=== PATIENT | female | born 1935 | race Caucasian/White ===

== ENCOUNTER 2023-03-14 08:38 | Emergency (ER) | payer OTHER, SELFPAY ==
[2023-03-14] VITALS (7 sets, daily range): BP systolic 140–165; BP diastolic 76–90; BMI 16.8
--- NOTE | 2023-03-14 08:43 | ED.GENMED ---
History of Present Illness
General
Chief Complaint: Chest Pain
Source: patient
Exam Limitations: none
Time Seen by Provider: 03/14/23 08:43
Nursing documentation reviewed up to this point in time: agreed with
History of Present Illness
History of Present Illness:
88-year-old female with past medical history of cardiomyopathy chronic systolic heart failure left bundle branch block pacemaker A-fib mitral valve and tricuspid valve repair sick sinus syndrome aortic stenosis with TAVR, GI bleed, hyperlipidemia
hypothyroidism nonobstructive CAD
Pt presents from [facility] presents to the ER for evaluation of chest pain. Patient reports she woke up at 4 AM to go bathroom and noticed she had pain across her chest radiating down both of her arms. Her pain has persisted which the prompted her
to come to the ER. She was not sure if this was a panic attack versus chest pain from having a heart attackor muscle pain. She denies any injury.
She is on chronic anticoagultion .
She currently denies any symptoms she had no associated shortness of breath with this nausea vomiting diaphoresis.
Past History
Past History
ED Past Medical History: Arrthythmia, CHF, HTN, Hypercholesterolemia, Valvular disease, Hypothyroidism and Other
ED Past Surgical History: Cardiac (History of cardiac ablation x3, multiple cardioversions, mitral and tricuspid valve repair) and Other (Breast biopsy, D&C, bilateral cataract surgery with lens implants)
Social History
Tobacco: Non-smoker
Alcohol: None
Drug: None
Personal:
Living: with family
Employment: Retired
Family History
Family History: Hypertension
Review of Systems
Review of Systems
Allergies reviewed?: Yes
All Other Systems: ROS reviewed and negative except as documented in HPI and ROS
Constitutional: Reports no symptoms; Denies fever, fatigue or chills
EENT: Reports no symptoms
Respiratory: Reports no symptoms; Denies trouble breathing
Cardiac: Reports chest pain; Denies diaphoresis, palpitations or syncope
ABD/GI: Reports no symptoms
: Reports no symptoms
Musculoskeletal: Reports no symptoms
Skin: Reports no symptoms
Neurological: Reports no symptoms
Psychiatric: Reports no symptoms
Phy Exam
General Physical Exam
General Presentation: no apparent distress
General age: appears stated age
General Skin: warm and dry
General Habitus: elderly
General Mental: alert
General Hydration: appears well hydrated
Cardiovascular Exam
Cardiovascular Exam: regular rate/rhythm, no murmur and normal peripheral pulses
Pulmonary Exam
Pulmonary Exam: lungs clear and no respiratory distress
Neurological Exam
Neurological Exam: alert and oriented x3
Musculoskeletal Exam
Musculoskeletal Exam: full ROM
Skin Exam
Skin Exam: normal color
Psychiatric Exam
Psychiatric Exam: normal mood/affect
Scores
Heart Score for Chest Pain Patients
STEMI patient?: Not applicable
Course
Orders/Labs/Results
Orders:
Orders
03/14/23 08:42
Electrocardiogram (*1) Urgent
Reason for Study: Chest Pain
EKG- Treatment ONCE
03/14/23 08:50
Basic Metabolic Panel Urgent
Complete Blood Count/With Diff Urgent
Troponin I Urgent
03/14/23 09:08
Chest [CR Chest - 2 Views ] Urgent
Comment:
Reason For Exam: cp
03/14/23 12:44
Electrocardiogram (*1) Urgent
Reason for Study: Chest Pain
EKG- Treatment ONCE
03/14/23 13:07
Troponin I Urgent
Abnormal Lab Results
03/14/23
08:50
WBC 2.9 L 10^3/uL
(4.8-10.8)
RBC 3.04 L 10^6/uL
(4.20-5.40)
Hgb 10.4 L g/dL
(12.0-16.0)
Hct 30.4 L %
(37.0-47.0)
MCV 100.0 H fL
(81.0-99.0)
MCH 34.2 H pg
(27.0-31.0)
Plt Count 118 L 10^3/uL
(130-400)
MPV 11.7 H fL
(7.4-10.4)
Absolute Lymphs (auto) 1.1 L 10^3/uL
(1.2-3.4)
Monocytes % 9.4 H %
(1.7-9.3)
Sodium 124 L mmol/L
(135-145)
Chloride 93 L mmol/L
(98-107)
Carbon Dioxide 31 H mmol/L
(22-30)
BUN 21 H mg/dl
(7-17)
03/14/23 08:50
03/14/23 08:50
Vital Signs
Initial and Last Documented VS:
Initial Vital Signs
Temp Pulse Resp BP Pulse Ox
97.6 F 72 16 165/90 99
03/14/23 08:43 03/14/23 08:43 03/14/23 08:43 03/14/23 08:43 03/14/23 08:43
Last Documented Vital Signs
Temp Pulse Resp BP Pulse Ox
97.6 F 72 20 140/83 99
03/14/23 08:43 03/14/23 13:45 03/14/23 13:45 03/14/23 10:00 03/14/23 13:15
Bow Tacker consulted with Physician
Bow Tacker consulted with physician?: Yes
Name of Physician Consulted: Curt
MDM/Problems Addressed
Differential Diagnosis Includes:
Not limited to: CAD muscle pain
MDM/Problems Addressed:
patient is [id number] female who presented for an episode of chest pain at 4 AM. Patient has been asymptomatic here in the ER.
Medics questioned A-fib on arrival however patient's EKG shows a ventricular paced rhythm with a heart rate of 70.
Patient has been in no acute distress patient has a monitor and has had 2 negative cardiac troponins and unremarkable EKG.
Patient's [employer] pacemaker was interrogated shows that patient has chronic atrial arrhythmia since March 27, 2021. This is unchanged. She continues to be V paced.
Patient's sodium was mildly low at 124 however patient has had hyponatremia in the past. White count also mildly low at 2.9 however patient has been as low as 3.0 in the past.
With 2 neg cardiac troponins and no CP here in the ER will d/c home w/ cardiology follow up.
*Radiology
Radiology exam reviewed: radiology read reviewed
*Pulse Oximetry
Patient hypoxic: no
*EKG
Interpreted by ED Provider?: Yes
Heart Rate: 70
Rate: normal
Rhythm: ventricular paced
Ischemia: no ischemia
*Critical Care Note
Total Time (30-74mins, 75-104mins- exclusive of procedures): Not Applicable
Data Reviewed
Review of Other/Old Records Reveals: Discharge Summary
ED Attending Note
-
Portions of this chart may have been created with voice recognition software.� Occasional wrong word or��sound alike� substitutions may have occurred due to the inherent limitations of voice recognition software.
Discharge Plan
Departure
Patient Disposition: Home (Routine Discharge)
Date of Disposition: 03/14/23
Time of Disposition: 14:53
Patient with high blood pressure during this ER visit?: Yes
Covid-19: Not Applicable
Discharge Problem:
Chest pain
Instructions: Chest Pain DCA Follow Up
Prescriptions:
No Action
furosemide 20 MG tablet
20 mg PO DAILY
ezetimibe 10 MG tablet
10 mg PO QPM Qty: 0 0RF
levothyroxine 112 MCG tablet
112 mcg PO MOTUWETHFRSA@0700
calcium citrate-vitamin D3 [Citracal + D Maximum] 1 EACH tablet
1 ea PO DAILY
carvedilol 3.125 MG tablet
3.125 mg PO BID
Eliquis 2.5 mg Tablet
2.5 mg PO BID
Ferretts IPS 40 mg/15 mL liquid
15 ml PO Q48H
Patient Comments:
03/14/2023, pt. takes Q48H in mid-afternoon.
sennosides [senna] 8.6 mg Tablet
8.6 mg PO QPMPRN PRN (Reason: constipation)
docusate calcium [Stool Softener (docusate price)] 240 mg Capsule
240 mg PO QPMPRN PRN (Reason: constipation)
aspirin 81 mg Tablet,Delayed Release (Dr/Ec)
81 mg PO ONCE
acetaminophen [Tylenol Arthritis] 650 mg Tablet Extended Release
650 mg PO DAILYPRN PRN (Reason: mild pain)
cholecalciferol (vitamin D3) 25 mcg (1,000 unit) Tablet
25 mcg PO DAILY
Referrals:
Sho Merchant MD [Family Provider] -
Activity Restrictions/Additional Instructions:
Follow-up with cardiology as discussed in the next several days.
return if any worsening of symptoms.
Interventions
Interventions:
*Risk Screen - Suicide Last Done: 03/14/23 08:43
*General Assessment Last Done: 03/14/23 08:43
*Neglect/Abuse Screening Last Done: 03/14/23 08:43
ED- Fall Risk Assessment Last Done: 03/14/23 08:43
*ED COVID-19 Vaccine History Last Done: 03/14/23 08:43
ED- Cardiac Assessment Last Done: 03/14/23 08:43
[2023-03-14 09:00] LABS: % Basophils 0.7 % (0-2); % Immature Granulocytes 0.3 % (0-0.5); % Lymphocytes 38.7 % (20.5-51.1); % Monocytes 9.4 % (1.7-9.3); % Neutrophils 49.9 % (42.2-75.2); Absolute Lymphocytes 1.1 10^3/uL (1.2-3.4); Absolute Monocytes 0.3 10^3/uL (0.1-0.6); Absolute Neutrophils 1.4 10^3/uL (1.4-6.5); Hematocrit 30.4 % (37.0-47.0); Hemoglobin 10.4 g/dL (12.0-16.0); Mean Corp Hgb Conc. 34.2 g/dL (33.0-37.0); Mean Corpuscular Hgb 34.2 pg (27.0-31.0); Mean Platelet Volume 11.7 fL (7.4-10.4); Nucleated Red Blood Cells % 0 %; Platelet Count 118 10^3/uL (130-400); Red Blood Cell Count 3.04 10^6/uL (4.20-5.40); White Blood Cell Count 2.9 10^3/uL (4.8-10.8)
[2023-03-14 09:28] LABS: Blood Urea Nitrogen 21 mg/dl (7-17); Calcium 8.9 mg/dl (8.4-10.2); Carbon Dioxide 31 mmol/L (22-30); Chloride 93 mmol/L (98-107); Estimated Creatinine Clearance 44 ml/min; Glucose 86 mg/dl (70-99); Sodium 124 mmol/L (135-145); eGFR > 60.00
[2023-03-14 09:29] LABS: Troponin I 0.016 ng/ml
[2023-03-14 13:41] LABS: Troponin I < 0.012 ng/ml
== END 2023-03-14 16:15 | disposition home or self-care (01) ==
LOC: EMR 08:38
PROVIDERS: Nurse Practitioner; EMERGENCY PHYSICIAN Emergency Medicine; FAMILY PHYSICIAN Family Medicine
DX: R07.89 Other chest pain (principal); I44.7 Left bundle-branch block, unspecified; I42.9 Cardiomyopathy, unspecified; I48.91 Unspecified atrial fibrillation; I49.5 Sick sinus syndrome; I11.0 Hypertensive heart disease with heart failure; I50.22 Chronic systolic (congestive) heart failure; I38 Endocarditis, valve unspecified; E03.9 Hypothyroidism, unspecified; E78.00 Pure hypercholesterolemia, unspecified; I25.10 Atherosclerotic heart disease of native coronary artery without angina pectoris; I35.0 Nonrheumatic aortic (valve) stenosis; Z82.49 Family history of ischemic heart disease and other diseases of the circulatory system
CPT/HCPCS: 99283; 71046; 80048; 84484; 85025; 93005

== ENCOUNTER → 2023-03-19 10:37 | Outpatient (REF) | payer OTHER, SELFPAY ==
[2023-03-19 11:17] LABS: Carbon Dioxide 31 mmol/L (22-30); Chloride 89 mmol/L (98-107); Potassium 4.8 mmol/L (3.5-5.1); Sodium 127 mmol/L (135-145)
== END ==
LOC: OLABWIL 10:37
PROVIDERS: ATTENDING PHYSICIAN Specialist
DX: I10 Essential (primary) hypertension (principal); E87.1 Hypo-osmolality and hyponatremia
CPT/HCPCS: 36415; 80051

== ENCOUNTER → 2023-04-02 11:27 | Outpatient (REF) | payer OTHER, SELFPAY ==
[2023-04-02 12:16] LABS: Carbon Dioxide 30 mmol/L (22-30); Chloride 93 mmol/L (98-107); Potassium 5.2 mmol/L (3.5-5.1); Sodium 126 mmol/L (135-145)
== END ==
LOC: OLABWIL 11:27
PROVIDERS: ATTENDING PHYSICIAN Specialist
DX: I10 Essential (primary) hypertension (principal); E78.00 Pure hypercholesterolemia, unspecified; D50.9 Iron deficiency anemia, unspecified
CPT/HCPCS: 36415; 80051

== ENCOUNTER → 2023-04-11 12:34 | Outpatient (REF) | payer OTHER, SELFPAY ==
[2023-04-11 13:28] LABS: Carbon Dioxide 31 mmol/L (22-30); Chloride 90 mmol/L (98-107); Potassium 4.5 mmol/L (3.5-5.1); Sodium 130 mmol/L (135-145)
== END ==
LOC: OLABWIL 12:34
PROVIDERS: ATTENDING PHYSICIAN Specialist
DX: E78.00 Pure hypercholesterolemia, unspecified (principal); I10 Essential (primary) hypertension; D50.9 Iron deficiency anemia, unspecified
CPT/HCPCS: 36415; 80051

== ENCOUNTER → 2023-04-25 11:59 | Outpatient (REF) | payer OTHER, SELFPAY ==
[2023-04-25 13:15] LABS: Carbon Dioxide 32 mmol/L (22-30); Chloride 90 mmol/L (98-107); Potassium 4.8 mmol/L (3.5-5.1); Sodium 128 mmol/L (135-145)
== END ==
LOC: OLABWIL 11:59
PROVIDERS: ATTENDING PHYSICIAN Specialist
DX: I10 Essential (primary) hypertension (principal); D50.9 Iron deficiency anemia, unspecified
CPT/HCPCS: 36415; 80051

== ENCOUNTER → 2023-05-09 11:29 | Outpatient (REF) | payer OTHER, SELFPAY ==
[2023-05-09 12:15] LABS: Carbon Dioxide 30 mmol/L (22-30); Chloride 93 mmol/L (98-107); Potassium 5.4 mmol/L (3.5-5.1); Sodium 129 mmol/L (135-145)
== END ==
LOC: OLABWIL 11:29
PROVIDERS: ATTENDING PHYSICIAN Specialist
DX: I10 Essential (primary) hypertension (principal); E87.1 Hypo-osmolality and hyponatremia
CPT/HCPCS: 36415; 80051

== ENCOUNTER → 2023-05-30 09:41 | Outpatient (REF) | payer OTHER, SELFPAY ==
[2023-05-30 10:12] LABS: % Eosinophils 1.9 % (0-6); % Lymphocytes 41.6 % (20.5-51.1); % Monocytes 9.2 % (1.7-9.3); % Neutrophils 46.3 % (42.2-75.2); Absolute Eosinophils 0.1 10^3/uL (0-0.7); Absolute Lymphocytes 1.3 10^3/uL (1.2-3.4); Absolute Monocytes 0.3 10^3/uL (0.1-0.6); Absolute Neutrophils 1.5 10^3/uL (1.4-6.5); Hematocrit 29.8 % (37.0-47.0); Hemoglobin 10.2 g/dL (12.0-16.0); Mean Corp Hgb Conc. 34.2 g/dL (33.0-37.0); Mean Corpuscular Hgb 34.7 pg (27.0-31.0); Mean Corpuscular Volume 101.4 fL (81.0-99.0); Mean Platelet Volume 11.6 fL (7.4-10.4); Nucleated Red Blood Cells % 0 %; Platelet Count 121 10^3/uL (130-400); Red Blood Cell Count 2.94 10^6/uL (4.20-5.40); Red Cell Dist. Width 13.5 % (11.5-14.5); White Blood Cell Count 3.2 10^3/uL (4.8-10.8)
[2023-05-30 10:29] LABS: Carbon Dioxide 30 mmol/L (22-30); Chloride 90 mmol/L (98-107); Iron 111 ug/dl (37-170); Potassium 4.5 mmol/L (3.5-5.1); Sodium 126 mmol/L (135-145)
[2023-05-30 10:38] LABS: Percent Saturation 33 % (20-50); Total Iron Binding Capacity 335 ug/dl (265-497)
[2023-05-30 11:01] LABS: Ferritin 64.8 ng/ml (11.1-264.0)
== END ==
LOC: OLABWIL 09:41
PROVIDERS: ATTENDING PHYSICIAN Nurse Practitioner Adult Health; OTHER PHYSICIAN Specialist
DX: D50.0 Iron deficiency anemia secondary to blood loss (chronic) (principal); I10 Essential (primary) hypertension; E03.9 Hypothyroidism, unspecified; D50.9 Iron deficiency anemia, unspecified; D05.80 Other specified type of carcinoma in situ of unspecified breast
CPT/HCPCS: 80051; 82728; 83540; 83550; 85025

== ENCOUNTER → 2023-06-20 11:26 | Outpatient (REF) | payer OTHER, SELFPAY ==
[2023-06-20 12:42] LABS: Carbon Dioxide 30 mmol/L (22-30); Chloride 92 mmol/L (98-107); Potassium 4.8 mmol/L (3.5-5.1); Sodium 127 mmol/L (135-145)
== END ==
LOC: OLABWIL 11:26
PROVIDERS: ATTENDING PHYSICIAN Specialist
DX: I10 Essential (primary) hypertension (principal); E87.1 Hypo-osmolality and hyponatremia
CPT/HCPCS: 36415; 80051

== ENCOUNTER 2023-07-05 23:24 | Inpatient (IN) | payer OTHER, SELFPAY ==
[2023-07-05 21:00] VITALS: BP 172/82
[2023-07-05 21:01] VITALS: BP 172/82
[2023-07-05 21:07] VITALS: BMI 17.7
[2023-07-05 21:07] LABS: Glucose - Point of Care 110 mg/dl (70-99)
--- NOTE | 2023-07-05 21:11 | ED.GENMED ---
History of Present Illness
General
Chief Complaint: Change in Mental Status
Source: patient
Exam Limitations: none
Time Seen by Provider: 07/05/23 21:03
Travel History
Have you had any contact with someone who has COVID-19?: No
Do you have any symptoms of coronavirus? Fever > 100 degrees, chills, cough, shortness of breath, sore throat, loss of taste or smell, muscle aches, or headache?: No
History of Present Illness
History of Present Illness:
See MDM
Past History
Past History
ED Past Medical History: Arrthythmia, CHF, HTN, Hypercholesterolemia, Valvular disease, Hypothyroidism and Other
ED Past Surgical History: Cardiac (History of cardiac ablation x3, multiple cardioversions, mitral and tricuspid valve repair) and Other (Breast biopsy, D&C, bilateral cataract surgery with lens implants)
Social History
Tobacco: Non-smoker
Alcohol: None
Drug: None
Personal:
Living: with family
Employment: Retired
Family History
Family History: Hypertension
Phy Exam
Physical Exam
Physical Exam:
See MDM
Scores
NIH Stroke Score
Level of Consciousness: 0 - Alert
LOC Questions: 0-Answers both correctly
LOC Commands: 0-Performs both correctly
Best Horizontal Gaze: 0-Normal
Visual Ryan: 0=Normal, no visual loss
Facial Palsy: 0=Normal, symmetrical
Motor - Right Arm: 0=No drift 10 seconds
Motor - Left Arm: 0=No drift 10 seconds
Motor - Right Le-No drift 5 seconds
Motor - Left Le-No drift 5 seconds
Limb Ataxia: 0-Absent
Sensation: 0-Normal
Best Language: 0-No aphasia
Dysarthria: 0-Normal
Extinction and Inattention: 0-No abnormality
Total Score:: 0
Course
Orders/Labs/Results
Orders:
Orders
07/05/23 21:10
Electrocardiogram (*1) Urgent
Reason for Study: TIA/Stroke
CT Head W/o Iv Contrast Urgent
Comment:
Reason For Exam: resolving confusion and aphasia
EKG- Treatment ONCE
Urinalysis Reflex To Culture Urgent
07/05/23 21:16
Complete Blood Count/With Diff Urgent
Comprehensive Metabolic Panel Urgent
PTT Urgent
Prothrombin Time Urgent
Abnormal Lab Results
07/05/23 07/05/23
21:06 21:16
RBC 3.00 L 10^6/uL
(4.20-5.40)
Hgb 10.4 L g/dL
(12.0-16.0)
Hct 29.4 L %
(37.0-47.0)
MCH 34.7 H pg
(27.0-31.0)
Plt Count 128 L 10^3/uL
(130-400)
MPV 11.9 H fL
(7.4-10.4)
Absolute Lymphs (auto) 1.1 L 10^3/uL
(1.2-3.4)
Neutrophils % 78.4 H %
(42.2-75.2)
Lymphocytes % 13.6 L %
(20.5-51.1)
Sodium 124 L mmol/L
(135-145)
Chloride 86 L mmol/L
(98-107)
BUN 36 H mg/dl
(7-17)
AST 66 H U/L
(14-36)
POC Glucose 110 H mg/dl
(70-99)
07/05/23 21:16
07/05/23 21:16
Vital Signs
Initial and Last Documented VS:
Initial Vital Signs
BP
172/82
07/05/23 21:00
Last Documented Vital Signs
Temp Pulse Resp BP Pulse Ox
97.5 F 70 15 125/78 98
07/05/23 21:01 07/05/23 22:30 07/05/23 22:30 07/05/23 22:16 07/05/23 22:15
MDM/Problems Addressed
Differential Diagnosis Includes:
HPI and MDM Narrative:
88-year-old female presenting for evaluation for possible TIA. Around 7 PM, patient felt dizzy and confused. She called the front desk team member indicating concern for possible stroke. 911 was called. On arrival, EMS stating that she had a blank stare and
appeared aphasic. Patient acknowledges this and states she was having trouble getting the words out. It is not certain how long the symptoms lasted. On arrival to the emergency department around 9 PM, patient states she started to feel better.
She still complains of a fogginess sensation but denies numbness, weak or trouble speaking
Patient is not a lytic candidate. NIH is currently 0 and she took Eliquis at nighttime
Physical exam
General: Well appearing and non-toxic
HEENT: protecting airway
Neck: appears supple
CV: No evidence of cyanosis. Regular rate and rhythm
Resp: No accessory muscle use
Abd: Non-distended
Extremities: No deformities
Neuro: alert. No focal deficits
Psych: Normal affect
Skin: Intact
Problems Addressed including Acute and Chronic Conditions affecting care:
1. Transient confusion
Acuity: acute
Prognosis: stable
Details: Likely in setting of TIA. Will look for alternative sources of confusion such as metabolic derangement and urinary tract infection. Doubt either one of them since symptoms resolved. Will obtain CT head
2. Hyponatremia
Acuity: acute
Prognosis: unstable
Details: Patient states she is followed by renal and currently on a water restriction. Sodium was 124 but she is symptom-free
Updates
CT head negative. Patient states she took her nighttime Eliquis tonight. Will admit based on transient confusion and hyponatremia
Differential Diagnosis (but not limited to): TIA, hyponatremia, UTI
Testing considered: Carotid ultrasound
Drug therapy (if applicable): OTC meds, please see d/c instruction regarding Rx drugs
Amount and/or Complexity of Data Reviewed
Clinical info obtained from: Patient
External data reviewed: N/A
Labs I independently reviewed (but not limited to): Hyponatremia
Radiology: The CT scan was personally and independently reviewed. In addition, official CT report reviewed.
Pulse Ox: not hypoxic
EKG independently reviewed: Ventricular paced rhythm, normal axis, no STEMI
R And D Lab Technician: Paced rhythm
Critical Care: N/A
Risk of Complication:
Social Determinants of health: Good social support
Discussed with other providers: Hospitalist
Escalation of Care includes Admit/Obs: Given the transient confusion and hyponatremia, will admit
Occasional wrong word or 'sound a like' substitutions may have occurred due to the inherent limitations of voice recognition software. Read the chart carefully and recognize, using context, where substitutions have occurred.
*Critical Care Note
Total Time (30-74mins, 75-104mins- exclusive of procedures): Not Applicable
ED Attending Note
-
Portions of this chart may have been created with voice recognition software.� Occasional wrong word or��sound alike� substitutions may have occurred due to the inherent limitations of voice recognition software.
Discharge Plan
Departure
Patient Disposition: Admit
Date of Disposition: 07/05/23
Time of Disposition: 22:44
Admit to: Telemetry
Presentation/result/management discussed w/ accepting MD/DO: Hospitalist
Discharge Problem:
Brain TIA, Acute hyponatremia
Prescriptions:
No Action
ezetimibe 10 MG tablet
10 mg PO QPM Qty: 0 0RF
levothyroxine 112 MCG tablet
112 mcg PO MOTUWETHFRSA@0700
calcium citrate-vitamin D3 [Citracal + D Maximum] 1 EACH tablet
1 ea PO DAILY
carvedilol 3.125 MG tablet
3.125 mg PO BID
Eliquis 2.5 mg Tablet
2.5 mg PO BID
Ferretts IPS 40 mg/15 mL liquid
15 ml PO Q48H
Patient Comments:
03/14/2023, pt. takes Q48H in mid-afternoon.
sennosides [senna] 8.6 mg Tablet
8.6 mg PO QPMPRN PRN (Reason: constipation)
docusate calcium [Stool Softener (docusate price)] 240 mg Capsule
240 mg PO QPMPRN PRN (Reason: constipation)
acetaminophen [Tylenol Arthritis] 650 mg Tablet Extended Release
650 mg PO DAILYPRN PRN (Reason: mild pain)
cholecalciferol (vitamin D3) 25 mcg (1,000 unit) Tablet
25 mcg PO DAILY
furosemide 40 mg tablet
40 mg PO DAILY
Referrals:
Sho Merchant MD [Family Provider] -
Interventions
Interventions:
*Risk Screen - Suicide Last Done: 07/05/23 21:09
*General Assessment Last Done: 07/05/23 21:09
*Neglect/Abuse Screening Last Done: 07/05/23 21:09
ED- Fall Risk Assessment Last Done: 07/05/23 22:31
*ED COVID-19 Vaccine History Last Done: 07/05/23 21:09
ED- Neurological Assessment Last Done: 07/05/23 21:10
ED- Cardiac Assessment Last Done: 07/05/23 22:31
Discharge Date and Time
Print Language: BELARUSIAN
[2023-07-05 21:29] LABS: % Basophils 0.4 % (0-2); % Eosinophils 1.3 % (0-6); % Immature Granulocytes 0.4 % (0-0.5); % Lymphocytes 13.6 % (20.5-51.1); % Monocytes 5.9 % (1.7-9.3); % Neutrophils 78.4 % (42.2-75.2); Absolute Eosinophils 0.1 10^3/uL (0-0.7); Absolute Lymphocytes 1.1 10^3/uL (1.2-3.4); Absolute Monocytes 0.5 10^3/uL (0.1-0.6); Absolute Neutrophils 6.4 10^3/uL (1.4-6.5); Hematocrit 29.4 % (37.0-47.0); Hemoglobin 10.4 g/dL (12.0-16.0); Mean Corp Hgb Conc. 35.4 g/dL (33.0-37.0); Mean Corpuscular Hgb 34.7 pg (27.0-31.0); Mean Platelet Volume 11.9 fL (7.4-10.4); Nucleated Red Blood Cells % 0 %; Platelet Count 128 10^3/uL (130-400); Red Cell Dist. Width 13.7 % (11.5-14.5); White Blood Cell Count 8.2 10^3/uL (4.8-10.8)
[2023-07-05 21:34] LABS: INR 0.99; PT 12.9 Sec (11.4-14.6)
[2023-07-05 21:35] LABS: APTT 32.3 Sec (23.4-35.0)
[2023-07-05 21:42] LABS: ALT (SGPT) 31 U/L (0-35); AST (SGOT) 66 U/L (14-36); Albumin 4.7 g/dl (3.5-5.0); Alkaline Phosphatase 43 U/L (38-126); Blood Urea Nitrogen 36 mg/dl (7-17); Calcium 9.7 mg/dl (8.4-10.2); Carbon Dioxide 29 mmol/L (22-30); Chloride 86 mmol/L (98-107); Estimated Creatinine Clearance 33 ml/min; Glucose 92 mg/dl (70-99); Potassium 4.8 mmol/L (3.5-5.1); Sodium 124 mmol/L (135-145); Total Bilirubin 0.8 mg/dl (0.2-1.3); Total Protein 7.3 g/dl (6.3-8.2); eGFR > 60.00
[2023-07-05 22:16] VITALS: BP 125/78
--- NOTE | 2023-07-05 22:49 | HPS.HSE ---
Family Physician
-
Family Physician: Sho Merchant
Chief Complaint
-
expressing herself
finding words
History of Present Illness
88 year old with PMH for anemia, hypothyroidism, atrial fib, htn, CHF, hld, sick sinus syndrome presented to us with processing thoughts,finding words and expressive aphasia which lasted for 30minutes. patient is back to baseline. denied POLANCO, dizzy
or syncopal episode. denied fever, chills, chest pain, sob.denied abdominal pain, n,v,d. denied dysuria or hematuria. denied any focal weakness.
Head CT with no acute findings. admitting for further managment.
Medical History
Past Medical History
Past Medical History: Reports Other
Additional Past Medical History:
iron deficiency anemia
hypothyroidism
colon polyps
atrial fib
htn
CHF
hld
sick sinus syndrome
GERD
mutral valve insufficiency
Past Surgical History: Reports Other
Additional Past Surgical History:
TAVR
cardiac ablation
left breast lumpectomy
cataracts extraction
AVR
pacemaker
Social History
Tobacco: Non-smoker
Alcohol: None
Drug: None
Personal: Single
Living: Alone
Family History
Family History: Not pertinent
Allergies / Home Medications
Allergies reflects when Allergies were last updated in [facility].
Home Medications with original date entered in [facility]
Allergy/Medication List:
Allergies
Allergy/AdvReac Type Severity Reaction Status Date / Time
adhesive Allergy itching - Verified 07/05/23 21:00
redness
amiodarone Allergy elevated Verified 07/05/23 21:00
LFTs
bupivacaine Allergy Shortness Verified 07/05/23 21:00
[From of Breath
Sensorcaine-Epinephrine]
cat dander Allergy SNEEZING/WH Verified 07/05/23 21:00
EEZING
codeine Allergy light Verified 07/05/23 21:00
headed and
dizzy
epinephrine Allergy Shortness Verified 07/05/23 21:00
[From of Breath
Sensorcaine-Epinephrine]
prilocaine Allergy LIGHTHEADED, Verified 07/05/23 21:00
DIZZY
Sulfa (Sulfonamide Allergy Nausea Verified 07/05/23 21:00
Antibiotics)
sulfamethoxazole Allergy nausea-DID Verified 07/05/23 21:00
NOT
TOLERATE
WELL
Home Medications
ezetimibe 10 mg tablet 10 mg PO QPM High cholesterol ##0 11/29/20
levothyroxine 112 mcg tablet 112 mcg PO MOTUWETHFRSA@0700 12/28/20
calcium citrate 315 mg calcium-vitamin D3 6.25 mcg (250 unit) tablet (Citracal + Vitamin D Maximum) 1 ea PO DAILY 03/27/21
carvedilol 3.125 mg tablet 3.125 mg PO BID 03/27/21
acetaminophen 650 mg tablet,extended release 650 mg PO DAILYPRN PRN mild pain 03/14/23
apixaban 2.5 mg tablet (Eliquis) 2.5 mg PO BID 03/14/23
cholecalciferol (vitamin D3) 25 mcg (1,000 unit) tablet 25 mcg PO DAILY 03/14/23
docusate calcium 240 mg capsule (Stool Softener (docusate calcium)) 240 mg PO QPMPRN PRN constipation 03/14/23
iron succinyl-protein complex 40 mg/15 mL oral liquid (Ferretts IPS) 15 ml PO Q48H 03/14/23
sennosides 8.6 mg tablet (senna) 8.6 mg PO QPMPRN PRN constipation 03/14/23
furosemide 40 mg tablet 40 mg PO DAILY 07/05/23
Review of Systems
-
Constitutional: Reports No Symptoms
EENT: Reports No Symptoms
Respiratory: Reports No Symptoms
Cardiac: Reports No Symptoms
Abdomen/GI: Reports No Symptoms
: Reports No Symptoms
Musculoskeletal: Reports No Symptoms
Skin: Reports No Symptoms
Neurological: Reports Other (trouble processing thoughts, expressive aphasia)
Endocrine: Reports No Symptoms
Hematologic/Lymphatic: Reports No Symptoms
Psych: Reports No Symptoms
Physical Exam
Vital Signs
Vital Signs
Temp Pulse Resp BP Pulse Ox
97.5 F 70 15 125/78 98
07/05/23 21:01 07/05/23 22:30 07/05/23 22:30 07/05/23 22:16 07/05/23 22:15
Physical Exam
General: Well Developed, Well Nourished and No Apparent Distress
HEENT: NormoCephalic, Moist mucous membranes and Atraumatic
Respiratory: Clear
Cardiac: S1/S2 and Regular Rhythm; No Murmur or Rub
GI: Soft, Non Tender, Non Distended and Normal Bowel Sounds; No Organomegaly
Rectal: Deferred by Provider
Musculoskeletal: No Clubbing, No Cyanosis and No Edema
Skin: No Rash
Neuro: AO x 3 and Nonfocal/grossly intact
Psych: Calm
Laboratory Results
-
07/05/23 21:16
07/05/23 21:16
Laboratory Results
PT 12.9 Sec (11.4-14.6) 07/05/23 21:16
INR 0.99 07/05/23 21:16
APTT 32.3 Sec (23.4-35.0) 07/05/23 21:16
Total Bilirubin 0.8 mg/dl (0.2-1.3) 07/05/23 21:16
AST 66 U/L (14-36) H 07/05/23 21:16
ALT 31 U/L (0-35) 07/05/23 21:16
Alkaline Phosphatase 43 U/L (38-126) 07/05/23 21:16
Data Reviewed
-
CT Scan: Report Reviewed by me
Lab Data: Labs Reviewed by me
Impression/Plan
-
#expressive aphasia r/o acute CVA
-CT head negative
-obtain MRi//MRA
-obtain a1c,lipid profile
-asa, statin
-PT/OT consult
-neuro consult
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
-na 124
-fluid restriction continued
-patient on 40oz flud restriction
-ctm
#anemia of chronic disease
-hgb 10.4
-no active bleeding
-ctm
#paroxysmal atrial fib
-EKG with ventricular paced rhythm
-coreg, eliquis continued
#HLD
-zetia continued
#hxt of CHF
-not in acute exacerbation
-daily weight
-strict I&O
-cardiology consulted
#Hypothyroidism
-levothyroxine continued
#DVT prophylaxis
-eliquis
#CODE status
-DNR
#
[2023-07-05 23:00] VITALS: BP 129/83
--- NOTE | 2023-07-05 23:11 | W.PN.UPDATE ---
Update Note
Progress Note Update
This is an addendum to the H&P written by Mariam Allen on 07/05/2023.
Patient seen and examined independently with DRY END TESTER. 88-year-old female past medical history of atrial fibrillation status post cardiac ablation x 3, multiple cardioversions on Eliquis, aortic stenosis status post TAVR, mitral and tricuspid valve
repair, HFpEF, hypertension, chronic hyponatremia, hypercholesterolemia, hypothyroidism, hemolytic anemia, consumptive thrombocytopenia, presenting with 30 minutes of aphasia earlier today now resolved. Currently asymptomatic.
CT head shows no acute abnormality. Likely TIA. Check MRI/MRA head and neck. Continue Eliquis. Neurology consulted.
Patient with chronic hyponatremia secondary to SIADH sodium 124 from 127 at baseline. Continue 40 ounce fluid restriction.
[2023-07-06] VITALS (10 sets, daily range): BP systolic 91–164; BP diastolic 55–88; PULSE 69; O2SAT 99; BMI 16.8; BMI 17.7
--- NOTE | 2023-07-06 01:15 | PTCARENOTE ---
Pt. was admitted from [facility], AAO x 3, vs stable, NIH 0, AV paced with a-flutter on monitor, call yu within reach.
[2023-07-06 01:46] LABS: Urine Albumin Negative (Neg - Trace); Urine Bilirubin Negative (Negative); Urine Character Clear (Clear); Urine Color Yellow; Urine Glucose Negative (Negative); Urine Ketone Negative (Negative); Urine Leukocyte Trace (Negative); Urine Nitrite Negative (Negative); Urine Occult Blood Negative (Negative); Urine Urobilinogen Negative (Neg - 1+)
[2023-07-06 01:55] LABS: Urine Bacteria Few (Negative); Urine Red Blood Cell None Seen /HPF (0-2)
[2023-07-06] MEDS: SYNTHROID 112 MCG PO (05:30)
[2023-07-06] MEDS: TYLENOL 650 MG PO ×2 (06:00→21:47)
[2023-07-06 07:31] LABS: Blood Urea Nitrogen 30 mg/dl (7-17); Calcium 9.3 mg/dl (8.4-10.2); Carbon Dioxide 30 mmol/L (22-30); Chloride 89 mmol/L (98-107); Estimated Creatinine Clearance 37 ml/min; Glucose 67 mg/dl (70-99); HDL Cholesterol 107 mg/dl; LDL Cholesterol, Calculated 45 mg/dl; Potassium 5.1 mmol/L (3.5-5.1); Sodium 128 mmol/L (135-145); Total Cholesterol 163 mg/dl (50-199); Triglyceride 59 mg/dl (10-149); Very Low Density Lipoprotein 11 mg/dl (0-30); eGFR > 60.00
[2023-07-06] MEDS: COREG 3.125 MG PO ×2 (09:22→19:48)
[2023-07-06] MEDS: LOW STRENGTH ASPIRIN 81 MG PO (09:23)
[2023-07-06] MEDS: OSCAL 500 + D 500 MG PO (09:23)
[2023-07-06] MEDS: ELIQUIS 2.5 MG PO ×2 (09:23→19:48)
[2023-07-06] MEDS: LASIX 40 MG PO (09:23)
[2023-07-06 09:50] LABS: Glycohemoglobin (HgbA1c) 5.1 % (4.0-5.6)
--- NOTE | 2023-07-06 10:08 | PTOTSP ---
SPEECH THERAPY SWALLOW EVALUATION:
Patient exhibits grossly functional oropharyngeal swallow at this time, with no signs of aspiration at this time. No prior ST services. WBC WNL. Patient remains at risk for dysphagia/aspiration given TIA in the setting of advanced age. Recommend
continue Regular texture diet, thin liquids. Meds whole with liquids. General aspiration precautions: Upright positioning, small sips/bites, slow rate. Speech therapy to follow, assess diet tolerance and modify as appropriate, and follow for full
speech/language/cognitive communication evaluation.
RECOMMEND:
1) Regular texture diet, thin liquids
2) Meds whole with liquids
3) General aspiration precautions: Upright positioning, small sips/bites, slow rate
4) Speech therapy to follow, assess diet tolerance and modify as appropriate, and follow for full speech/language/cognitive communication evaluation
--- NOTE | 2023-07-06 10:23 | CON.NEURO4 ---
Consultation - Neurology 4
-
CONSULTING PHYSICIAN: Brandon
REFERRING PHYSICIAN: hospitalist
DICTATED BY: Brandon
DATE/TIME OF REQUEST: 07/06/23 early am
DATE/TIME OF CONSULTATION: 07/06/23
Reason for Consultation: tia
History of Present Illness:
88 year old female with a PMH of afib, htn, chf, SSS presents after an episode of difficulty processing thoughts, finding words and getting words out lasting 30 minutes duration while watching TV last night. She was also attempting to speak to her
daughter. No other associated focal neurological deficits. No associated headache. She 'just didn't feel right during it.' No recurrence of symptoms. No similar events in the past. No missed doses of Eliquis.
Past Medical History:
iron deficiency anemia
hypothyroidism
colon polyps
atrial fib
htn
CHF
hld
sick sinus syndrome
GERD
mitral valve insufficiency
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
Past Surgical History:
TAVR
cardiac ablation
left breast lumpectomy
cataracts extraction
AVR
pacemaker
Social History
Tobacco: Non-smoker
Alcohol: None
Drug: None
Personal: Single
Living: Alone
Family History: denies family history of stroke
Home Medications
�Medication �Instructions �Recorded
ezetimibe 10 mg tablet 10 mg PO QPM High cholesterol ##0 11/29/20
levothyroxine 112 mcg tablet 112 mcg PO MOTUWETHFRSA@0700 12/28/20
calcium citrate 315 mg 1 ea PO DAILY 03/27/21
calcium-vitamin D3 6.25 mcg (250
unit) tablet (Citracal + Vitamin D
Maximum)
carvedilol 3.125 mg tablet 3.125 mg PO BID 03/27/21
acetaminophen 650 mg 650 mg PO DAILYPRN PRN mild pain 03/14/23
tablet,extended release
apixaban 2.5 mg tablet (Eliquis) 2.5 mg PO BID 03/14/23
cholecalciferol (vitamin D3) 25 25 mcg PO DAILY 03/14/23
mcg (1,000 unit) tablet
docusate calcium 240 mg capsule 240 mg PO QPMPRN PRN constipation 03/14/23
(Stool Softener (docusate calcium))
iron succinyl-protein complex 40 15 ml PO Q48H 03/14/23
mg/15 mL oral liquid (Ferretts IPS)
sennosides 8.6 mg tablet (senna) 8.6 mg PO QPMPRN PRN constipation 03/14/23
furosemide 40 mg tablet 40 mg PO DAILY 07/05/23
Allergies
adhesive Allergy (Verified 07/05/23 21:00)
itching - redness
amiodarone Allergy (Verified 07/05/23 21:00)
elevated LFTs
bupivacaine [From Sensorcaine-Epinephrine] Allergy (Verified 07/05/23 21:00)
Shortness of Breath
cat dander Allergy (Verified 07/05/23 21:00)
SNEEZING/WHEEZING
codeine Allergy (Verified 07/05/23 21:00)
light headed and dizzy
epinephrine [From Sensorcaine-Epinephrine] Allergy (Verified 07/05/23 21:00)
Shortness of Breath
prilocaine Allergy (Verified 07/05/23 21:00)
LIGHTHEADED, DIZZY
Sulfa (Sulfonamide Antibiotics) Allergy (Verified 07/05/23 21:00)
Nausea
sulfamethoxazole Allergy (Verified 07/05/23 21:00)
nausea-DID NOT TOLERATE WELL
Review of Symptoms:
Patient denies any fever, headache, chest pain, shortness of breath, GI or symptoms.
�Per the HPI.�All systems are reviewed negative except above.
Vital Signs:
Vital Signs
Temp Pulse Resp BP Pulse Ox
97.7 F 71 14 117/78 100
07/06/23 07:45 07/06/23 09:22 07/06/23 07:45 07/06/23 09:22 07/06/23 07:45
Lab Results
07/06/23 05:16
PT 12.9 Sec (11.4-14.6) 07/05/23 21:16
INR 0.99 07/05/23 21:16
APTT 32.3 Sec (23.4-35.0) 07/05/23 21:16
Sodium 128 mmol/L (135-145) L 07/06/23 05:16
Potassium 5.1 mmol/L (3.5-5.1) 07/06/23 05:16
BUN 30 mg/dl (7-17) H 07/06/23 05:16
Glucose 67 mg/dl (70-99) L 07/06/23 05:16
Calcium 9.3 mg/dl (8.4-10.2) 07/06/23 05:16
LDL Cholesterol, Calc 45 mg/dl 07/06/23 05:16
Physical Exam:
The patient is afebrile, heart sounds S1 and S2 are regular, and chest is clear to auscultation bilaterally.
NIH Stroke Scale:
I performed the NIH stroke scale on the patient on 07/06/23 at 1245. The patient scored 0 points on the NIH stroke scale assessment.
Neurologic Examination:
The patient is awake, alert and oriented x 3. She is able to follow commands and answer questions appropriately. There is no aphasia or dysarthria. On cranial nerve assessment, pupils are 3 mm bilateral, round and reactive to light and
accommodation. Visual barnes are full. Extraocular movements are intact. Facial sensations are intact and bilaterally symmetrical, there is no facial asymmetry. Hearing is intact bilaterally to normal conversation volume. Tongue palate and uvula
are midline. Sternocleidomastoid strengths are full bilaterally. Motor strengths are 5/5 bilateral upper and lower extremities on medical research [place] scale. There is no drift or involuntary movement noted. Deep tendon reflexes are 2+ bilateral
upper and lower extremities and Babinski is absent bilaterally. Sensations of touch, temperature are intact and bilaterally symmetrical. There was no extinction noted on double simultaneous stimulation. Coordination is intact by finger to nose
bilaterally.
Neuro Imaging:
1. No CT evidence for acute intracranial hemorrhage or transcortical infarct.
2. Mild white matter leukoaraiosis in both cerebral hemispheres.
3. Mild to moderate diffuse cerebral and cerebellar volume loss.
Echo, 02/09:
Mild concentric left ventricular hypertrophy. Normal left ventricular chamber
size. Mildly reduced left ventricular systolic function. Left ventricular
ejection fraction is 52% by Bills's method consistent with visual estimation
of approximately 50%.
Normal right ventricular size and function. pacer wire seen.
Severely enlarged left atrium
Mildly enlarged right atrium with pacer wire seen.
Mitral valve ring repair with peak and mean gradients across the valve of 8 and
3 mmHg with mild to moderate mitral regurgitation
TAVR with peak/mean gradients across the aortic valve are 6/3 mmHg. Trace
aortic regurgitation.
Mild tricuspid regurgitation.
Mild pulmonic regurgitation.
Compared to prior echocardiogram from July 26, 2021, there is now mild gradient
noted across the repaired mitral valve, previously no gradient was observed
otherwise no significant change.
The IVC is dilated and does not collapse. Interatrial septum is intact with no
evidence of shunting by color flow Doppler. No intracardiac mass or thrombus
formation seen.
Impression:
DANE MATOS is a 88 year old F who has presented to the hospital with an episode of transient aphasia/difficulty with processing lasting 30 minutes in duration which remains resolved. Her presentation is concerning for a left hemispheric
TIA.
Patient has the following risk factors for their symptoms: age, afib, htn, chf, hld
IV Tenecteplase/IAT candidacy: not a candidate given resolution of symptoms
Recommendations:
-check MRI brain without contrast to evaluate for stroke--to be done Saturday due to pacer
-MRA head/neck--to be done Saturday due to pacer
-BP goal is normotension.
-already on Eliquis; continue given resolution of symptoms.
- Hemoglobin A1C normal at 5.1. Goal is normoglycemia.
- Started on atorvastatin 40mg qhs; LDL is 45 on Zetia as outpatient. Goal LDL after stroke is <70.
- Reviewed echo from 02/09.
-PT/OT/ST evaluations
- DVT prophylaxis
-continue neurochecks
Discussed patient care with: patient, Dr. Mcelroy
--- NOTE | 2023-07-06 10:37 | W.PN.HOSP.TC ---
Today's Communication/Plan
-
await neuro
cannot do MRI/MRA until Saturday due to pacemaker
Assessment / Plan
Assessment / Plan
pt is an 88 year old female
expressive aphasia --TIA (most likely) vs CVA--head CT neg--cannot get MRI due to pacemaker until Saturday--await neuro input--cont PT/OT--passed speech--cont asa
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
anemia of chronic disease--hgb 10.4--no active bleeding
paroxysmal atrial fib--EKG with ventricular paced rhythm--coreg, eliquis continued
HLD--zetia
hxt of chronic diastolic CHF--not in acute exacerbation--daily weight--strict I&O
Hypothyroidism--levothyroxine continued
DVT prophylaxis--eliquis
CODE status--DNR
Anticipated Discharge: 24 - 48 hours
Subjective/Interval History
-
Date of Service: July 06, 2023
pt symptoms resolved
Objective Data
-
Labs:
Laboratory Results
07/06/23
05:16
WBC Pending
Hgb Pending
Hct Pending
Plt Count Pending
Sodium 128 L
Potassium 5.1
Chloride 89 L
Carbon Dioxide 30
BUN 30 H
Creatinine 0.7
Glucose 67 L
Calcium 9.3
Vital Signs:
max temp for 24 hours
07/06/23
07:45
Temp 97.7 F
Vital Signs
Temp Pulse Resp BP Pulse Ox
97.7 F 71 14 117/78 100
07/06/23 07:45 07/06/23 09:22 07/06/23 07:45 07/06/23 09:22 05/18/24 07:45
I&O
07/05/23 07/06/23 07/07/23
06:59 06:59 06:59
Intake Total 0 / 0
Output Total 400 / 400
Balance -400 / -400
Review of Systems
-
All other systems: Reviewed and negative
Physical Exam
-
General: Well Developed, Well Nourished and No Apparent Distress
HEENT: Normocephalic and Atraumatic
Respiratory: Clear to Auscultation; Negative Wheezes or Rhonchi
Cardiac: Regular Rhythm and S1/S2; Negative Murmur
GI: Soft, Nontender, Nondistended and Normal Bowel Sounds
Musculoskeletal: No Clubbing, No Cyanosis and No Edema
Skin: Warm
Neuro: Awake and Alert
[2023-07-06 10:47] LABS: Hematocrit 27.1 % (37.0-47.0); Hemoglobin 9.8 g/dL (12.0-16.0); Mean Corp Hgb Conc. 36.2 g/dL (33.0-37.0); Mean Corpuscular Volume 96.8 fL (81.0-99.0); Mean Platelet Volume 12.1 fL (7.4-10.4); Platelet Count 109 10^3/uL (130-400); Red Cell Dist. Width 13.6 % (11.5-14.5); White Blood Cell Count 5.5 10^3/uL (4.8-10.8)
[2023-07-06] MEDS: LIPITOR 40 MG PO (17:12)
[2023-07-06] MEDS: ZETIA 10 MG PO (17:12)
[2023-07-07] VITALS (7 sets, daily range): BP systolic 104–137; BP diastolic 58–80; BMI 16.8
[2023-07-07 07:53] LABS: Hematocrit 27.4 % (37.0-47.0); Hemoglobin 9.5 g/dL (12.0-16.0); Mean Corp Hgb Conc. 34.7 g/dL (33.0-37.0); Mean Corpuscular Hgb 34.7 pg (27.0-31.0); Platelet Count 103 10^3/uL (130-400); Red Blood Cell Count 2.74 10^6/uL (4.20-5.40); Red Cell Dist. Width 13.6 % (11.5-14.5); White Blood Cell Count 3.2 10^3/uL (4.8-10.8)
[2023-07-07 08:00] LABS: Blood Urea Nitrogen 27 mg/dl (7-17); Calcium 9.2 mg/dl (8.4-10.2); Carbon Dioxide 29 mmol/L (22-30); Chloride 90 mmol/L (98-107); Estimated Creatinine Clearance 44 ml/min; Glucose 75 mg/dl (70-99); Potassium 4.1 mmol/L (3.5-5.1); Sodium 126 mmol/L (135-145); eGFR > 60.00
[2023-07-07] MEDS: LASIX 40 MG PO (08:24)
[2023-07-07] MEDS: ELIQUIS 2.5 MG PO ×2 (08:24→19:48)
[2023-07-07] MEDS: COREG 3.125 MG PO ×2 (08:24→19:48)
[2023-07-07] MEDS: OSCAL 500 + D 500 MG PO (08:24)
--- NOTE | 2023-07-07 11:18 | CM ---
CM met with pt bedside
Pt resides alone in an apartment at [facility]
She notes independence with her ADLs with use of a WW or rollator
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
PCP- [facility]
Rx- Pt notes [facility], not [facility]
PT/OT following with recommendations of VN
VN providers discussed- pt is hoping to utilize [facility] in house therapists
Discharge Disposition- home with VN vs outpt therapy
--- NOTE | 2023-07-07 11:19 | W.PN.HOSP.TC ---
Today's Communication/Plan
-
anticipate MRI tomorrow after pacemaker clearance
Assessment / Plan
Assessment / Plan
pt is an 88 year old female
expressive aphasia --TIA (most likely) vs CVA--head CT neg--cannot get MRI due to pacemaker until Saturday--apprec neuro input--cont PT/OT--passed speech--cont asa
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
anemia of chronic disease--hgb 10.4--no active bleeding
paroxysmal atrial fib--EKG with ventricular paced rhythm--coreg, eliquis continued
HLD--zetia
hxt of chronic diastolic CHF--not in acute exacerbation--daily weight--strict I&O
Hypothyroidism--levothyroxine continued
underweight BMI
DVT prophylaxis--eliquis
CODE status--DNR
Anticipated Discharge: 24 - 48 hours
Subjective/Interval History
-
Date of Service: July 07, 2023
pt without c/o
Objective Data
-
Labs:
Laboratory Results
07/07/23
06:27
WBC 3.2 L
Hgb 9.5 L
Hct 27.4 L
Plt Count 103 L
Sodium 126 L
Potassium 4.1
Chloride 90 L
Carbon Dioxide 29
BUN 27 H
Creatinine 0.6
Glucose 75
Calcium 9.2
Vital Signs:
max temp for 24 hours
07/07/23
07:35
Temp 98.8 F
Vital Signs
Temp Pulse Resp BP Pulse Ox
98.8 F 71 16 134/80 100
07/07/23 07:35 07/07/23 07:35 07/07/23 07:35 07/07/23 07:35 07/07/23 07:35
I&O
07/06/23 07/07/23 07/08/23
06:59 06:59 06:59
Intake Total 0 / 0 900 / 900
Output Total 400 / 400 300 / 300 300 / 300
Balance -400 / -400 600 / 600 -300 / -300
Review of Systems
-
All other systems: Reviewed and negative
Physical Exam
-
General: Well Developed, Well Nourished, No Apparent Distress and Cachectic
HEENT: Normocephalic and Atraumatic
Respiratory: Clear to Auscultation; Negative Wheezes or Rhonchi
Cardiac: Regular Rhythm and S1/S2; Negative Murmur
GI: Soft, Nontender, Nondistended and Normal Bowel Sounds
Musculoskeletal: No Clubbing, No Cyanosis and No Edema
Neuro: Awake and Alert
[2023-07-07] MEDS: ZETIA 10 MG PO (17:26)
[2023-07-07] MEDS: LIPITOR 40 MG PO (17:26)
[2023-07-07] MEDS: TYLENOL 650 MG PO (21:18)
[2023-07-08 03:55] VITALS: BP 139/82
[2023-07-08 05:42] LABS: Hematocrit 26.9 % (37.0-47.0); Hemoglobin 9.4 g/dL (12.0-16.0); Mean Corp Hgb Conc. 34.9 g/dL (33.0-37.0); Mean Corpuscular Hgb 34.8 pg (27.0-31.0); Mean Corpuscular Volume 99.6 fL (81.0-99.0); Mean Platelet Volume 12.4 fL (7.4-10.4); Platelet Count 111 10^3/uL (130-400); Red Cell Dist. Width 13.7 % (11.5-14.5)
[2023-07-08] MEDS: SYNTHROID 112 MCG PO (05:46)
[2023-07-08 06:05] LABS: Blood Urea Nitrogen 37 mg/dl (7-17); Calcium 9.1 mg/dl (8.4-10.2); Carbon Dioxide 28 mmol/L (22-30); Chloride 90 mmol/L (98-107); Estimated Creatinine Clearance 33 ml/min; Glucose 71 mg/dl (70-99); Magnesium 1.9 mg/dl (1.6-2.3); Potassium 4.1 mmol/L (3.5-5.1); Sodium 126 mmol/L (135-145); eGFR > 60.00
[2023-07-08 07:55] VITALS: BP 135/77
[2023-07-08] MEDS: LASIX 40 MG PO (08:33)
[2023-07-08] MEDS: OSCAL 500 + D 500 MG PO (08:33)
[2023-07-08] MEDS: ELIQUIS 2.5 MG PO (08:33)
[2023-07-08] MEDS: COREG 3.125 MG PO (08:33)
--- NOTE | 2023-07-08 10:01 | W.PN.NEURO.1 ---
Today's Communication / Plan
-
Check CT angiogram of head and neck instead of MRA of the head and neck to ensure completion in a timely fashion
Goal normotension
Continue apixaban
Goal of normoglycemia
Eventual outpatient neuropsychological testing if MRI of brain fails to demonstrate structural abnormality producing symptomatology
Neuro Assessment/Plan
Assessment
Impression:
DANE MATOS is a 88 year old F who has presented to the hospital with an episode of transient aphasia/difficulty with processing lasting 30 minutes in duration. Her presentation is concerning for a left hemispheric TIA.
Plan
Check CT angiogram of head and neck instead of MRA of the head and neck to ensure completion in a timely fashion
Goal normotension
Continue apixaban
Goal of normoglycemia
Continue usual Ezetimibe
Rehabilitation evaluations
Eventual outpatient neuropsychological testing if MRI of brain fails to demonstrate structural abnormality producing symptomatology
Will follow pending results
Subjective/Objective
Subjective Data
Date of Service: July 08, 2023
Patient reports no recurrence of symptomatology
Objective Data
Vital Signs
Temp Pulse Resp BP Pulse Ox
36.3 C 71 16 135/77 100
07/08/23 07:55 07/08/23 07:55 07/08/23 07:55 07/08/23 07:55 07/08/23 07:55
Lab Results
07/08/23 04:42
07/08/23 04:42
PT 12.9 Sec (11.4-14.6) 07/05/23 21:16
INR 0.99 07/05/23 21:16
APTT 32.3 Sec (23.4-35.0) 07/05/23 21:16
Sodium 126 mmol/L (135-145) L 07/08/23 04:42
Potassium 4.1 mmol/L (3.5-5.1) 07/08/23 04:42
BUN 37 mg/dl (7-17) H 07/08/23 04:42
Glucose 71 mg/dl (70-99) 07/08/23 04:42
Calcium 9.1 mg/dl (8.4-10.2) 07/08/23 04:42
LDL Cholesterol, Calc 45 mg/dl 07/06/23 05:16
Patient Allergies
adhesive Allergy (Verified 07/05/23 21:00)
itching - redness
amiodarone Allergy (Verified 07/05/23 21:00)
elevated LFTs
bupivacaine [From Sensorcaine-Epinephrine] Allergy (Verified 07/05/23 21:00)
Shortness of Breath
cat dander Allergy (Verified 07/05/23 21:00)
SNEEZING/WHEEZING
codeine Allergy (Verified 07/05/23 21:00)
light headed and dizzy
epinephrine [From Sensorcaine-Epinephrine] Allergy (Verified 07/05/23 21:00)
Shortness of Breath
prilocaine Allergy (Verified 07/05/23 21:00)
LIGHTHEADED, DIZZY
Sulfa (Sulfonamide Antibiotics) Allergy (Verified 07/05/23 21:00)
Nausea
sulfamethoxazole Allergy (Verified 07/05/23 21:00)
nausea-DID NOT TOLERATE WELL
Review of Systems
-
History Source: Patient
All other systems: Reviewed and negative
Neuro: Negative Dizzy, Headache or Speech Problem (currently)
Physical Exam
-
General: No Apparent Distress and Appears Stated Age
Eyes: Round OU, Mandan Conjunctivae and No Ptosis
HEENT: Anicteric and Moist Mucous Membranes
Neck: Full Range of Motion
Respiratory: No Dyspnea
Cardiac: No JVD
GI: Non-distended
Skin: Unremarkable
Extremities: No Clubbing, No Cyanosis and No Edema
Psych: Intact Judgement/Insight
Extended Neurological Exam
Mood & Affect: Mood Unremarkable and Affect Unremarkable
Attention Span & Concentration: Awake, Alert and Interactive
Memory: Unremarkable
Tremor: Hand Tremor Absent and Head Tremor Absent
Speech: Quality Unremarkable, Quantity Unremarkable and Other (intact naming of 4 objects)
Cranial Nerve II: Left Eye: Pupillary Size Unremarkable and Visual Ryan Grossly Intact
Cranial Nerve II: Right Eye: Pupillary Size Unremarkable and Visual Ryan Grossly Intact
Cranial Nerves III, IV, : Extraocular Movement: Extraocular Movement Full in all Directions
Cranial Nerve VII: Facial Symmetry: Normal Facial Symmetry
Cranial Nerve VIII: Hearing: Unremarkable Hearing to Normal Conversational Volume
Muscle Strength, Overall: Full in Upper Extremities
Muscle Bulk & Tone: Bulk Unremarkable and Tone Unremarkable
Pronator Drift: No Drift in Upper Extremities
Touch Sensation: Unremarkable
Coordination: [id number] Testing Unremarkable
Data Reviewed
-
CT-A: Report Reviewed
CT Head: Report Reviewed
MRI Head: Ordered
Labs: Report Reviewed
Lipid Profile: Report Reviewed
Reviewed with: Physician, Nurse, Nurse Practioner and Patient
Old Records: Summarized
Past History
Past History
ED Past Medical History: Arrthythmia (Paroxysmal A-fib), CHF, HTN, Hypercholesterolemia, Valvular disease, Hypothyroidism and Other (Ambulatory dysfunction, episode of aphasia)
ED Past Surgical History: Cardiac (History of cardiac ablation x3, multiple cardioversions, mitral and tricuspid valve repair) and Other (Breast biopsy, D&C, bilateral cataract surgery with lens implants)
Social History
Tobacco: Non-smoker
Alcohol: None
Drug: None
Personal:
Living: with family
Employment: Retired
Family History
Family History: Hypertension
Medications
-
Medications:
Generic Name Dose Route Start Last Admin
Trade Name Freq PRN Reason Stop Dose Admin
Acetaminophen 650 mg 07/06/23 00:40
Acetaminophen 650 Mg Rectal Suppository RECTAL 08/03/23 00:39
Q4HPRN PRN
POLANCO, mild pain, or temp >100.4F
Acetaminophen 650 mg 07/06/23 00:40 07/07/23 21:18
Acetaminophen 325 Mg Tablet PO 08/03/23 00:39 650 mg
Q4HPRN PRN Administration
POLANCO, mild pain, or temp >100.4F
Apixaban 2.5 mg 07/06/23 08:00 07/08/23 08:33
Apixaban (Eliquis) 2.5 Mg Tablet PO 08/03/23 07:59 2.5 mg
BID JAYCOB Administration
Atorvastatin Calcium 40 mg 07/06/23 18:00 07/07/23 17:26
Atorvastatin (Lipitor) 40 Mg Tablet PO 08/03/23 17:59 40 mg
QPM JAYCOB Administration
Calcium/Vitamin D 500 mg 07/06/23 08:00 07/08/23 08:33
Calcium Carbonate 500 Mg/Vitamin D 5 Mcg (200 Units) Tablet PO 08/03/23 07:59 500 mg
DAILY JAYCOB Administration
Carvedilol 3.125 mg 07/06/23 08:00 07/08/23 08:33
Carvedilol 3.125 Mg Tablet PO 08/03/23 07:59 3.125 mg
BID JAYCOB Administration
Docusate Sodium 200 mg 07/06/23 01:12
Docusate Sodium 100 Mg Capsule PO 08/03/23 01:11
QPMPRN PRN
constipation
Ezetimibe 10 mg 07/06/23 18:00 07/07/23 17:26
Ezetimibe (Zetia) 10 Mg Tablet PO 08/03/23 17:59 10 mg
QPM JAYCOB Administration
Furosemide 40 mg 07/06/23 08:00 07/08/23 08:33
Furosemide 40 Mg Tablet PO 08/03/23 07:59 40 mg
DAILY JAYCOB Administration
Levothyroxine Sodium 112 mcg 07/06/23 06:00 07/08/23 05:46
Levothyroxine 112 Mcg Tablet PO 08/03/23 05:59 112 mcg
MoTuWeThFrSa@0600 [facility] Administration
Non-Formulary Medication 15 ml 07/06/23 00:40 07/06/23 08:11
Iron Succinyl-Protein Complex [Ferretts Ips] PO 08/03/23 00:39 Not Given
Q48H JAYCOB
Sennosides 8.6 mg 07/06/23 00:40
Sennosides (Senokot) 8.6 Mg Tablet PO 08/03/23 00:39
QPMPRN PRN
constipation
Sodium Chloride 0 flush 07/06/23 02:00
Sodium Chloride 0.9% (Flush) Syringe IV 08/03/23 01:59
PER PROTOCOL JAYCOB
--- NOTE | 2023-07-08 11:12 | CM ---
Chart reviewed and patient visited. Esther hopes to return to her apartment with therapy services by [facility] therapists. Call placed to [facility] and voicemail left for Danisha Topete requesting call to discuss discharge plan and
available therapy for Esther.
Await return call. Will follow to coordinate discharge needs.
[2023-07-08 11:38] VITALS: BP 119/74
[2023-07-08 11:56] VITALS: BP 119/74; PULSE 72; O2SAT 96
--- NOTE | 2023-07-08 12:05 | CM ---
I met with Esther when she returned to her room with PT. She advised that she has a rollator walker at home as well as a raised toilet seat. She feels that she will be able to return to her apartment at discharge and would like to continue PT
services at [facility] rather than having to go to an outpatient facility.
CM continues to follow to coordinate discharge to [facility] and referral for home PT.
--- NOTE | 2023-07-08 14:26 | W.PN.HOSP.TC ---
Today's Communication/Plan
-
ok for d/c
Assessment / Plan
Assessment / Plan
pt is an 88 year old female
expressive aphasia --TIA (most likely) vs CVA--head CT neg--MRI neg and CTA neg--apprec neuro input--cont PT/OT--passed speech--cont asa
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
anemia of chronic disease--hgb 10.4--no active bleeding
paroxysmal atrial fib--EKG with ventricular paced rhythm--coreg, eliquis continued
HLD--zetia
hxt of chronic diastolic CHF--not in acute exacerbation--daily weight--strict I&O
Hypothyroidism--levothyroxine continued
underweight BMI
DVT prophylaxis--eliquis
CODE status--DNR
Anticipated Discharge: Today
Subjective/Interval History
-
Date of Service: July 08, 2023
pt had neg MRI and CTA--ok for d/c
Objective Data
-
Labs:
Laboratory Results
07/08/23
04:42
WBC 4.0 L
Hgb 9.4 L
Hct 26.9 L
Plt Count 111 L
Sodium 126 L
Potassium 4.1
Chloride 90 L
Carbon Dioxide 28
BUN 37 H
Creatinine 0.8
Glucose 71
Calcium 9.1
Vital Signs:
max temp for 24 hours
07/07/23
23:43
Temp 98.7 F
Vital Signs
Temp Pulse Resp BP Pulse Ox
97.5 F 72 16 119/74 96
07/08/23 11:38 07/08/23 11:38 07/08/23 11:38 07/08/23 11:38 07/08/23 11:38
I&O
07/07/23 07/08/23 07/09/23
06:59 06:59 06:59
Intake Total 900 / 900 360 / 360
Output Total 300 / 300 800 / 800
Balance 600 / 600 -440 / -440
Review of Systems
-
All other systems: Reviewed and negative
Physical Exam
-
General: Well Developed and Well Nourished
HEENT: Normocephalic and Atraumatic
Respiratory: Clear to Auscultation; Negative Wheezes or Rhonchi
Cardiac: Regular Rhythm and S1/S2; Negative Murmur
GI: Soft, Nontender, Nondistended and Normal Bowel Sounds
Musculoskeletal: No Clubbing, No Cyanosis and No Edema
Neuro: Awake
--- NOTE | 2023-07-08 14:29 | CM ---
Patient for discharge home with daughter providing transportation. Patient does not feel that she needs VN supports. Patient PCP is Dr. Reynaga and she uses the [facility] in [place]. CM confirmed IMM completed earlier today. CM will
continue to follow for discharge planning needs.
Plan; home with no needs.
--- NOTE | 2023-07-08 14:49 | W.DCSUMMARY ---
Discharge Summary
Discharge Data
Date of Admission: 07/05/23
Date of Discharge: 07/08/23
-
Pending Results: No
Hospital Course
Primary care physician : Sho Merchant
Principal Discharge diagnosis : Expressive aphasia likely transient ischemic attack
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
exacerbation, hypothyroidism, underweight BMI
Hospital Course : Patient was an 88-year-old female with a history as listed above who presented with trouble processing thoughts, finding words and expressive aphasia which lasted for approximately 30 minutes. Patient returned to her baseline on
admission. She denied headache, dizziness, syncope. She denied any other symptoms. CAT scan of her head was without any acute findings patient was brought in for further management.
Problem #1: Expressive aphasia likely transient ischemic attack. Patient was admitted and seen in consultation by neurology. CAT scan of her head on admission was negative. Patient could not have MRI over the weekend due to her pacemaker and had
to wait until Saturday. MRI done today is negative. Patient also underwent CT angiography of the head and neck which also was negative. Echocardiogram was just done January 31, 2023 so was not repeated this admission. Patient's total cholesterol
was 163 with 45 LDL.
Problem #2: All other medical issues. 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
failure without exacerbation, hypothyroidism, underweight BMI. These medical issues were stable during her hospitalization. Medications were continued as able. In regards to her chronic hyponatremia, baseline is approximately 128 she was as low
as 124 which then came back with fluid restriction.
Patient is stable for discharge home at this time. If there are any questions regarding this dictation or her hospital stay, please not hesitate to call. Our office number is [phone].
Important imaging findings :
HEAD AND NECK CTA IMPRESSION:
1. No acute intracranial abnormality identified.
2. Negative for major branch vessel occlusion, flow-limiting stenosis, dissection, or aneurysm formation.
BRAIN MRI IMPRESSION:
No acute intracranial abnormality noted.
INITIAL HEAD CT IMPRESSION:
1. No CT evidence for acute intracranial hemorrhage or transcortical infarct.
2. Mild white matter leukoaraiosis in both cerebral hemispheres.
3. Mild to moderate diffuse cerebral and cerebellar volume loss.
Discharge Plan
-
Patient Disposition: Home (Routine Discharge)
Discharge Diagnosis/Procedures: Transient ischemic attack most likely presented as expressive aphasia, acute on chronic hyponatremia from syndrome of inappropriate antidiuretic hormone secretion, anemia of chronic disease, paroxysmal atrial
fibrillation, hyperlipidemia, history of chronic diastolic congestive heart failure without exacerbation, hypothyroidism, underweight basic metabolic index
Condition: Good
Diet: Low Fat and 2 Gram Sodium
Additional Diets: fluid restriction to 1200 ml/day (40 oz)
Activity: As tolerated
Driving Restrictions: As prior to admission
Bathing Restrictions: None
Referrals:
Sho Merchant MD [Family Provider] - in less than 1 week
Prescriptions:
Continued
ezetimibe 10 MG tablet
10 mg PO QPM Qty: 0 0RF
levothyroxine 112 MCG tablet
112 mcg PO MOTUWETHFRSA@0700
calcium citrate-vitamin D3 [Citracal + D Maximum] 1 EACH tablet
1 ea PO DAILY
carvedilol 3.125 MG tablet
3.125 mg PO BID
Eliquis 2.5 mg Tablet
2.5 mg PO BID
Ferretts IPS 40 mg/15 mL liquid
15 ml PO Q48H
Patient Comments:
03/14/2023, pt. takes Q48H in mid-afternoon.
sennosides [senna] 8.6 mg Tablet
8.6 mg PO QPMPRN PRN (Reason: constipation)
docusate calcium [Stool Softener (docusate price)] 240 mg Capsule
240 mg PO QPMPRN PRN (Reason: constipation)
acetaminophen 650 mg Tablet Extended Release
650 mg PO DAILYPRN PRN (Reason: mild pain)
cholecalciferol (vitamin D3) 25 mcg (1,000 unit) Tablet
25 mcg PO DAILY
furosemide 40 mg tablet
40 mg PO DAILY
Discharge Orders:
Discharge Patient (As Directed); Ordered 07/08/23
Ordered By: Malathi Mcelroy
Discharge Date and Time
Print Language: TURKMEN
[2023-07-08 15:55] VITALS: BP 127/72
[2023-07-08 16:06] VITALS: BP 127/72
== END 2023-07-08 16:53 | disposition home or self-care (01) | DRG 69 ==
LOC: 4 EAST ACU 23:24
PROVIDERS: Registered Nurse; ADMITTING PHYSICIAN Hospitalist; ATTENDING PHYSICIAN Internal Medicine; CONSULT PHYSICIAN Psychiatry & Neurology Neurology; EMERGENCY PHYSICIAN Student in an Organized Health Care Education/Training Program; FAMILY PHYSICIAN Family Medicine
DX: G45.9 Transient cerebral ischemic attack, unspecified (principal); E22.2 Syndrome of inappropriate secretion of antidiuretic hormone; Z68.1 Body mass index [BMI] 19.9 or less, adult; I50.32 Chronic diastolic (congestive) heart failure; D63.8 Anemia in other chronic diseases classified elsewhere; I48.0 Paroxysmal atrial fibrillation; E78.00 Pure hypercholesterolemia, unspecified; E03.9 Hypothyroidism, unspecified; Z66 Do not resuscitate; R63.6 Underweight; I11.0 Hypertensive heart disease with heart failure
CPT/HCPCS: 70450; 70496; 70498; 70551; 80048; 80053; 80061; 81003; 81015; 82962; 83036; 83735; 85025; 85027; 85610; 85730; 92610; 93005; 97116; 97162; 97165; 97530; 99285; Q9967

== ENCOUNTER → 2023-07-10 13:35 | Outpatient (REF) | payer OTHER, SELFPAY | LOC: HWRAD 13:35 | PROVIDERS: ATTENDING PHYSICIAN Internal Medicine Hematology & Oncology; FAMILY PHYSICIAN Family Medicine | DX: D61.818 Other pancytopenia (principal) | CPT/HCPCS: 76705 ==

== ENCOUNTER 2023-07-10 18:41 | Emergency (ER) | payer OTHER, SELFPAY ==
[2023-07-10 18:58] LABS: % Basophils 0.8 % (0-2); % Eosinophils 1.5 % (0-6); % Immature Granulocytes 0.8 % (0-0.5); % Lymphocytes 35.1 % (20.5-51.1); % Monocytes 7.5 % (1.7-9.3); % Neutrophils 54.3 % (42.2-75.2); Absolute Eosinophils 0.1 10^3/uL (0-0.7); Absolute Lymphocytes 1.4 10^3/uL (1.2-3.4); Absolute Monocytes 0.3 10^3/uL (0.1-0.6); Absolute Neutrophils 2.2 10^3/uL (1.4-6.5); Hematocrit 26.9 % (37.0-47.0); Hemoglobin 9.5 g/dL (12.0-16.0); Mean Corp Hgb Conc. 35.3 g/dL (33.0-37.0); Mean Corpuscular Hgb 35.2 pg (27.0-31.0); Mean Corpuscular Volume 99.6 fL (81.0-99.0); Mean Platelet Volume 11.1 fL (7.4-10.4); Nucleated Red Blood Cells % 0 %; Platelet Count 126 10^3/uL (130-400); Red Cell Dist. Width 13.9 % (11.5-14.5)
[2023-07-10 19:00] VITALS: BP 118/72
--- NOTE | 2023-07-10 19:07 | ED.GENMED ---
History of Present Illness
General
Chief Complaint: Fainting/Passed Out
Source: patient
Exam Limitations: none
Time Seen by Provider: 07/10/23 18:58
History of Present Illness
History of Present Illness:
See MDM
Past History
Past History
ED Past Medical History: Arrthythmia (Paroxysmal A-fib), CHF, HTN, Hypercholesterolemia, Valvular disease, Hypothyroidism and Other (Ambulatory dysfunction, episode of aphasia)
ED Past Surgical History: Cardiac (History of cardiac ablation x3, multiple cardioversions, mitral and tricuspid valve repair) and Other (Breast biopsy, D&C, bilateral cataract surgery with lens implants)
Social History
Tobacco: Non-smoker
Alcohol: None
Drug: None
Personal:
Living: with family
Employment: Retired
Family History
Family History: Hypertension
Phy Exam
Physical Exam
Physical Exam:
See MDM
Course
Orders/Labs/Results
Orders:
Orders
07/10/23 18:47
Electrocardiogram (*1) Urgent
Reason for Study: Chest Pain
Cardiac Monitoring- Treatment ONCE
EKG- Treatment ONCE
IV Insert/Care/Rem.- Treatment PRN
O2 Therapy [RESP] Urgent
Titrate/Wean O2 to maintain O2 sat greater than (%): 90
Special Instructions: Maintain sats >/=90%
Pulse Ox/spot Check [RESP] Urgent
Quantity: 1
Special Instructions: ON ROOM AIR
07/10/23 18:50
Complete Blood Count/With Diff Urgent
Comprehensive Metabolic Panel Urgent
Troponin I Urgent
Abnormal Lab Results
07/10/23
18:50
WBC 4.0 L 10^3/uL
(4.8-10.8)
RBC 2.70 L 10^6/uL
(4.20-5.40)
Hgb 9.5 L g/dL
(12.0-16.0)
Hct 26.9 L %
(37.0-47.0)
MCV 99.6 H fL
(81.0-99.0)
MCH 35.2 H pg
(27.0-31.0)
Plt Count 126 L 10^3/uL
(130-400)
MPV 11.1 H fL
(7.4-10.4)
Immature Gran % 0.8 H %
(0-0.5)
Sodium 128 L mmol/L
(135-145)
Chloride 90 L mmol/L
(98-107)
BUN 42 H mg/dl
(7-17)
Glucose 102 H mg/dl
(70-99)
AST 50 H U/L
(14-36)
Alkaline Phosphatase 36 L U/L
(38-126)
07/10/23 18:50
07/10/23 18:50
Vital Signs
Initial and Last Documented VS:
Initial Vital Signs
Temp Pulse Resp BP Pulse Ox
98.3 F 70 9 118/72 99
07/10/23 19:00 07/10/23 19:00 07/10/23 19:00 07/10/23 19:00 07/10/23 19:00
Last Documented Vital Signs
Temp Pulse Resp BP Pulse Ox
98.3 F 70 10 133/71 98
07/10/23 19:00 07/10/23 20:30 07/10/23 20:30 07/10/23 20:00 07/10/23 20:30
MDM/Problems Addressed
Differential Diagnosis Includes:
HPI and MDM Narrative:
88-year-old female presenting for syncopal event. Patient states she was eating dinner at her independent living facility and she passed out. She is unsure how long she passed out for. This was witnessed by her friends. She denies chest pain or
shortness of breath. Complains of generalized weakness. Patient was just seen and admitted to the hospital several days ago where she was worked up for a TIA with a negative MRI.
On exam, patient is well-appearing nontoxic. She has no focal deficits. Will interrogate pacemaker and repeat blood work. She denies urinary symptoms
Physical exam
General: Well appearing and non-toxic
HEENT: protecting airway
Neck: appears supple
CV: No evidence of cyanosis. Regular rate and rhythm
Resp: No accessory muscle use
Abd: Non-distended
Extremities: No deformities. No leg edema
Neuro: alert. No focal deficits
Psych: Normal affect
Skin: Intact
Problems Addressed including Acute and Chronic Conditions affecting care:
1. Syncope
Acuity: acute
Prognosis: stable
Details: Will interrogate pacemaker and obtain basic workup. Patient currently symptom-free
Updates
Blood work appears to be at baseline. No significant events noted on the pacemaker report. Patient states she feels at her baseline and feels comfortable going home
Differential Diagnosis (but not limited to): Cardiogenic syncope, vasovagal syncope, orthostasis, TIA
Testing considered: CT head but she already had full TIA workup a few days ago
Drug therapy (if applicable): OTC meds, please see d/c instruction regarding Rx drugs
Amount and/or Complexity of Data Reviewed
Clinical info obtained from: Patient
External data reviewed: N/A
Labs I independently reviewed (but not limited to): Anemia and hyponatremia baseline
Radiology: N/A
Pulse Ox: not hypoxic
EKG independently reviewed: Paced rhythm, normal axis, no STEMI
Bindery Technician: Paced rythym
Critical Care: N/A
Risk of Complication:
Social Determinants of health: Good social support
Discussed with other providers: N/A
Escalation of Care includes Admit/Obs: After being observed in the Emergency Department, pt stable for discharge.
Occasional wrong word or 'sound a like' substitutions may have occurred due to the inherent limitations of voice recognition software. Read the chart carefully and recognize, using context, where substitutions have occurred.
*Critical Care Note
Total Time (30-74mins, 75-104mins- exclusive of procedures): Not Applicable
ED Attending Note
-
Portions of this chart may have been created with voice recognition software.� Occasional wrong word or��sound alike� substitutions may have occurred due to the inherent limitations of voice recognition software.
Discharge Plan
Departure
Patient Disposition: Home (Routine Discharge)
Date of Disposition: 07/10/23
Time of Disposition: 21:23
Patient with high blood pressure during this ER visit?: No
Discharge Problem:
Syncope
Instructions: Syncope (Fainting) (DC)
Prescriptions:
No Action
ezetimibe 10 MG tablet
10 mg PO QPM Qty: 0 0RF
levothyroxine 112 MCG tablet
112 mcg PO MOTUWETHFRSA@0700
calcium citrate-vitamin D3 [Citracal + D Maximum] 1 EACH tablet
1 ea PO DAILY
carvedilol 3.125 MG tablet
3.125 mg PO BID
Eliquis 2.5 mg Tablet
2.5 mg PO BID
Ferretts IPS 40 mg/15 mL liquid
15 ml PO Q48H
Patient Comments:
03/14/2023, pt. takes Q48H in mid-afternoon.
sennosides [senna] 8.6 mg Tablet
8.6 mg PO QPMPRN PRN (Reason: constipation)
docusate calcium [Stool Softener (docusate price)] 240 mg Capsule
240 mg PO QPMPRN PRN (Reason: constipation)
acetaminophen 650 mg Tablet Extended Release
650 mg PO DAILYPRN PRN (Reason: mild pain)
cholecalciferol (vitamin D3) 25 mcg (1,000 unit) Tablet
25 mcg PO DAILY
furosemide 40 mg tablet
40 mg PO DAILY
Referrals:
Sho Merchant MD [Family Provider] -
Activity Restrictions/Additional Instructions:
Please return for any worsening symptoms.
You may return at any time if you have further concerns.
Please follow up with your doctor at the first available appointment, preferably this week.
Thank you for choosing [facility].
Interventions
Interventions:
*General Assessment Last Done: 07/10/23 19:00
*Neglect/Abuse Screening Last Done: 07/10/23 19:00
ED- Fall Risk Assessment Last Done: 07/10/23 19:00
ED- Cardiac Assessment Last Done: 07/10/23 19:00
ED- Neurological Assessment Last Done: 07/10/23 19:00
Discharge Date and Time
Print Language: CYPRIOT
[2023-07-10 19:11] LABS: ALT (SGPT) 28 U/L (0-35); AST (SGOT) 50 U/L (14-36); Albumin 4.3 g/dl (3.5-5.0); Alkaline Phosphatase 36 U/L (38-126); Blood Urea Nitrogen 42 mg/dl (7-17); Calcium 10.1 mg/dl (8.4-10.2); Carbon Dioxide 29 mmol/L (22-30); Chloride 90 mmol/L (98-107); Glucose 102 mg/dl (70-99); Potassium 4.3 mmol/L (3.5-5.1); Sodium 128 mmol/L (135-145); Total Bilirubin 0.5 mg/dl (0.2-1.3); Total Protein 6.7 g/dl (6.3-8.2); eGFR > 60.00
[2023-07-10 19:22] LABS: Troponin I 0.019 ng/ml
[2023-07-10 20:00] VITALS: BP 133/71
[2023-07-10 22:00] VITALS: BP 121/71
== END 2023-07-10 22:26 | disposition home or self-care (01) ==
LOC: EMR 18:41
PROVIDERS: Emergency Medicine; EMERGENCY PHYSICIAN Student in an Organized Health Care Education/Training Program; FAMILY PHYSICIAN Family Medicine
DX: R55 Syncope and collapse (principal); I11.0 Hypertensive heart disease with heart failure; I50.9 Heart failure, unspecified; E78.00 Pure hypercholesterolemia, unspecified; E03.9 Hypothyroidism, unspecified; I48.0 Paroxysmal atrial fibrillation; R47.01 Aphasia; I38 Endocarditis, valve unspecified
CPT/HCPCS: 99284; 93288; 80053; 84484; 85025; 93005

== ENCOUNTER → 2023-07-11 10:17 | Outpatient (REF) | payer OTHER, SELFPAY ==
[2023-07-11 11:24] LABS: % Basophils 0.8 % (0-2); % Eosinophils 1.4 % (0-6); % Immature Granulocytes 0.3 % (0-0.5); % Neutrophils 54.5 % (42.2-75.2); Absolute Eosinophils 0.1 10^3/uL (0-0.7); Absolute Lymphocytes 1.3 10^3/uL (1.2-3.4); Absolute Monocytes 0.3 10^3/uL (0.1-0.6); Hematocrit 26.7 % (37.0-47.0); Hemoglobin 9.3 g/dL (12.0-16.0); Mean Corp Hgb Conc. 34.8 g/dL (33.0-37.0); Mean Corpuscular Hgb 34.7 pg (27.0-31.0); Mean Corpuscular Volume 99.6 fL (81.0-99.0); Mean Platelet Volume 12.4 fL (7.4-10.4); Nucleated Red Blood Cells % 0 %; Platelet Count 125 10^3/uL (130-400); Red Blood Cell Count 2.68 10^6/uL (4.20-5.40); Reticulocyte Count 2.4 % (0.4-2.8); White Blood Cell Count 3.6 10^3/uL (4.8-10.8)
[2023-07-11 11:40] LABS: Erythrocyte Sed Rate 20 mm/hour (0-20)
[2023-07-11 11:47] LABS: ALT (SGPT) 34 U/L (0-35); AST (SGOT) 51 U/L (14-36); Albumin 4.2 g/dl (3.5-5.0); Alkaline Phosphatase 42 U/L (38-126); Blood Urea Nitrogen 33 mg/dl (7-17); Calcium 9.5 mg/dl (8.4-10.2); Carbon Dioxide 32 mmol/L (22-30); Chloride 90 mmol/L (98-107); Direct Bilirubin 0.3 mg/dl (0.0-0.4); Glucose 79 mg/dl (70-99); Iron 78 ug/dl (37-170); LDH 439 U/L (120-246); Potassium 4.4 mmol/L (3.5-5.1); Sodium 129 mmol/L (135-145); Total Bilirubin 0.4 mg/dl (0.2-1.3); Total Protein 6.7 g/dl (6.3-8.2); eGFR > 60.00
[2023-07-11 11:59] LABS: Percent Saturation 22 % (20-50); Total Iron Binding Capacity 344 ug/dl (265-497)
[2023-07-11 12:37] LABS: Vitamin B12 > 1000 pg/ml (239-931)
[2023-07-12 12:51] LABS: Erythropoietin (EPO) 30 mU/mL (4-27)
[2023-07-13 19:18] LABS: Methylmalonic Acid 0.18 umol/L (0.00-0.40)
== END ==
LOC: OLABWIL 10:17
PROVIDERS: ATTENDING PHYSICIAN Internal Medicine Hematology & Oncology; FAMILY PHYSICIAN Specialist
DX: D50.9 Iron deficiency anemia, unspecified (principal); D05.80 Other specified type of carcinoma in situ of unspecified breast; D61.818 Other pancytopenia
CPT/HCPCS: 36415; 80053; 82248; 82607; 82668; 82728; 82784; 83521; 83540; 83550; 83615; 83921; 84155; 84165; 84443; 85025; 85045; 85652; 86334; 86880

== ENCOUNTER → 2023-08-01 12:01 | Outpatient (REF) | payer OTHER, SELFPAY | LOC: OLABWIL 12:01 | PROVIDERS: ATTENDING PHYSICIAN Internal Medicine Hematology & Oncology | DX: D50.9 Iron deficiency anemia, unspecified (principal); D05.80 Other specified type of carcinoma in situ of unspecified breast; D61.818 Other pancytopenia | CPT/HCPCS: 82272 ==

== ENCOUNTER → 2023-08-15 09:40 | Outpatient (REF) | payer OTHER, SELFPAY ==
[2023-08-15 10:30] LABS: Blood Urea Nitrogen 27 mg/dl (7-17); Calcium 9.6 mg/dl (8.4-10.2); Carbon Dioxide 32 mmol/L (22-30); Chloride 91 mmol/L (98-107); Glucose 79 mg/dl (70-99); Sodium 128 mmol/L (135-145); eGFR > 60.00
[2023-08-15 10:31] LABS: % Basophils 1.4 % (0-2); % Eosinophils 2.4 % (0-6); % Immature Granulocytes 0.3 % (0-0.5); % Lymphocytes 38.2 % (20.5-51.1); % Monocytes 8.2 % (1.7-9.3); % Neutrophils 49.5 % (42.2-75.2); Absolute Eosinophils 0.1 10^3/uL (0-0.7); Absolute Lymphocytes 1.1 10^3/uL (1.2-3.4); Absolute Monocytes 0.2 10^3/uL (0.1-0.6); Absolute Neutrophils 1.5 10^3/uL (1.4-6.5); Hematocrit 29.7 % (37.0-47.0); Hemoglobin 9.8 g/dL (12.0-16.0); Mean Corpuscular Hgb 34.1 pg (27.0-31.0); Mean Corpuscular Volume 103.5 fL (81.0-99.0); Mean Platelet Volume 12.5 fL (7.4-10.4); Nucleated Red Blood Cells % 0 %; Platelet Count 119 10^3/uL (130-400); Red Blood Cell Count 2.87 10^6/uL (4.20-5.40); White Blood Cell Count 2.9 10^3/uL (4.8-10.8)
[2023-08-16 20:58] LABS: Haptoglobin <10 mg/dL (30-200)
== END ==
LOC: OLABWIL 09:40
PROVIDERS: ATTENDING PHYSICIAN Specialist; OTHER PHYSICIAN Internal Medicine Hematology & Oncology
DX: E87.1 Hypo-osmolality and hyponatremia (principal); D50.9 Iron deficiency anemia, unspecified; D05.80 Other specified type of carcinoma in situ of unspecified breast; D61.818 Other pancytopenia
CPT/HCPCS: 36415; 80048; 83010; 85025

== ENCOUNTER → 2023-08-23 11:06 | Outpatient (REF) | payer OTHER, SELFPAY ==
[2023-08-23 12:48] LABS: ALT (SGPT) 23 U/L (0-35); AST (SGOT) 50 U/L (14-36); Albumin 4.5 g/dl (3.5-5.0); Alkaline Phosphatase 41 U/L (38-126); Blood Urea Nitrogen 26 mg/dl (7-17); Calcium 9.9 mg/dl (8.4-10.2); Carbon Dioxide 30 mmol/L (22-30); Chloride 90 mmol/L (98-107); Glucose 67 mg/dl (70-99); Sodium 128 mmol/L (135-145); Total Bilirubin 0.4 mg/dl (0.2-1.3); Total Protein 6.9 g/dl (6.3-8.2); eGFR > 60.00
[2023-08-23 13:02] LABS: Vitamin D, 25-OH*** 49.2 ng/mL (30-80)
== END ==
LOC: REG 11:06
PROVIDERS: ATTENDING PHYSICIAN Internal Medicine Rheumatology; FAMILY PHYSICIAN Family Medicine
DX: E55.9 Vitamin D deficiency, unspecified (principal); M81.0 Age-related osteoporosis without current pathological fracture; Z79.899 Other long term (current) drug therapy
CPT/HCPCS: 36415; 80053; 82306

== ENCOUNTER → 2023-09-03 11:11 | Outpatient (REF) | payer OTHER, SELFPAY ==
[2023-09-03 14:30] LABS: % Basophils 0.6 % (0-2); % Eosinophils 1.3 % (0-6); % Immature Granulocytes 0.3 % (0-0.5); % Lymphocytes 37.1 % (20.5-51.1); % Monocytes 8.1 % (1.7-9.3); % Neutrophils 52.6 % (42.2-75.2); Absolute Lymphocytes 1.2 10^3/uL (1.2-3.4); Absolute Monocytes 0.3 10^3/uL (0.1-0.6); Absolute Neutrophils 1.6 10^3/uL (1.4-6.5); Hematocrit 28.4 % (37.0-47.0); Hemoglobin 9.9 g/dL (12.0-16.0); Mean Corp Hgb Conc. 34.9 g/dL (33.0-37.0); Mean Corpuscular Volume 103.3 fL (81.0-99.0); Mean Platelet Volume 12.2 fL (7.4-10.4); Nucleated Red Blood Cells % 0 %; Platelet Count 118 10^3/uL (130-400); Red Blood Cell Count 2.75 10^6/uL (4.20-5.40); Red Cell Dist. Width 14.1 % (11.5-14.5); White Blood Cell Count 3.1 10^3/uL (4.8-10.8)
[2023-09-03 14:37] LABS: Blood Urea Nitrogen 25 mg/dl (7-17); Iron 60 ug/dl (37-170)
[2023-09-03 14:47] LABS: Percent Saturation 17 % (20-50); Total Iron Binding Capacity 349 ug/dl (265-497)
== END ==
LOC: OLABWIL 11:11
PROVIDERS: ATTENDING PHYSICIAN Internal Medicine Hematology & Oncology
DX: D50.9 Iron deficiency anemia, unspecified (principal); D05.80 Other specified type of carcinoma in situ of unspecified breast; D61.818 Other pancytopenia; D59.4 Other nonautoimmune hemolytic anemias; N18.30 Chronic kidney disease, stage 3 unspecified; D63.1 Anemia in chronic kidney disease
CPT/HCPCS: 36415; 82565; 82728; 83540; 83550; 84520; 85025

== ENCOUNTER → 2023-09-26 11:07 | Outpatient (REF) | payer OTHER, SELFPAY ==
[2023-09-26 12:23] LABS: ALT (SGPT) 23 U/L (0-35); AST (SGOT) 46 U/L (14-36); Albumin 4.4 g/dl (3.5-5.0); Alkaline Phosphatase 46 U/L (38-126); Blood Urea Nitrogen 25 mg/dl (7-17); Calcium 9.6 mg/dl (8.4-10.2); Carbon Dioxide 30 mmol/L (22-30); Chloride 93 mmol/L (98-107); Glucose 77 mg/dl (70-99); HDL Cholesterol 108 mg/dl; LDL Cholesterol, Calculated 76 mg/dl; Potassium 4.6 mmol/L (3.5-5.1); Sodium 128 mmol/L (135-145); Total Bilirubin 0.4 mg/dl (0.2-1.3); Total Cholesterol 198 mg/dl (50-199); Total Protein 6.9 g/dl (6.3-8.2); Triglyceride 71 mg/dl (10-149); Very Low Density Lipoprotein 14 mg/dl (0-30); eGFR > 60.00
[2023-09-26 12:49] LABS: TSH Reflex To Free T4 1.55 uIU/ml (0.47-4.68)
== END ==
LOC: OLABWIL 11:07
PROVIDERS: ATTENDING PHYSICIAN Family Medicine; OTHER PHYSICIAN Specialist
DX: E03.9 Hypothyroidism, unspecified (principal); I50.32 Chronic diastolic (congestive) heart failure; I10 Essential (primary) hypertension; E78.00 Pure hypercholesterolemia, unspecified; D50.0 Iron deficiency anemia secondary to blood loss (chronic)
CPT/HCPCS: 80053; 80061; 84443

== ENCOUNTER → 2023-10-01 12:43 | Outpatient (REF) | payer OTHER, SELFPAY ==
[2023-10-01 13:04] LABS: % Basophils 0.6 % (0-2); % Eosinophils 1.5 % (0-6); % Immature Granulocytes 0.3 % (0-0.5); % Lymphocytes 31.8 % (20.5-51.1); % Monocytes 8.1 % (1.7-9.3); % Neutrophils 57.7 % (42.2-75.2); Absolute Eosinophils 0.1 10^3/uL (0-0.7); Absolute Lymphocytes 1.1 10^3/uL (1.2-3.4); Absolute Monocytes 0.3 10^3/uL (0.1-0.6); Absolute Neutrophils 1.9 10^3/uL (1.4-6.5); Hematocrit 28.7 % (37.0-47.0); Hemoglobin 10.2 g/dL (12.0-16.0); Mean Corp Hgb Conc. 35.5 g/dL (33.0-37.0); Mean Corpuscular Hgb 34.9 pg (27.0-31.0); Mean Corpuscular Volume 98.3 fL (81.0-99.0); Mean Platelet Volume 12.6 fL (7.4-10.4); Nucleated Red Blood Cells % 0 %; Platelet Count 125 10^3/uL (130-400); Red Blood Cell Count 2.92 10^6/uL (4.20-5.40); White Blood Cell Count 3.3 10^3/uL (4.8-10.8)
== END ==
LOC: OLABWPC 12:43
PROVIDERS: ATTENDING PHYSICIAN Internal Medicine Hematology & Oncology
DX: D50.9 Iron deficiency anemia, unspecified (principal); D05.80 Other specified type of carcinoma in situ of unspecified breast; D61.818 Other pancytopenia; N18.30 Chronic kidney disease, stage 3 unspecified; D63.1 Anemia in chronic kidney disease
CPT/HCPCS: 36415; 85025

== ENCOUNTER 2023-11-07 17:24 | Emergency (ER) | payer OTHER, SELFPAY ==
[2023-11-07 17:30] VITALS: BP 156/88
[2023-11-07 17:44] VITALS: BMI 17.0
[2023-11-07 17:49] LABS: % Basophils 0.3 % (0-2); % Eosinophils 0.3 % (0-6); % Immature Granulocytes 0.3 % (0-0.5); % Lymphocytes 22.5 % (20.5-51.1); % Monocytes 7.8 % (1.7-9.3); % Neutrophils 68.8 % (42.2-75.2); Absolute Lymphocytes 0.7 10^3/uL (1.2-3.4); Absolute Monocytes 0.2 10^3/uL (0.1-0.6); Absolute Neutrophils 2.1 10^3/uL (1.4-6.5); Hematocrit 27.1 % (37.0-47.0); Hemoglobin 9.5 g/dL (12.0-16.0); Mean Corp Hgb Conc. 35.1 g/dL (33.0-37.0); Mean Corpuscular Hgb 35.1 pg (27.0-31.0); Mean Platelet Volume 13.3 fL (7.4-10.4); Nucleated Red Blood Cells % 0 %; Platelet Count 101 10^3/uL (130-400); Red Blood Cell Count 2.71 10^6/uL (4.20-5.40); Red Cell Dist. Width 14.9 % (11.5-14.5); White Blood Cell Count 3.1 10^3/uL (4.8-10.8)
[2023-11-07 18:00] VITALS: BP 128/77
[2023-11-07 18:03] LABS: ALT (SGPT) 44 U/L (0-35); AST (SGOT) 65 U/L (14-36); Albumin 4.7 g/dl (3.5-5.0); Alkaline Phosphatase 53 U/L (38-126); Blood Urea Nitrogen 36 mg/dl (7-17); Calcium 9.6 mg/dl (8.4-10.2); Carbon Dioxide 30 mmol/L (22-30); Chloride 88 mmol/L (98-107); Estimated Creatinine Clearance 33 ml/min; Glucose 93 mg/dl (70-99); Potassium 4.7 mmol/L (3.5-5.1); Sodium 131 mmol/L (135-145); Total Bilirubin 0.5 mg/dl (0.2-1.3); Total Protein 7.1 g/dl (6.3-8.2); eGFR > 60.00
[2023-11-07 18:07] LABS: Troponin I < 0.012 ng/ml
--- NOTE | 2023-11-07 18:31 | ED.GENMED ---
History of Present Illness
General
Chief Complaint: Fatigue
Source: patient
Exam Limitations: none
Time Seen by Provider: 11/07/23 18:17
History of Present Illness
History of Present Illness:
See MDM
Past History
Past History
ED Past Medical History: Arrthythmia (Paroxysmal A-fib), CHF, HTN, Hypercholesterolemia, Valvular disease, Hypothyroidism and Other (Ambulatory dysfunction, episode of aphasia)
ED Past Surgical History: Cardiac (History of cardiac ablation x3, multiple cardioversions, mitral and tricuspid valve repair) and Other (Breast biopsy, D&C, bilateral cataract surgery with lens implants)
Social History
Tobacco: Non-smoker
Alcohol: None
Drug: None
Personal:
Living: with family
Employment: Retired
Family History
Family History: Hypertension
Phy Exam
Physical Exam
Physical Exam:
See MDM
Course
Orders/Labs/Results
Orders:
Orders
11/07/23 17:29
Electrocardiogram (*1) Urgent
Reason for Study: Chest Pain
Cardiac Monitoring- Treatment ONCE
EKG- Treatment ONCE
IV Insert/Care/Rem.- Treatment PRN
Interrogate Pacemaker- Treatment ONCE
O2 Therapy [RESP] Urgent
Titrate/Wean O2 to maintain O2 sat greater than (%): 90
Special Instructions: Maintain sats >/=90%
Pulse Ox/spot Check [RESP] Urgent
Quantity: 1
Special Instructions: ON ROOM AIR
11/07/23 17:36
Complete Blood Count/With Diff Urgent
Comprehensive Metabolic Panel Urgent
NT-proBNP Urgent
Comment: ADD ON
Troponin I Urgent
11/07/23 18:17
Add On- LAB Urgent
Tests Added?: pro BNP
CR Chest - 2 Views Urgent
Comment:
Reason For Exam: weakness and fatigue
Abnormal Lab Results
11/07/23
17:36
WBC 3.1 L 10^3/uL
(4.8-10.8)
RBC 2.71 L 10^6/uL
(4.20-5.40)
Hgb 9.5 L g/dL
(12.0-16.0)
Hct 27.1 L %
(37.0-47.0)
MCV 100.0 H fL
(81.0-99.0)
MCH 35.1 H pg
(27.0-31.0)
RDW 14.9 H %
(11.5-14.5)
Plt Count 101 L 10^3/uL
(130-400)
MPV 13.3 H fL
(7.4-10.4)
Absolute Lymphs (auto) 0.7 L 10^3/uL
(1.2-3.4)
Sodium 131 L mmol/L
(135-145)
Chloride 88 L mmol/L
(98-107)
BUN 36 H mg/dl
(7-17)
AST 65 H U/L
(14-36)
ALT 44 H U/L
(0-35)
11/07/23 17:36
11/07/23 17:36
Vital Signs
Initial and Last Documented VS:
Initial Vital Signs
Temp Pulse Resp BP Pulse Ox
97.5 F 85 18 156/88 100
11/07/23 17:30 11/07/23 17:30 11/07/23 17:30 11/07/23 17:30 11/07/23 17:30
Last Documented Vital Signs
Temp Pulse Resp BP Pulse Ox
97.5 F 74 19 156/88 100
11/07/23 17:30 11/07/23 17:45 11/07/23 17:45 11/07/23 17:30 11/07/23 17:45
MDM/Problems Addressed
Differential Diagnosis Includes:
HPI and MDM Narrative:
88-year-old female presenting with palpitations and feeling unwell. Patient does have a prior history of A-fib but had received an ablation a few years back. She called her doctor complaining about her symptoms and the plan was to increase her
carvedilol. Before doing that, patient want to come to the emergency department for evaluation. Arrival, patient feeling somewhat better. She is in a paced rhythm. The pacemaker was interrogated showing persistent A-fib. This is likely the
cause of her problem. Patient planing of mild weight gain and she recently finished a 3-day course of increasing her Lasix. The pacemaker interrogation suggested possible CHF. Patient does complain of mild weight gain but denies any shortness of
breath while laying flat
Patient denies any concern for UTI
Physical exam
General: Well appearing and non-toxic
HEENT: protecting airway
Neck: appears supple
CV: No evidence of cyanosis. Regular rate and rhythm
Resp: No accessory muscle use. Lungs clear
Abd: Non-distended
Extremities: No deformities mild nonpitting lower extremity edema
Neuro: alert
Psych: Normal affect
Skin: Intact
Problems Addressed including Acute and Chronic Conditions affecting care:
1. Palpitations
Acuity: acute
Prognosis: stable
Details: Likely in setting of A-fib. She is currently paced. We discussed following through with the plan of increase carvedilol
2. Fatigue
Acuity: acute
Prognosis: stable
Details: Likely related to A-fib or possibly CHF. Will obtain chest x-ray
Updates
Chest x-ray clear. BNP mildly elevated. Since potassium within normal limits, we discussed doubling her Lasix just tomorrow morning. We discussed increasing her carvedilol wall dose as discussed by her primary care doctor and discussed following
up with her desktop publishing specialist.
Differential Diagnosis (but not limited to): A-fib, CHF, pneumonia
Testing considered: Urinalysis but she denies urinary symptoms
Drug therapy (if applicable): OTC meds, please see d/c instruction regarding Rx drugs
Amount and/or Complexity of Data Reviewed
Clinical info obtained from: Patient
External data reviewed: N/A
Labs I independently reviewed (but not limited to): Troponin normal, BNP mildly elevated. Potassium normal
Radiology: X-ray independently reviewed: Chest x-ray clear
Pulse Ox: not hypoxic
EKG independently reviewed: Ventricular paced rhythm, normal axis, no STEMI
Writer Editor: Paced rhythm
Critical Care: N/A
Risk of Complication:
Social Determinants of health: Good social support
Discussed with other providers: N/A
Escalation of Care includes Admit/Obs: After being observed in the Emergency Department, pt stable for discharge.
Occasional wrong word or 'sound a like' substitutions may have occurred due to the inherent limitations of voice recognition software. Read the chart carefully and recognize, using context, where substitutions have occurred.
*Critical Care Note
Total Time (30-74mins, 75-104mins- exclusive of procedures): Not Applicable
ED Attending Note
-
Portions of this chart may have been created with voice recognition software.� Occasional wrong word or��sound alike� substitutions may have occurred due to the inherent limitations of voice recognition software.
Discharge Plan
Departure
Patient Disposition: Home (Routine Discharge)
Date of Disposition: 11/07/23
Time of Disposition: 19:35
Patient with high blood pressure during this ER visit?: No
Discharge Problem:
A-fib
Prescriptions:
No Action
ezetimibe 10 MG tablet
10 mg PO QPM Qty: 0 0RF
levothyroxine 112 MCG tablet
112 mcg PO MOTUWETHFRSA@0700
calcium citrate-vitamin D3 [Citracal + D Maximum] 1 EACH tablet
1 ea PO DAILY
carvedilol 3.125 MG tablet
3.125 mg PO BID
Eliquis 2.5 mg Tablet
2.5 mg PO BID
Ferretts IPS 40 mg/15 mL liquid
15 ml PO Q48H
Patient Comments:
03/14/2023, pt. takes Q48H in mid-afternoon.
sennosides [senna] 8.6 mg Tablet
8.6 mg PO QPMPRN PRN (Reason: constipation)
docusate calcium [Stool Softener (docusate price)] 240 mg Capsule
240 mg PO QPMPRN PRN (Reason: constipation)
acetaminophen 650 mg Tablet Extended Release
650 mg PO DAILYPRN PRN (Reason: mild pain)
cholecalciferol (vitamin D3) 25 mcg (1,000 unit) Tablet
25 mcg PO DAILY
furosemide 40 mg tablet
40 mg PO DAILY
Referrals:
Sho Merchant MD [Family Provider] -
Activity Restrictions/Additional Instructions:
As we discussed, your symptoms could be related recurrent A-fib. The pacemaker interrogation mentioned that there may be some evidence of congestive heart failure. Regardless, there is no fluid seen in your lungs on the chest x-ray. You may
double your Lasix dose tomorrow morning. Please call your primary care doctor please follow her instruction and double your carvedilol. On file, your carvedilol dose is 3.125 mg twice a day. By doubling your carvedilol, your new dose will be 6.25
mg twice a day. Please confirm this with your doctor.
Please call to make an appointment with your desktop publishing specialist.
Please return for any worsening symptoms.
You may return at any time if you have further concerns.
Thank you for choosing [facility].
Interventions
Interventions:
*Risk Screen - Suicide Last Done: 11/07/23 17:30
*General Assessment Last Done: 11/07/23 17:30
*Neglect/Abuse Screening Last Done: 11/07/23 17:30
*ED COVID-19 Vaccine History Last Done: 11/07/23 17:30
Discharge Date and Time
Print Language: BENINESE
[2023-11-07 19:12] LABS: NT-proBNP 974 pg/ml
== END 2023-11-07 20:41 ==
LOC: EMR 17:24
PROVIDERS: EMERGENCY PHYSICIAN Student in an Organized Health Care Education/Training Program; FAMILY PHYSICIAN Family Medicine
DX: I48.19 Other persistent atrial fibrillation (principal); I11.0 Hypertensive heart disease with heart failure; I50.9 Heart failure, unspecified; E03.9 Hypothyroidism, unspecified; E78.00 Pure hypercholesterolemia, unspecified; Z95.0 Presence of cardiac pacemaker
CPT/HCPCS: 93288; 99284; 71046; 80053; 83880; 84484; 85025; 93005

== ENCOUNTER → 2023-11-12 09:31 | Outpatient (REF) | payer OTHER, SELFPAY ==
[2023-11-12 11:10] LABS: % Immature Granulocytes 0.7 % (0-0.5); % Monocytes 3.9 % (1.7-9.3); % Neutrophils 75.4 % (42.2-75.2); Absolute Lymphocytes 0.6 10^3/uL (1.2-3.4); Absolute Monocytes 0.1 10^3/uL (0.1-0.6); Absolute Neutrophils 2.2 10^3/uL (1.4-6.5); Hematocrit 26.1 % (37.0-47.0); Mean Corp Hgb Conc. 34.5 g/dL (33.0-37.0); Mean Corpuscular Hgb 34.7 pg (27.0-31.0); Mean Corpuscular Volume 100.8 fL (81.0-99.0); Nucleated Red Blood Cells % 0 %; Platelet Count 114 10^3/uL (130-400); Red Blood Cell Count 2.59 10^6/uL (4.20-5.40); Red Cell Dist. Width 15.2 % (11.5-14.5); White Blood Cell Count 2.9 10^3/uL (4.8-10.8)
[2023-11-12 12:47] LABS: Blood Urea Nitrogen 38 mg/dl (7-17); Calcium 9.8 mg/dl (8.4-10.2); Carbon Dioxide 28 mmol/L (22-30); Chloride 88 mmol/L (98-107); Glucose 92 mg/dl (70-99); Potassium 5.2 mmol/L (3.5-5.1); Sodium 130 mmol/L (135-145); eGFR > 60.00
== END ==
LOC: OLABWIL 09:31
PROVIDERS: ATTENDING PHYSICIAN Specialist; REFERRING PHYSICIAN Internal Medicine Hematology & Oncology
DX: I10 Essential (primary) hypertension (principal); E87.1 Hypo-osmolality and hyponatremia; D50.9 Iron deficiency anemia, unspecified; D05.80 Other specified type of carcinoma in situ of unspecified breast; D61.818 Other pancytopenia; D59.4 Other nonautoimmune hemolytic anemias; N18.30 Chronic kidney disease, stage 3 unspecified; D63.1 Anemia in chronic kidney disease
CPT/HCPCS: 36415; 80048; 85025

== ENCOUNTER 2023-11-14 03:20 | Inpatient (IN) | payer OTHER, SELFPAY ==
[2023-11-13 21:26] VITALS: BP 142/75; BMI 17.8
[2023-11-13 21:31] VITALS: BP 142/75
--- NOTE | 2023-11-13 21:41 | ED.GENMED ---
History of Present Illness
General
Chief Complaint: Weakness
Source: patient
Time Seen by Provider: 11/13/23 21:41
History of Present Illness
History of Present Illness:
88-year-old female presents emergency department with complaints of feeling weak, foggy,' strange in my head'. This is been progressive over the last few days but particularly worse today. She also notes tingling in bilateral legs without
numbness, weakness, headache, change in vision, change in speech, chest pain, dyspnea, nausea, vomiting, anorexia, back pain, neck pain, recent trauma, abdominal pain, or other complaints.
Past History
Past History
ED Past Medical History: Arrthythmia (Paroxysmal A-fib), CHF, HTN, Hypercholesterolemia, Valvular disease, Hypothyroidism and Other (Ambulatory dysfunction, episode of aphasia)
ED Past Surgical History: Cardiac (History of cardiac ablation x3, multiple cardioversions, mitral and tricuspid valve repair) and Other (Breast biopsy, D&C, bilateral cataract surgery with lens implants)
Social History
Tobacco: Non-smoker
Alcohol: None
Drug: None
Personal:
Living: other ([facility])
Employment: Retired
Family History
Family History: Hypertension
Phy Exam
Physical Exam
Physical Exam:
GENERAL: Alert , in no apparent distress, thin
EYE: pupils equal and reactive, no nystagmus, conjunctive a pink, no photophobia
NECK: Supple, no significant adenopathy.
ENT: o/p clr, mm slightly dry
CARDIAC: Regular rate and rhythm with occasional skipped beats.
LUNGS: Clear breath sounds bilaterally, no acute respiratory distress, no wheezes/rales/rhonchi
ABDOMEN: Soft, without focal tenderness, no r/g, no cvat
NEUROLOGICAL: Alert and oriented, no focal neuro deficits, [id number] normal, cranial nerves II through XII intact, motor 5 out of 5, sensory intact
SKIN: Warm and dry, skin intact.
MUSCULOSKELETAL: 1+ bilateral lower extremity edema with chronic venous stasis changes, well perfused.
PSYCH: Normal and appropriate interaction.
Course
Orders/Labs/Results
Orders:
Orders
11/13/23 21:46
CT Head W/o Iv Contrast Urgent
Comment:
Reason For Exam: foggy
Cardiac Monitoring- Treatment ONCE
Urinalysis Reflex To Culture Urgent
Date Specimen was Collected: 11/13/23
Time Specimen was Collected: 23:50
Pulse Ox/cont/shift [RESP] Stat
Quantity: 1
11/13/23 22:21
Complete Blood Count/No Diff Urgent
Comprehensive Metabolic Panel Urgent
Troponin I Urgent
11/13/23 23:07
Electrocardiogram (*1) Urgent
Reason for Study: Fatigue / Weakness
11/13/23 23:08
EKG- Treatment ONCE
11/14/23 00:05
Urine Microscopic Reflex Cult Urgent
Urine Culture Urgent
NETO Source: U
Specimen Description:
Date Specimen was Collected: 11/13/23
Time Specimen was Collected: 23:50
11/14/23 01:02
CefTRIAXone [Rocephin] 1,000 mg IV NOW STA
11/14/23 01:32
Admit/Transfer Patient As Directed
Co-Sign Provider:
Level of Care: Inpatient admission
Assign to:: Telemetry
Physician / Group: Wade
Diagnosis: UTI, JOSH
Reason for Telemetry: Arrhythmia
Date to Stop Telemetry: 11/17/23
Time to Stop Telemetry: 11:00
Reason for Hospitalization: UTI, JOSH
Expected length of stay greater than two midnights?: Yes
ELOS- Estimated Length of Stay in days: 2
I certify the patient meets the requirements for IP care: Yes
PRN Pain Medication Management As Directed
May give lesser potent ordered pain med per pt: Yes
preference::
Protocol:: Medication orders for pain may be administered in a
manner that supports deferring to patient preference
when the pt is:
- Requesting an ordered lesser potent pain medication.
Least to most potent pain medications are defined
as: acetaminophen < NSAID < tramadol < opioids
(morphine, oxycodone, hydromorphone).
- Requesting a lesser dose of the same medication IF
ORDERED.
- Requesting a less intrusive route of administration
if both routes are prescribed by the provider (PO <
IV).
11/14/23 01:34
Code Status As Directed
Resuscitation Status: Do not resuscitate
Reached after discussion with pt or family/Healthcare POA: Yes
11/14/23 01:35
DNR Bracelet Application ONCE
11/14/23 01:38
COVID-19 Antigen Urgent
Source: Nasal Swab
11/14/23 01:58
CXR2 [CR Chest - 2 Views ] Urgent
Comment:
Reason For Exam: Hypothermia
11/14/23 02:00
Flush (0.9% Sodium Chloride) [Flush (Nss)] See Dose Instructions IV PER PROTOCOL
11/17/23 11:00
DC Protocol for Telemetry ONCE
Abnormal Lab Results
11/13/23 11/14/23
22:21 00:05
RBC 2.52 L 10^6/uL
(4.20-5.40)
Hgb 8.8 L g/dL
(12.0-16.0)
Hct 25.3 L %
(37.0-47.0)
MCV 100.4 H fL
(81.0-99.0)
MCH 34.9 H pg
(27.0-31.0)
RDW 15.3 H %
(11.5-14.5)
Plt Count 116 L 10^3/uL
(130-400)
MPV 12.6 H fL
(7.4-10.4)
Sodium 128 L mmol/L
(135-145)
Chloride 85 L mmol/L
(98-107)
Carbon Dioxide 35 H mmol/L
(22-30)
BUN 52 H mg/dl
(7-17)
Creatinine 1.2 H mg/dL
(0.6-1.0)
AST 57 H U/L
(14-36)
ALT 40 H U/L
(0-35)
Urine Nitrite (Reflex) Positive A
(Negative)
Leukocyte Esterase Rfl 2+ A
(Negative)
Urine WBC (Reflex) 26-30 A /HPF
(0-5)
Urine Bacteria (Reflex) Many A
(Negative)
11/13/23 22:21
11/13/23 22:21
Vital Signs
Initial and Last Documented VS:
Initial Vital Signs
Temp Pulse Resp BP Pulse Ox
95.7 F L 74 18 142/75 99
11/13/23 21:26 11/13/23 21:26 11/13/23 21:26 11/13/23 21:26 11/13/23 21:26
Last Documented Vital Signs
Temp Pulse Resp BP Pulse Ox
96.1 F L 74 9 111/81 99
11/14/23 01:44 11/14/23 02:00 11/14/23 02:00 11/14/23 02:00 11/13/23 23:45
*Critical Care Note
Total Time (30-74mins, 75-104mins- exclusive of procedures): Not Applicable
Update Note
Update Note:
Patient presents to the Emergency Department with __generalized weakness
Number and Complexity of Problems Addressed at the Encounter
� Chronic conditions affecting care:
� Acute Exacerbation and/or Progression of Chronic Illness:
� Differential Diagnosis includes: But not limited to electrolyte disorder, arrhythmia, infection, TIA, etc. etc.
Amount and/or Complexity of Data to be Reviewed and Analyzed
� I performed an independent evaluation of and my interpretation is:
EKG: read by me: paced, no acute ischemia
CT: No CT evidence for acute intracranial hemorrhage or transcortical infarct.
2. Mild diffuse cerebral and cerebellar volume loss.
3. Mild periventricular white matter leukoaraiosis.
Xrays:
Laboratory Studies:baseline hypoNa t 128, baseline anemia, nonspeci unchanged lft elevations (Mild). New renal insufficiency.
Other: Pacer interrogation, no ventricular arrhythmias noted on this report
� Review of other/old records reveals: Patient was in the hospital June 2023, discharge summary reviewed, presented with a TIA exhibited with expressive aphasia and trouble processing thoughts.
� Clinical information was obtained by an independent historian: EMS
� Prescriptions/Medications Considered but not given:
� Further testing considered but not performed:
Risk of Complications and/or Morbidity or Mortality of Patient Management
� Social determinants of health affecting care:
� Discussion with other providers (PCP, Hospitalists, Consultants, etc):
� Escalation of care including admission/observation vs risk of discharge considered:u/a suspicious for UTI, which could account for pt's weakness and otherwise vague sxs..given mild renal insuff as well, will admit. Pt fluid
restricted given hx of SIADH. D/w hospitalist.
ED Attending Note
-
Portions of this chart may have been created with voice recognition software.� Occasional wrong word or��sound alike� substitutions may have occurred due to the inherent limitations of voice recognition software.
Discharge Plan
Departure
Patient Disposition: Admit
Date of Disposition: 11/14/23
Time of Disposition: 01:03
Admit to: Med/Surg
Presentation/result/management discussed w/ accepting MD/DO: Hospitalist
Condition: Fair
Discharge Problem:
Acute UTI, Acute renal insufficiency
Prescriptions:
No Action
ezetimibe 10 MG tablet
10 mg PO QPM Qty: 0 0RF
levothyroxine 112 MCG tablet
112 mcg PO MOTUWETHFRSA@0700
calcium citrate-vitamin D3 [Citracal + D Maximum] 1 EACH tablet
1 ea PO DAILY
carvedilol 3.125 MG tablet
3.125 mg PO BID
Eliquis 2.5 mg Tablet
2.5 mg PO BID
Ferretts IPS 40 mg/15 mL liquid
15 ml PO Q48H
sennosides [senna] 8.6 mg Tablet
8.6 mg PO QPMPRN PRN (Reason: constipation)
docusate calcium [Stool Softener (docusate price)] 240 mg Capsule
240 mg PO QPMPRN PRN (Reason: constipation)
acetaminophen 650 mg Tablet Extended Release
650 mg PO DAILYPRN PRN (Reason: mild pain)
cholecalciferol (vitamin D3) 25 mcg (1,000 unit) Tablet
25 mcg PO DAILY
furosemide 80 mg Tablet
80 mg PO DAILY
vitamin B complex Tablet
1 tab PO NOON
folic acid 1 mg Tablet
1 mg PO QPM
Refresh Classic (PF) 1.4-0.6 % Dropperette
1 drp BOTH EYES DAILYPRN PRN (Reason: dry eyes)
Referrals:
Sho Merchant MD [Family Provider] -
Interventions
Interventions:
*Risk Screen - Suicide Last Done: 11/13/23 21:26
*General Assessment Last Done: 11/13/23 21:26
*Neglect/Abuse Screening Last Done: 11/13/23 21:26
ED- Fall Risk Assessment Last Done: 11/13/23 21:26
ED- Cardiac Assessment Last Done: 11/13/23 21:26
ED- Neurological Assessment Last Done: 11/13/23 21:26
ED- Pulmonary Assessment Last Done: 11/13/23 21:26
Discharge Date and Time
Print Language: UPPER SORBIAN
[2023-11-13 22:00] VITALS: BP 123/69
[2023-11-13 22:26] LABS: Hematocrit 25.3 % (37.0-47.0); Hemoglobin 8.8 g/dL (12.0-16.0); Mean Corp Hgb Conc. 34.8 g/dL (33.0-37.0); Mean Corpuscular Hgb 34.9 pg (27.0-31.0); Mean Corpuscular Volume 100.4 fL (81.0-99.0); Mean Platelet Volume 12.6 fL (7.4-10.4); Platelet Count 116 10^3/uL (130-400); Red Blood Cell Count 2.52 10^6/uL (4.20-5.40); Red Cell Dist. Width 15.3 % (11.5-14.5); White Blood Cell Count 5.8 10^3/uL (4.8-10.8)
[2023-11-13 22:41] LABS: ALT (SGPT) 40 U/L (0-35); AST (SGOT) 57 U/L (14-36); Albumin 4.4 g/dl (3.5-5.0); Alkaline Phosphatase 44 U/L (38-126); Blood Urea Nitrogen 52 mg/dl (7-17); Calcium 9.9 mg/dl (8.4-10.2); Carbon Dioxide 35 mmol/L (22-30); Chloride 85 mmol/L (98-107); Estimated Creatinine Clearance 23 ml/min; Glucose 83 mg/dl (70-99); Sodium 128 mmol/L (135-145); Total Bilirubin 0.4 mg/dl (0.2-1.3); Total Protein 6.6 g/dl (6.3-8.2); eGFR 43.81
[2023-11-13 22:52] LABS: Troponin I 0.021 ng/ml
[2023-11-13 23:00] VITALS: BP 119/70
[2023-11-14] VITALS (12 sets, daily range): BP systolic 100–154; BP diastolic 54–85; PULSE 71–75; O2SAT 99; BMI 16.9
[2023-11-14 00:22] LABS: Urine Albumin Negative (Neg - Trace); Urine Bilirubin Negative (Negative); Urine Character Slightly Cloudy (Clear); Urine Color Yellow; Urine Glucose Negative (Negative); Urine Ketone Negative (Negative); Urine Leukocyte 2+ (Negative); Urine Nitrite Positive (Negative); Urine Occult Blood Negative (Negative); Urine Urobilinogen Negative (Neg - 1+)
[2023-11-14 00:48] LABS: Urine Bacteria Many (Negative)
[2023-11-14 00:49] LABS: Urine White Cell 26-30 /HPF (0-5)
[2023-11-14 00:50] LABS: Urine Red Blood Cell 0-2 /HPF (0-2)
[2023-11-14] MEDS: ROCEPHIN 1000 MG IV (01:39)
--- NOTE | 2023-11-14 01:39 | HPS.HSE ---
Family Physician
-
Family Physician: Sho Merchant
Chief Complaint
-
'Foggy', Weakness
History of Present Illness
Patient is an 88y F with PMH significant for valvular heart disease, HFpEF and A-Fib who presents to ED complaining of unsteady gait and feeling 'foggy in the head'. Patient states that her gait issues have been worsening over the past several
weeks to months. Today she felt 'foggy' in the head and presented to the ED for further evaluation. Patient denies feeling dizzy, room spinning, etc. She denies any other complaints including headache, sore throat, chest pain, fevers / chills,
cough / SOB, abd pain, N/V/D or urinary complaints.
Patient states that she was recently advised (today) to increase her Lasix from 40mg daily to 80mg daily; however, she has yet to do so.
She denies any other recent medication changes. No known / specific sick contacts. She resides at [facility].
Medical History
Past Medical History
Past Medical History: Reports Other
Additional Past Medical History:
Valvular Heart Disease
Chronic HFpEF
Permanent Atrial Fibrillation
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
Peripheral Neuropathy
Iron Deficiency Anemia
Hypothyroidism
Vertigo
Left Breast Cancer s/p Lumpectomy and XRT
Chronic Constipation
Past Surgical History: Reports Other
Additional Past Surgical History:
PVI Ablation x Multiple
PPM Placement
Left Lumpectomy
TAVR
Mitral / Tricuspid Valve Annuloplasty / Repairs
Cataracts
Social History
Tobacco: Non-smoker
Alcohol: None
Drug: None
Family History
Family History: Not pertinent
Allergies / Home Medications
Allergies reflects when Allergies were last updated in [employer].
Home Medications with original date entered in [employer]
Allergy/Medication List:
Allergies
Allergy/AdvReac Type Severity Reaction Status Date / Time
adhesive Allergy itching - Verified 11/13/23 21:25
redness
amiodarone Allergy elevated Verified 11/13/23 21:25
LFTs
bupivacaine Allergy Shortness Verified 11/13/23 21:25
[From of Breath
Sensorcaine-Epinephrine]
cat dander Allergy SNEEZING/WH Verified 11/13/23 21:25
EEZING
codeine Allergy light Verified 11/13/23 21:25
headed and
dizzy
epinephrine Allergy Shortness Verified 11/13/23 21:25
[From of Breath
Sensorcaine-Epinephrine]
prilocaine Allergy LIGHTHEADED, Verified 11/13/23 21:25
DIZZY
Sulfa (Sulfonamide Allergy Nausea Verified 11/13/23 21:25
Antibiotics)
sulfamethoxazole Allergy nausea-DID Verified 11/13/23 21:25
NOT
TOLERATE
WELL
Home Medications
ezetimibe 10 mg tablet 10 mg PO QPM High cholesterol ##0 11/29/20
levothyroxine 112 mcg tablet 112 mcg PO MOTUWETHFRSA@0700 Thyroid 12/28/20
calcium 315 mg (as citrate)-vitamin D3 6.25 mcg (250 unit) tablet (Citracal + Vitamin D Maximum) 1 ea PO DAILY Supplement 03/27/21
carvedilol 3.125 mg tablet 3.125 mg PO BID Blood Pressure 03/27/21
acetaminophen 650 mg tablet,extended release 650 mg PO DAILYPRN PRN mild pain 03/14/23
apixaban 2.5 mg tablet (Eliquis) 2.5 mg PO BID Blood Clot Prevention/Tx 03/14/23
cholecalciferol (vitamin D3) 25 mcg (1,000 unit) tablet 25 mcg PO DAILY Supplement 03/14/23
docusate calcium 240 mg capsule (Stool Softener (docusate calcium)) 240 mg PO QPMPRN PRN constipation 03/14/23
iron succinyl-protein complex 40 mg/15 mL oral liquid (Ferretts IPS) 15 ml PO Q48H Supplement 03/14/23
sennosides 8.6 mg tablet (senna) 8.6 mg PO QPMPRN PRN constipation 03/14/23
folic acid 1 mg tablet 1 mg PO QPM 11/13/23
furosemide 80 mg tablet 80 mg PO DAILY 11/13/23
polyvinyl alcohol-povidone (PF) 1.4 %-0.6 % eye drops in a dropperette (Refresh Classic (PF)) 1 drp BOTH EYES DAILYPRN PRN dry eyes 11/13/23
vitamin B complex 1 tab PO NOON 11/13/23
Review of Systems
-
History Source: Patient
A 12 point ROS was completed and negative except as noted: Yes
Constitutional: Reports Fatigue; Denies Fever or Chills
EENT: Denies Sore Throat
Respiratory: Denies Cough or Trouble Breathing
Cardiac: Denies Chest Pain or Palpitations
Abdomen/GI: Reports Constipated; Denies Abdominal Pain, Nausea, Vomiting, Diarrhea or Anorexia
: Denies Dysuria, Frequency, Flank Pain, Incontinence, Difficulty Voiding, Urgency or Bleeding
Musculoskeletal: Reports Edema; Denies Joint Pain
Neurological: Denies Dizzy or Headache
Psych: Denies Depression or Anxiety
Physical Exam
Vital Signs
Vital Signs
Temp Pulse Resp BP Pulse Ox
95.7 F L 74 11 114/68 99
11/13/23 21:26 11/14/23 01:00 11/14/23 01:00 11/14/23 01:00 11/13/23 23:45
Physical Exam
General: Other (88y F in no acute distress.)
HEENT: Moist mucous membranes, PERRLA and Other (Neck supple. Pos JVD.)
Respiratory: Clear; No Wheezes, Rales or Rhonchi
Cardiac: S1/S2 and Regular Rhythm; No Murmur
GI: Soft, Non Tender, Non Distended and Normal Bowel Sounds
Musculoskeletal: No Clubbing, No Cyanosis and Other (Chronic venous stasis skin changes. No edema.)
Neuro: AO x 3 and Nonfocal/grossly intact
Laboratory Results
-
11/13/23 22:21
11/13/23 22:21
Laboratory Results
Total Bilirubin 0.4 mg/dl (0.2-1.3) 11/13/23 22:21
AST 57 U/L (14-36) H 11/13/23 22:21
ALT 40 U/L (0-35) H 11/13/23 22:21
Alkaline Phosphatase 44 U/L (38-126) 11/13/23 22:21
Troponin I 0.021 ng/ml 11/13/23 22:21
Impression/Plan
-
A/P: Patient is an 88y F with PMH significant for A-Fib, valvular heart disease and CHF who presents to ED complaining of 'foggy' feeling in the head and unsteady gait.
JOSH
- Admit for further evaluation and treatment
- SCr = 1.2 compared to known baseline of 0.8 - 0.7.
- Recently advised to increase diuretic dose but has yet to do so.
- Volume status somewhat difficult to determine - not hypertensive, Na level slightly lower than usual, JOSH, elevated CO3, no rales / edema / etc.
- Will hold Lasix for now and follow I/Os, daily weights and renal function changes.
- Follow for return to baseline.
Possible UTI
- UA suggestive of infection - though patient with no urinary symptoms / complaints.
- Will continue with ceftriaxone for now.
- Follow-up final culture results.
Hypothermia
- ? secondary to acute infection. No other SIRS criteria to meet 'sepsis'.
- Check TFTs (though TSH was normal one month ago).
- Check for other sources of infection including COVID-19.
- Janes Hugger / supportive care.
- Follow for improvement.
Unsteady Gait
'Foggy' Feeling
- ? secondary to acute infectious process as noted above.
- ? other etiology.
- Patient with chronic central vertigo - but no dizziness / vertiginous symptoms at present.
- Holding diuretic acutely as noted above.
- PT / OT evaluations in the AM.
- Follow for any changes in symptoms.
Pancytopenia
- Patient with h/o iron deficiency anemia. Hgb close to known baseline and no reported bleeding.
- Recent leukopenia and thrombocytopenia as well.
- Patient notes that she has Hematology evaluation planned for later this week as an outpatient.
- WBC normal today - ? reflection of infection / UTI.
- Follow cell counts for any changes.
Permanent Atrial Fibrillation
Chronic HFpEF
- Stable. PPM interrogated in the ED this evening. 100% A-Fib.
- Interrogation also makes note of possible intrathoracic fluid accumulation based on impedance data - will check CXR.
- CXR without effusion of significant pulmonary edema.
- Holding Lasix for now as noted above.
- Follow I/Os, daily weights, etc.
- Continue Eliquis for stroke risk reduction.
Hypothyroidism
- Repeat TFTs as noted above.
- Continue current T4 replacement and adjust as needed.
Chronic Constipation
- Bowel regimen.
DVT Prophylaxis: On Eliquis
Code Status: DNR
[2023-11-14] MEDS: FLUSH (NSS) 1 FLUSH IV (01:40)
[2023-11-14 01:59] LABS: COVID-19 Antigen Negative (Negative)
--- NOTE | 2023-11-14 03:30 | PTCARENOTE ---
Pt arrived from ED via stretcher and ambulated with a rolling walker to bed. Pt is AAOx3, VSS, and w/o complaints of pain. Pt rectal temp 94.4 and RN applied Janes Hugger. Pt is oriented to unit resting comfortably w/ call yu within reach.
[2023-11-14] MEDS: SYNTHROID 112 MCG PO (06:02)
[2023-11-14] MEDS: COREG 3.125 MG PO ×2 (08:09→20:45)
[2023-11-14] MEDS: COLACE 100 MG PO (08:09)
[2023-11-14] MEDS: ELIQUIS 2.5 MG PO ×2 (08:10→20:45)
[2023-11-14] MEDS: VITAMIN D3 (cholecalciferol) 25 MCG PO (08:10)
[2023-11-14 08:14] LABS: Hematocrit 21.9 % (37.0-47.0); Hemoglobin 7.5 g/dL (12.0-16.0); Mean Corp Hgb Conc. 34.2 g/dL (33.0-37.0); Mean Corpuscular Hgb 34.2 pg (27.0-31.0); Platelet Count 104 10^3/uL (130-400); Red Blood Cell Count 2.19 10^6/uL (4.20-5.40); Red Cell Dist. Width 15.4 % (11.5-14.5); White Blood Cell Count 3.5 10^3/uL (4.8-10.8)
[2023-11-14] MEDS: MIRALAX 17 GRAMS PO (08:39)
[2023-11-14] MEDS: MIRALAX PO (08:45)
[2023-11-14] MEDS: SENOKOT-S 1 TABLET PO ×2 (09:04→20:44)
[2023-11-14 09:06] LABS: Blood Urea Nitrogen 42 mg/dl (7-17); Calcium 9.2 mg/dl (8.4-10.2); Carbon Dioxide 33 mmol/L (22-30); Chloride 91 mmol/L (98-107); Estimated Creatinine Clearance 29 ml/min; Glucose 71 mg/dl (70-99); Iron 75 ug/dl (37-170); Potassium 4.5 mmol/L (3.5-5.1); Sodium 131 mmol/L (135-145); eGFR > 60.00
[2023-11-14 09:15] LABS: Percent Saturation 23 % (20-50); Total Iron Binding Capacity 318 ug/dl (265-497)
[2023-11-14 09:44] LABS: LDH 357 U/L (120-246)
--- NOTE | 2023-11-14 09:51 | CON.ONC ---
Impression
Impression
Pancytopenia chronic noted intermittently since 2020 clearly able to mount white blood cell response and reticulocyte response in the past
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
Elevated LDH but was greater than 3000 and has been coming down
UTI E. coli
Valvular Heart Disease
Chronic HFpEF
Permanent Atrial Fibrillation
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
Peripheral Neuropathy
Iron Deficiency Anemia
Hypothyroidism
Vertigo
Left Breast Cancer s/p Lumpectomy and XRT
Chronic Constipation
Plan
Plan
Patient has had multiple episodes of acute anemia
Haptoglobin chronically suppressed of uncertain significance and elevated LDH TAVR leak shear hemolysis reticulocyte count and LDH declined postrepair
Not uncommon for thin frail elderly patients to have chronic low haptoglobin due to decreased synthetic function
Able to mount reticulocyte and white blood cell response
Remote CT scan from without hepatosplenomegaly
No evidence of M protein on serum protein electrophoresis from 07/11
Occidental lambda light chain ratio 2.0 indicative of renal insufficiency or chronic inflammation
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
Replete substrates as needed
Evaluate for hemolysis if EZEKIEL negative in the past consider [facility] evaluation
May need bone marrow biopsy as an outpatient to rule out MDS
Heme positive stools noted likely cause of anemia now
On Eliquis which will have to be held for procedure
Given her advanced age and medical problems it may be reasonable to transfuse as needed
Transfuse hemoglobin < 7.0 g/dL
Patient History
History of Present Illness
Patient is an 88y F with PMH significant for valvular heart disease, HFpEF and A-Fib who presents to ED complaining of unsteady gait and brain fog. Patient states that her gait issues have been worsening over the past several weeks to months.
Patient denies vertigo, orthostatic symptoms, headache, sore throat, chest pain, fevers / chills, cough / SOB, abd pain, N/V/D or urinary complaints. Emergency room evaluation shows evidence of acute renal insufficiency and pancytopenia.
Past-Medical/Surgical History
Past Medical History
Past Medical History: Reports Other
Additional Past Medical History:
Valvular Heart Disease
Chronic HFpEF
Permanent Atrial Fibrillation
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
Peripheral Neuropathy
Iron Deficiency Anemia
Hypothyroidism
Vertigo
Left Breast Cancer s/p Lumpectomy and XRT
Chronic Constipation
Past Surgical History
PVI Ablation x Multiple
PPM Placement
Left Lumpectomy
TAVR
Mitral / Tricuspid Valve Annuloplasty / Repairs
Cataracts
Social History
Tobacco: Non-smoker
Alcohol: None
Drug: None
Family History
Family History: Not pertinent
Patient Medication
�Medication �Instructions �Recorded �Confirmed �Last Taken �Type
ezetimibe 10 mg tablet 10 mg PO QPM High cholesterol ##0 11/29/20 11/13/23 11/13/23 Rx
levothyroxine 112 mcg tablet 112 mcg PO MOTUWETHFRSA@0700 12/28/20 11/13/23 11/13/23 History
Thyroid
calcium 315 mg (as 1 ea PO DAILY Supplement 03/27/21 11/13/23 11/13/23 History
citrate)-vitamin D3 6.25 mcg (250
unit) tablet (Citracal + Vitamin D
Maximum)
carvedilol 3.125 mg tablet 3.125 mg PO BID Blood Pressure 03/27/21 11/13/23 11/13/23 History
acetaminophen 650 mg 650 mg PO DAILYPRN PRN mild pain 03/14/23 11/13/23 03/13/23 History
tablet,extended release
apixaban 2.5 mg tablet (Eliquis) 2.5 mg PO BID Blood Clot 03/14/23 11/13/23 11/13/23 History
Prevention/Tx
cholecalciferol (vitamin D3) 25 25 mcg PO DAILY Supplement 03/14/23 11/13/23 11/13/23 History
mcg (1,000 unit) tablet
docusate calcium 240 mg capsule 240 mg PO QPMPRN PRN constipation 03/14/23 11/13/23 03/13/23 History
(Stool Softener (docusate calcium))
iron succinyl-protein complex 40 15 ml PO Q48H Supplement 03/14/23 11/13/23 07/05/23 16:00 History
mg/15 mL oral liquid (Ferretts IPS)
sennosides 8.6 mg tablet (senna) 8.6 mg PO QPMPRN PRN constipation 03/14/23 11/13/23 03/13/23 History
folic acid 1 mg tablet 1 mg PO QPM 11/13/23 11/13/23 11/13/23 History
furosemide 80 mg tablet 80 mg PO DAILY 11/13/23 11/13/23 11/13/23 History
polyvinyl alcohol-povidone (PF) 1 drp BOTH EYES DAILYPRN PRN dry 11/13/23 11/13/23 Unknown History
1.4 %-0.6 % eye drops in a eyes
dropperette (Refresh Classic (PF))
vitamin B complex 1 tab PO NOON 11/13/23 11/13/23 11/13/23 History
Active Medications
Generic Name Dose Route Start Last Admin
Trade Name Freq PRN Reason Stop Dose Admin
Acetaminophen 650 mg 11/14/23 03:25
Acetaminophen 325 Mg Tablet PO
DAILYPRN PRN
mild pain / temp > 101
Apixaban 2.5 mg 11/14/23 08:00 11/14/23 08:10
Apixaban (Eliquis) 2.5 Mg Tablet PO 12/12/23 07:59 2.5 mg
BID JAYCOB Administration
Carvedilol 3.125 mg 11/14/23 08:00 11/14/23 08:09
Carvedilol 3.125 Mg Tablet PO 12/12/23 07:59 3.125 mg
BID JAYCOB Administration
Ceftriaxone Sodium 1,000 mg 11/15/23 00:00
Ceftriaxone 1000 Mg / 10 Ml Vial IV
Q24H JAYCOB
Cholecalciferol 25 mcg 11/14/23 08:00 11/14/23 08:10
Cholecalciferol (Vitamin D3) 25 Mcg Tablet (1,000 Units) PO 12/12/23 07:59 25 mcg
DAILY JAYCOB Administration
Folic Acid 1 mg 11/14/23 18:00
Folic Acid 1 Mg Tablet PO 12/12/23 17:59
QPM JAYCOB
Levothyroxine Sodium 112 mcg 11/14/23 07:00 11/14/23 06:02
Levothyroxine 112 Mcg Tablet PO 12/12/23 06:59 112 mcg
MOTUWETHFRSA@0700 JAYCOB Administration
Polyethylene Glycol 17 grams 11/14/23 09:00 11/14/23 08:45
Polyethylene Glycol Powder 17 Grams Packet PO 12/12/23 08:59 Not Given
DAILY JAYCOB
Senna/Docusate Sodium 1 tablet 11/14/23 09:00 11/14/23 09:04
Docusate W/Senna (Anahi-Colace) Tablet PO 12/12/23 08:59 1 tablet
BID JAYCOB Administration
Sodium Chloride 0 flush 11/14/23 02:00 11/14/23 01:40
Sodium Chloride 0.9% (Flush) Syringe IV 12/12/23 01:59 1 flush
PER PROTOCOL JAYCOB Administration
Sterile Water 10 ml 11/15/23 00:00
Sterile Water For Injection 10 Ml Vial IV 12/13/23 00:00
Q24H JAYCOB
Review of Systems
-
12 point review of systems fails or elicit additional complaints of those reviewed in HPI
Physical Exam
-
Physical Exam
General: Other (88y F in no acute distress.)
HEENT: Moist mucous membranes, EOMI
Respiratory: Clear; No Wheezes, Rales or Rhonchi
Cardiac: S1/S2 and Regular Rhythm; No Murmur
GI: Soft, Non Tender, Non Distended and Normal Bowel Sounds
Musculoskeletal: No Clubbing, No Cyanosis and Other (Chronic venous stasis skin changes. No edema.)
Neuro: AO x 3 and Nonfocal/grossly intact
Labs
Lab Results
WBC 3.5 10^3/uL (4.8-10.8) L 11/14/23 07:44
RBC 2.19 10^6/uL (4.20-5.40) L 11/14/23 07:44
Hgb 7.5 g/dL (12.0-16.0) L 11/14/23 07:44
Hct 21.9 % (37.0-47.0) L 11/14/23 07:44
MCV 100.0 fL (81.0-99.0) H 11/14/23 07:44
MCH 34.2 pg (27.0-31.0) H 11/14/23 07:44
MCHC 34.2 g/dL (33.0-37.0) 11/14/23 07:44
RDW 15.4 % (11.5-14.5) H 11/14/23 07:44
Plt Count 104 10^3/uL (130-400) L 11/14/23 07:44
MPV 13.0 fL (7.4-10.4) H 11/14/23 07:44
Creatinine 0.9 mg/dL (0.6-1.0) 11/14/23 07:44
Vital Signs
Vital Signs
Temp Pulse Resp BP Pulse Ox
95.8 F L 71 16 100/64 96
11/14/23 09:00 11/14/23 08:09 11/14/23 07:05 11/14/23 08:09 11/14/23 07:05
--- NOTE | 2023-11-14 10:42 | CON.GI ---
Addendum entered and electronically signed by Reynaldo Mcknight MD 11/14/23 16:04:
I saw and examined the patient.
The MANUFACTURING LEADER or PA's note was reviewed and I agree with the note.
Comment:
The patient is an 88-year-old woman with a history of valvular disease and history of TAVR are with revision. She also has a history of hemolytic anemia, A-fib and is on Eliquis. She does have a history of adenomatous polyps colonic angioectasia
and hemorrhoids. We were consulted for heme positive stool with an anemia. The patient does not admit to me having any change in her bowel pattern. She does state that her hemorrhoids will occasionally bleed but has no nausea vomiting or upper
symptoms but does have a history of a paraesophageal hernia and does have some mildly elevated LFTs.
abd: soft, nontender
plan:
1. monitor hgb
2. PPI
3. hematology
4. likely multifactorial in nature
5. will monitor for now
Original Note:
Consultation
-
Date/Time Consultation Requested: 11/14/23 0930
Date/Time Consultation Performed: 11/14/23 1045
Requesting Provider: Edd Perez MD
Performing Provider: NOE Garrison, Reynaldo Mcknight MD
Reason for Consultation: anemia
Medical History
Chief Complaint / HPI
History of Present Illness:
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 On admission noted with JOSH, possible UTI but noted drop in hbg to 7.5 with BUN 52 after admission with baseline 9-10.
She has hx RICH and prior hemolytic anemia with hematology OP follow with also noted persistent low haptoglobin and elevated LDH. She was last seen by GI with work up in 2020 with adenomatous polyps, colonic angioectasia, hemorrhoids, large PEH,
small HH, erosive gastropathy and gastric atrophy. In review of chart hx blood transfusion but last 2020.
Pt currently admits to dark stool with iron supplement over last few months. She also admits to occasional red blood with hemorrhoids and constipation. She denies dysphagia, GERD, nausea, vomiting, abdominal pain, or diarrhea. Denies NSAID
use. Iron studies stable but has been on supplementation.
Past Medical History
Past Medical History: Arrhythmias (PAF with prior multiple ablations on eliquis ), Cancer (breast CA DCIS, lumpectomy and radiation), CHF, CVA (TIA), HTN, Hypercholesterolemia, Hypothyroidism, Valvular Disease and Other (multiple adenomatous colon
polyp, osteoporosis, pulm HTN, neuropathy, DJD, vertigo, RICH, large PEH, gastric erosions,colonic angioectasia, hemorrhoids, hyponatremia- SIADH, macular degeneration, back pain, balance issues, constipation, diverticulosis, episode of aphasia)
Past Surgical History: Cardiac (mitral and bicuspid valve repair, ARVIN CV, pacer, TAVR with repair 2020 with leak ), Gynecological (breast bx, D+C) and Other (lumpectomy, cataract surgery)
Social History
Tobacco: Former Smoker (quit 1964 )
Alcohol: None
Drug: None
Living: Other ([facility] )
Employment: Retired
Family History
Family History: Other (father with colon surgery in past, but did not recall colon CA or polyps)
Allergies / Home Medications
Allergy/AdvReac Type Severity Reaction Status Date / Time
adhesive Allergy itching - Verified 11/13/23 21:25
redness
amiodarone Allergy elevated Verified 11/13/23 21:25
LFTs
bupivacaine Allergy Shortness Verified 11/13/23 21:25
[From of Breath
Sensorcaine-Epinephrine]
cat dander Allergy SNEEZING/WH Verified 11/13/23 21:25
EEZING
codeine Allergy light Verified 11/13/23 21:25
headed and
dizzy
epinephrine Allergy Shortness Verified 11/13/23 21:25
[From of Breath
Sensorcaine-Epinephrine]
prilocaine Allergy LIGHTHEADED, Verified 11/13/23 21:25
DIZZY
Sulfa (Sulfonamide Allergy Nausea Verified 11/13/23 21:25
Antibiotics)
sulfamethoxazole Allergy nausea-DID Verified 11/13/23 21:25
NOT
TOLERATE
WELL
�Medication �Instructions �Recorded
ezetimibe 10 mg tablet 10 mg PO QPM High cholesterol ##0 11/29/20
levothyroxine 112 mcg tablet 112 mcg PO MOTUWETHFRSA@0700 12/28/20
Thyroid
calcium 315 mg (as 1 ea PO DAILY Supplement 03/27/21
citrate)-vitamin D3 6.25 mcg (250
unit) tablet (Citracal + Vitamin D
Maximum)
carvedilol 3.125 mg tablet 3.125 mg PO BID Blood Pressure 03/27/21
acetaminophen 650 mg 650 mg PO DAILYPRN PRN mild pain 03/14/23
tablet,extended release
apixaban 2.5 mg tablet (Eliquis) 2.5 mg PO BID Blood Clot 03/14/23
Prevention/Tx
cholecalciferol (vitamin D3) 25 25 mcg PO DAILY Supplement 03/14/23
mcg (1,000 unit) tablet
docusate calcium 240 mg capsule 240 mg PO QPMPRN PRN constipation 03/14/23
(Stool Softener (docusate calcium))
iron succinyl-protein complex 40 15 ml PO Q48H Supplement 03/14/23
mg/15 mL oral liquid (Ferretts IPS)
sennosides 8.6 mg tablet (senna) 8.6 mg PO QPMPRN PRN constipation 03/14/23
folic acid 1 mg tablet 1 mg PO QPM 11/13/23
furosemide 80 mg tablet 80 mg PO DAILY 11/13/23
polyvinyl alcohol-povidone (PF) 1 drp BOTH EYES DAILYPRN PRN dry 11/13/23
1.4 %-0.6 % eye drops in a eyes
dropperette (Refresh Classic (PF))
vitamin B complex 1 tab PO NOON 11/13/23
Review of Systems
-
History Source: Patient
Constitutional: Reports Other (hypothermia )
EENT: Reports No Symptoms
Respiratory: Reports Trouble Breathing (at times)
Cardiac: Reports No Symptoms
Abdomen/GI: Reports Constipated and Bloody Stools (dark stools with iron )
: Reports Difficulty Voiding (with some retention )
Musculoskeletal: Reports Joint Pain
Skin: Reports No Symptoms
Neurological: Reports Dizzy and Weakness
Hematologic/Lymphatic: Reports Bleeding
Vital Signs
Temp Pulse Resp BP Pulse Ox
96 F L 71 16 100/64 96
11/14/23 10:00 11/14/23 08:09 11/14/23 07:05 11/14/23 08:09 11/14/23 10:37
Physical Exam
Exam
General: Well Developed, Well Nourished and No Apparent Distress
HEENT: Normocephalic and Anicteric
Respiratory: Clear
Cardiac: Regular Rhythm
GI: Soft, Non Tender and Non Distended
Rectal: Brown (dark brown heme + stool in commode after BM, no rectal completed )
Musculoskeletal: No Clubbing and No Cyanosis
Skin: Warm and Dry
Neuro: Awake, Alert and AO x 3
Psych: Calm
Results
WBC 3.5 10^3/uL (4.8-10.8) L 11/14/23 07:44
Hgb 7.5 g/dL (12.0-16.0) L 11/14/23 07:44
Hct 21.9 % (37.0-47.0) L 11/14/23 07:44
MCV 100.0 fL (81.0-99.0) H 11/14/23 07:44
Plt Count 104 10^3/uL (130-400) L 11/14/23 07:44
Sodium 131 mmol/L (135-145) L 11/14/23 07:44
Potassium 4.5 mmol/L (3.5-5.1) 11/14/23 07:44
Chloride 91 mmol/L (98-107) L 11/14/23 07:44
Carbon Dioxide 33 mmol/L (22-30) H 11/14/23 07:44
BUN 42 mg/dl (7-17) H 11/14/23 07:44
Creatinine 0.9 mg/dL (0.6-1.0) 11/14/23 07:44
Calcium 9.2 mg/dl (8.4-10.2) 11/14/23 07:44
Total Bilirubin 0.4 mg/dl (0.2-1.3) 11/13/23 22:21
AST 57 U/L (14-36) H 11/13/23 22:21
ALT 40 U/L (0-35) H 11/13/23 22:21
Alkaline Phosphatase 44 U/L (38-126) 11/13/23 22:21
Diagnostic Image Results:
2020 [place] RICH - The examined portion of the ileum was normal.
- Two 2 to 3 mm polyps in the cecum, removed with a
jumbo cold forceps. Resected and retrieved. Clip was
placed.
- A single non-bleeding colonic angioectasia. Treated
with argon plasma coagulation (APC). Clip was placed.
- Two 2 to 3 mm polyps in the transverse colon,
removed with a jumbo cold forceps. Resected and
retrieved.
- Diverticulosis in the sigmoid colon.
- Internal hemorrhoids.
bx TA polyps, melanosis coli
2020 walp RICH Nothing on today's examination to explain bleeding or
iron deficiency.
- Small hiatal hernia.
- Large paraesophageal hernia.
- Erosive gastropathy with no bleeding and no stigmata
of recent bleeding.
- Gastric mucosal atrophy.
- Normal examined duodenum.
- No specimens collected.
capsule recommended 2020 ? completed at [facility]
Assessment / Plan
-
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 On admission noted with JOSH, possible UTI but noted drop in hbg to 7.5 with BUN 52 after admission with baseline 9-10.
She has hx RICH and prior hemolytic anemia with hematology OP follow with also noted persistent low haptoglobin and elevated LDH. She was last seen by GI with work up in 2020 with adenomatous polyps, colonic angioectasia, hemorrhoids, large PEH,
small HH, erosive gastropathy and gastric atrophy. In review of chart hx blood transfusion but last 2020. Denies NSAID use. Iron studies stable but has been on supplementation.
fogginess on admission
-possible UTI/ JOSH on admission
-hypothermia
-anemia macrocytic heme +
-hx iron deficiency on iron supplement
-pancytopenia
-low haptoglobin and prior hx hemolytic anemia after TAVR in past with elevated LDH
-prior gi work up with large PEH, HH erosive gastropathy, adenomatous polyps, hemorrhoids, diverticulosis, colonic AVM
-constipation
-chronic transaminase elevation unclear etiology
other medical problems:
-afib on Eliquis prior CV, ablation, Maze procedure
-MV/TR repair, TAVR with prior TAVR revision
-pacer
-breast CA with lumpectomy/radiation
-CHF
-TIA
-hyponatremia
-DJD
PLAN:
Etiology of anemia may be multifactorial with some blood loss with heme + stools(brock lesion, ectasia, polyps, etc), hx RICH but stable iron studies on supplement, prior hemolytic anemia, low haptoglobin, elevated LDH vs other
reviewed with Dr. Polo from hematology -- await heme work up
discussed options of transfusion/heme work up and monitor counts vs aggressive work up with EGD/colon with heme + stool
pt will consider options with risk/benefits and will review with her daughter
she currently remains on Eliquis
cont to trend
add PPi daily with hx large PEH
NSAID avoidance which pt denies use
Etiology of chronic transaminase elevation unclear -- add hep B/C, check US in AM
cont diet as tolerated
work up per medical team for ? UTI
-
-
Thank you for consultation and allowing me to participate in the patient's care. Please call the conveyor belt operator GI physician during the after hours with any questions or concerns.
[2023-11-14 11:01] LABS: Cortisol, Random 15.3 ug/dl; TSH Reflex To Free T4 2.08 uIU/ml (0.47-4.68)
--- NOTE | 2023-11-14 11:14 | CON.NEURO ---
Consultation
Order
Date of Consultation: 11/14/23
Requesting Provider: Edd Perez MD
Reason for Consult: Brain fogginess, worsening tingling and balance in lower extremities
CC: 'foggy brain'
HPI:This is an 88-year-old woman who presented to [facility] on November 13, 2023 with cognitive symptoms and worsening of imbalance. According to the patient she got ' all worked up' thinking that she might be developing
Alzheimer disease or having a stroke after she failed to make an appointment with transportation service to get to her scheduled ENT appointment. No reports of headaches, new motor, sensory visual deficits. The patient admits to chronic ambulatory
dysfunction due to imbalance requiring her to use a walker on a daily basis in independent living where she resides.
She has not been driving for years due to a lack of confidence and fear of causing an accident. She cooks for herself but also eats at the bistro and dining room. She has not experienced any recent weight loss and denies any neck pain but reports
having back pain.
Ms. Leonard was given 1 dose of ceftriaxone. Urine cultures are pending.
The patient was seen by neurology service in June 2023 with transient aphasia. Brain MRI at that time showed no evidence of acute infarcts.
ER VS:35.4 C, 142/75, 74, 18
PDMP: none
Labs: WBCs 5.8�3.5, hemoglobin 8.9�7.5, MCV 100.4, platelets 116�104, sodium�128, creatinine 1.2�0.9, AST�57, ALT�40, LDH�3627, alk phos, TSH, albumin�normal, vit B12 930, urine�positive for nitrates, leukocyte esterase, WBCs�26�30, bacteria many,
SARS�[place] 2�negative.
CT head-1. No CT evidence for acute intracranial hemorrhage or transcortical infarct.
2. Mild diffuse cerebral and cerebellar volume loss.
3. Mild periventricular white matter leukoaraiosis.
PMH: AFib, Left DCIS(s/p RT), chronic hyponatremia, ASCVD, HFpEF, Hypothyroidism, CKD, vit D deficiency, anemia, Peripheral Neuropathy, Vertigo. BMI 16.9, OA, macular degeneration
PSH: Bilateral cataract surgery, MVR, TAVR, TAVR, left lumpectomy, PPM
SH: resides at [facility], has 7 children, holds BS degree in Economics from [employer], non-smoker, no history excessive alcohol use
FH: Father from bladder cancer in his late 70s, mom in her late 80s.
All: sulfamethoxazole, Sensorcaine-Epinephrine, codeine, amiodarone
ROS:Constitutional: Negative. Negative for chills, fever and unexpected weight change.
HENT: positive for hearing impairment
Eyes: positive for chronic visual disturbance.
Respiratory: Negative for cough, choking and shortness of breath.
Cardiovascular: Negative for chest pain, palpitations and leg swelling.
Gastrointestinal: Negative for abdominal pain and vomiting.
Endocrine: Negative. Negative for cold intolerance.
Genitourinary: Positive for urinary urgency.
Musculoskeletal: Positive for chronic back pain.
Skin: Negative for rash.
Allergic/Immunologic: Negative. Negative for immunocompromised state.
Neurological: Positive for imbalance, forgetfulness
Psychiatric/Behavioral: Negative for behavioral problems, confusion and hallucinations.
General: Well developed. In no acute distress.
Cardio: Regular rate and rhythm without murmur. Extremities are without cyanosis or edema.
Neuro:
Mental Status: Alert, oriented to person, place, and date. Normal attention and recall. Good fund of knowledge. Follows complex requests across the midline. Comprehension, naming, and repetition intact. Immediate recall 3/3.
Cranial Nerves: . Pupils are equally round and reactive to light. EOMs full. Visual barnes full to confrontation. No ptosis. No nystagmus. V1-V3 intact to light touch and pinprick bilaterally, symmetric. Face symmetric. Impaired hearing AU.
The palate elevated well. SCMs and traps 5/5. Tongue midline. No dysarthria.
Motor: Normal bulk and tone. No pronator or arm drift. Strength 5/5 throughout. No clonus.
Reflexes: trace+ throughout the upper extremities and knees. 0/2 in AJs. Plantar responses flexor bilaterally. Negative grasp bilaterally.
Sensory: Preserved vibration at the ankles.
Coordination: No dysmetria or tremor.
Gait: deferred
Assessment and Plan:
I. Transient encephalopathy. Likely etiology�vascular/metabolic/neurodegenerative.
II. Distal symmetric polyneuropathy affecting lower extremities.
III. Chronic hyponatremia, Pancytopenia
IV. Multifactorial ambulatory dysfunction.
-Fall precautions
-Medication administration supervision
-Avoid PARKING ENFORCEMENT TECHNICIAN suppressants
-PT
-Please check SPEP, vitamin B-1
-Outpatient neurology follow-up in1-2 weeks
I personally reviewed all radiology and labs along with past medical records pertinent to current medical problems. Total time spent in patient care is 55 minutes.
Thank you for allowing us to participate in the care of this patient. We will continue to follow. Please do not hesitate to contact us with any questions or concerns.
Subjective/Objective
Subjective Data
Date of Service: November 14, 2023
Objective Data
Vital Signs
Temp Pulse Resp BP Pulse Ox
35.5 C L 71 16 100/64 96
11/14/23 10:00 11/14/23 08:09 11/14/23 07:05 11/14/23 08:09 11/14/23 10:37
Lab Results
11/14/23 07:44
11/14/23 07:44
Sodium 131 mmol/L (135-145) L 11/14/23 07:44
Potassium 4.5 mmol/L (3.5-5.1) 11/14/23 07:44
BUN 42 mg/dl (7-17) H 11/14/23 07:44
Glucose 71 mg/dl (70-99) 11/14/23 07:44
Calcium 9.2 mg/dl (8.4-10.2) 11/14/23 07:44
Patient Allergies
adhesive Allergy (Verified 11/13/23 21:25)
itching - redness
amiodarone Allergy (Verified 11/13/23:25)
elevated LFTs
bupivacaine [From Sensorcaine-Epinephrine] Allergy (Verified 11/13/23 21:25)
Shortness of Breath
cat dander Allergy (Verified 11/13/23 21:)
SNEEZING/WHEEZING
codeine Allergy (Verified 11/13/23:)
light headed and dizzy
epinephrine [From Sensorcaine-Epinephrine] Allergy (Verified 11/13/23:)
Shortness of Breath
prilocaine Allergy (Verified 11/13/23:)
LIGHTHEADED, DIZZY
Sulfa (Sulfonamide Antibiotics) Allergy (Verified 11/13/23 21:25)
Nausea
sulfamethoxazole Allergy (Verified 11/13/23 21:25)
nausea-DID NOT TOLERATE WELL
Medications
-
Active Medications
Generic Name Dose Route Start Last Admin
Trade Name Freq PRN Reason Stop Dose Admin
Acetaminophen 650 mg 11/14/23 03:25
Acetaminophen 325 Mg Tablet PO
DAILYPRN PRN
mild pain / temp > 101
Apixaban 2.5 mg 11/14/23 08:00 11/14/23 08:10
Apixaban (Eliquis) 2.5 Mg Tablet PO 12/12/23 07:59 2.5 mg
BID JAYCOB Administration
Carvedilol 3.125 mg 11/14/23 08:00 11/14/23 08:09
Carvedilol 3.125 Mg Tablet PO 12/12/23 07:59 3.125 mg
BID JAYCOB Administration
Ceftriaxone Sodium 1,000 mg 11/15/23 00:00
Ceftriaxone 1000 Mg / 10 Ml Vial IV
Q24H JAYCOB
Cholecalciferol 25 mcg 11/14/23 08:00 11/14/23 08:10
Cholecalciferol (Vitamin D3) 25 Mcg Tablet (1,000 Units) PO 12/12/23 07:59 25 mcg
DAILY JAYCOB Administration
Folic Acid 1 mg 11/14/23 18:00
Folic Acid 1 Mg Tablet PO 12/12/23 17:59
QPM JAYCOB
Levothyroxine Sodium 112 mcg 11/14/23 07:00 11/14/23 06:02
Levothyroxine 112 Mcg Tablet PO 12/12/23 06:59 112 mcg
MOTUWETHFRSA@0700 JAYCOB Administration
Polyethylene Glycol 17 grams 11/14/23 09:00 11/14/23 08:45
Polyethylene Glycol Powder 17 Grams Packet PO 12/12/23 08:59 Not Given
DAILY JAYCOB
Senna/Docusate Sodium 1 tablet 11/14/23 09:00 11/14/23 09:04
Docusate W/Senna (Anahi-Colace) Tablet PO 12/12/23 08:59 1 tablet
BID JAYCOB Administration
Sodium Chloride 0 flush 11/14/23 02:00 11/14/23 01:40
Sodium Chloride 0.9% (Flush) Syringe IV 12/12/23 01:59 1 flush
PER PROTOCOL JAYCOB Administration
Sterile Water 10 ml 11/15/23 00:00
Sterile Water For Injection 10 Ml Vial IV 12/13/23 00:00
Q24H JAYCOB
Home Medications
�Medication �Instructions �Recorded
ezetimibe 10 mg tablet 10 mg PO QPM High cholesterol ##0 11/29/20
levothyroxine 112 mcg tablet 112 mcg PO MOTUWETHFRSA@0700 12/28/20
Thyroid
calcium 315 mg (as 1 ea PO DAILY Supplement 03/27/21
citrate)-vitamin D3 6.25 mcg (250
unit) tablet (Citracal + Vitamin D
Maximum)
carvedilol 3.125 mg tablet 3.125 mg PO BID Blood Pressure 03/27/21
acetaminophen 650 mg 650 mg PO DAILYPRN PRN mild pain 03/14/23
tablet,extended release
apixaban 2.5 mg tablet (Eliquis) 2.5 mg PO BID Blood Clot 03/14/23
Prevention/Tx
cholecalciferol (vitamin D3) 25 25 mcg PO DAILY Supplement 03/14/23
mcg (1,000 unit) tablet
docusate calcium 240 mg capsule 240 mg PO QPMPRN PRN constipation 03/14/23
(Stool Softener (docusate calcium))
iron succinyl-protein complex 40 15 ml PO Q48H Supplement 03/14/23
mg/15 mL oral liquid (Ferretts IPS)
sennosides 8.6 mg tablet (senna) 8.6 mg PO QPMPRN PRN constipation 03/14/23
folic acid 1 mg tablet 1 mg PO QPM 11/13/23
furosemide 80 mg tablet 80 mg PO DAILY 11/13/23
polyvinyl alcohol-povidone (PF) 1 drp BOTH EYES DAILYPRN PRN dry 11/13/23
1.4 %-0.6 % eye drops in a eyes
dropperette (Refresh Classic (PF))
vitamin B complex 1 tab PO NOON 11/13/23
Vital Signs and Labs
-
Vital Signs and Labs:
Vital Signs
Temp Pulse Resp BP Pulse Ox
36.6 C 69 18 122/54 99
11/14/23 12:09 11/14/23 12:09 11/14/23 12:09 11/14/23 12:09 11/14/23 12:09
Lab Results
11/14/23 07:44
11/14/23 07:44
Sodium 131 mmol/L (135-145) L 11/14/23 07:44
Potassium 4.5 mmol/L (3.5-5.1) 11/14/23 07:44
BUN 42 mg/dl (7-17) H 11/14/23 07:44
Glucose 71 mg/dl (70-99) 11/14/23 07:44
Calcium 9.2 mg/dl (8.4-10.2) 11/14/23 07:44
Vitamin B12 930 pg/ml (835-931) 11/14/23 07:44
Medications
-
Medications:
Generic Name Dose Route Start Last Admin
Trade Name Freq PRN Reason Stop Dose Admin
Acetaminophen 650 mg 11/14/23 03:25
Acetaminophen 325 Mg Tablet PO
DAILYPRN PRN
mild pain / temp > 101
Apixaban 2.5 mg 11/14/23 08:00 11/14/23 08:10
Apixaban (Eliquis) 2.5 Mg Tablet PO 12/12/23 07:59 2.5 mg
BID JAYCOB Administration
Carvedilol 3.125 mg 11/14/23 08:00 11/14/23 08:09
Carvedilol 3.125 Mg Tablet PO 12/12/23 07:59 3.125 mg
BID JAYCOB Administration
Ceftriaxone Sodium 1,000 mg 11/15/23 00:00
Ceftriaxone 1000 Mg / 10 Ml Vial IV
Q24H JAYCOB
Cholecalciferol 25 mcg 11/14/23 08:00 11/14/23 08:10
Cholecalciferol (Vitamin D3) 25 Mcg Tablet (1,000 Units) PO 12/12/23 07:59 25 mcg
DAILY JAYCOB Administration
Folic Acid 1 mg 11/14/23 18:00
Folic Acid 1 Mg Tablet PO 12/12/23 17:59
QPM JAYCOB
Levothyroxine Sodium 112 mcg 11/14/23 07:00 11/14/23 06:02
Levothyroxine 112 Mcg Tablet PO 12/12/23 06:59 112 mcg
MOTUWETHFRSA@0700 JAYCOB Administration
Pantoprazole Sodium 40 mg 11/14/23 12:00
Pantoprazole 40 Mg Delayed Release Tablet PO 12/12/23 11:59
DAILY JAYCOB
Polyethylene Glycol 17 grams 11/14/23 09:00 11/14/23 08:45
Polyethylene Glycol Powder 17 Grams Packet PO 12/12/23 08:59 Not Given
DAILY JAYCOB
Senna/Docusate Sodium 1 tablet 11/14/23 09:00 11/14/23 09:04
Docusate W/Senna (Anahi-Colace) Tablet PO 12/12/23 08:59 1 tablet
BID JAYCOB Administration
Sodium Chloride 0 flush 11/14/23 02:00 11/14/23 01:40
Sodium Chloride 0.9% (Flush) Syringe IV 12/12/23 01:59 1 flush
PER PROTOCOL JAYCOB Administration
Sterile Water 10 ml 11/15/23 00:00
Sterile Water For Injection 10 Ml Vial IV 12/13/23 00:00
Q24H JAYCOB
Home Medications
-
Home Medications
ezetimibe 10 mg tablet 10 mg PO QPM High cholesterol ##0 11/29/20
levothyroxine 112 mcg tablet 112 mcg PO MOTUWETHFRSA@0700 Thyroid 12/28/20
calcium 315 mg (as citrate)-vitamin D3 6.25 mcg (250 unit) tablet (Citracal + Vitamin D Maximum) 1 ea PO DAILY Supplement 03/27/21
carvedilol 3.125 mg tablet 3.125 mg PO BID Blood Pressure 03/27/21
acetaminophen 650 mg tablet,extended release 650 mg PO DAILYPRN PRN mild pain 03/14/23
apixaban 2.5 mg tablet (Eliquis) 2.5 mg PO BID Blood Clot Prevention/Tx 03/14/23
cholecalciferol (vitamin D3) 25 mcg (1,000 unit) tablet 25 mcg PO DAILY Supplement 03/14/23
docusate calcium 240 mg capsule (Stool Softener (docusate calcium)) 240 mg PO QPMPRN PRN constipation 03/14/23
iron succinyl-protein complex 40 mg/15 mL oral liquid (Ferretts IPS) 15 ml PO Q48H Supplement 03/14/23
sennosides 8.6 mg tablet (senna) 8.6 mg PO QPMPRN PRN constipation 03/14/23
folic acid 1 mg tablet 1 mg PO QPM 11/13/23
furosemide 80 mg tablet 80 mg PO DAILY 11/13/23
polyvinyl alcohol-povidone (PF) 1.4 %-0.6 % eye drops in a dropperette (Refresh Classic (PF)) 1 drp BOTH EYES DAILYPRN PRN dry eyes 11/13/23
vitamin B complex 1 tab PO NOON 11/13/23
[2023-11-14 11:20] LABS: Vitamin B12 930 pg/ml (239-931)
--- NOTE | 2023-11-14 13:04 | PTCARENOTE ---
Patient with complaints of constipation. Given Miralax, sennakot and colace. Patient had two BMs. Heme tested stool - positive. GI team and hospitalist aware. HGB 7.5 this am. Type and cross as well as blood consent obtained. If patient's HGB falls
below 7.0 as per MD will transfuse. Patient at this time with rectal temp of 97.3 so Janes Hugger removed. Patient had small amount of urine this morning with PVR of 285 mls. Repeat bladder scan two hours later with PVR of 10 mls.
--- NOTE | 2023-11-14 13:55 | W.PN.HOSP.TC ---
Today's Communication/Plan
-
Transfuse PRBC to maintain Hgb>7
Continue antibiotics
Bowel regimen
Bladder scans
Assessment / Plan
Assessment / Plan
Physical Exam
General: Not in acute distress.
HEENT: Normocephalic. Moist mucous membranes.
Respiratory: CTAB.
Cardiac: S1/S2 and Regular Rhythm.
GI: Soft, Non Tender, Non Distended and Normal Bowel Sounds
Musculoskeletal: No Cyanosis and Other (Chronic venous stasis skin changes. No edema.)
Neuro: AAO x 3 and Nonfocal/grossly intact
Assessment/Plan
Patient is an 88y F with PMH significant for A-Fib, valvular heart disease and CHF who presents to ED complaining of 'foggy' feeling in the head and unsteady gait.
JOHS
- Admit for further evaluation and treatment
- SCr = 1.2 compared to known baseline of 0.8 - 0.7. Then down to 0.9.
- Recently advised to increase diuretic dose but has yet to do so.
- Will hold Lasix for now and follow I/Os, daily weights and renal function changes.
- Follow for return to baseline.
UTI (patient reported dysuria)
- UA suggested UTI
- Continue with ceftriaxone for now.
- Follow-up final culture results.
Hypothermia Suspected Secondary to UTI vs. Anemia
- TSH unremarkable at 2.08
- Random Cortisol 15.3
- COVID-19 negative
- Janes Hugger / supportive care.
- Follow for improvement.
Unsteady Gait
'Foggy' Feeling
- ? secondary to acute infectious process as noted above.
- ? other etiology.
- Patient with chronic central vertigo - but no dizziness / vertiginous symptoms at present.
- Holding diuretic acutely as noted above.
- PT / OT evaluations in the AM.
- Follow for any changes in symptoms.
Pancytopenia
Haptoglobin chronically suppressed of uncertain significance and elevated LDH TAVR leak shear hemolysis reticulocyte count and LDH declined postrepair -- as per hematology
- Patient with h/o iron deficiency anemia.
- Hgb dropped from 8.8 to 7.5 in about 10 hours after admission
- Transfuse PRBC to maintain Hgb>7
- Blood transfusion consent obtained from patient and [facility] completed on 11/14/23
- Recent leukopenia and thrombocytopenia as well.
- Patient notes that she has Hematology evaluation planned for later this week as an outpatient: consulted hematology inpatient given worsening anemia
- WBC normal today - ? reflection of infection / UTI.
- Follow cell counts for any changes.
Anemia, with FOBT Positive
History of Iron Deficiency Anemia
-Consulted GI, appreciate their evaluation and recommendations
-Patient to discuss with her daughter regarding EGD, colonscopy
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
Permanent Atrial Fibrillation
Chronic HFpEF
- Stable. PPM interrogated in the ED around the time of admission. 100% A-Fib.
- Interrogation also makes note of possible intrathoracic fluid accumulation based on impedance data - will check CXR.
- CXR without effusion of significant pulmonary edema.
- Holding Lasix for now as noted above.
- Follow I/Os, daily weights, etc.
- Continue Eliquis for stroke risk reduction -- if anemia remains a persistent issue, will need to hold anticoagulation
Hypothyroidism
- Repeat TFTs as noted above.
- Continue current T4 replacement and adjust as needed.
Chronic Constipation
- Bowel regimen.
DVT Prophylaxis: On Eliquis
Code Status: DNR
Anticipated Discharge: > 48 hours
Subjective/Interval History
-
Date of Service: November 14, 2023
Patient was seen and examined. She reported some burning with urination, and foggy.
Objective Data
-
Labs:
Laboratory Results
11/14/23
07:44
WBC 3.5 L
Hgb 7.5 L
Hct 21.9 L
Plt Count 104 L
Sodium 131 L
Potassium 4.5
Chloride 91 L
Carbon Dioxide 33 H
BUN 42 H
Creatinine 0.9
Glucose 71
Calcium 9.2
Vital Signs:
Vital Signs
Temp Pulse Resp BP Pulse Ox
97.9 F 69 18 122/54 99
11/14/23 12:09 11/14/23 12:09 11/14/23 12:09 11/14/23 12:09 11/14/23 12:09
[2023-11-14] MEDS: PROTONIX 40 MG PO (14:36)
[2023-11-14] MEDS: FOLVITE 1 MG PO (17:25)
[2023-11-14 21:44] LABS: Hematocrit 23.6 % (37.0-47.0); Hemoglobin 8.1 g/dL (12.0-16.0); Mean Corp Hgb Conc. 34.3 g/dL (33.0-37.0); Mean Corpuscular Hgb 34.8 pg (27.0-31.0); Mean Corpuscular Volume 101.3 fL (81.0-99.0); Mean Platelet Volume 12.3 fL (7.4-10.4); Platelet Count 113 10^3/uL (130-400); Red Blood Cell Count 2.33 10^6/uL (4.20-5.40); Red Cell Dist. Width 15.5 % (11.5-14.5); White Blood Cell Count 4.8 10^3/uL (4.8-10.8)
[2023-11-15] VITALS (7 sets, daily range): BP systolic 114–145; BP diastolic 65–85; PULSE 71–74; BMI 16.7
[2023-11-15] MEDS: STERILE WATER FOR INJECTION 10 ML IV (00:35)
[2023-11-15] MEDS: ROCEPHIN 1000 MG IV (00:36)
[2023-11-15] MEDS: SYNTHROID 112 MCG PO (06:10)
[2023-11-15 08:39] LABS: Hematocrit 24.7 % (37.0-47.0); Hemoglobin 8.6 g/dL (12.0-16.0); Mean Corp Hgb Conc. 34.8 g/dL (33.0-37.0); Mean Corpuscular Hgb 35.8 pg (27.0-31.0); Mean Corpuscular Volume 102.9 fL (81.0-99.0); Mean Platelet Volume 12.2 fL (7.4-10.4); Platelet Count 103 10^3/uL (130-400); Red Cell Dist. Width 15.2 % (11.5-14.5); White Blood Cell Count 3.7 10^3/uL (4.8-10.8)
[2023-11-15 09:12] LABS: ALT (SGPT) 32 U/L (0-35); AST (SGOT) 48 U/L (14-36); Albumin 3.9 g/dl (3.5-5.0); Alkaline Phosphatase 42 U/L (38-126); Blood Urea Nitrogen 31 mg/dl (7-17); Calcium 9.1 mg/dl (8.4-10.2); Carbon Dioxide 33 mmol/L (22-30); Chloride 91 mmol/L (98-107); Estimated Creatinine Clearance 37 ml/min; Glucose 75 mg/dl (70-99); Potassium 4.6 mmol/L (3.5-5.1); Sodium 130 mmol/L (135-145); Total Bilirubin 0.4 mg/dl (0.2-1.3); Total Protein 6.1 g/dl (6.3-8.2); eGFR > 60.00
[2023-11-15 09:42] LABS: Hepatitis B Surface Antigen Negative (Negative)
[2023-11-15 09:46] LABS: Hepatitis B Core Ab, IgM Negative (Negative)
[2023-11-15 10:01] LABS: Hepatitis B Core Ab, Total Negative (Negative); Hepatitis B Surface Antibody Negative; Hepatitis C Antibody Negative (Negative)
--- NOTE | 2023-11-15 12:28 | PN.CDI ---
CDI
- -
CDI:
Physician Documentation Request
Admit Date: 11/14/23 03:20
Dear Doctor Chris,
Please review the following and provide your response in the progress notes.
Clinical Indicators:
Height: 5'2
Weight: 91lbs
BMI: 16.7
Other Clinical Notes: 11/13 [employer] consulted for underweight
If possible, please provide an associated diagnosis related to the abnormal BMI, such as:
Underweight
Cachectic
Other
Use of terms such as suspected, likely, concern for, or probable (associated with a specific diagnosis that is being evaluated, monitored, or treated as if it exists) are acceptable and can be coded in the inpatient setting, when documented at the
time of discharge.
Thank you,
Sachin Rosales RN
CDI Specialist
Please use your independent medical judgment in providing your response.
[2023-11-15] MEDS: ELIQUIS 2.5 MG PO ×2 (13:34→20:44)
[2023-11-15] MEDS: PROTONIX 40 MG PO (13:34)
[2023-11-15] MEDS: SENOKOT-S 1 TABLET PO ×2 (13:34→20:44)
[2023-11-15] MEDS: COREG 3.125 MG PO ×2 (13:34→20:44)
[2023-11-15] MEDS: VITAMIN D3 (cholecalciferol) 25 MCG PO (13:34)
[2023-11-15] MEDS: MIRALAX 17 GRAMS PO (13:35)
--- NOTE | 2023-11-15 14:04 | W.PN.GI.CBS2 ---
Today's Communication / Plan
-
continue to monitor Hb and transfuse PRN
Assessment / Plan
-
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 On admission noted with JOSH, possible UTI but noted drop in hbg to 7.5 with BUN 52 after admission with baseline 9-10.
She has hx RICH and prior hemolytic anemia with hematology OP follow with also noted persistent low haptoglobin and elevated LDH. She was last seen by GI with work up in 2020 with adenomatous polyps, colonic angioectasia, hemorrhoids, large PEH,
small HH, erosive gastropathy and gastric atrophy. In review of chart hx blood transfusion but last 2020. Denies NSAID use. Iron studies stable but has been on supplementation.
fogginess on admission
-possible UTI/ JOSH on admission
-hypothermia
-anemia macrocytic heme +
-hx iron deficiency on iron supplement
-pancytopenia
-low haptoglobin and prior hx hemolytic anemia after TAVR in past with elevated LDH
-prior gi work up with large PEH, HH erosive gastropathy, adenomatous polyps, hemorrhoids, diverticulosis, colonic AVM
-constipation
-chronic transaminase elevation unclear etiology
other medical problems:
-afib on Eliquis prior CV, ablation, Maze procedure
-MV/TR repair, TAVR with prior TAVR revision
-pacer
-breast CA with lumpectomy/radiation
-CHF
-TIA
-hyponatremia
-DJD
PLAN:
Etiology of anemia may be multifactorial with some blood loss with heme + stools(brock lesion, ectasia, polyps, etc), hx RICH but stable iron studies on supplement, prior hemolytic anemia, low haptoglobin, elevated LDH vs other
Noted input from hematology-- await heme work up for pancytopenia
Given no obvious bleeding and hemoglobin remains stable will hold off on repeat endoscopic workup given age and comorbidities unless she has active bleeding.
Continue supportive care with as needed transfusions and iron infusions most likely etiology could be small bowel and colonic angioectasias.
Will sign off and will be available as needed
Subjective
Subjective
Date of Service: November 15, 2023
No obvious melena or rectal bleeding and hemoglobin is stable
Objective
Data Reviewed
Laboratory Data:
Laboratory Results
11/15/23 08:29
11/15/23 08:29
Laboratory Results
Total Bilirubin 0.4 mg/dl (0.2-1.3) 11/15/23 08:29
AST 48 U/L (14-36) H 11/15/23 08:29
ALT 32 U/L (0-35) 11/15/23 08:29
Alkaline Phosphatase 42 U/L (38-126) 11/15/23 08:29
Vital Signs and I&O:
Vital Signs
Temp Pulse Resp BP Pulse Ox
98.3 F 71 18 141/77 99
11/15/23 11:10 11/15/23 11:10 11/15/23 11:10 11/15/23 11:10 11/15/23 12:48
I&O
11/14/23 11/15/23 11/16/23
06:59 06:59 06:59
Intake Total 120 / 120
Balance 120 / 120
11/15/23 US abdomen
IMPRESSION:
1. No evidence of cholelithiasis, acute cholecystitis, or biliary ductal dilation.
2. No sonographic abnormalities demonstrated within the liver.
3. The pancreas, spleen, and left kidney are incompletely visualized due to overlying bowel gas.
Physical Exam
Physical Exam
Cardiology: Normal Sinus Rhythm and Murmur (Systolic murmur)
Pulmonary: Clear
GI: Soft, Non Distended, Non Tender and Normal Bowel Sounds
--- NOTE | 2023-11-15 15:20 | W.PN.HOSP.TC ---
Addendum entered and electronically signed by Edd Perez MD 11/15/23 16:37:
I called patient's daughter Malathi Hollingsworth just now and she requested that patient's TAVR be evaluated in relation to patient's anemia. Will consult cardiothoracic surgery.
Original Note:
Today's Communication/Plan
-
Patient doing better today
Continue to monitor Hgb
PT/OT
Assessment / Plan
Assessment / Plan
Physical Exam
General: Not in acute distress.
HEENT: Normocephalic. Moist mucous membranes.
Respiratory: CTAB.
Cardiac: S1/S2 and Regular Rhythm.
GI: Soft, Non Tender, Non Distended and Normal Bowel Sounds
Musculoskeletal: No Cyanosis and Other (Chronic venous stasis skin changes. No edema.)
Neuro: AAO x 3 and Nonfocal/grossly intact
Assessment/Plan
Patient is an 88y F with PMH significant for A-Fib, valvular heart disease and CHF who presents to ED complaining of 'foggy' feeling in the head and unsteady gait.
JOSH
- Admit for further evaluation and treatment
- SCr = 1.2 compared to known baseline of 0.8 - 0.7. Then down to 0.9-->0.7
- Recently advised to increase diuretic dose but has yet to do so.
- Continue to hold Lasix for now and follow I/Os, daily weights and renal function changes.
- Monitor BMP
UTI (patient reported dysuria)
- UA suggested UTI
- Ceftriaxone stopped, continue Cefdinir for 4 days based on prior culture data
- urine culture with no significant growth
Hypothermia - RESOLVED - Suspected Secondary to UTI vs. Anemia
- TSH unremarkable at 2.08
- Random Cortisol 15.3 -- acceptable
- COVID-19 negative
- If needed, then Janes Hugger / supportive care.
Unsteady Gait
'Foggy' Feeling - IMPROVING
- ? secondary to acute infectious process as noted above.
- ? other etiology.
- Patient with chronic central vertigo - but no dizziness / vertiginous symptoms at present.
- Holding diuretic acutely as noted above.
- PT / OT evaluations in the AM.
- Follow for any changes in symptoms.
- Check SPEP, vitamin B-1 inpatient vs. outpatient
- Outpatient neurology follow-up in1-2 weeks
Pancytopenia
Haptoglobin chronically suppressed of uncertain significance and elevated LDH TAVR leak shear hemolysis reticulocyte count and LDH declined postrepair -- as per hematology
- Patient with h/o iron deficiency anemia.
- Hgb dropped from 8.8 to 7.5 in about 10 hours after admission
- Transfuse PRBC to maintain Hgb>7
- Blood transfusion consent obtained from patient and [facility] completed on 11/14/23
- Recent leukopenia and thrombocytopenia as well.
- Patient notes that she has Hematology evaluation planned for later this week as an outpatient: consulted hematology inpatient given worsening anemia
- WBC normal today - ? reflection of infection / UTI.
- Follow cell counts for any changes.
Anemia, with FOBT Positive
History of Iron Deficiency Anemia
-Consulted GI, appreciate their evaluation and recommendations
-Per GI, given that patient has no obvious bleeding and hemoglobin remains stable plan right now is to hold off on repeat endoscopic workup given age and comorbidities unless patient has active bleeding.
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
Permanent Atrial Fibrillation
Chronic HFpEF
- Stable. PPM interrogated in the ED around the time of admission. 100% A-Fib.
- Interrogation also makes note of possible intrathoracic fluid accumulation based on impedance data - will check CXR.
- CXR without effusion of significant pulmonary edema.
- Holding Lasix for now as noted above.
- Follow I/Os, daily weights, etc.
- Continue Eliquis for stroke risk reduction -- if anemia remains a persistent issue, will need to hold anticoagulation
Hypothyroidism
- Repeat TFTs as noted above.
- Continue current T4 replacement and adjust as needed.
Chronic Constipation
- Bowel regimen.
Underweight
DVT Prophylaxis: On Eliquis
Code Status: DNR
Anticipated Discharge: Within 24 hours
Subjective/Interval History
-
Date of Service: November 15, 2023
Patient was seen and examined. She reported feeling better today, was sitting in her chair comfortably.
Objective Data
-
Labs:
Laboratory Results
11/15/23
08:29
WBC 3.7 L
Hgb 8.6 L
Hct 24.7 L
Plt Count 103 L
Sodium 130 L
Potassium 4.6
Chloride 91 L
Carbon Dioxide 33 H
BUN 31 H
Creatinine 0.7
Glucose 75
Calcium 9.1
Total Bilirubin 0.4
AST 48 H
ALT 32
Alkaline Phosphatase 42
Vital Signs:
Vital Signs
Temp Pulse Resp BP Pulse Ox
98.3 F 71 18 141/77 99
11/15/23 11:10 11/15/23 11:10 11/15/23 11:10 11/15/23 11:10 11/15/23 12:48
I&O
11/14/23 11/15/23 11/16/23
06:59 06:59 06:59
Intake Total 120 / 120
Balance 120 / 120
--- NOTE | 2023-11-15 16:03 | CM ---
Patient from [facility] with Dx JOSH, UTI, Unsteady Gait, pancytopenia. Room air, receiving IV Abx. PT recommends HH. No OT needs.
Met with patient who resides alone in an apartment at [facility].
She has been independent in ADLs and ambulation using her 4 wheel walker.
Prior [facility].
No prior SNF.
PCP - [facility]
Pharmacy - [facility] in [facility] [place]
The patient agrees to [facility].
Spoke with patient's daughter Malathi re; possible d/c today. Daughter aware [facility] setup. She wants to speak with Dr Chris geiger; patient's status. Daughter will be coming in today.
IMM in chart from 11/12/26 22:59.
Plan home with [facility].
--- NOTE | 2023-11-15 16:22 | VNURNOTE ---
Home Health Liaison met with patient and Flora at 1600 to discuss [facility] nurse/therapy, visits, schedule and homebound status. Patient is agreeable and understands that visits at home will be 2-3 x per week to assess and teach medical
management. [facility] brochure provided with contact information. Patient is aware that [facility] will contact them for start of care in 1-2 days after discharge from .
[facility] referral completed in [facility].
[2023-11-15] MEDS: FOLVITE 1 MG PO (16:39)
[2023-11-15 18:30] LABS: Reticulocyte Count 3.7 % (0.4-2.8)
[2023-11-15] MEDS: OMNICEF 300 MG PO (20:44)
[2023-11-16] VITALS (7 sets, daily range): BP systolic 97–132; BP diastolic 62–79; PULSE 71–72; BMI 16.8
[2023-11-16] MEDS: SYNTHROID 112 MCG PO (06:01)
[2023-11-16] MEDS: MIRALAX 17 GRAMS PO (09:02)
[2023-11-16] MEDS: LASIX 60 MG PO (09:06)
[2023-11-16] MEDS: PROTONIX 40 MG PO (09:07)
[2023-11-16] MEDS: VITAMIN D3 (cholecalciferol) 25 MCG PO (09:07)
[2023-11-16] MEDS: COREG 3.125 MG PO ×2 (09:08→19:35)
[2023-11-16] MEDS: SENOKOT-S 1 TABLET PO ×2 (09:08→19:35)
[2023-11-16] MEDS: OMNICEF 300 MG PO ×2 (09:08→19:35)
[2023-11-16] MEDS: ELIQUIS 2.5 MG PO ×2 (09:08→19:35)
[2023-11-16 09:33] LABS: Hematocrit 25.4 % (37.0-47.0); Hemoglobin 8.8 g/dL (12.0-16.0); Mean Corp Hgb Conc. 34.6 g/dL (33.0-37.0); Mean Corpuscular Hgb 35.9 pg (27.0-31.0); Mean Corpuscular Volume 103.7 fL (81.0-99.0); Mean Platelet Volume 12.9 fL (7.4-10.4); Platelet Count 115 10^3/uL (130-400); Red Blood Cell Count 2.45 10^6/uL (4.20-5.40); Red Cell Dist. Width 15.4 % (11.5-14.5); White Blood Cell Count 3.8 10^3/uL (4.8-10.8)
[2023-11-16 10:12] LABS: ALT (SGPT) 29 U/L (0-35); AST (SGOT) 44 U/L (14-36); Alkaline Phosphatase 44 U/L (38-126); Blood Urea Nitrogen 29 mg/dl (7-17); Calcium 9.1 mg/dl (8.4-10.2); Carbon Dioxide 28 mmol/L (22-30); Chloride 92 mmol/L (98-107); Estimated Creatinine Clearance 37 ml/min; Glucose 140 mg/dl (70-99); Sodium 129 mmol/L (135-145); Total Bilirubin 0.4 mg/dl (0.2-1.3); Total Protein 6.1 g/dl (6.3-8.2); eGFR > 60.00
--- NOTE | 2023-11-16 10:24 | CON.CAR ---
Addendum entered and electronically signed by Scott Sexton MD 11/16/23 12:56:
I saw and examined the patient.
The Senior Embedded Software Engineer's note was reviewed and I agree with the note.
Comment: GEN: No distress, awake, Ox3
HEENT: supple, anicteric, mmm
LUNGS: CTA, no wheezes/rales
CV: Reg with ectopy, S1/S2, 1/6 syst LSB, no murmur
ABD: soft, BS+, NT/ND
EXT: No edema
NEURO: Gross non-focal
SKIN: No rash
plan:
She is a complicated 88-year-old well-known to our service. She has a past medical history of mitral valve repair/trace cuspid valve repair open heart surgery in 2014. She then had a transcatheter aortic valve done in October 2020 here at
[place] which was complicated by a moderate to severe paravalvular leak and mechanical hemolysis. She then had a redo transcatheter valve in valve procedure done in December 2020. 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
from her aortic valve.
We will check an echocardiogram on Saturday to reevaluate her valve. I reviewed her echo from January 2023 which was stable with no significant aortic regurgitation and a mean gradient of 3. As long as this is stable we would be very unlikely that
she has another episode of hemolytic anemia, without significant paravalvular regurgitation.
Her LDH was in the 300 range, previously when she had hemolytic anemia from her valve it was in the 3-4000 range. Will await reticulocyte count and haptoglobin.
Appreciate hematology input.
Her volume status overall looks adequate. Would resume Lasix 60 mg p.o. daily and follow daily weights.
She has underlying A-fib status post AV node ablation with PVCs. Continue Coreg and Eliquis.
Continue Synthroid. TSH is normal.
I discussed this at length with the patient and her daughter.
Original Note:
Consultation
Consultation Request
Date/Time Consultation Requested: 11/15/23 at 1639
Date/Time Consultation Performed: 11/16/23 at 1014
Requesting Provider: Dr. Perez
Performing Provider: Dr. Sexton
Reason for Consultation: Elevated LDH, h/o TAVR
Medical History
-
History of Present Illness:
Patient came to [facility] on 11/13/23 with fogginess and was admitted with JOSH and UTI. Patient was seen by Neurology and treated for TME due to JOSH and UTI. UTI treated with antibiotics. Patient with pancytopenia on admission that was evaluated by
Heme/Onc who noted chronic intermittent pancytopenia since 2020, but clearly able to mount white blood cell response and reticulocyte response in the past. Patient was heme positive as well with Hgb as low as 7.5, but did not receive transfusion.
Stools were heme positive and patient reports hemorrhoids. GI consulted and there are not plans to perform endoscopic evaluation. Cardiology is now consulted due to elevated LDH and h/o valve hemolysis. Patient had TAVR 10/21/23 and then noted to have
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 Patient then had redo TAVR at [facility] 01/02/21 and there was no evidence of aortic insufficiency or perivalvular leak by echo 01/31/23. LDH was 1581-6053 during valve
hemolysis issues in 2020 and then improved. LDH was 439 on admission and then improved to 357 with treatment of JOSH and UTI. Patient's daughter asked for cardiology evaluation. Patient also notes palpitations happening on a daily basis for the last
several months. Patient with permanent Afib and after a series of ablations she had an AV node ablation 2016 and has a Medtronic PPM.
PMH:
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
s/p MV ring repair, TV ring repair, MAZE and Atricure CAREN clip 01/05/15
Permanent Afib/atypical flutter/tach
ablations 09/2005 and 02/2006
h/o PVI 05/2009
h/o MAZE (at time of MV/TV repair) 2014
h/o PVI and AV node ablation 11/2016
h/o elevated LFTs on amiodarone
Prolonged QTc on dofetilide, discontinued 10/2020
Chronic Eliquis OAC
SSS s/p Medtronic PPM in 2014 (same admission as MV/TV repair)
s/p MV ring and TV repair in 2014
Chronic HFpEF
Chronic hyponatremia
Hypothyroidism
Hyperlipidemia
HTN
L breast cancer s/p lumpectomy / radiation 2013
Peripheral neuropathy
DJD/lumbar spinal disease
Past Medical History
Past Medical History: Other (in HPI)
Past Surgical History: Other (in HPI)
Social History
Tobacco: Former Smoker
Alcohol: None
Drug: None
Personal:
Living: Alone (with daughter Malathi living close by)
Family History
Family History: CAD and Cancer
Allergies / Home Medications
Allergy/AdvReac Type Severity Reaction Status Date / Time
adhesive Allergy itching - Verified 11/13/23 21:25
redness
amiodarone Allergy elevated Verified 11/13/23 21:25
LFTs
bupivacaine Allergy Shortness Verified 11/13/23 21:25
[From of Breath
Sensorcaine-Epinephrine]
cat dander Allergy SNEEZING/WH Verified 11/13/23 21:25
EEZING
codeine Allergy light Verified 11/13/23 21:25
headed and
dizzy
epinephrine Allergy Shortness Verified 11/13/23 21:25
[From of Breath
Sensorcaine-Epinephrine]
prilocaine Allergy LIGHTHEADED, Verified 11/13/23 21:25
DIZZY
Sulfa (Sulfonamide Allergy Nausea Verified 11/13/23 21:25
Antibiotics)
sulfamethoxazole Allergy nausea-DID Verified 11/13/23 21:25
NOT
TOLERATE
WELL
�Medication �Instructions �Recorded �Confirmed �Type
ezetimibe 10 mg tablet 10 mg PO QPM High cholesterol ##0 11/29/20 11/13/23 Rx
levothyroxine 112 mcg tablet 112 mcg PO MOTUWETHFRSA@0700 12/28/20 11/13/23 History
Thyroid
calcium 315 mg (as 1 ea PO DAILY Supplement 03/27/21 11/13/23 History
citrate)-vitamin D3 6.25 mcg (250
unit) tablet (Citracal + Vitamin D
Maximum)
carvedilol 3.125 mg tablet 3.125 mg PO BID Blood Pressure 03/27/21 11/13/23 History
acetaminophen 650 mg 650 mg PO DAILYPRN PRN mild pain 03/14/23 11/13/23 History
tablet,extended release
apixaban 2.5 mg tablet (Eliquis) 2.5 mg PO BID Blood Clot 03/14/23 11/13/23 History
Prevention/Tx
cholecalciferol (vitamin D3) 25 25 mcg PO DAILY Supplement 03/14/23 11/13/23 History
mcg (1,000 unit) tablet
docusate calcium 240 mg capsule 240 mg PO QPMPRN PRN constipation 03/14/23 11/13/23 History
(Stool Softener (docusate calcium))
iron succinyl-protein complex 40 15 ml PO Q48H Supplement 03/14/23 11/13/23 History
mg/15 mL oral liquid (Ferretts IPS)
sennosides 8.6 mg tablet (senna) 8.6 mg PO QPMPRN PRN constipation 03/14/23 11/13/23 History
folic acid 1 mg tablet 1 mg PO QPM 11/13/23 11/13/23 History
furosemide 80 mg tablet 80 mg PO DAILY 11/13/23 11/13/23 History
polyvinyl alcohol-povidone (PF) 1 drp BOTH EYES DAILYPRN PRN dry 11/13/23 11/13/23 History
1.4 %-0.6 % eye drops in a eyes
dropperette (Refresh Classic (PF))
vitamin B complex 1 tab PO NOON 11/13/23 11/13/23 History
Review of Systems
-
History Source: Patient
All other systems: Negative unless noted
Physical Exam
Vital Signs
Temp Pulse Resp BP Pulse Ox
97.3 F 75 16 124/72 100
11/16/23 07:55 11/16/23 07:55 11/16/23 07:55 11/16/23 07:55 11/16/23 07:55
GEN: NAD. AAOx3
HEENT: EOMI, MMM, wearing glasses
LUNGS: CTA B/L, no wheezes or rales
CV: Reg with ectopy, S1/S2, 2/6 AHSM
ABD: soft, BS+, NT, ND
EXT: Trace B/L malleolar edema. No clubbing, cyanosis or lesions B/L
NEURO: Gross non-focal
SKIN: Warm, dry and pink. No rash
Lab Results
11/16/23 09:03
11/16/23 09:03
Troponin I 0.021 ng/ml 11/13/23 22:21
Impression / Plan
-
PCP: Dr. Merchant
Primary Biology Lecturer: Dr. Coleman
Impression:
Admitted with JOSH, UTI and hypothermia 11/13/23
Anemia
Elevated LDH
Heme positive stools
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
s/p MV ring repair, TV ring repair, MAZE and Atricure CAREN clip 01/05/15
Permanent Afib/atypical flutter/tach
ablations 09/2005 and 02/2006
h/o PVI 05/2009
h/o MAZE (at time of MV/TV repair) 2014
h/o PVI and AV node ablation 11/2016
h/o elevated LFTs on amiodarone
Prolonged QTc on dofetilide, discontinued 10/2020
Chronic Eliquis OAC
SSS s/p Medtronic PPM in 2014 (same admission as MV/TV repair)
s/p MV ring and TV repair in 2014
Chronic HFpEF
Chronic hyponatremia
Hypothyroidism
Hyperlipidemia
HTN
L breast cancer s/p lumpectomy / radiation 2013
Peripheral neuropathy
DJD/lumbar spinal disease
ECHO 10/21/20: EF 60-65%, no RWMA, mitral ring well seated, peak/mean gradients 7/3mmHg, mild MR, s/p Alas #26 TAVR, well seated with peak/mean gradients 12/7mmHg, trace AR, mild TR, PAP 24mmHg, severe atrial enlargement
ECHO 11/10/20: EF 60-65%, no regional wall motion abnormalities, stage II diastolic dysfunction, seated mitral ring with peak/mean gradients of 18/5 mmHg, mild to moderate MR, well-seated Alas Miguelito #26 TAVR with peak/mean gradients of 14/7 mmHg
with mild perivalvular aortic regurgitation, mild TR, PAP 41 mmHg, mildly dilated ascending aorta 3.9 cm
Echo 01/31/23: EF 50%, mild conc LVH, EF 52%, normal RV size and function, s/p MV ring repair with peak/mean 8/3 mmHg and mild to mod MR, TAVR with peak/mean 6/3 mmHg and trace aortic regurgitation, mild TR
Plan:
-Patient came to [facility] on 11/13/23 with fogginess and was admitted with JOSH and UTI. Patient was seen by Neurology and treated for TME due to JOSH and UTI. UTI treated with antibiotics. Patient with pancytopenia on admission that was evaluated by
Heme/Onc who noted chronic intermittent pancytopenia since 2020, but clearly able to mount white blood cell response and reticulocyte response in the past. Patient was heme positive as well with Hgb as low as 7.5, but did not receive transfusion.
Stools were heme positive and patient reports hemorrhoids. GI consulted and there are not plans to perform endoscopic evaluation. Cardiology is now consulted due to elevated LDH and h/o valve hemolysis. Patient had TAVR 10/21/23 and then noted to have
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 Patient then had redo TAVR at [facility] 01/02/21 and there was no evidence of aortic insufficiency or perivalvular leak by echo 01/31/23. LDH was 9851-9903 during valve
hemolysis issues in 2020 and then improved. LDH was 439 on admission and then improved to 357 with treatment of JOSH and UTI. Patient's daughter asked for cardiology evaluation. Patient also notes palpitations happening on a daily basis for the last
several months. Patient with permanent Afib and after a series of ablations she had an AV node ablation 2016 and has a [employer] PPM.
-Check echo on Saturday
-LDH was in the thousands during hemolysis/TAVR issues in 2020 and now 300-400. LDH improved from admission with treatment of JOSH and UTI.
-Offered to call patient's daughter in room using patient's cell phone, but she did not answer. Patient also texted daughter and then texted son in law, but no answer. Will try calling again later today.
-ECG and tele reviewed by me. PVCs noted. Talked to patient about increasing Coreg to 6.25 mg BID and patient says that this has been suggested by Dr. Coleman in the past, but patient was worried about decreasing HR too much. Patient with PPM in
place so HR will never go too low. Patient will think about it, but discussed that ultimately that patient's symptoms will drive how aggressively we manage her symptomatic PVCs.
-Atrial flutter underlying and patient with permanent Afib/flutter. Cont Eliquis 2.5 mg BID and PRN transfusion was suggested by Heme/Onc
--- NOTE | 2023-11-16 15:02 | W.PN.HOSP.TC ---
Today's Communication/Plan
-
Echo on Saturday
Lasix
Assessment / Plan
Assessment / Plan
Physical Exam
General: Not in acute distress.
HEENT: Normocephalic. Moist mucous membranes.
Respiratory: CTAB.
Cardiac: S1/S2 and Regular Rhythm.
GI: Soft, Non Tender, Non Distended and Normal Bowel Sounds
Musculoskeletal: No Cyanosis and Other (Chronic venous stasis skin changes. No edema.)
Neuro: AAO x 3 and Nonfocal/grossly intact
Assessment/Plan
Patient is an 88y F with PMH significant for A-Fib, valvular heart disease and CHF who presents to ED complaining of 'foggy' feeling in the head and unsteady gait.
JOSH
- Admit for further evaluation and treatment
- SCr = 1.2 compared to known baseline of 0.8 - 0.7. Then down to 0.9-->0.7
- Recently advised to increase diuretic dose but has yet to do so.
- Continue to hold Lasix for now and follow I/Os, daily weights and renal function changes.
- Monitor BMP
UTI (patient reported dysuria)
- UA suggested UTI
- Ceftriaxone stopped, continue Cefdinir for 4 days based on prior culture data
- urine culture with no significant growth
Hypothermia - RESOLVED - Suspected Secondary to UTI vs. Anemia
- TSH unremarkable at 2.08
- Random Cortisol 15.3 -- acceptable
- COVID-19 negative
- If needed, then Janes Hugger / supportive care.
Unsteady Gait
'Foggy' Feeling - IMPROVING
- ? secondary to acute infectious process as noted above.
- ? other etiology.
- Patient with chronic central vertigo - but no dizziness / vertiginous symptoms at present.
- Holding diuretic acutely as noted above.
- PT / OT evaluations in the AM.
- Follow for any changes in symptoms.
- Check SPEP, vitamin B-1 inpatient vs. outpatient
- Outpatient neurology follow-up in1-2 weeks
Pancytopenia
Haptoglobin chronically suppressed of uncertain significance and elevated LDH TAVR leak shear hemolysis reticulocyte count and LDH declined postrepair -- as per hematology
- Patient with h/o iron deficiency anemia.
- Hgb dropped from 8.8 to 7.5 in about 10 hours after admission
- Transfuse PRBC to maintain Hgb>7
- Blood transfusion consent obtained from patient and Type and Cross completed on 11/14/23
- Recent leukopenia and thrombocytopenia as well.
- Patient notes that she has Hematology evaluation planned for later this week as an outpatient: consulted hematology inpatient given worsening anemia
- WBC normal today - ? reflection of infection / UTI.
- Follow cell counts for any changes.
History of mitral valve repair/trace cuspid valve repair open heart surgery in 2014 followed by a transcatheter aortic valve done in October 2020 at [facility], complicated by a moderate to severe paravalvular leak and mechanical
hemolysis, followed by a redo transcatheter valve in valve procedure done in December 2020
-Patient's daughter expressed concern about hemolysis from patient's aortic valve
-Cardiology consulted, appreciate evaluation and recommendations
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
Anemia, with FOBT Positive
History of Iron Deficiency Anemia
-Consulted GI, appreciate their evaluation and recommendations
-Per GI, given that patient has no obvious bleeding and hemoglobin remains stable plan right now is to hold off on repeat endoscopic workup given age and comorbidities unless patient has active bleeding.
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
Chronic HFpEF
- Stable. PPM interrogated in the ED around the time of admission. 100% A-Fib.
- Interrogation also makes note of possible intrathoracic fluid accumulation based on impedance data - will check CXR.
- CXR without effusion of significant pulmonary edema.
- Continue Lasix at 60 mg daily, appreciate cardiology
- Follow I/Os, daily weights, etc.
- Continue Eliquis for stroke risk reduction
Hypothyroidism
- Repeat TFTs as noted above.
- Continue current T4 replacement and adjust as needed.
Chronic Constipation
- Bowel regimen.
Underweight
DVT Prophylaxis: On Eliquis
Code Status: DNR
Anticipated Discharge: > 48 hours
Subjective/Interval History
-
Date of Service: November 16, 2023
Patient was seen and examined. She reported no new symptoms or complaints.
Objective Data
-
Labs:
Laboratory Results
11/16/23
09:03
WBC 3.8 L
Hgb 8.8 L
Hct 25.4 L
Plt Count 115 L
Sodium 129 L
Potassium 4.0
Chloride 92 L
Carbon Dioxide 28
BUN 29 H
Creatinine 0.7
Glucose 140 H
Calcium 9.1
Total Bilirubin 0.4
AST 44 H
ALT 29
Alkaline Phosphatase 44
Vital Signs:
Vital Signs
Temp Pulse Resp BP Pulse Ox
97.9 F 74 16 97/62 100
11/16/23 11:00 11/16/23 11:00 11/16/23 11:00 11/16/23 11:00 11/16/23 11:00
I&O
11/15/23 11/16/23 11/17/23
06:59 06:59 06:59
Intake Total 120 / 120 360 / 360
Balance 120 / 120 360 / 360
[2023-11-16] MEDS: FOLVITE 1 MG PO (17:20)
[2023-11-17 03:10] VITALS: BP 104/70
[2023-11-17 06:00] VITALS: BMI 16.9
[2023-11-17 07:55] VITALS: BP 120/78
--- NOTE | 2023-11-17 08:05 | W.PN.CARDCBS ---
Today's Communication / Plan
-
Echo pending for tomorrow Nov 17 to reevaluate her valve.
-Echo from January 2023 was stable with no significant aortic regurgitation and a mean gradient of 3.
-If repeat echo stable, would be unlikely that she is having another episode of hemolytic anemia without significant paravalvular regurgitation.
Her LDH was in the 300 range, previously when she had hemolytic anemia from her valve it was in the 3-4000 range. Will await reticulocyte count and haptoglobin.
Appreciate hematology input.
Hb up to 8.8 on Nov 15, Nov 16 pending
Resumed lasix at 60 mg dose. Lasix had been held previously. Her volume status overall looks stable.
-Monitor Is and Os, cr and follow daily weights.
Underlying perm A-fib status post AV node ablation and PPM with PVCs.
-Continue Coreg and Eliquis.
-Pt has been declining adjustment of Coreg for PVCs both as outpt and inpt.
Impression / Plan
-
.
PCP: Dr. Merchant
Primary Home Health Billing Specialist: Dr. Coleman
Impression:
Admitted with JOSH, UTI and hypothermia 11/13/23
Anemia
Elevated LDH
Heme positive stools
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
s/p MV ring repair, TV ring repair, MAZE and Atricure CAREN clip 01/05/15
Permanent Afib/atypical flutter/tach
ablations 09/2005 and 02/2006
h/o PVI 05/2009
h/o MAZE (at time of MV/TV repair) 2014
h/o PVI and AV node ablation 11/2016
h/o elevated LFTs on amiodarone
Prolonged QTc on dofetilide, discontinued 10/2020
Chronic Eliquis OAC
SSS s/p Medtronic PPM in 2015 (same admission as MV/TV repair)
s/p MV ring and TV repair in 2014
Chronic HFpEF
Chronic hyponatremia
Hypothyroidism
Hyperlipidemia
HTN
L breast cancer s/p lumpectomy / radiation 2013
Peripheral neuropathy
DJD/lumbar spinal disease
ECHO 10/21/20: EF 60-65%, no RWMA, mitral ring well seated, peak/mean gradients 7/3mmHg, mild MR, s/p Alas #26 TAVR, well seated with peak/mean gradients 12/7mmHg, trace AR, mild TR, PAP 24mmHg, severe atrial enlargement
ECHO 11/10/20: EF 60-65%, no regional wall motion abnormalities, stage II diastolic dysfunction, seated mitral ring with peak/mean gradients of 18/5 mmHg, mild to moderate MR, well-seated Alas Miguelito #26 TAVR with peak/mean gradients of 14/7 mmHg
with mild perivalvular aortic regurgitation, mild TR, PAP 41 mmHg, mildly dilated ascending aorta 3.9 cm
Echo 01/31/23: EF 50%, mild conc LVH, EF 52%, normal RV size and function, s/p MV ring repair with peak/mean 8/3 mmHg and mild to mod MR, TAVR with peak/mean 6/3 mmHg and trace aortic regurgitation, mild TR
Plan:
She is a complicated 88-year-old well-known to our service. She has a past medical history of mitral valve repair/trace cuspid valve repair open heart surgery in 2014. She then had a transcatheter aortic valve done in October 2020 here at
[place] which was complicated by a moderate to severe paravalvular leak and mechanical hemolysis. She then had a redo transcatheter valve in valve procedure done in December 2020 at [facility]. We are asked to evaluate her regarding possible
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
Echo pending for tomorrow Nov 17 to reevaluate her valve.
-Echo from January 2023 was stable with no significant aortic regurgitation and a mean gradient of 3.
-If repeat echo stable, would be unlikely that she is having another episode of hemolytic anemia without significant paravalvular regurgitation.
Her LDH was in the 300 range, previously when she had hemolytic anemia from her valve it was in the 3-4000 range. Will await reticulocyte count and haptoglobin.
Appreciate hematology input.
Hb up to 8.8 on Nov 15, Nov 16 pending
Resumed lasix at 60 mg dose. Lasix had been held previously. Her volume status overall looks stable.
-Monitor Is and Os, cr and follow daily weights.
Underlying perm A-fib status post AV node ablation and PPM with PVCs.
-Tele stable with PVCs and V pacing
-Continue Coreg and Eliquis.
-Pt has been declining adjustment of Coreg for PVCs both as outpt and inpt.
Continue Synthroid. TSH is normal.
Daughter updated last 24 hrs.
HPI: [facility] with fogginess and was admitted with JOSH and UTI. Patient was seen by Neurology and treated for TME due to JOSH and UTI. UTI treated with antibiotics. Patient with pancytopenia on admission that was evaluated by
Heme/Onc who noted chronic intermittent pancytopenia since 2020, but clearly able to mount white blood cell response and reticulocyte response in the past. Patient was heme positive as well with Hgb as low as 7.5, but did not receive transfusion.
Stools were heme positive and patient reports hemorrhoids. GI consulted and there are not plans to perform endoscopic evaluation. Cardiology is now consulted due to elevated LDH and h/o valve hemolysis. Patient had TAVR 10/21/23 and then noted to have
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 Patient then had redo TAVR at [facility] 01/02/21 and there was no evidence of aortic insufficiency or perivalvular leak by echo 01/31/23. LDH was 6603-3148 during valve
hemolysis issues in 2020 and then improved. LDH was 439 on admission and then improved to 357 with treatment of JOSH and UTI. Patient's daughter asked for cardiology evaluation. Patient also notes palpitations happening on a daily basis for the last
several months. Patient with permanent Afib and after a series of ablations she had an AV node ablation 2016 and has a Medtronic PPM.
Progress Note - Home Health Billing Specialist
Subjective
Date of Service: November 17, 2023
Pt seen and examined. No complaints. No chest pain or shortness of breath.
Objective
Labs:
Labs
Hgb 8.8 g/dL (12.0-16.0) L 11/16/23 09:03
Hct 25.4 % (37.0-47.0) L 11/16/23 09:03
Plt Count 115 10^3/uL (130-400) L 11/16/23 09:03
Sodium 129 mmol/L (135-145) L 11/16/23 09:03
Potassium 4.0 mmol/L (3.5-5.1) 11/16/23 09:03
BUN 29 mg/dl (7-17) H 11/16/23 09:03
Creatinine 0.7 mg/dL (0.6-1.0) 11/16/23 09:03
Glucose 140 mg/dl (70-99) H 11/16/23 09:03
Vital Signs and I&O:
Vital Signs
Temp Pulse Resp BP Pulse Ox
97.5 F 71 12 104/70 99
11/17/23 03:10 11/17/23 03:10 11/17/23 03:10 11/17/23 03:10 11/17/23 03:10
Vital Signs
Temp Pulse Resp BP Pulse Ox
97.5 F 71 12 104/70 99
11/17/23 03:10 11/17/23 03:10 11/17/23 03:10 11/17/23 03:10 11/17/23 03:10
Intake & Output
11/15/23 11/16/23 11/17/23 11/18/23
06:59 06:59 06:59 06:59
Intake Total 120 / 120 360 / 360 1200 / 1200
Balance 120 / 120 360 / 360 1200 / 1200
Physical Exam
Physical Exam
General: No acute distress, AAOX3
Neck: Negative JVD
Heart: Regular, Negative S3 positive S1/S2, Negative S4, No murmur
Lungs: CTA b/l, negative wheezes/rales/rhonchi
Abd: Positive BS, NT/ND, neg rebound/rigidity/guarding
Ext: Negative cyanosis/clubbing/edema
Neuro: nonfocal
[2023-11-17 08:49] LABS: Hematocrit 22.7 % (37.0-47.0); Hemoglobin 8.1 g/dL (12.0-16.0); Mean Corp Hgb Conc. 35.7 g/dL (33.0-37.0); Mean Corpuscular Hgb 36.3 pg (27.0-31.0); Mean Corpuscular Volume 101.8 fL (81.0-99.0); Mean Platelet Volume 12.8 fL (7.4-10.4); Platelet Count 100 10^3/uL (130-400); Red Blood Cell Count 2.23 10^6/uL (4.20-5.40); Red Cell Dist. Width 15.1 % (11.5-14.5); White Blood Cell Count 3.9 10^3/uL (4.8-10.8)
[2023-11-17] MEDS: SENOKOT-S 1 TABLET PO (09:18)
[2023-11-17] MEDS: PROTONIX 40 MG PO (09:18)
[2023-11-17] MEDS: ELIQUIS 2.5 MG PO ×2 (09:19→20:27)
[2023-11-17] MEDS: LASIX 60 MG PO (09:19)
[2023-11-17] MEDS: COREG 3.125 MG PO ×2 (09:19→20:27)
[2023-11-17] MEDS: MIRALAX 17 GRAMS PO (09:20)
[2023-11-17] MEDS: OMNICEF 300 MG PO ×2 (09:20→20:27)
[2023-11-17] MEDS: VITAMIN D3 (cholecalciferol) 25 MCG PO (09:20)
--- NOTE | 2023-11-17 09:50 | CM ---
Addendum entered by Eleanor Panchal 11/17/23 14:27:
Daughter requested that she be notified when discharged.
PCP: Sho Merchant
Pharmacy: [facility]
Original Note:
CM following for discharge planning. Esther lives at [facility], known to [facility]. Plan for Echo on Saturday.
She has housekeeping assistance and can go to the dining room for meals, occasionally brings them back to her apartment.
DME: RW, grab bars and toilet rails in the bathroom.
Plan: Discharge to home with res[facility] of [facility] when medically stable.
[2023-11-17 09:52] LABS: ALT (SGPT) 31 U/L (0-35); AST (SGOT) 45 U/L (14-36); Albumin 3.6 g/dl (3.5-5.0); Alkaline Phosphatase 37 U/L (38-126); Blood Urea Nitrogen 34 mg/dl (7-17); Calcium 8.6 mg/dl (8.4-10.2); Carbon Dioxide 29 mmol/L (22-30); Chloride 93 mmol/L (98-107); Estimated Creatinine Clearance 37 ml/min; Glucose 66 mg/dl (70-99); Potassium 4.2 mmol/L (3.5-5.1); Sodium 130 mmol/L (135-145); Total Bilirubin 0.3 mg/dl (0.2-1.3); Total Protein 5.7 g/dl (6.3-8.2); eGFR > 60.00
[2023-11-17 15:48] VITALS: BP 122/74
--- NOTE | 2023-11-17 16:33 | W.PN.HOSP.TC ---
Today's Communication/Plan
-
Echocardiogram tomorrow to re-evaluate aortic valve and relation to any possible hemolysis
Assessment / Plan
Assessment / Plan
Physical Exam
General: Not in acute distress.
HEENT: Normocephalic. Moist mucous membranes.
Respiratory: CTAB.
Cardiac: S1/S2 and Regular Rhythm.
GI: Soft, Non Tender, Non Distended and Normal Bowel Sounds
Musculoskeletal: No Cyanosis and Other (Chronic venous stasis skin changes. No edema.)
Neuro: AAO x 3 and Nonfocal/grossly intact
Assessment/Plan
Patient is an 88y F with PMH significant for A-Fib, valvular heart disease and CHF who presents to ED complaining of 'foggy' feeling in the head and unsteady gait.
JOSH
- Admit for further evaluation and treatment
- SCr = 1.2 compared to known baseline of 0.8 - 0.7. Then down to 0.9-->0.7
- Recently advised to increase diuretic dose but has yet to do so.
- Continue to hold Lasix for now and follow I/Os, daily weights and renal function changes.
- Monitor BMP
UTI (patient reported dysuria)
- UA suggested UTI
- Ceftriaxone stopped, continue Cefdinir for 4 days based on prior culture data
- urine culture with no significant growth
Hypothermia - RESOLVED - Suspected Secondary to UTI vs. Anemia
- TSH unremarkable at 2.08
- Random Cortisol 15.3 -- acceptable
- COVID-19 negative
- If needed, then Janes Hugger / supportive care.
Unsteady Gait
'Foggy' Feeling - IMPROVING
- ? secondary to acute infectious process as noted above.
- ? other etiology.
- Patient with chronic central vertigo - but no dizziness / vertiginous symptoms at present.
- Holding diuretic acutely as noted above.
- PT / OT evaluations in the AM.
- Follow for any changes in symptoms.
- Check SPEP, vitamin B-1 inpatient vs. outpatient
- Outpatient neurology follow-up in1-2 weeks
Pancytopenia
Haptoglobin chronically suppressed of uncertain significance and elevated LDH TAVR leak shear hemolysis reticulocyte count and LDH declined postrepair -- as per hematology
- Patient with h/o iron deficiency anemia.
- Hgb dropped from 8.8 to 7.5 in about 10 hours after admission
- Transfuse PRBC to maintain Hgb>7
- Blood transfusion consent obtained from patient and [facility] completed on 11/14/23
- Recent leukopenia and thrombocytopenia as well.
- Patient notes that she has Hematology evaluation planned for later this week as an outpatient: consulted hematology inpatient given worsening anemia
- WBC normal today - ? reflection of infection / UTI.
- Follow cell counts for any changes.
History of mitral valve repair/trace cuspid valve repair open heart surgery in 2014 followed by a transcatheter aortic valve done in October 2020 at [facility], complicated by a moderate to severe paravalvular leak and mechanical
hemolysis, followed by a redo transcatheter valve in valve procedure done in December 2020
-Patient's daughter expressed concern about hemolysis from patient's aortic valve
-Cardiology consulted, appreciate evaluation and recommendations
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
Anemia, with FOBT Positive
History of Iron Deficiency Anemia
-Consulted GI, appreciate their evaluation and recommendations
-Per GI, given that patient has no obvious bleeding and hemoglobin remains stable plan right now is to hold off on repeat endoscopic workup given age and comorbidities unless patient has active bleeding.
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
Chronic HFpEF
- Stable. PPM interrogated in the ED around the time of admission. 100% A-Fib.
- Interrogation also makes note of possible intrathoracic fluid accumulation based on impedance data - will check CXR.
- CXR without effusion of significant pulmonary edema.
- Continue Lasix at 60 mg daily, appreciate cardiology
- Follow I/Os, daily weights, etc.
- Continue Eliquis for stroke risk reduction
Hypothyroidism
- Repeat TFTs as noted above.
- Continue current T4 replacement and adjust as needed.
Chronic Constipation
- Bowel regimen.
Underweight
DVT Prophylaxis: On Eliquis
Code Status: DNR
Anticipated Discharge: 24 - 48 hours
Subjective/Interval History
-
Date of Service: November 17, 2023
Patient was seen and examined. She reported no new symptoms.
Objective Data
-
Labs:
Laboratory Results
11/17/23
07:26
WBC 3.9 L
Hgb 8.1 L
Hct 22.7 L
Plt Count 100 L
Sodium 130 L
Potassium 4.2
Chloride 93 L
Carbon Dioxide 29
BUN 34 H
Creatinine 0.7
Glucose 66 L
Calcium 8.6
Total Bilirubin 0.3
AST 45 H
ALT 31
Alkaline Phosphatase 37 L
Vital Signs:
Vital Signs
Temp Pulse Resp BP Pulse Ox
97.5 F 68 18 122/74 98
11/17/23 15:48 11/17/23 15:48 11/17/23 15:48 11/17/23 15:48 11/17/23 12:37
I&O
11/16/23 11/17/23 11/18/23
06:59 06:59 06:59
Intake Total 360 / 360 1200 / 1200
Balance 360 / 360 1200 / 1200
[2023-11-17] MEDS: FOLVITE 1 MG PO (17:43)
[2023-11-17 19:00] VITALS: BP 141/83
[2023-11-17] MEDS: SENOKOT-S PO (20:34)
[2023-11-17 21:43] LABS: Haptoglobin <10 mg/dL (30-200)
--- NOTE | 2023-11-17 21:51 | W.PN.ONC2 ---
Today's Communication / Plan
-
Await ECHO planned for AM to help determine how much the hemolysis may be contributing to anemia. Haptoglobin remains undetectable.
Impression
Impression
Pancytopenia chronic noted intermittently since 2020 clearly able to mount white blood cell response and reticulocyte response in the past
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
Elevated LDH but was greater than 3000 and has been coming down
UTI E. coli
Valvular Heart Disease
Chronic HFpEF
Permanent Atrial Fibrillation
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
Peripheral Neuropathy
Iron Deficiency Anemia
Hypothyroidism
Vertigo
Left Breast Cancer s/p Lumpectomy and XRT
Chronic Constipation
Plan
Plan
Pt has undergone complete workup for anemia including outpt liquid biopsy and also testing for PNH, all unremarkable.
Suspect anemia is from combination of chronic disease, low grade hemolysis from mechanical valve, and GI blood loss on chronic anticoagulation.
She already takes PO iron.
Will support as outpt with transfusions
Subjective/Objective
Chief Complaint
Heme/Onc follow up of multifactorial anemia
Subjective
Denies complaint
Vital Signs:
Vital Signs
Temp Pulse Resp BP Pulse Ox
97.7 F 65 18 130/83 98
11/17/23 19:00 11/17/23 20:27 11/17/23 19:00 11/17/23 20:27 11/17/23 19:00
Lab Results:
Laboratory Data
WBC 3.9 10^3/uL (4.8-10.8) L 11/17/23 07:26
Hgb 8.1 g/dL (12.0-16.0) L 11/17/23 07:26
Plt Count 100 10^3/uL (130-400) L 11/17/23 07:26
eGFR > 60.00 11/17/23 07:26
Physical Exam
Awake, alert, non-toxic appearing
Orders
Orders
Orders From Last 24 Hours
11/18/23 06:00
Ferritin IN AM
[2023-11-17 23:00] VITALS: BP 114/66; BP 120/56; BP 125/54; PULSE 71; PULSE 81; PULSE 83
[2023-11-18 03:48] VITALS: BP 128/76
[2023-11-18 06:00] VITALS: BMI 17.0
[2023-11-18] MEDS: SYNTHROID 112 MCG PO (06:40)
[2023-11-18] MEDS: MIRALAX 17 GRAMS PO (08:34)
[2023-11-18] MEDS: PROTONIX 40 MG PO (08:35)
[2023-11-18] MEDS: VITAMIN D3 (cholecalciferol) 25 MCG PO (08:35)
[2023-11-18] MEDS: LASIX 60 MG PO (08:36)
[2023-11-18] MEDS: SENOKOT-S 1 TABLET PO (08:36)
[2023-11-18] MEDS: ELIQUIS 2.5 MG PO (08:36)
[2023-11-18] MEDS: COREG 3.125 MG PO (08:36)
[2023-11-18] MEDS: OMNICEF 300 MG PO (08:36)
[2023-11-18 08:46] VITALS: BP 124/74
--- NOTE | 2023-11-18 09:01 | W.PN.CARDCBS ---
Today's Communication / Plan
-
Echo pending
Cont supportive care of H/H as per hematology
Stable cv status
Impression / Plan
-
.
PCP: Dr. Merchant
Primary Flight Controls Engineer: Dr. Coleman
Impression:
Admitted with JOSH, UTI and hypothermia 11/13/23
Anemia
Elevated LDH
Heme positive stools
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
s/p MV ring repair, TV ring repair, MAZE and Atricure CAREN clip 01/05/15
Permanent Afib/atypical flutter/tach
ablations 09/2005 and 02/2006
h/o PVI 05/2009
h/o MAZE (at time of MV/TV repair) 2014
h/o PVI and AV node ablation 11/2016
h/o elevated LFTs on amiodarone
Prolonged QTc on dofetilide, discontinued 10/2020
Chronic Eliquis OAC
SSS s/p Medtronic PPM in 2014 (same admission as MV/TV repair)
s/p MV ring and TV repair in 2014
Chronic HFpEF
Chronic hyponatremia
Hypothyroidism
Hyperlipidemia
HTN
L breast cancer s/p lumpectomy / radiation 2013
Peripheral neuropathy
DJD/lumbar spinal disease
ECHO 10/21/20: EF 60-65%, no RWMA, mitral ring well seated, peak/mean gradients 7/3mmHg, mild MR, s/p Alas #26 TAVR, well seated with peak/mean gradients 12/7mmHg, trace AR, mild TR, PAP 24mmHg, severe atrial enlargement
ECHO 11/10/20: EF 60-65%, no regional wall motion abnormalities, stage II diastolic dysfunction, seated mitral ring with peak/mean gradients of 18/5 mmHg, mild to moderate MR, well-seated Alas Miguelito #26 TAVR with peak/mean gradients of 14/7 mmHg
with mild perivalvular aortic regurgitation, mild TR, PAP 41 mmHg, mildly dilated ascending aorta 3.9 cm
Echo 01/31/23: EF 50%, mild conc LVH, EF 52%, normal RV size and function, s/p MV ring repair with peak/mean 8/3 mmHg and mild to mod MR, TAVR with peak/mean 6/3 mmHg and trace aortic regurgitation, mild TR
Plan:
She is a complicated 88-year-old well-known to our service. She has a past medical history of mitral valve repair/trace cuspid valve repair open heart surgery in 2014. She then had a transcatheter aortic valve done in October 2020 here at
[facility] which was complicated by a moderate to severe paravalvular leak and mechanical hemolysis. She then had a redo transcatheter valve in valve procedure done in December 2020 at [facility]. We are asked to evaluate her regarding possible
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
Echo pending for tomorrow Nov 17 to reevaluate her valve.
-Echo from January 2023 was stable with no significant aortic regurgitation and a mean gradient of 3.
-If repeat echo stable, would be unlikely that she is having another episode of hemolytic anemia without significant paravalvular regurgitation.
Her LDH was in the 300 range, previously when she had hemolytic anemia from her valve it was in the 3-4000 range.
Appreciate hematology input.
Hb up to 8.8 on Nov 15, Nov 16 8.1
As per Hematology: Pt has undergone complete workup for anemia including outpt liquid biopsy and also testing for PNH, all unremarkable.
Suspect anemia is from combination of chronic disease, low grade hemolysis from mechanical valve, and GI blood loss on chronic anticoagulation.
She already takes PO iron.
Hematology to support as outpt with transfusions.
Resumed lasix at 60 mg dose. Lasix had been held previously. Her volume status overall looks stable.
-Monitor Is and Os, cr and follow daily weights. Her wt is flat.
Underlying perm A-fib status post AV node ablation and PPM with PVCs.
-Tele stable with PVCs and V pacing
-Continue Coreg and Eliquis.
-Pt has been declining adjustment of Coreg for PVCs both as outpt and inpt.
Continue Synthroid. TSH is normal.
Will update daughter after echo.
HPI: Patient came to [facility] on 11/13/23 with fogginess and was admitted with JOSH and UTI. Patient was seen by Neurology and treated for TME due to JOSH and UTI. UTI treated with antibiotics. Patient with pancytopenia on admission that was evaluated by
Heme/Onc who noted chronic intermittent pancytopenia since 2020, but clearly able to mount white blood cell response and reticulocyte response in the past. Patient was heme positive as well with Hgb as low as 7.5, but did not receive transfusion.
Stools were heme positive and patient reports hemorrhoids. GI consulted and there are not plans to perform endoscopic evaluation. Cardiology is now consulted due to elevated LDH and h/o valve hemolysis. Patient had TAVR 10/21/23 and then noted to have
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 Patient then had redo TAVR at [place] 01/02/21 and there was no evidence of aortic insufficiency or perivalvular leak by echo 01/31/23. LDH was 3263-0751 during valve
hemolysis issues in 2020 and then improved. LDH was 439 on admission and then improved to 357 with treatment of JOSH and UTI. Patient's daughter asked for cardiology evaluation. Patient also notes palpitations happening on a daily basis for the last
several months. Patient with permanent Afib and after a series of ablations she had an AV node ablation 2016 and has a Medtronic PPM.
Progress Note - Flight Controls Engineer
Subjective
Date of Service: November 18, 2023
Pt seen and examined. No complaints. No chest pain or shortness of breath.
Objective
Labs:
11/17/23 07:26
11/17/23 07:26
Labs
Hgb 8.1 g/dL (12.0-16.0) L 11/17/23 07:26
Hct 22.7 % (37.0-47.0) L 11/17/23 07:26
Plt Count 100 10^3/uL (130-400) L 11/17/23 07:26
Sodium 130 mmol/L (135-145) L 11/17/23 07:26
Potassium 4.2 mmol/L (3.5-5.1) 11/17/23 07:26
BUN 34 mg/dl (7-17) H 11/17/23 07:26
Creatinine 0.7 mg/dL (0.6-1.0) 11/17/23 07:26
Glucose 66 mg/dl (70-99) L 11/17/23 07:26
Vital Signs and I&O:
Vital Signs
Temp Pulse Resp BP Pulse Ox
97.6 F 72 18 124/74 100
11/18/23 08:46 11/18/23 08:46 11/18/23 08:46 11/18/23 08:46 11/18/23 08:46
Vital Signs
Temp Pulse Resp BP Pulse Ox
97.6 F 72 18 124/74 100
11/18/23 08:46 11/18/23 08:46 11/18/23 08:46 11/18/23 08:46 11/18/23 08:46
Intake & Output
11/16/23 11/17/23 11/18/23 11/19/23
06:59 06:59 06:59 06:59
Intake Total 360 / 360 1200 / 1200
Balance 360 / 360 1200 / 1200
Physical Exam
Physical Exam
General: No acute distress, AAOX3
Neck: Negative JVD
Heart: Regular, Negative S3 positive S1/S2, Negative S4, No murmur
Lungs: CTA b/l, negative wheezes/rales/rhonchi
Abd: Positive BS, NT/ND, neg rebound/rigidity/guarding
Ext: Negative cyanosis/clubbing/edema
Neuro: nonfocal
[2023-11-18 09:19] LABS: Ferritin 35.1 ng/ml (11.1-264.0)
[2023-11-18 10:01] VITALS: BP 124/68; PULSE 71
--- NOTE | 2023-11-18 11:37 | PTCARENOTE ---
Patient with tachycardia while ambulating in halls with PT. Heart rate in 160s - Apaced with occasional PVCs. Slightly SOB at the time. Patient back to room and HR back to her baseline. Apaced - HR 80s.
[2023-11-18 11:57] VITALS: BP 130/80
[2023-11-18] MEDS: DULCOLAX 10 MG RECTAL (12:48)
[2023-11-18 14:50] VITALS: BP 146/86
[2023-11-18 15:50] VITALS: BP 143/93; PULSE 66; O2SAT 100
--- NOTE | 2023-11-18 15:56 | W.DS.TRANS ---
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
-
Discharge Instructions:
Sleep Apnea Risk Low
Discharge Diagnosis/Procedures Multifactorial anemia
Diet Regular
Activity As tolerated
Driving Restrictions As prior to admission
Blood Work Weekly CBC blood count -arrange through your PCP
or Carton Gluing Machine Operator
Specialty Instructions Weigh Daily
Instructions: *DCA Heart Failure Instructions
Stand-Alone Forms:
Changes to Home Medications: Yes
Discharge Medications:
DC Medications w/original date entered in [employer]
ezetimibe 10 mg tablet 10 mg PO QPM High cholesterol ##0 11/29/20
levothyroxine 112 mcg tablet 112 mcg PO MOTUWETHFRSA@0700 Thyroid 12/28/20
calcium 315 mg (as citrate)-vitamin D3 6.25 mcg (250 unit) tablet (Citracal + Vitamin D Maximum) 1 ea PO DAILY Supplement 03/27/21
carvedilol 3.125 mg tablet 3.125 mg PO BID Blood Pressure 03/27/21
acetaminophen 650 mg tablet,extended release 650 mg PO DAILYPRN PRN mild pain 03/14/23
apixaban 2.5 mg tablet (Eliquis) 2.5 mg PO BID Blood Clot Prevention/Tx 03/14/23
cholecalciferol (vitamin D3) 25 mcg (1,000 unit) tablet 25 mcg PO DAILY Supplement 03/14/23
docusate calcium 240 mg capsule (Stool Softener (docusate calcium)) 240 mg PO QPMPRN PRN constipation 03/14/23
iron succinyl-protein complex 40 mg/15 mL oral liquid (Ferretts IPS) 15 ml PO Q48H Supplement 03/14/23
sennosides 8.6 mg tablet (senna) 8.6 mg PO QPMPRN PRN constipation 03/14/23
folic acid 1 mg tablet 1 mg PO QPM 11/13/23
polyvinyl alcohol-povidone (PF) 1.4 %-0.6 % eye drops in a dropperette (Refresh Classic (PF)) 1 drp BOTH EYES DAILYPRN PRN dry eyes 11/13/23
vitamin B complex 1 tab PO NOON 11/13/23
bisacodyl 10 mg rectal suppository (Dulcolax (bisacodyl)) 10 mg IN DAILY PRN Constipation #12 ea 11/18/23
furosemide 20 mg tablet 60 mg (3 x 20 mg) PO DAILY #90 tabs 11/18/23
pantoprazole 40 mg tablet,delayed release 40 mg PO DAILY #30 tabs 11/18/23
polyethylene glycol 3350 17 gram oral powder packet (HealthyLax) 17 g PO DAILY #30 ea 11/18/23
Home Medication Changes
new medication-prolapse, rectal Dulcolax as needed
Decreased medication-Lasix from 80- to 60 mg
Pending Results: No
--- NOTE | 2023-11-18 15:57 | W.PN.HOSP.TC ---
Today's Communication/Plan
-
DC
Assessment / Plan
Assessment / Plan
Assessment/Plan
Patient is an 88y F with PMH significant for A-Fib, valvular heart disease and CHF who presents to ED complaining of 'foggy' feeling in the head and unsteady gait.
JOSH
- Admit for further evaluation and treatment
- SCr = 1.2 compared to known baseline of 0.8 - 0.7. Then down to 0.9-->0.7
- Recently advised to increase diuretic dose but has yet to do so.
- No extra renal losses.
- Decreased dose of Lasix to 60mg by cards now
UTI (patient reported dysuria)
- UA showed some pyruria , neg growth
- Denies any symptoms of Dysuria frequency of urine to me.
-Hold antibiotics.
-Repeat urine analysis in couple of weeks and if still shows pyuria needs a urology evaluation.
Hypothermia - RESOLVED
- TSH unremarkable at 2.08
- Random Cortisol 15.3 -- acceptable
- COVID-19 negative
- If needed, then Janes Hugger / supportive care.
Unsteady Gait
'Foggy' Feeling - IMPROVING
- No orthstatic hypotension
- Patient with chronic central vertigo - but no dizziness / vertiginous symptoms at present.
- PT / OT evaluations noted -cleared for home health
- Follow for any changes in symptoms.
- Check SPEP, vitamin B-1 inpatient vs. outpatient
- Outpatient neurology follow-up in1-2 weeks
Pancytopenia
-Follows Heme
- Not neutrtopenic
History of mitral valve repair/trace cuspid valve repair open heart surgery in 2014 followed by a transcatheter aortic valve done in October 2020 at [facility], complicated by a moderate to severe paravalvular leak and mechanical
hemolysis, followed by a redo transcatheter valve in valve procedure done in December 2020
-Patient's daughter expressed concern about hemolysis from patient's aortic valve
-Cardiology consulted, appreciate evaluation and recommendations
-Echocardiogram on 11/18/23 to reevaluate patient's valve --repeat echocardiogram is stable compared to January 2023
Anemia, with FOBT Positive
Suspect anemis multifactorial - sec to POLANCO, chromic blood loss
History of Iron Deficiency Anemia
-Consulted GI, appreciate their evaluation and recommendations
-Per GI, given that patient has no obvious bleeding and hemoglobin remains stable plan right now is to hold off on repeat endoscopic workup given age and comorbidities unless patient has active bleeding.
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
Chronic HFpEF
- Stable. PPM interrogated in the ED around the time of admission. 100% A-Fib.
- Interrogation also makes note of possible intrathoracic fluid accumulation based on impedance data - will check CXR.
- CXR without effusion of significant pulmonary edema.
- Continue Lasix at 60 mg daily, appreciate cardiology
- Follow I/Os, daily weights, etc.
- Continue Eliquis for stroke risk reduction
Hypothyroidism
- Repeat TFTs as noted above.
- Continue current T4 replacement and adjust as needed.
Chronic Constipation
- Bowel regimen.
Underweight
DVT Prophylaxis: On Eliquis
Code Status: DNR
Medically stable for DC
DW GI -no endo planned ,follow HH
DW Cards -ok for dc from [facility]
DW Daughter and updated plan
Total time of dc 35 min
Anticipated Discharge: Today
Subjective/Interval History
-
Date of Service: November 18, 2023
No more fogginess. Eating okay. Worked okay with PT.
Objective Data
-
Vital Signs:
Vital Signs
Temp Pulse Resp BP Pulse Ox
97.6 F 70 16 146/86 98
11/18/23 11:57 11/18/23 14:50 11/18/23 14:50 11/18/23 14:50 11/18/23 14:50
I&O
11/17/23 11/18/23 11/19/23
06:59 06:59 06:59
Intake Total 1200 / 1200
Balance 1200 / 1200
Review of Systems
-
Constitutional: Denies Fever
Respiratory: Denies Trouble Breathing
Cardiac: Denies Chest Pain
Abdomen/GI: Denies Abdominal Pain, Nausea, Vomiting or Diarrhea
Neuro: Denies Dizzy
Physical Exam
-
General: Comfortable
Respiratory: Non Labored Respirations; Negative Accessory Resp Muscle Use
Cardiac: Regular Rhythm and S1/S2
GI: Soft and Nontender
Musculoskeletal: No Edema
Neuro: AO x 3
Psych: Calm; Negative Confused
Data Reviewed
-
Medical Tests (Nuc Med, Echo etc): Report Reviewed by me (ECHO)
Labs: Labs Reviewed by me
[2023-11-18] MEDS: FLUAD (65 yr+) 2024-2025 FORMULA 0.5 ML IM (16:44)
--- NOTE | 2023-11-18 17:11 | PTCARENOTE ---
Reviewed discharge instructions with daughter and patient. Patient and daughter verbalize understanding of all instructions. Patient given flu vaccine in left upper arm without incident. VSF sheet provided. Peripheral IV removed and tele removed.
Patient's daughter at bedside for transport home/
[2023-11-19 19:22] LABS: Vitamin B1, Whole Blood 95 nmol/L (70-180)
== END 2023-11-18 17:29 | disposition home health service (06) | DRG 682 ==
LOC: 4 EAST ACU 03:20
PROVIDERS: Hospitalist; Nurse Practitioner Adult Health; ADMITTING PHYSICIAN Hospitalist; ATTENDING PHYSICIAN Internal Medicine; CONSULT PHYSICIAN Internal Medicine; CONSULT PHYSICIAN Internal Medicine Cardiovascular Disease; CONSULT PHYSICIAN Internal Medicine Hematology & Oncology; CONSULT PHYSICIAN Psychiatry & Neurology Neurology; EMERGENCY PHYSICIAN Emergency Medicine; FAMILY PHYSICIAN Family Medicine
DX: N17.9 Acute kidney failure, unspecified (principal); G92.8 Other toxic encephalopathy; N39.0 Urinary tract infection, site not specified; D61.818 Other pancytopenia; I48.21 Permanent atrial fibrillation; I50.32 Chronic diastolic (congestive) heart failure; E87.1 Hypo-osmolality and hyponatremia; Z68.1 Body mass index [BMI] 19.9 or less, adult; Z66 Do not resuscitate; I11.0 Hypertensive heart disease with heart failure; E78.00 Pure hypercholesterolemia, unspecified; I35.1 Nonrheumatic aortic (valve) insufficiency; D50.0 Iron deficiency anemia secondary to blood loss (chronic); I25.10 Atherosclerotic heart disease of native coronary artery without angina pectoris; G62.9 Polyneuropathy, unspecified; R68.0 Hypothermia, not associated with low environmental temperature; K64.8 Other hemorrhoids; R26.9 Unspecified abnormalities of gait and mobility; E03.9 Hypothyroidism, unspecified; K59.09 Other constipation; I49.5 Sick sinus syndrome; R63.6 Underweight; M81.0 Age-related osteoporosis without current pathological fracture; K55.20 Angiodysplasia of colon without hemorrhage; Z95.2 Presence of prosthetic heart valve; Z95.0 Presence of cardiac pacemaker; Z92.3 Personal history of irradiation; Z88.5 Allergy status to narcotic agent; Z88.2 Allergy status to sulfonamides; Z87.891 Personal history of nicotine dependence; Z86.73 Personal history of transient ischemic attack (TIA), and cerebral infarction without residual deficits; Z85.3 Personal history of malignant neoplasm of breast; Z79.01 Long term (current) use of anticoagulants; Z79.890 Hormone replacement therapy; Z79.899 Other long term (current) drug therapy; Z86.010 Personal history of colon polyps; Z11.52 Encounter for screening for COVID-19
CPT/HCPCS: 70450; 71046; 76700; 80048; 80053; 81003; 81015; 82533; 82607; 82728; 83010; 83540; 83550; 83615; 84155; 84165; 84425; 84443; 84484; 85027; 85045; 86704; 86705; 86706; 86803; 86850; 86900; 86901; 87040; 87086; 87340; 87811; 90662; 93005; 93306; 94760; 96374; 97116; 97162; 97166; 97535; 99285; G0008

== ENCOUNTER → 2023-12-05 12:40 | Outpatient (REF) | payer OTHER, SELFPAY ==
[2023-12-05 17:22] LABS: % Basophils 0.7 % (0-2); % Eosinophils 0.7 % (0-6); % Immature Granulocytes 0.3 % (0-0.5); % Lymphocytes 31.4 % (20.5-51.1); % Neutrophils 56.9 % (42.2-75.2); Absolute Lymphocytes 0.9 10^3/uL (1.2-3.4); Absolute Monocytes 0.3 10^3/uL (0.1-0.6); Absolute Neutrophils 1.7 10^3/uL (1.4-6.5); Hemoglobin 8.2 g/dL (12.0-16.0); Mean Corp Hgb Conc. 34.2 g/dL (33.0-37.0); Mean Corpuscular Hgb 35.5 pg (27.0-31.0); Mean Corpuscular Volume 103.9 fL (81.0-99.0); Mean Platelet Volume 11.7 fL (7.4-10.4); Nucleated Red Blood Cells % 0 %; Platelet Count 134 10^3/uL (130-400); Red Blood Cell Count 2.31 10^6/uL (4.20-5.40); Red Cell Dist. Width 15.6 % (11.5-14.5)
== END ==
LOC: OLABWIL 12:40
PROVIDERS: ATTENDING PHYSICIAN Nurse Practitioner Adult Health
DX: D50.9 Iron deficiency anemia, unspecified (principal); D05.80 Other specified type of carcinoma in situ of unspecified breast; D61.818 Other pancytopenia; D59.4 Other nonautoimmune hemolytic anemias; N18.30 Chronic kidney disease, stage 3 unspecified; D63.1 Anemia in chronic kidney disease
CPT/HCPCS: 36415; 85025

== ENCOUNTER → 2023-12-12 10:29 | Outpatient (REF) | payer OTHER, SELFPAY ==
[2023-12-12 10:50] LABS: % Basophils 0.7 % (0-2); % Immature Granulocytes 0.3 % (0-0.5); % Lymphocytes 39.5 % (20.5-51.1); % Monocytes 9.4 % (1.7-9.3); % Neutrophils 49.1 % (42.2-75.2); Absolute Lymphocytes 1.2 10^3/uL (1.2-3.4); Absolute Monocytes 0.3 10^3/uL (0.1-0.6); Absolute Neutrophils 1.5 10^3/uL (1.4-6.5); Hematocrit 25.4 % (37.0-47.0); Hemoglobin 8.6 g/dL (12.0-16.0); Mean Corp Hgb Conc. 33.9 g/dL (33.0-37.0); Mean Corpuscular Hgb 34.7 pg (27.0-31.0); Mean Corpuscular Volume 102.4 fL (81.0-99.0); Mean Platelet Volume 11.5 fL (7.4-10.4); Nucleated Red Blood Cells % 0 %; Platelet Count 146 10^3/uL (130-400); Red Blood Cell Count 2.48 10^6/uL (4.20-5.40); Red Cell Dist. Width 14.6 % (11.5-14.5)
[2023-12-12 11:20] LABS: Blood Urea Nitrogen 38 mg/dl (7-17); Calcium 9.7 mg/dl (8.4-10.2); Carbon Dioxide 33 mmol/L (22-30); Chloride 90 mmol/L (98-107); Glucose 84 mg/dl (70-99); Potassium 4.3 mmol/L (3.5-5.1); Sodium 132 mmol/L (135-145); eGFR > 60.00
== END ==
LOC: OLABWIL 10:29
PROVIDERS: ATTENDING PHYSICIAN Nurse Practitioner Adult Health; REFERRING PHYSICIAN Specialist
DX: D50.9 Iron deficiency anemia, unspecified (principal); D05.80 Other specified type of carcinoma in situ of unspecified breast; D61.818 Other pancytopenia; D59.4 Other nonautoimmune hemolytic anemias; N18.30 Chronic kidney disease, stage 3 unspecified; D63.1 Anemia in chronic kidney disease; I10 Essential (primary) hypertension; E87.1 Hypo-osmolality and hyponatremia; D64.9 Anemia, unspecified
CPT/HCPCS: 36415; 80048; 85025

== ENCOUNTER → 2023-12-19 11:38 | Outpatient (REF) | payer OTHER, SELFPAY ==
[2023-12-19 12:08] LABS: % Basophils 0.7 % (0-2); % Eosinophils 0.7 % (0-6); % Immature Granulocytes 0.7 % (0-0.5); % Lymphocytes 34.4 % (20.5-51.1); % Monocytes 8.7 % (1.7-9.3); % Neutrophils 54.8 % (42.2-75.2); Absolute Monocytes 0.3 10^3/uL (0.1-0.6); Absolute Neutrophils 1.6 10^3/uL (1.4-6.5); Hematocrit 24.5 % (37.0-47.0); Hemoglobin 8.3 g/dL (12.0-16.0); Mean Corp Hgb Conc. 33.9 g/dL (33.0-37.0); Mean Corpuscular Hgb 34.3 pg (27.0-31.0); Mean Corpuscular Volume 101.2 fL (81.0-99.0); Mean Platelet Volume 11.4 fL (7.4-10.4); Nucleated Red Blood Cells % 0 %; Platelet Count 157 10^3/uL (130-400); Red Blood Cell Count 2.42 10^6/uL (4.20-5.40); Red Cell Dist. Width 14.3 % (11.5-14.5); White Blood Cell Count 2.9 10^3/uL (4.8-10.8)
[2023-12-19 12:32] LABS: Iron 48 ug/dl (37-170)
[2023-12-19 12:42] LABS: Percent Saturation 12 % (20-50); Total Iron Binding Capacity 372 ug/dl (265-497)
[2023-12-19 13:08] LABS: Ferritin 25.1 ng/ml (11.1-264.0)
== END ==
LOC: OLABWIL 11:38
PROVIDERS: ATTENDING PHYSICIAN Nurse Practitioner Adult Health
DX: D50.9 Iron deficiency anemia, unspecified (principal); D05.80 Other specified type of carcinoma in situ of unspecified breast; D61.818 Other pancytopenia; D59.4 Other nonautoimmune hemolytic anemias; N18.30 Chronic kidney disease, stage 3 unspecified; D63.1 Anemia in chronic kidney disease
CPT/HCPCS: 36415; 82728; 83540; 83550; 85025

== ENCOUNTER → 2023-12-26 12:00 | Outpatient (REF) | payer OTHER, SELFPAY ==
[2023-12-26 12:25] LABS: % Basophils 0.5 % (0-2); % Eosinophils 0.5 % (0-6); % Immature Granulocytes 0.3 % (0-0.5); % Lymphocytes 34.4 % (20.5-51.1); % Monocytes 8.4 % (1.7-9.3); % Neutrophils 55.9 % (42.2-75.2); Absolute Lymphocytes 1.4 10^3/uL (1.2-3.4); Absolute Monocytes 0.3 10^3/uL (0.1-0.6); Absolute Neutrophils 2.2 10^3/uL (1.4-6.5); Hematocrit 25.6 % (37.0-47.0); Hemoglobin 8.5 g/dL (12.0-16.0); Mean Corp Hgb Conc. 33.2 g/dL (33.0-37.0); Mean Corpuscular Hgb 33.7 pg (27.0-31.0); Mean Corpuscular Volume 101.6 fL (81.0-99.0); Mean Platelet Volume 11.7 fL (7.4-10.4); Nucleated Red Blood Cells % 0 %; Platelet Count 173 10^3/uL (130-400); Red Blood Cell Count 2.52 10^6/uL (4.20-5.40); White Blood Cell Count 3.9 10^3/uL (4.8-10.8)
== END ==
LOC: OLABWIL 12:00
PROVIDERS: ATTENDING PHYSICIAN Nurse Practitioner Adult Health
DX: D50.9 Iron deficiency anemia, unspecified (principal); D05.80 Other specified type of carcinoma in situ of unspecified breast; D61.818 Other pancytopenia; D59.4 Other nonautoimmune hemolytic anemias; N18.30 Chronic kidney disease, stage 3 unspecified; D63.1 Anemia in chronic kidney disease
CPT/HCPCS: 36415; 85025

== ENCOUNTER → 2024-01-02 11:46 | Outpatient (REF) | payer OTHER, SELFPAY ==
[2024-01-02 12:13] LABS: % Eosinophils 0.3 % (0-6); % Immature Granulocytes 0.3 % (0-0.5); % Lymphocytes 16.7 % (20.5-51.1); % Monocytes 0.9 % (1.7-9.3); % Neutrophils 81.8 % (42.2-75.2); Absolute Lymphocytes 0.5 10^3/uL (1.2-3.4); Absolute Neutrophils 2.6 10^3/uL (1.4-6.5); Hematocrit 27.1 % (37.0-47.0); Hemoglobin 9.4 g/dL (12.0-16.0); Mean Corp Hgb Conc. 34.7 g/dL (33.0-37.0); Mean Corpuscular Hgb 35.2 pg (27.0-31.0); Mean Corpuscular Volume 101.5 fL (81.0-99.0); Mean Platelet Volume 12.2 fL (7.4-10.4); Nucleated Red Blood Cells % 0 %; Platelet Count 172 10^3/uL (130-400); Red Blood Cell Count 2.67 10^6/uL (4.20-5.40); Red Cell Dist. Width 14.2 % (11.5-14.5); White Blood Cell Count 3.2 10^3/uL (4.8-10.8)
== END ==
LOC: OLABWIL 11:46
PROVIDERS: ATTENDING PHYSICIAN Nurse Practitioner Adult Health
DX: D50.9 Iron deficiency anemia, unspecified (principal); D05.80 Other specified type of carcinoma in situ of unspecified breast; D61.818 Other pancytopenia; D59.4 Other nonautoimmune hemolytic anemias; N18.30 Chronic kidney disease, stage 3 unspecified; D63.1 Anemia in chronic kidney disease
CPT/HCPCS: 36415; 85025

== ENCOUNTER 2024-01-05 10:53 | Inpatient (IN) | payer OTHER, SELFPAY ==
[2024-01-03 17:54] VITALS: BP 156/96
--- NOTE | 2024-01-03 19:25 | ED.GENMED ---
History of Present Illness
General
Chief Complaint: Blood Pressure Problem
Source: patient
Exam Limitations: none
Time Seen by Provider: 01/03/24 18:33
Nursing documentation reviewed up to this point in time: agreed with
History of Present Illness
History of Present Illness:
88-year-old female with past medical history as documented presents to the emergency room for evaluation of 'feeling foggy.' Patient presents to the emergency room from [facility] where she lives in an apartment by herself. Patient
reports that she woke up this morning and all day has felt 'foggy.' She denies any headache. She denies any dizziness/vertiginous symptoms. She denies any change in vision or speech. Denies weakness or numbness in her extremities. She has not
had any chest pain or shortness of breath. She denies any cough or URI symptoms. She has not had any abdominal pain. She does note that she has had some mild dysuria over the past few days. Denies any change in urinary frequency, denies
hematuria. She denies any other complaints aside from her chronic arthritis pains. Her only other concern is that her blood pressure has been higher than usual today, noted to be 156/96 in triage.
Past History
Past History
ED Past Medical History: Arrthythmia (Paroxysmal A-fib), CHF, HTN, Hypercholesterolemia, Valvular disease, Hypothyroidism and Other (Ambulatory dysfunction, episode of aphasia)
ED Past Surgical History: Cardiac (History of cardiac ablation x3, multiple cardioversions, mitral and tricuspid valve repair) and Other (Breast biopsy, D&C, bilateral cataract surgery with lens implants)
Social History
Tobacco: Non-smoker
Alcohol: None
Drug: None
Personal:
Living: other ([facility])
Employment: Retired
Family History
Family History: Hypertension
Review of Systems
Review of Systems
All Other Systems: ROS reviewed and negative except as documented in HPI and ROS
Constitutional: Reports other (Brain fog); Denies fever or chills
EENT: Denies sore throat or runny nose
Respiratory: Denies cough or trouble breathing
Cardiac: Denies chest pain or palpitations
ABD/GI: Denies abdominal pain, nausea, vomiting or diarrhea
: Reports dysuria; Denies frequency, flank pain or incontinence
Musculoskeletal: Denies edema
Neurological: Denies dizzy or headache
Phy Exam
Physical Exam
Physical Exam:
General: Awake, alert, oriented x3; no acute distress
Head: Normocephalic, atraumatic
Eyes: Conjunctiva normal, EOMI, pupils equal round and reactive to light bilaterally
Throat: Airway intact, handling secretions
Neck: Trachea midline, supple without meningismus
Lungs: Clear to auscultation bilaterally, no wheezing, rales, rhonchi
Heart: Regular rate and rhythm, no murmurs, gallops, or rubs
Abd: Soft, non distended, nontender
Neuro: Cranial nerves intact, speech fluid, no motor or sensory deficits
Skin: no rash
Extremities: No edema in extremities, warm and well-perfused
Scores
Heart Failure Risk
Heart Failure Risk Score: Not Applicable
Heart Score for Chest Pain Patients
STEMI patient?: Not applicable
Withdrawal Assessment of Alcohol
Withdrawal Assessment Completed?: Not applicable
Course
Orders/Labs/Results
Orders:
Orders
01/03/24 18:40
CT Head W/o Iv Contrast Urgent
Comment:
Reason For Exam: dizzy, HTN
01/03/24 18:41
Electrocardiogram (*1) Urgent
Reason for Study: Hypertension, Benign
EKG- Treatment ONCE
01/03/24 19:05
Interrogate Pacemaker- Treatment ONCE
01/03/24 19:30
CR Chest Portable - 1 View Urgent
Comment:
Reason For Exam: fatigue, eval for pna
Reason Study Needs to be Portable: Unable to Transport
01/03/24 19:34
COVID-19 Antigen Urgent
Source: Nasal Swab
Complete Blood Count/With Diff Urgent
Comprehensive Metabolic Panel Urgent
TSH Reflex To Free T4 Urgent
Troponin I Urgent
01/03/24 19:58
0.9% Sodium Chloride 500 ml [Nss] 500 ml IV BOLUS
01/03/24 20:08
Straight cath- Treatment ONCE
01/03/24 20:13
0.9% Sodium Chloride 500 ml [Nss] 500 ml IV BOLUS
01/03/24 20:24
Osmolality, Random Urine Urgent
Date Specimen was Collected: 01/03/24
Time Specimen was Collected: 20:13
Urinalysis Reflex To Culture Urgent
Date Specimen was Collected: 01/03/24
Time Specimen was Collected: 20:13
Urine Sodium Urgent
Date Specimen was Collected: 01/03/24
Time Specimen was Collected: 20:13
01/03/24 20:43
CR Chest Single View Urgent
Reason For Exam: r/o pna (abnormal PA)
01/03/24 21:07
Apixaban [Eliquis] 2.5 mg PO ONCE ONE
Carvedilol [Coreg] 3.125 mg PO NOW STA
01/03/24 21:16
Azithromycin 500 mg IVPB NOW Azithromycin 500 mg/250 ml [Zithromax Infusion] 500 mg in 250 ml IV NOW
CefTRIAXone [Rocephin] 1,000 mg IV NOW STA
Abnormal Lab Results
01/03/24
19:34
RBC 2.61 L 10^6/uL
(4.20-5.40)
Hgb 9.2 L g/dL
(12.0-16.0)
Hct 26.7 L %
(37.0-47.0)
MCV 102.3 H fL
(81.0-99.0)
MCH 35.2 H pg
(27.0-31.0)
MPV 11.9 H fL
(7.4-10.4)
Absolute Lymphs (auto) 0.7 L 10^3/uL
(1.2-3.4)
Neutrophils % 82.9 H %
(42.2-75.2)
Lymphocytes % 10.6 L %
(20.5-51.1)
Sodium 127 L mmol/L
(135-145)
Chloride 88 L mmol/L
(98-107)
BUN 43 H mg/dl
(7-17)
AST 52 H U/L
(14-36)
01/03/24 19:34
01/03/24 19:34
Vital Signs
Initial and Last Documented VS:
Initial Vital Signs
Temp Pulse Resp BP Pulse Ox
36.4 C 78 18 156/96 100
01/03/24 17:54 01/03/24 17:54 01/03/24 17:54 01/03/24 17:54 01/03/24 17:54
Last Documented Vital Signs
Temp Pulse Resp BP Pulse Ox
36.4 C 72 18 169/88 100
01/03/24 17:54 01/03/24 21:10 01/03/24 17:54 01/03/24 21:10 01/03/24 17:54
MDM/Problems Addressed
Differential Diagnosis Includes:
Differential diagnosis for nonspecific brain fog is wide and includes but not limited to: Anemia, electrolyte derangement, dehydration, infection including UTI or pneumonia, viral syndrome, hypothyroidism, dysrhythmia, CHF, etc
MDM/Problems Addressed:
88-year-old female presents for fogginess that she says started when she woke up this morning and has been persistent throughout the day. On review of systems also reports some recent dysuria and issues with hypertension today. Vitals and exam as
above. Will place an IV send labs including a CBC and a CMP. Check thyroid studies. Will check an EKG and a troponin, interrogate her device. Will check swab for COVID. Check urinalysis and chest x-ray. Check CT head. Will monitor closely
reassess after the above.
Initial labs reviewed: CBC shows stable anemia, CMP shows stable chronic hyponatremia. Unlikely chronic hyponatremia accounts for her acute symptoms. CT head negative for any acute pathology. Chest x-ray reviewed by me shows no acute disease.
EKG shows paced rhythm; pacemaker was interrogated that shows that it is functioning appropriately she is in atrial tachycardia chronically but is ventricularly paced. COVID swab negative. Awaiting results of urinalysis.
Chest x-ray read by radiology�positive for left pneumonia. Urinalysis negative for infection. CURB 65 score 2�moderate risk. Patient feels uncomfortable going home with how she feels at [facility] lives independently and she says that none of
her family is here as they are all in [place] attending her granddaughter's wedding this weekend. Will admit for inpatient treatment of her pneumonia. Discussed with hospitalist.
Chronic conditions affecting care:
A-fib, CHF, cardiomyopathy
Acute Exacerbation and/or Progression of Chronic Illness:
Acutely hypertensive with no signs or symptoms of hypertensive emergency�no indication for emergent antihypertensives
Acute Exacerbation and/or Progression of Chronic Illness: HTN
*Radiology
Radiology exam reviewed: radiology read reviewed
*Pulse Oximetry
Patient hypoxic: no
*EKG
Interpreted by ED Provider?: Yes
Heart Rate: 72
Rhythm: ventricular paced
*Critical Care Note
Total Time (30-74mins, 75-104mins- exclusive of procedures): Not Applicable
Data Reviewed
Review of Other/Old Records Reveals: Labs and Records
Source: patient and records
Patient Management
Discussion with other providers: Hospitalist (Discussed with hospitalist)
Escalation/DeEscalation of care consider admission/obs:
Admission indicated
ED Attending Note
-
Portions of this chart may have been created with voice recognition software.� Occasional wrong word or��sound alike� substitutions may have occurred due to the inherent limitations of voice recognition software.
Discharge Plan
Departure
Patient Disposition: Admit
Date of Disposition: 01/03/24
Time of Disposition: 21:18
Admit to doctor: Wade
Presentation/result/management discussed w/ accepting MD/DO: Hospitalist
Discharge Problem:
Pneumonia
Prescriptions:
No Action
ezetimibe 10 MG tablet
10 mg PO QPM Qty: 0 0RF
levothyroxine 112 MCG tablet
112 mcg PO MOTUWETHFRSA@0700
calcium citrate-vitamin D3 [Citracal + D Maximum] 1 EACH tablet
1 ea PO DAILY
carvedilol 3.125 MG tablet
3.125 mg PO BID
Eliquis 2.5 mg Tablet
2.5 mg PO BID
Ferretts IPS 40 mg/15 mL liquid
15 ml PO Q48H
sennosides [senna] 8.6 mg Tablet
8.6 mg PO QPMPRN PRN (Reason: constipation)
docusate calcium [Stool Softener (docusate price)] 240 mg Capsule
240 mg PO QPMPRN PRN (Reason: constipation)
acetaminophen 650 mg Tablet Extended Release
650 mg PO DAILYPRN PRN (Reason: mild pain)
cholecalciferol (vitamin D3) 25 mcg (1,000 unit) Tablet
25 mcg PO DAILY
vitamin B complex Tablet
1 tab PO NOON
folic acid 1 mg Tablet
1 mg PO QPM
Refresh Classic (PF) 1.4-0.6 % Dropperette
1 drp BOTH EYES DAILYPRN PRN (Reason: dry eyes)
furosemide 20 mg Tablet
60 mg PO DAILY Qty: 90 0RF
Rx Instructions:
dose decreased on this admission
polyethylene glycol 3350 [HealthyLax] 17 gram Powder In Packet
17 g PO DAILY Qty: 30 0RF
pantoprazole 40 mg Tablet,Delayed Release (Dr/Ec)
40 mg PO DAILY Qty: 30 0RF
bisacodyl [Dulcolax (bisacodyl)] 10 mg suppository
10 mg [place] DAILY PRN (Reason: Constipation) Qty: 12 0RF
Referrals:
Blair Farrar CRNP [Family Provider] -
Interventions
Interventions:
*Risk Screen - Suicide Last Done: 01/03/24 17:54
*General Assessment Last Done: 01/03/24 17:54
*Neglect/Abuse Screening Last Done: 01/03/24 17:54
*ED COVID-19 Vaccine History Last Done: 01/03/24 17:54
Discharge Date and Time
Print Language: SALVADOREAN
[2024-01-03 19:38] VITALS: BP 169/90
[2024-01-03 19:47] LABS: % Immature Granulocytes 0.5 % (0-0.5); % Lymphocytes 10.6 % (20.5-51.1); % Neutrophils 82.9 % (42.2-75.2); Absolute Lymphocytes 0.7 10^3/uL (1.2-3.4); Absolute Monocytes 0.4 10^3/uL (0.1-0.6); Absolute Neutrophils 5.3 10^3/uL (1.4-6.5); Hematocrit 26.7 % (37.0-47.0); Hemoglobin 9.2 g/dL (12.0-16.0); Mean Corp Hgb Conc. 34.5 g/dL (33.0-37.0); Mean Corpuscular Hgb 35.2 pg (27.0-31.0); Mean Corpuscular Volume 102.3 fL (81.0-99.0); Mean Platelet Volume 11.9 fL (7.4-10.4); Nucleated Red Blood Cells % 0 %; Platelet Count 162 10^3/uL (130-400); Red Blood Cell Count 2.61 10^6/uL (4.20-5.40); Red Cell Dist. Width 14.3 % (11.5-14.5); White Blood Cell Count 6.4 10^3/uL (4.8-10.8)
[2024-01-03 19:59] LABS: COVID-19 Antigen Negative (Negative)
[2024-01-03 20:00] VITALS: BP 167/91
[2024-01-03 20:00] LABS: ALT (SGPT) 33 U/L (0-35); AST (SGOT) 52 U/L (14-36); Albumin 4.7 g/dl (3.5-5.0); Alkaline Phosphatase 40 U/L (38-126); Blood Urea Nitrogen 43 mg/dl (7-17); Carbon Dioxide 30 mmol/L (22-30); Chloride 88 mmol/L (98-107); Glucose 94 mg/dl (70-99); Potassium 4.5 mmol/L (3.5-5.1); Sodium 127 mmol/L (135-145); Total Bilirubin 0.6 mg/dl (0.2-1.3); eGFR > 60.00
[2024-01-03 20:12] LABS: Troponin I 0.018 ng/ml
[2024-01-03] MEDS: NSS 500 IV (20:18)
[2024-01-03 20:30] LABS: TSH Reflex To Free T4 2.89 uIU/ml (0.47-4.68)
[2024-01-03 20:48] LABS: Urine Albumin Negative (Neg - Trace); Urine Bilirubin Negative (Negative); Urine Character Clear (Clear); Urine Color Yellow; Urine Glucose Negative (Negative); Urine Ketone Negative (Negative); Urine Leukocyte Negative (Negative); Urine Nitrite Negative (Negative); Urine Occult Blood Negative (Negative); Urine Urobilinogen Negative (Neg - 1+)
[2024-01-03 20:55] LABS: Osmolality Urine 323 mOsm/kg (300-900)
[2024-01-03 21:00] VITALS: BP 169/88
[2024-01-03 21:02] LABS: Urine Sodium 70 mmol/L (30-90)
[2024-01-03] MEDS: COREG 3.125 MG PO (21:10)
[2024-01-03] MEDS: ELIQUIS 2.5 MG PO (21:10)
[2024-01-03 21:22] VITALS: BMI 20.4
[2024-01-03] MEDS: ROCEPHIN 1000 MG IV (21:25)
[2024-01-03] MEDS: ZITHROMAX INFUSION 250 IV (21:30)
--- NOTE | 2024-01-03 21:52 | HPS.HSE ---
Addendum entered and electronically signed by Rey Olvera DO 01/03/24 22:33:
Patient seen and examined independently. Agree with findings and plan as set forth by Lu Shaffer PA-C.
Patient is an 88y F with PMH significant for CHF, chronic vertigo and chronic hyponatremia who presents to ED complaining of 'feeling foggy in the head' today. Patient has had similar symptoms in the past. She admits to feeling unsteady on her
feet, but denies any hector room spinning or dizziness. She has no other symptoms including cough, dyspnea, fevers / chills, GI or complaints. Patient notes that her entire family is currently out of town and she does not feel comfortable
returning to her home. BP was significantly elevated on arrival - but has decreased since patient was informed that she would be staying in the hospital this evening.
Ass:
Fogginess
Abnormal CXR - Doubt Pneumonia
Acute on Chronic Hyponatremia
Benign Hypertension
Chronic HFpEF
Permanent Atrial Fibrillation
Chronic Anemia
Hypothyroidism
Anxiety / Depression
Plan:
Observe overnight for further evaluation and treatment.
Despite CXR report, patient has no clinical evidence for pneumonia and has normal lung exam.
Would observe off of abx for now and follow temp curve, symptoms, etc.
Procalcitonin has been added.
Doubt significant volume overload.
Mild decrease in sodium level from baseline - continue fluid restriction and usual home Lasix dosing.
Follow for changes / return to baseline.
Vague / mild described 'fogginess' could be result of small change in Na level, elevated BP or mood / anxiety effect.
The latter seems most likely to me given change in BP, symptoms, etc after patient informed she would be staying the night.
Continue usual home med regimen.
PT / OT evaluations for balance / gait safety.
Original Note:
Family Physician
-
Family Physician: Blair Farrar
Chief Complaint
-
'Feeling Foggy'
History of Present Illness
Patient is an 88 y/o female past medical history of CHF, A-Fib, and Chronic Hyponatremia who presents with 'feeling foggy'. Patient reports symptoms started today and she felt as though she could come to the emergency department and get checked
out. She denies fevers, sweats or chills. She denies cough or shortness of breath. She denies chest palpitations, or lower extremity edema. She denies nausea, vomiting, diarrhea or abdominal pain.
Medical History
Past Medical History
Past Medical History: Reports Other
Additional Past Medical History:
Valvular Heart Disease
Chronic HFpEF
Permanent Atrial Fibrillation
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
Peripheral Neuropathy
Chronic Anemia
Chronic Hyponatremia
Hypothyroidism
Vertigo
Left Breast Cancer s/p Lumpectomy and XRT
Chronic Constipation
Past Surgical History: Reports Other
Additional Past Surgical History:
PVI Ablation x Multiple
PPM Placement
Left Lumpectomy
TAVR
Mitral / Tricuspid Valve Annuloplasty / Repairs
Cataracts
Social History
Tobacco: Non-smoker
Alcohol: None
Drug: None
Family History
Family History: Not pertinent
Allergies / Home Medications
Allergies reflects when Allergies were last updated in [employer].
Home Medications with original date entered in [employer]
Allergy/Medication List:
Allergies
Allergy/AdvReac Type Severity Reaction Status Date / Time
adhesive Allergy itching - Verified 01/03/24 17:57
redness
amiodarone Allergy elevated Verified 01/03/24 17:57
LFTs
bupivacaine Allergy Shortness Verified 01/03/24 17:57
[From of Breath
Sensorcaine-Epinephrine]
cat dander Allergy SNEEZING/WH Verified 01/03/24 17:57
EEZING
codeine Allergy light Verified 01/03/24 17:57
headed and
dizzy
epinephrine Allergy Shortness Verified 01/03/24 17:57
[From of Breath
Sensorcaine-Epinephrine]
prilocaine Allergy LIGHTHEADED, Verified 01/03/24 17:57
DIZZY
Sulfa (Sulfonamide Allergy Nausea Verified 01/03/24 17:57
Antibiotics)
sulfamethoxazole Allergy nausea-DID Verified 01/03/24 17:57
NOT
TOLERATE
WELL
Home Medications
ezetimibe 10 mg tablet 10 mg PO QPM High cholesterol ##0 11/29/20
levothyroxine 112 mcg tablet 112 mcg PO MOTUWETHFRSA@0700 Thyroid 12/28/20
calcium 315 mg (as citrate)-vitamin D3 6.25 mcg (250 unit) tablet (Citracal + Vitamin D Maximum) 1 ea PO DAILY Supplement 03/27/21
carvedilol 3.125 mg tablet 3.125 mg PO BID Blood Pressure 03/27/21
acetaminophen 650 mg tablet,extended release 650 mg PO DAILYPRN PRN mild pain 03/14/23
apixaban 2.5 mg tablet (Eliquis) 2.5 mg PO BID Blood Clot Prevention/Tx 03/14/23
docusate calcium 240 mg capsule (Stool Softener (docusate calcium)) 240 mg PO DAILYPRN PRN constipation 03/14/23
iron succinyl-protein complex 40 mg/15 mL oral liquid (Ferretts IPS) 15 ml PO Q48H Supplement 03/14/23
sennosides 8.6 mg tablet (senna) 8.6 mg PO DAILYPRN PRN constipation, docusate ineffective 03/14/23
folic acid 1 mg tablet 1 mg PO QPM 11/13/23
polyvinyl alcohol-povidone (PF) 1.4 %-0.6 % eye drops in a dropperette (Refresh Classic (PF)) 1 drp BOTH EYES DAILYPRN PRN dry eyes 11/13/23
vitamin B complex 1 tab PO NOON 11/13/23
furosemide 20 mg tablet 60 mg (3 x 20 mg) PO DAILY #90 tabs 11/18/23
pantoprazole 40 mg tablet,delayed release 40 mg PO DAILY #30 tabs 11/18/23
Review of Systems
-
A 12 point ROS was completed and negative except as noted: Yes
Physical Exam
Vital Signs
Vital Signs
Temp Pulse Resp BP Pulse Ox
97.6 F 73 18 169/88 99
01/03/24 17:54 01/03/24 21:45 01/03/24 21:45 01/03/24 21:10 01/03/24 21:15
Physical Exam
General: No Apparent Distress, Comfortable and Conversant
HEENT: Anicteric and Moist mucous membranes
Respiratory: Clear and Non Labored Respirations
Cardiac: S1/S2 and Regular Rhythm; No Murmur
GI: Soft and Non Tender
Rectal: Deferred by Provider
Musculoskeletal: No Clubbing, No Cyanosis and No Edema
Skin: Warm and Dry
Neuro: Awake, Alert, Oriented and Nonfocal/grossly intact
Psych: Calm
Laboratory Results
-
01/03/24 19:34
01/03/24 19:34
Laboratory Results
Total Bilirubin 0.6 mg/dl (0.2-1.3) 01/03/24 19:34
AST 52 U/L (14-36) H 01/03/24 19:34
ALT 33 U/L (0-35) 01/03/24 19:34
Alkaline Phosphatase 40 U/L (38-126) 01/03/24 19:34
Troponin I 0.018 ng/ml 01/03/24 19:34
Data Reviewed
-
Diagnostic Radiology: Report Reviewed by me
Lab Data: Labs Reviewed by me
Impression/Plan
-
'Fogginess', unclear etiology possibly related to hyponatremia vs chronic vertigo - doubt pneumonia
-Hold on further antibiotics
-Consult PT/OT
Acute on Chronic Hyponatremia, volume status is difficult to determine
-Check Pro-BNP
-Continue Lasix
-Continue fluid restriction
Valvular Heart Disease
Chronic HFpEF
-Continue Lasix
-Monitor Is&Os and Daily Weights
Permanent Atrial Fibrillation s/p Permanent Pacemaker
-Continue Eliquis for anticoagulation
Essential Hypertension
-Continue Coreg
Hyperlipidemia
-Continue Zetia
Hypothyroidism
-Continue levothyroxine
Chronic Macrocytic Anemia
-Hgb at baseline
DVT proph: Eliquis
Code Status: Full Code
[2024-01-03 22:00] VITALS: BP 131/78
[2024-01-03 22:15] LABS: Osmolality Serum 278 mOsm/kg (275-300)
[2024-01-03 22:48] LABS: NT-proBNP 1590 pg/ml
[2024-01-03 23:20] LABS: Procalcitonin < 0.05 ng/ml (0.0-0.25)
--- NOTE | 2024-01-04 | PTCARENOTE ---
Patient arrived to unit via stretcher accompanied by ED PCT. Patient ambulated x1 assist to bed without difficulty. Nursing assessment completed and as documented. Oriented to room/facility, instructed use of call yu and within reach, VSS, care
ongoing.
[2024-01-04 00:22] VITALS: BMI 17.1
[2024-01-04 00:26] VITALS: BP 152/76
[2024-01-04 00:27] VITALS: BMI 17.5
[2024-01-04] MEDS: SYNTHROID 112 MCG PO (05:38)
[2024-01-04 05:51] LABS: Hematocrit 25.2 % (37.0-47.0); Hemoglobin 8.5 g/dL (12.0-16.0); Mean Corp Hgb Conc. 33.7 g/dL (33.0-37.0); Mean Corpuscular Volume 103.7 fL (81.0-99.0); Mean Platelet Volume 11.9 fL (7.4-10.4); Platelet Count 147 10^3/uL (130-400); Red Blood Cell Count 2.43 10^6/uL (4.20-5.40); Red Cell Dist. Width 14.6 % (11.5-14.5); White Blood Cell Count 4.8 10^3/uL (4.8-10.8)
[2024-01-04 06:00] VITALS: BMI 17.1
[2024-01-04 06:21] LABS: Blood Urea Nitrogen 33 mg/dl (7-17); Calcium 9.5 mg/dl (8.4-10.2); Carbon Dioxide 30 mmol/L (22-30); Chloride 94 mmol/L (98-107); Estimated Creatinine Clearance 33 ml/min; Glucose 55 mg/dl (70-99); Potassium 4.2 mmol/L (3.5-5.1); Sodium 132 mmol/L (135-145); eGFR > 60.00
[2024-01-04 07:55] LABS: Glucose - Point of Care 82 mg/dl (70-99)
[2024-01-04] MEDS: PROTONIX 40 MG PO (08:00)
[2024-01-04] MEDS: ELIQUIS 2.5 MG PO ×2 (08:01→20:36)
[2024-01-04] MEDS: COREG 3.125 MG PO ×2 (08:01→20:36)
[2024-01-04] MEDS: LASIX 60 MG PO (08:01)
[2024-01-04 08:03] VITALS: BP 135/76
--- NOTE | 2024-01-04 10:21 | W.PN.HOSP.TC ---
Today's Communication/Plan
-
encourage food intake
PT/OT
Assessment / Plan
Assessment / Plan
Physical Exam
General: No Apparent Distress, Comfortable and Conversant
HEENT: Anicteric and Moist mucous membranes
Respiratory: Clear
Cardiac: S1/S2
GI: Soft and Non Tender
Rectal: No rectal bleeding
Musculoskeletal: No Clubbing, No Cyanosis and No Edema
Skin: Warm and Dry
Neuro: Awake, Alert, Oriented and Nonfocal/grossly intact
Psych: Calm
88y F with PMH significant for A-Fib, valvular heart disease and CHF who presented with weakness.
# feeling of fogginess
Similar complaint in past admission.
No signs of active infection
No chest pain, negative troponin. No hypoxia. Normal procalcitonin. Normal WBC
CAT scan head: No acute intracranial abnormality noted.
Consult PT/OT
Hx of vertigo
# Hyponatremia
Acute on Chronic Hyponatremia, volume status is euvolemic
Na is 132
-Continue Lasix
-Continue fluid restriction
- c/w regular diet
# Permanent Atrial Fibrillation, hx of Sick sinus syndrome s/p Permanent Pacemaker
-Continue Eliquis for anticoagulation
#Essential Hypertension
-Continue Coreg
#Hyperlipidemia
-Continue Zetia
#Hypothyroidism
-Continue levothyroxine
#Chronic Macrocytic Anemia
-Hgb at baseline
DVT proph: Eliquis
# History of mitral valve repair/trace cuspid valve repair open heart surgery in 2014 followed by a transcatheter aortic valve done in October 2020 at [facility], complicated by a moderate to severe paravalvular leak and mechanical
hemolysis, followed by a redo transcatheter valve in valve procedure done in December 2020
-Echocardiogram on 11/18/23 stable compared to January 2023
# History of Iron Deficiency Anemia
she follows with Dr Moctezuma for infusion.
#Hypothyroidism
#Chronic Constipation
# Underweight
DVT Prophylaxis: On Eliquis
Code Status: DNR
Total time spent to see the patient on the floor, examine the patient, review data and lab results, discuss treatment plan with patient, nursing staff around 55 minutes
Anticipated Discharge: Within 24 hours
Subjective/Interval History
-
Date of Service: January 04, 2024
No Chest pain
No sob
No fevers
Objective Data
-
Labs:
Laboratory Results
01/04/24
05:11
WBC 4.8
Hgb 8.5 L
Hct 25.2 L
Plt Count 147
Sodium 132 L
Potassium 4.2
Chloride 94 L
Carbon Dioxide 30
BUN 33 H
Creatinine 0.8
Glucose 55 L*
Calcium 9.5
Vital Signs:
Vital Signs
Temp Pulse Resp BP Pulse Ox
97.6 F 71 16 135/76 100
01/03/24 17:54 01/04/24 08:03 01/04/24 08:03 01/04/24 08:03 01/04/24 08:03
I&O
01/03/24 01/04/24 01/05/24
06:59 06:59 06:59
Intake Total 120 / 120
Balance 120 / 120
[2024-01-04 10:26] VITALS: BP 128/66; PULSE 71
[2024-01-04 11:16] LABS: Glucose - Point of Care 62 mg/dl (70-99)
[2024-01-04 11:59] LABS: Glucose - Point of Care 84 mg/dl (70-99)
[2024-01-04] MEDS: D10W 500 IV (13:02)
--- NOTE | 2024-01-04 13:30 | PTCARENOTE ---
D10 originally ordered @50mls/hr. Order changed to 30mls/hr after bag hung. Rate changed on IV pump accordingly.
[2024-01-04 15:02] VITALS: BP 140/75
[2024-01-04 15:44] LABS: Glucose - Point of Care 81 mg/dl (70-99)
[2024-01-04 16:14] VITALS: BP 131/69; PULSE 70
[2024-01-04] MEDS: ZETIA 10 MG PO (17:26)
[2024-01-04 22:11] LABS: Glucose - Point of Care 82 mg/dl (70-99)
[2024-01-04 23:40] VITALS: BP 138/71
[2024-01-05 06:00] VITALS: BMI 16.9
[2024-01-05] MEDS: D10W 500 IV (06:23)
[2024-01-05 07:12] LABS: Glucose - Point of Care 90 mg/dl (70-99)
[2024-01-05 07:48] VITALS: BP 161/84
[2024-01-05] MEDS: COREG 3.125 MG PO (08:32)
[2024-01-05] MEDS: LASIX 60 MG PO (08:32)
[2024-01-05] MEDS: PROTONIX 40 MG PO (08:32)
[2024-01-05] MEDS: ELIQUIS 2.5 MG PO ×2 (08:32→20:41)
--- NOTE | 2024-01-05 09:47 | W.PN.HOSP.TC ---
Today's Communication/Plan
-
wean down dextrose gtt
start oral glucose pills.
Assessment / Plan
Assessment / Plan
Physical Exam
General: No Apparent Distress, Comfortable and Conversant
HEENT: Anicteric and Moist mucous membranes
Respiratory: Clear
Cardiac: S1/S2
GI: Soft and Non Tender
Rectal: No rectal bleeding
Musculoskeletal: No Clubbing, No Cyanosis and No Edema
Skin: Warm and Dry
Neuro: Awake, Alert, Oriented and Nonfocal/grossly intact
Psych: Calm
88y F with PMH significant for A-Fib, valvular heart disease and CHF who presented with weakness.
# feeling of fogginess, likely due to hypoglycemia
No hx of taking insulin or DM medications.
Similar complaint in past admission.
No signs of active infection, or acute illness although patient has underlying significant CV diseases.
No chest pain, negative troponin. No hypoxia. Normal procalcitonin. Normal WBC
CAT scan head: No acute intracranial abnormality noted.
Consulted PT/OT
Hx of vertigo
She seems to follow strict low caloric diet to keep her weight under control. Probably causing inadvertently severe malnutrition. Pt had full GI work up in for GI bleeding without finding tumors. Will order glucose pills TID. Recommend to f/w
her primary care doctor and might further work up. B-tamara can cause hypoglycemia but generally low factor and she was on Coreg > 2 years.
# Hyponatremia
Acute on Chronic Hyponatremia, volume status is euvolemic
Na is 132
-Continue Lasix
-Continue fluid restriction
- c/w regular diet
# Permanent Atrial Fibrillation, hx of Sick sinus syndrome s/p Permanent Pacemaker
-Continue Eliquis for anticoagulation
#Essential Hypertension
-Continue Coreg
#Hyperlipidemia
-Continue Zetia
#Hypothyroidism
-Continue levothyroxine
#Chronic Macrocytic Anemia
-Hgb at baseline
DVT proph: Eliquis
# History of mitral valve repair/trace cuspid valve repair open heart surgery in 2014 followed by a transcatheter aortic valve done in October [address] [facility], complicated by a moderate to severe paravalvular leak and mechanical
hemolysis, followed by a redo transcatheter valve in valve procedure done in December 2020
-Echocardiogram on 11/18/23 stable compared to January 2023
# History of Iron Deficiency Anemia
she follows with Dr Moctezuma for infusion.
#Hypothyroidism
#Chronic Constipation
# Underweight
DVT Prophylaxis: On Eliquis
Code Status: DNR
Total time spent to see the patient on the floor, examine the patient, review data and lab results, discuss treatment plan with patient, nursing staff around 57 minutes
Anticipated Discharge: Within 24 hours
Subjective/Interval History
-
Date of Service: January 05, 2024
No chest pain
No sob
No nausea or abdominal pain
Objective Data
-
Vital Signs:
Vital Signs
Temp Pulse Resp BP Pulse Ox
97.8 F 74 17 161/84 94
01/05/24 07:48 01/05/24 08:32 01/05/24 07:48 01/05/24 08:32 01/05/24 07:48
I&O
01/04/24 01/05/24 01/06/24
06:59 06:59 06:59
Intake Total 120 / 120 960 / 960
Balance 120 / 120 960 / 960
[2024-01-05 11:03] LABS: Blood Urea Nitrogen 28 mg/dl (7-17); Calcium 9.1 mg/dl (8.4-10.2); Carbon Dioxide 30 mmol/L (22-30); Chloride 91 mmol/L (98-107); Estimated Creatinine Clearance 36 ml/min; Glucose 72 mg/dl (70-99); Potassium 4.3 mmol/L (3.5-5.1); Sodium 129 mmol/L (135-145); eGFR > 60.00
[2024-01-05 15:06] VITALS: BP 140/81
[2024-01-05] MEDS: ZETIA 10 MG PO (17:18)
[2024-01-05 18:18] LABS: Glucose - Point of Care 100 mg/dl (70-99)
[2024-01-05] MEDS: COREG PO (20:44)
[2024-01-05 21:49] LABS: Glucose - Point of Care 126 mg/dl (70-99)
[2024-01-05 21:51] VITALS: BP 110/66
[2024-01-05 23:46] VITALS: BP 109/50
[2024-01-06] MEDS: SYNTHROID 112 MCG PO (05:45)
[2024-01-06 06:00] VITALS: BMI 16.7
[2024-01-06 07:11] LABS: Hemoglobin 9.1 g/dL (12.0-16.0); Mean Corp Hgb Conc. 32.5 g/dL (33.0-37.0); Mean Corpuscular Hgb 34.7 pg (27.0-31.0); Mean Corpuscular Volume 106.9 fL (81.0-99.0); Mean Platelet Volume 11.5 fL (7.4-10.4); Platelet Count 154 10^3/uL (130-400); Red Blood Cell Count 2.62 10^6/uL (4.20-5.40); Red Cell Dist. Width 14.9 % (11.5-14.5); White Blood Cell Count 4.8 10^3/uL (4.8-10.8)
[2024-01-06 07:15] VITALS: BP 124/71
[2024-01-06 07:29] LABS: Blood Urea Nitrogen 44 mg/dl (7-17); Calcium 8.9 mg/dl (8.4-10.2); Carbon Dioxide 29 mmol/L (22-30); Chloride 91 mmol/L (98-107); Estimated Creatinine Clearance 28 ml/min; Glucose 76 mg/dl (70-99); Potassium 4.2 mmol/L (3.5-5.1); Sodium 130 mmol/L (135-145); eGFR > 60.00
--- NOTE | 2024-01-06 07:43 | W.PN.HOSP.TC ---
Today's Communication/Plan
-
Discharge planning today.
Assessment / Plan
Assessment / Plan
Physical Exam
General: No Apparent Distress, Comfortable and Conversant
HEENT: Anicteric and Moist mucous membranes
Respiratory: Clear
Cardiac: S1/S2
GI: Soft and Non Tender
Rectal: No rectal bleeding
Musculoskeletal: No Clubbing, No Cyanosis and No Edema
Skin: Warm and Dry
Neuro: Awake, Alert, Oriented and Nonfocal/grossly intact
Psych: Calm
88y F with PMH significant for A-Fib, valvular heart disease and CHF who presented with weakness.
# feeling of fogginess, suspected due to hypoglycemia
Patient back to baseline at this point.
If recurrent, can pursue hypoglycemia workup outpatient.
Dietitian eval today.
Plan to go home today
Prior to today:
No hx of taking insulin or DM medications.
Similar complaint in past admission.
No signs of active infection, or acute illness although patient has underlying significant CV diseases.
No chest pain, negative troponin. No hypoxia. Normal procalcitonin. Normal WBC
CAT scan head: No acute intracranial abnormality noted.
Consulted PT/OT
Hx of vertigo
She seems to follow strict low caloric diet to keep her weight under control. Probably causing inadvertently severe malnutrition. Pt had full GI work up in for GI bleeding without finding tumors. Will order glucose pills TID. Recommend to f/w
her primary care doctor and might further work up. B-tamara can cause hypoglycemia but generally low factor and she was on Coreg > 2 years.
# Hyponatremia
Acute on Chronic Hyponatremia, volume status is euvolemic
Na is 130
-Continue Lasix
-Continue fluid restriction
- c/w regular diet
# Permanent Atrial Fibrillation, hx of Sick sinus syndrome s/p Permanent Pacemaker
-Continue Eliquis for anticoagulation
#Essential Hypertension
-Continue Coreg
#Hyperlipidemia
-Continue Zetia
#Hypothyroidism
-Continue levothyroxine
#Chronic Macrocytic Anemia
-Hgb at baseline
DVT proph: Eliquis
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
hemolysis, followed by a redo transcatheter valve in valve procedure done in December 2020
-Echocardiogram on 11/18/23 stable compared to January 2023
# History of Iron Deficiency Anemia
she follows with Dr Moctezuma for infusion.
#Hypothyroidism
#Chronic Constipation
# Underweight
DVT Prophylaxis: On Eliquis
Code Status: DNR
Anticipated Discharge: Today
Subjective/Interval History
-
Date of Service: January 06, 2024
Patient alert and oriented today. No fogginess in her brain. Blood sugar stable. No chest pain or shortness of breath no nausea vomiting or diarrhea. Afebrile
Objective Data
-
Labs:
Laboratory Results
01/06/24
06:12
WBC 4.8
Hgb 9.1 L
Hct 28.0 L
Plt Count 154
Sodium 130 L
Potassium 4.2
Chloride 91 L
Carbon Dioxide 29
BUN 44 H
Creatinine 0.9
Glucose 76
Calcium 8.9
Vital Signs:
Vital Signs
Temp Pulse Resp BP Pulse Ox
98.0 F 70 18 109/50 99
01/05/24 23:46 01/05/24 23:46 01/05/24 23:46 01/05/24 23:46 01/05/24 23:46
I&O
01/05/24 01/06/24 01/07/24
06:59 06:59 06:59
Intake Total 960 / 960 960 / 960
Balance 960 / 960 960 / 960
[2024-01-06 08:42] LABS: Glucose - Point of Care 122 mg/dl (70-99)
[2024-01-06 08:45] VITALS: BP 131/69; PULSE 77; O2SAT 94
[2024-01-06] MEDS: LASIX 60 MG PO (09:07)
[2024-01-06] MEDS: COREG 3.125 MG PO (09:07)
[2024-01-06] MEDS: ELIQUIS 2.5 MG PO (09:08)
[2024-01-06] MEDS: PROTONIX 40 MG PO (09:08)
--- NOTE | 2024-01-06 11:11 | W.DCSUMMARY ---
Discharge Summary
Discharge Data
Date of Admission: 01/05/24
Date of Discharge: 01/06/24
-
Pending Results: No
Hospital Course
Patient 88 years old female with history of CHF, A-fib, chronic anemia, chronic hyponatremia, hypothyroidism, vertigo, breast cancer, presented to the hospital with fogginess. Patient was kept in the hospital and workup unremarkable but did have an
episode of hypoglycemia and due to low weight dietitian was consulted. Blood sugar has been stable otherwise. She also had a chest x-ray that was abnormal and radiology reports concerns for pneumonia. There was no signs of pneumonia since she
remained afebrile and no cough and shortness of breath and normal white blood cell count. She has been instructed to follow-up with chest x-ray a few months down the road with primary care physician. Otherwise, patient is hemodynamically stable
and symptomatically back to her baseline. She will be discharged in stable condition today.
Discharge Plan
-
Patient Disposition: Home (Routine Discharge)
Discharge Diagnosis/Procedures: Fogginess. Hypoglycemia. Underweight. Hyponatremia. Permanent atrial fibrillation. Abnormal chest x-ray.
Diet: Low Cholesterol
Activity: As tolerated
Blood Work: Please PCP to order CBC, BMP within 1 week
Specialty Instructions: Weigh Daily- Call MD for wt gain/loss 3 lbs overnight/5 lbs in 1 week
Referrals:
Primary care, provider [Other] (See less than 1 week)
Blair Farrar CRNP [Family Provider] - in two to four weeks
Prescriptions:
Continued
ezetimibe 10 MG tablet
10 mg PO QPM Qty: 0 0RF
levothyroxine 112 MCG tablet
112 mcg PO MOTUWETHFRSA@0700
calcium citrate-vitamin D3 [Citracal + D Maximum] 1 EACH tablet
1 tab PO DAILY
carvedilol 3.125 MG tablet
3.125 mg PO BID
Eliquis 2.5 mg Tablet
2.5 mg PO BID
Ferretts IPS 40 mg/15 mL liquid
15 ml PO Q48H
sennosides [senna] 8.6 mg Tablet
8.6 mg PO DAILYPRN PRN (Reason: constipation, docusate ineffective)
docusate calcium [Stool Softener (docusate price)] 240 mg Capsule
240 mg PO DAILYPRN PRN (Reason: constipation)
acetaminophen 650 mg Tablet Extended Release
650 mg PO DAILYPRN PRN (Reason: mild pain)
vitamin B complex Tablet
1 tab PO NOON
folic acid 1 mg Tablet
1 mg PO QPM
Refresh Classic (PF) 1.4-0.6 % Dropperette
1 drp BOTH EYES DAILYPRN PRN (Reason: dry eyes)
furosemide 20 mg Tablet
60 mg PO DAILY Qty: 90 0RF
pantoprazole 40 mg Tablet,Delayed Release (Dr/Ec)
40 mg PO DAILY Qty: 30 0RF
Discharge Orders:
Discharge Patient (As Directed); Ordered 01/06/24
Ordered By: Homar Cole
Discharge Date and Time
Discharge Date/Time: 01/06/24 17:51
Print Language: GEORGIAN
--- NOTE | 2024-01-06 11:42 | CM ---
Addendum entered by Nadia Tomas RN 01/06/24 14:52:
IMM given reviewed signed on chart.
Original Note:
Alert awake oriented patient who lives at [facility]. She is independent in activates of daily living.She does not drive .She uses a walker .Offered VN she declined . Her dgt Malathi will drive her home today .
Had [facility] in past . No SNF hx
Pharmacy [facility]
PCP Dr Merchant
PLAN Home with no needs
[2024-01-06 12:21] LABS: Glucose - Point of Care 76 mg/dl (70-99)
[2024-01-06 15:21] VITALS: BP 121/68
[2024-01-06 15:59] VITALS: BMI 16.7
[2024-01-06 17:04] LABS: Glucose - Point of Care 84 mg/dl (70-99)
== END 2024-01-06 17:51 | disposition home or self-care (01) | DRG 641 ==
LOC: 3 WEST ACU 10:53
PROVIDERS: Internal Medicine; Physician Assistant Medical; ADMITTING PHYSICIAN Hospitalist; ATTENDING PHYSICIAN Hospitalist; EMERGENCY PHYSICIAN Emergency Medicine; FAMILY PHYSICIAN Nurse Practitioner Adult Health
DX: E16.2 Hypoglycemia, unspecified (principal); I48.21 Permanent atrial fibrillation; I50.32 Chronic diastolic (congestive) heart failure; E87.1 Hypo-osmolality and hyponatremia; Z68.1 Body mass index [BMI] 19.9 or less, adult; Z66 Do not resuscitate; I25.10 Atherosclerotic heart disease of native coronary artery without angina pectoris; I11.0 Hypertensive heart disease with heart failure; E78.00 Pure hypercholesterolemia, unspecified; E03.9 Hypothyroidism, unspecified; F32.A Depression, unspecified; F41.9 Anxiety disorder, unspecified; I49.5 Sick sinus syndrome; I08.1 Rheumatic disorders of both mitral and tricuspid valves; D53.9 Nutritional anemia, unspecified; G62.9 Polyneuropathy, unspecified; K59.09 Other constipation; R63.6 Underweight; R91.8 Other nonspecific abnormal finding of lung field; Z95.0 Presence of cardiac pacemaker; Z85.3 Personal history of malignant neoplasm of breast; Z88.5 Allergy status to narcotic agent; Z88.2 Allergy status to sulfonamides; Z79.01 Long term (current) use of anticoagulants; Z79.890 Hormone replacement therapy; Z79.899 Other long term (current) drug therapy
CPT/HCPCS: 51701; 70450; 71045; 80048; 80053; 81003; 82962; 83880; 83930; 83935; 84145; 84300; 84443; 84484; 85025; 85027; 87070; 87811; 93005; 93288; 96361; 96365; 96375; 97116; 97161; 97166; 99285

== ENCOUNTER → 2024-01-14 12:05 | Outpatient (REF) | payer OTHER, SELFPAY ==
[2024-01-14 12:44] LABS: % Basophils 0.3 % (0-2); % Eosinophils 0.5 % (0-6); % Immature Granulocytes 0.5 % (0-0.5); % Lymphocytes 19.5 % (20.5-51.1); % Monocytes 9.2 % (1.7-9.3); Absolute Lymphocytes 1.1 10^3/uL (1.2-3.4); Absolute Monocytes 0.5 10^3/uL (0.1-0.6); Hematocrit 25.7 % (37.0-47.0); Hemoglobin 8.3 g/dL (12.0-16.0); Mean Corp Hgb Conc. 32.3 g/dL (33.0-37.0); Mean Corpuscular Hgb 35.2 pg (27.0-31.0); Mean Corpuscular Volume 108.9 fL (81.0-99.0); Mean Platelet Volume 11.8 fL (7.4-10.4); Nucleated Red Blood Cells % 0 %; Platelet Count 123 10^3/uL (130-400); Red Blood Cell Count 2.36 10^6/uL (4.20-5.40); Red Cell Dist. Width 17.2 % (11.5-14.5); White Blood Cell Count 5.7 10^3/uL (4.8-10.8)
== END ==
LOC: OLABWIL 12:05
PROVIDERS: ATTENDING PHYSICIAN Nurse Practitioner Adult Health
DX: D50.9 Iron deficiency anemia, unspecified (principal); D05.80 Other specified type of carcinoma in situ of unspecified breast; D61.818 Other pancytopenia; D59.4 Other nonautoimmune hemolytic anemias; N18.30 Chronic kidney disease, stage 3 unspecified; D63.1 Anemia in chronic kidney disease
CPT/HCPCS: 36415; 85025

== ENCOUNTER → 2024-01-23 10:18 | Outpatient (REF) | payer OTHER, SELFPAY ==
[2024-01-23 11:22] LABS: % Basophils 1.1 % (0-2); % Eosinophils 1.1 % (0-6); % Immature Granulocytes 0.4 % (0-0.5); % Lymphocytes 32.9 % (20.5-51.1); % Monocytes 9.4 % (1.7-9.3); % Neutrophils 55.1 % (42.2-75.2); Absolute Lymphocytes 0.9 10^3/uL (1.2-3.4); Absolute Monocytes 0.3 10^3/uL (0.1-0.6); Absolute Neutrophils 1.5 10^3/uL (1.4-6.5); Hematocrit 27.9 % (37.0-47.0); Mean Corp Hgb Conc. 32.3 g/dL (33.0-37.0); Mean Corpuscular Hgb 35.2 pg (27.0-31.0); Mean Platelet Volume 11.3 fL (7.4-10.4); Nucleated Red Blood Cells % 0 %; Platelet Count 170 10^3/uL (130-400); Red Blood Cell Count 2.56 10^6/uL (4.20-5.40); Red Cell Dist. Width 17.3 % (11.5-14.5); White Blood Cell Count 2.8 10^3/uL (4.8-10.8)
[2024-01-23 11:33] LABS: Urine Albumin 1+ (Neg - Trace); Urine Bilirubin Negative (Negative); Urine Character Clear (Clear); Urine Color Yellow; Urine Glucose Negative (Negative); Urine Ketone Negative (Negative); Urine Leukocyte Negative (Negative); Urine Nitrite Negative (Negative); Urine Occult Blood Trace (Negative); Urine Specific Gravity 1.015 (<1.030); Urine Urobilinogen Negative (Neg - 1+); Urine pH 6.5 (5.0-9.0)
[2024-01-23 11:41] LABS: Urine Squamous Cell 0-2 /LPF (Few)
[2024-01-23 11:42] LABS: Urine Bacteria Few (Negative); Urine White Cell 0-2 /HPF (0-5)
[2024-01-23 11:48] LABS: Blood Urea Nitrogen 24 mg/dl (7-17); Calcium 8.6 mg/dl (8.4-10.2); Carbon Dioxide 32 mmol/L (22-30); Chloride 95 mmol/L (98-107); Glucose 86 mg/dl (70-99); Phosphorus 1.8 mg/dl (2.5-4.5); Potassium 4.1 mmol/L (3.5-5.1); Sodium 134 mmol/L (135-145); eGFR > 60.00
[2024-01-23 12:48] LABS: Protein/creatinine Ratio 0.2; Urine Protein 6 mg/dl
== END ==
LOC: OLABWIL 10:18
PROVIDERS: ATTENDING PHYSICIAN Specialist
DX: I10 Essential (primary) hypertension (principal); E78.00 Pure hypercholesterolemia, unspecified; D50.9 Iron deficiency anemia, unspecified; D05.80 Other specified type of carcinoma in situ of unspecified breast; D61.818 Other pancytopenia; D59.4 Other nonautoimmune hemolytic anemias; N18.30 Chronic kidney disease, stage 3 unspecified; D63.1 Anemia in chronic kidney disease
CPT/HCPCS: 36415; 80048; 80069; 81003; 81015; 82570; 84156; 85025

== ENCOUNTER → 2024-02-04 10:30 | Outpatient (REF) | payer OTHER, SELFPAY ==
[2024-02-04 11:31] LABS: % Basophils 0.8 % (0-2); % Eosinophils 0.8 % (0-6); % Immature Granulocytes 0.3 % (0-0.5); % Lymphocytes 34.9 % (20.5-51.1); % Monocytes 9.5 % (1.7-9.3); % Neutrophils 53.7 % (42.2-75.2); Absolute Lymphocytes 1.3 10^3/uL (1.2-3.4); Absolute Monocytes 0.3 10^3/uL (0.1-0.6); Absolute Neutrophils 1.9 10^3/uL (1.4-6.5); Hematocrit 27.8 % (37.0-47.0); Hemoglobin 9.4 g/dL (12.0-16.0); Mean Corp Hgb Conc. 33.8 g/dL (33.0-37.0); Mean Corpuscular Hgb 35.6 pg (27.0-31.0); Mean Corpuscular Volume 105.3 fL (81.0-99.0); Mean Platelet Volume 11.7 fL (7.4-10.4); Nucleated Red Blood Cells % 0 %; Platelet Count 154 10^3/uL (130-400); Red Blood Cell Count 2.64 10^6/uL (4.20-5.40); Red Cell Dist. Width 16.9 % (11.5-14.5); White Blood Cell Count 3.6 10^3/uL (4.8-10.8)
[2024-02-04 14:13] LABS: Iron 97 ug/dl (37-170)
[2024-02-04 14:23] LABS: Percent Saturation 30 % (20-50); Total Iron Binding Capacity 316 ug/dl (265-497)
== END ==
LOC: OLABWIL 10:30
PROVIDERS: ATTENDING PHYSICIAN Nurse Practitioner Adult Health
DX: D50.9 Iron deficiency anemia, unspecified (principal); D05.80 Other specified type of carcinoma in situ of unspecified breast; D61.818 Other pancytopenia; D59.4 Other nonautoimmune hemolytic anemias; N18.30 Chronic kidney disease, stage 3 unspecified; D63.1 Anemia in chronic kidney disease
CPT/HCPCS: 36415; 82728; 83540; 83550; 85025

== ENCOUNTER → 2024-02-18 10:22 | Outpatient (REF) | payer OTHER, SELFPAY ==
[2024-02-18 16:53] LABS: % Basophils 0.7 % (0-2); % Eosinophils 1.2 % (0-6); % Immature Granulocytes 0.5 % (0-0.5); % Monocytes 8.1 % (1.7-9.3); % Neutrophils 53.5 % (42.2-75.2); Absolute Eosinophils 0.1 10^3/uL (0-0.7); Absolute Lymphocytes 1.5 10^3/uL (1.2-3.4); Absolute Monocytes 0.3 10^3/uL (0.1-0.6); Absolute Neutrophils 2.2 10^3/uL (1.4-6.5); Hematocrit 30.4 % (37.0-47.0); Hemoglobin 10.1 g/dL (12.0-16.0); Mean Corp Hgb Conc. 33.2 g/dL (33.0-37.0); Mean Corpuscular Hgb 35.9 pg (27.0-31.0); Mean Corpuscular Volume 108.2 fL (81.0-99.0); Mean Platelet Volume 11.2 fL (7.4-10.4); Nucleated Red Blood Cells % 0 %; Platelet Count 159 10^3/uL (130-400); Red Blood Cell Count 2.81 10^6/uL (4.20-5.40); Red Cell Dist. Width 16.1 % (11.5-14.5); White Blood Cell Count 4.1 10^3/uL (4.8-10.8)
[2024-02-18 16:58] LABS: Blood Urea Nitrogen 30 mg/dl (7-17); Calcium 9.6 mg/dl (8.4-10.2); Carbon Dioxide 38 mmol/L (22-30); Chloride 85 mmol/L (98-107); Glucose 85 mg/dl (70-99); Potassium 4.5 mmol/L (3.5-5.1); Sodium 126 mmol/L (135-145); eGFR > 60.00
== END ==
LOC: OLABWIL 10:22
PROVIDERS: ATTENDING PHYSICIAN Nurse Practitioner Adult Health; REFERRING PHYSICIAN Specialist
DX: D50.9 Iron deficiency anemia, unspecified (principal); D05.80 Other specified type of carcinoma in situ of unspecified breast; D61.818 Other pancytopenia; D59.4 Other nonautoimmune hemolytic anemias; N18.30 Chronic kidney disease, stage 3 unspecified; D63.1 Anemia in chronic kidney disease; E87.1 Hypo-osmolality and hyponatremia; I10 Essential (primary) hypertension
CPT/HCPCS: 36415; 80048; 85025

== ENCOUNTER → 2024-02-25 10:32 | Outpatient (REF) | payer OTHER, SELFPAY ==
[2024-02-25 11:41] LABS: % Basophils 0.8 % (0-2); % Immature Granulocytes 0.5 % (0-0.5); % Lymphocytes 32.3 % (20.5-51.1); % Neutrophils 56.4 % (42.2-75.2); Absolute Lymphocytes 1.3 10^3/uL (1.2-3.4); Absolute Monocytes 0.4 10^3/uL (0.1-0.6); Absolute Neutrophils 2.3 10^3/uL (1.4-6.5); Hematocrit 29.3 % (37.0-47.0); Hemoglobin 9.5 g/dL (12.0-16.0); Mean Corp Hgb Conc. 32.4 g/dL (33.0-37.0); Mean Corpuscular Hgb 35.1 pg (27.0-31.0); Mean Corpuscular Volume 108.1 fL (81.0-99.0); Mean Platelet Volume 11.2 fL (7.4-10.4); Nucleated Red Blood Cells % 0 %; Platelet Count 188 10^3/uL (130-400); Red Blood Cell Count 2.71 10^6/uL (4.20-5.40); Red Cell Dist. Width 15.6 % (11.5-14.5)
[2024-02-25 12:01] LABS: Blood Urea Nitrogen 23 mg/dl (7-17); Calcium 8.9 mg/dl (8.4-10.2); Carbon Dioxide 33 mmol/L (22-30); Chloride 90 mmol/L (98-107); Glucose 80 mg/dl (70-99); Potassium 4.4 mmol/L (3.5-5.1); Sodium 129 mmol/L (135-145); eGFR > 60.00
== END ==
LOC: OLABWIL 10:32
PROVIDERS: ATTENDING PHYSICIAN Nurse Practitioner Adult Health; FAMILY PHYSICIAN Specialist
DX: D50.9 Iron deficiency anemia, unspecified (principal); D05.80 Other specified type of carcinoma in situ of unspecified breast; D61.818 Other pancytopenia; D59.4 Other nonautoimmune hemolytic anemias; N18.30 Chronic kidney disease, stage 3 unspecified; D63.1 Anemia in chronic kidney disease
CPT/HCPCS: 36415; 80048; 85025

== ENCOUNTER → 2024-03-05 11:04 | Outpatient (REF) | payer OTHER, SELFPAY ==
[2024-03-05 11:38] LABS: % Basophils 0.9 % (0-2); % Eosinophils 0.9 % (0-6); % Immature Granulocytes 0.3 % (0-0.5); % Lymphocytes 34.5 % (20.5-51.1); % Monocytes 10.5 % (1.7-9.3); % Neutrophils 52.9 % (42.2-75.2); Absolute Lymphocytes 1.2 10^3/uL (1.2-3.4); Absolute Monocytes 0.4 10^3/uL (0.1-0.6); Absolute Neutrophils 1.9 10^3/uL (1.4-6.5); Hematocrit 31.1 % (37.0-47.0); Mean Corp Hgb Conc. 32.2 g/dL (33.0-37.0); Mean Corpuscular Hgb 34.8 pg (27.0-31.0); Mean Corpuscular Volume 108.4 fL (81.0-99.0); Mean Platelet Volume 11.9 fL (7.4-10.4); Nucleated Red Blood Cells % 0 %; Platelet Count 161 10^3/uL (130-400); Red Blood Cell Count 2.87 10^6/uL (4.20-5.40); Red Cell Dist. Width 15.7 % (11.5-14.5); White Blood Cell Count 3.5 10^3/uL (4.8-10.8)
[2024-03-05 11:49] LABS: ALT (SGPT) 29 U/L (0-35); AST (SGOT) 47 U/L (14-36); Albumin 4.3 g/dl (3.5-5.0); Alkaline Phosphatase 49 U/L (38-126); Blood Urea Nitrogen 30 mg/dl (7-17); Calcium 9.2 mg/dl (8.4-10.2); Carbon Dioxide 33 mmol/L (22-30); Chloride 89 mmol/L (98-107); Glucose 82 mg/dl (70-99); Potassium 4.1 mmol/L (3.5-5.1); Sodium 129 mmol/L (135-145); Total Bilirubin 0.3 mg/dl (0.2-1.3); Total Protein 6.6 g/dl (6.3-8.2); eGFR > 60.00
[2024-03-05 12:03] LABS: Vitamin D, 25-OH*** 51.5 ng/mL (30-80)
== END ==
LOC: REG 11:04
PROVIDERS: ATTENDING PHYSICIAN Internal Medicine Rheumatology; FAMILY PHYSICIAN Family Medicine
DX: E55.9 Vitamin D deficiency, unspecified (principal); M81.0 Age-related osteoporosis without current pathological fracture; Z79.899 Other long term (current) drug therapy
CPT/HCPCS: 36415; 80053; 82306; 85025

== ENCOUNTER → 2024-03-24 10:52 | Outpatient (REF) | payer OTHER, SELFPAY ==
[2024-03-24 11:42] LABS: % Basophils 0.5 % (0-2); % Eosinophils 0.7 % (0-6); % Immature Granulocytes 0.2 % (0-0.5); % Lymphocytes 24.2 % (20.5-51.1); % Monocytes 7.3 % (1.7-9.3); % Neutrophils 67.1 % (42.2-75.2); Absolute Lymphocytes 1.1 10^3/uL (1.2-3.4); Absolute Monocytes 0.3 10^3/uL (0.1-0.6); Absolute Neutrophils 2.9 10^3/uL (1.4-6.5); Hemoglobin 9.5 g/dL (12.0-16.0); Mean Corp Hgb Conc. 33.9 g/dL (33.0-37.0); Mean Corpuscular Hgb 35.7 pg (27.0-31.0); Mean Corpuscular Volume 105.3 fL (81.0-99.0); Mean Platelet Volume 11.9 fL (7.4-10.4); Nucleated Red Blood Cells % 0 %; Platelet Count 140 10^3/uL (130-400); Red Blood Cell Count 2.66 10^6/uL (4.20-5.40); Red Cell Dist. Width 15.8 % (11.5-14.5); White Blood Cell Count 4.4 10^3/uL (4.8-10.8)
[2024-03-24 11:52] LABS: Blood Urea Nitrogen 30 mg/dl (7-17); Calcium 9.1 mg/dl (8.4-10.2); Carbon Dioxide 31 mmol/L (22-30); Chloride 92 mmol/L (98-107); Glucose 78 mg/dl (70-99); Potassium 3.9 mmol/L (3.5-5.1); Sodium 130 mmol/L (135-145); eGFR > 60.00
== END ==
LOC: OLABWIL 10:52
PROVIDERS: ATTENDING PHYSICIAN Specialist; FAMILY PHYSICIAN Nurse Practitioner Adult Health
DX: I10 Essential (primary) hypertension (principal); D50.9 Iron deficiency anemia, unspecified; E03.9 Hypothyroidism, unspecified; E78.00 Pure hypercholesterolemia, unspecified
CPT/HCPCS: 36415; 80048; 85025

== ENCOUNTER → 2024-04-21 11:51 | Outpatient (REF) | payer OTHER, SELFPAY ==
[2024-04-21 13:26] LABS: % Basophils 0.5 % (0-2); % Eosinophils 1.2 % (0-6); % Immature Granulocytes 0.2 % (0-0.5); % Lymphocytes 31.4 % (20.5-51.1); % Monocytes 9.4 % (1.7-9.3); % Neutrophils 57.3 % (42.2-75.2); Absolute Eosinophils 0.1 10^3/uL (0-0.7); Absolute Lymphocytes 1.3 10^3/uL (1.2-3.4); Absolute Monocytes 0.4 10^3/uL (0.1-0.6); Absolute Neutrophils 2.3 10^3/uL (1.4-6.5); Hematocrit 28.1 % (37.0-47.0); Hemoglobin 9.5 g/dL (12.0-16.0); Mean Corp Hgb Conc. 33.8 g/dL (33.0-37.0); Mean Corpuscular Hgb 35.3 pg (27.0-31.0); Mean Corpuscular Volume 104.5 fL (81.0-99.0); Mean Platelet Volume 12.1 fL (7.4-10.4); Nucleated Red Blood Cells % 0 %; Platelet Count 150 10^3/uL (130-400); Red Blood Cell Count 2.69 10^6/uL (4.20-5.40); Red Cell Dist. Width 15.3 % (11.5-14.5)
[2024-04-21 13:54] LABS: Blood Urea Nitrogen 31 mg/dl (7-17); Calcium 9.7 mg/dl (8.4-10.2); Carbon Dioxide 32 mmol/L (22-30); Chloride 93 mmol/L (98-107); Glucose 81 mg/dl (70-99); Potassium 4.3 mmol/L (3.5-5.1); Sodium 130 mmol/L (135-145); eGFR > 60.00
== END ==
LOC: OLABWIL 11:51
PROVIDERS: ATTENDING PHYSICIAN Specialist; REFERRING PHYSICIAN Internal Medicine Hematology & Oncology
DX: E87.1 Hypo-osmolality and hyponatremia (principal); D50.9 Iron deficiency anemia, unspecified; D05.80 Other specified type of carcinoma in situ of unspecified breast; D61.818 Other pancytopenia; D59.4 Other nonautoimmune hemolytic anemias; N18.30 Chronic kidney disease, stage 3 unspecified; D63.1 Anemia in chronic kidney disease
CPT/HCPCS: 36415; 80048; 85025

== ENCOUNTER → 2024-05-19 11:16 | Outpatient (REF) | payer OTHER, SELFPAY ==
[2024-05-19 12:24] LABS: % Basophils 0.8 % (0-2); % Eosinophils 0.5 % (0-6); % Immature Granulocytes 0.5 % (0-0.5); % Lymphocytes 32.9 % (20.5-51.1); % Monocytes 8.7 % (1.7-9.3); % Neutrophils 56.6 % (42.2-75.2); Absolute Lymphocytes 1.3 10^3/uL (1.2-3.4); Absolute Monocytes 0.3 10^3/uL (0.1-0.6); Absolute Neutrophils 2.2 10^3/uL (1.4-6.5); Hematocrit 29.5 % (37.0-47.0); Mean Corp Hgb Conc. 33.9 g/dL (33.0-37.0); Mean Corpuscular Hgb 35.7 pg (27.0-31.0); Mean Corpuscular Volume 105.4 fL (81.0-99.0); Mean Platelet Volume 11.5 fL (7.4-10.4); Nucleated Red Blood Cells % 0 %; Platelet Count 162 10^3/uL (130-400); Red Cell Dist. Width 15.2 % (11.5-14.5); White Blood Cell Count 3.8 10^3/uL (4.8-10.8)
[2024-05-19 12:26] LABS: Blood Urea Nitrogen 33 mg/dl (7-17); Calcium 9.6 mg/dl (8.4-10.2); Carbon Dioxide 33 mmol/L (22-30); Chloride 95 mmol/L (98-107); Glucose 87 mg/dl (70-99); Potassium 4.4 mmol/L (3.5-5.1); Sodium 135 mmol/L (135-145); eGFR > 60.00
== END ==
LOC: OLABWIL 11:16
PROVIDERS: ATTENDING PHYSICIAN Internal Medicine Hematology & Oncology; FAMILY PHYSICIAN Specialist
DX: I10 Essential (primary) hypertension (principal); D50.9 Iron deficiency anemia, unspecified; E78.00 Pure hypercholesterolemia, unspecified; E87.1 Hypo-osmolality and hyponatremia; D05.80 Other specified type of carcinoma in situ of unspecified breast; D61.818 Other pancytopenia; D59.4 Other nonautoimmune hemolytic anemias; N18.30 Chronic kidney disease, stage 3 unspecified; D63.1 Anemia in chronic kidney disease
CPT/HCPCS: 36415; 80048; 85025

== ENCOUNTER → 2024-06-16 09:23 | Outpatient (REF) | payer OTHER, SELFPAY ==
[2024-06-16 09:46] LABS: % Basophils 0.5 % (0-2); % Eosinophils 0.7 % (0-6); % Immature Granulocytes 0.5 % (0-0.5); % Lymphocytes 17.8 % (20.5-51.1); % Monocytes 8.9 % (1.7-9.3); % Neutrophils 71.6 % (42.2-75.2); Absolute Lymphocytes 1.1 10^3/uL (1.2-3.4); Absolute Monocytes 0.5 10^3/uL (0.1-0.6); Absolute Neutrophils 4.3 10^3/uL (1.4-6.5); Hematocrit 29.7 % (37.0-47.0); Mean Corp Hgb Conc. 33.7 g/dL (33.0-37.0); Mean Corpuscular Hgb 36.4 pg (27.0-31.0); Mean Platelet Volume 10.9 fL (7.4-10.4); Nucleated Red Blood Cells % 0 %; Platelet Count 175 10^3/uL (130-400); Red Blood Cell Count 2.75 10^6/uL (4.20-5.40); Red Cell Dist. Width 14.7 % (11.5-14.5); White Blood Cell Count 5.9 10^3/uL (4.8-10.8)
[2024-06-16 10:18] LABS: Blood Urea Nitrogen 46 mg/dl (7-17); Calcium 9.7 mg/dl (8.4-10.2); Carbon Dioxide 33 mmol/L (22-30); Chloride 101 mmol/L (98-107); Glucose 95 mg/dl (70-99); Sodium 143 mmol/L (135-145); eGFR > 60.00
== END ==
LOC: OLABWIL 09:23
PROVIDERS: ATTENDING PHYSICIAN Specialist; REFERRING PHYSICIAN Internal Medicine Hematology & Oncology
DX: E87.1 Hypo-osmolality and hyponatremia (principal); I10 Essential (primary) hypertension
CPT/HCPCS: 36415; 80048; 85025

== ENCOUNTER → 2024-07-07 13:09 | Outpatient (REF) | payer OTHER, SELFPAY ==
[2024-07-07 13:39] LABS: % Basophils 0.7 % (0-2); % Eosinophils 1.2 % (0-6); % Immature Granulocytes 0.2 % (0-0.5); % Monocytes 9.9 % (1.7-9.3); Absolute Eosinophils 0.1 10^3/uL (0-0.7); Absolute Lymphocytes 1.2 10^3/uL (1.2-3.4); Absolute Monocytes 0.4 10^3/uL (0.1-0.6); Absolute Neutrophils 2.4 10^3/uL (1.4-6.5); Hematocrit 29.4 % (37.0-47.0); Hemoglobin 9.8 g/dL (12.0-16.0); Mean Corp Hgb Conc. 33.3 g/dL (33.0-37.0); Mean Corpuscular Hgb 35.9 pg (27.0-31.0); Mean Corpuscular Volume 107.7 fL (81.0-99.0); Nucleated Red Blood Cells % 0 %; Platelet Count 150 10^3/uL (130-400); Red Blood Cell Count 2.73 10^6/uL (4.20-5.40); Red Cell Dist. Width 14.6 % (11.5-14.5)
[2024-07-07 14:03] LABS: Free T4 1.55 ng/dl (0.78-2.19)
[2024-07-07 14:17] LABS: TSH 2.62 uIU/ml (0.47-4.68)
[2024-07-07 15:46] LABS: Blood Urea Nitrogen 40 mg/dl (7-17); Calcium 9.7 mg/dl (8.4-10.2); Carbon Dioxide 30 mmol/L (22-30); Chloride 103 mmol/L (98-107); Glucose 88 mg/dl (70-99); Potassium 4.2 mmol/L (3.5-5.1); Sodium 137 mmol/L (135-145); eGFR > 60.00
== END ==
LOC: OLABWIL 13:09
PROVIDERS: ATTENDING PHYSICIAN Internal Medicine Hematology & Oncology; FAMILY PHYSICIAN Family Medicine; REFERRING PHYSICIAN Specialist
DX: R63.4 Abnormal weight loss (principal); E03.9 Hypothyroidism, unspecified; E87.1 Hypo-osmolality and hyponatremia; D05.90 Unspecified type of carcinoma in situ of unspecified breast; D05.80 Other specified type of carcinoma in situ of unspecified breast; D61.818 Other pancytopenia; D59.4 Other nonautoimmune hemolytic anemias; N18.30 Chronic kidney disease, stage 3 unspecified; D63.1 Anemia in chronic kidney disease
CPT/HCPCS: 36415; 80048; 84439; 84443; 85025

== ENCOUNTER → 2024-08-06 11:56 | Outpatient (REF) | payer OTHER, SELFPAY ==
[2024-08-06 12:19] LABS: % Basophils 0.7 % (0-2); % Eosinophils 1.2 % (0-6); % Immature Granulocytes 0.5 % (0-0.5); % Lymphocytes 29.9 % (20.5-51.1); % Neutrophils 58.7 % (42.2-75.2); Absolute Eosinophils 0.1 10^3/uL (0-0.7); Absolute Lymphocytes 1.3 10^3/uL (1.2-3.4); Absolute Monocytes 0.4 10^3/uL (0.1-0.6); Absolute Neutrophils 2.5 10^3/uL (1.4-6.5); Hematocrit 30.8 % (37.0-47.0); Hemoglobin 10.3 g/dL (12.0-16.0); Mean Corp Hgb Conc. 33.4 g/dL (33.0-37.0); Mean Corpuscular Hgb 34.9 pg (27.0-31.0); Mean Corpuscular Volume 104.4 fL (81.0-99.0); Mean Platelet Volume 11.6 fL (7.4-10.4); Nucleated Red Blood Cells % 0 %; Platelet Count 156 10^3/uL (130-400); Red Blood Cell Count 2.95 10^6/uL (4.20-5.40); Red Cell Dist. Width 13.5 % (11.5-14.5); Reticulocyte Count 2.3 % (0.4-2.8); White Blood Cell Count 4.3 10^3/uL (4.8-10.8)
[2024-08-06 12:21] LABS: ALT (SGPT) 34 U/L (0-35); AST (SGOT) 40 U/L (14-36); Albumin 4.3 g/dl (3.5-5.0); Alkaline Phosphatase 42 U/L (38-126); Blood Urea Nitrogen 34 mg/dl (7-17); Calcium 9.6 mg/dl (8.4-10.2); Carbon Dioxide 35 mmol/L (22-30); Chloride 95 mmol/L (98-107); Direct Bilirubin 0.2 mg/dl (0.0-0.4); Glucose 83 mg/dl (70-99); Iron 76 ug/dl (37-170); LDH 426 U/L (120-246); Potassium 4.4 mmol/L (3.5-5.1); Sodium 134 mmol/L (135-145); Total Bilirubin 0.4 mg/dl (0.2-1.3); Total Protein 6.9 g/dl (6.3-8.2); eGFR > 60.00
[2024-08-06 12:30] LABS: Percent Saturation 24 % (20-50); Total Iron Binding Capacity 313 ug/dl (265-497)
[2024-08-06 12:57] LABS: Ferritin 67.5 ng/ml (11.1-264.0)
[2024-08-06 13:11] LABS: Vitamin B12 982 pg/ml (239-931)
[2024-08-09 12:38] LABS: Haptoglobin <10 mg/dL (30-200)
== END ==
LOC: OLABWHC 11:56
PROVIDERS: ATTENDING PHYSICIAN Internal Medicine Hematology & Oncology
DX: D50.9 Iron deficiency anemia, unspecified (principal); D63.1 Anemia in chronic kidney disease; D05.80 Other specified type of carcinoma in situ of unspecified breast; D61.818 Other pancytopenia; D59.4 Other nonautoimmune hemolytic anemias; N18.30 Chronic kidney disease, stage 3 unspecified
CPT/HCPCS: 36415; 80053; 82248; 82607; 82728; 83010; 83540; 83550; 83615; 85025; 85045

== ENCOUNTER → 2024-08-27 10:52 | Outpatient (REF) | payer OTHER, SELFPAY ==
[2024-08-27 11:31] LABS: ALT (SGPT) 29 U/L (0-35); AST (SGOT) 35 U/L (14-36); Albumin 4.4 g/dl (3.5-5.0); Alkaline Phosphatase 52 U/L (38-126); Blood Urea Nitrogen 30 mg/dl (7-17); Calcium 9.0 mg/dl (8.4-10.2); Carbon Dioxide 30 mmol/L (22-30); Chloride 95 mmol/L (98-107); Glucose 88 mg/dl (70-99); Potassium 4.8 mmol/L (3.5-5.1); Sodium 130 mmol/L (135-145); Total Protein 7.0 g/dl (6.3-8.2); eGFR > 60.00
== END ==
LOC: OLABWIL 10:52
PROVIDERS: ATTENDING PHYSICIAN Specialist; REFERRING PHYSICIAN Internal Medicine Rheumatology
DX: E87.1 Hypo-osmolality and hyponatremia (principal); E78.00 Pure hypercholesterolemia, unspecified; D64.9 Anemia, unspecified; M81.0 Age-related osteoporosis without current pathological fracture; Z79.899 Other long term (current) drug therapy
CPT/HCPCS: 36415; 80053

== ENCOUNTER 2024-09-15 09:42 | Emergency (ER) | payer OTHER, SELFPAY ==
[2024-09-15 09:49] VITALS: BP 130/62
[2024-09-15 09:55] VITALS: BMI 19.1
--- NOTE | 2024-09-15 10:05 | ED.GENMED ---
History of Present Illness
General
Chief Complaint: Fall
Time Seen by Provider: 09/15/24 10:04
History of Present Illness
History of Present Illness:
PAST MEDICAL HISTORY AND REVIEW OF OLD RECORDS
- The patient has a history of back pain, A-fib, CHF. She was admitted here with pneumonia and December of last year.
Note:
CHIEF COMPLAINT(S)
Fall with subsequent sacral pain.
HISTORY OF PRESENT ILLNESS
The patient is an 89-year-old female who presented to the emergency department after a fall in her living room. She reports that she was walking and suddenly lost her balance, causing her to fall backward and land on her bottom. She denies tripping
over anything and describes losing her balance as a relatively new occurrence. Upon examination, the patient notes significant pain localized to the sacral area. She does not experience pain upon palpation of the left hip or lumbar spine but
mentions chronic back pain that she has had for years. She did not strike her head during the fall and reports no other injuries.
The patient is currently taking Tylenol Arthritis (acetaminophen) which provides some relief, and she finds lying on her side alleviates the pain. She arrived at the facility by ambulance, as coordinated by her local family while awaiting the
arrival of her son from out of town.
ADDITIONAL HISTORY OBTAINED FROM SOURCES OTHER THAN THE PATIENT
The patient mentioned her local family coordinated her transport to the hospital via ambulance.
CHRONIC MEDICAL CONDITIONS SIGNIFICANTLY AFFECTING CARE
The patient has a history of atrial fibrillation for which she has been on anticoagulation therapy with apixaban (Eliquis). She also has a pacemaker in situ, reported to be manufactured by [employer]. Additionally, she suffers from chronic back pain.
PHYSICAL EXAM
- General: Well appearing but is laying on her right side due to pain in the sacral region
- HEENT: Moist oral mucosa
- Cardiovascular: No murmurs, normal heart rate, regular rhythm, No chest wall tenderness
- Pulmonary: No respiratory distress, breath sounds are clear and equal
- Abdomen: Soft with no peritoneal signs, no tenderness
- Neurologic: Good strength all extremities, no coordination deficits
- Psychiatric: Appropriate mental status, normal insight and judgement
- Extremities: Nontender, no edema, moves all extremities equally
- Back: There is no midline L-spine tenderness, there is some mild tenderness to the lower midline sacrum/coccygeal region
- Skin: No rash, no lesions
PLAN
1. Order X-rays to evaluate for any potential fractures in the sacral region.
2. Evaluate the need for pain management beyond the current regimen.
3. Consider an interrogation of the patient�s Medtronic pacemaker to rule out any device-related issues.
DIFFERENTIAL DIAGNOSIS
The Differential Diagnosis includes, in no particular order and is not limited to:
1. Sacral fracture
2. Lumbosacral strain
3. Coccyx fracture
4. Osteoporosis-related fracture
5. Muscle spasm
6. Contusion
7. Degenerative joint disease
8. Orthostatic hypotension
9. Vestibular dysfunction
10. Cerebellar ataxia
RADIOLOGY
- Will obtain plain films. Although the patient is on Eliquis she adamantly denies any head trauma and I see no evidence of head trauma on exam. She has no C-spine tenderness. Suspect lower sacral fracture which is nondisplaced.
EKG
- EKG shows a V paced rhythm at 70
LABS
-
UPDATE
- [facility] express interrogation performed. She did have episodes of AT/AF but no VT
- SUMMARY OF ENCOUNTER
The patient, an 89-year-old female, presented to the emergency department following a fall in her living room, resulting in sacral pain. Upon examination, there was no significant tenderness in other areas of the spine; the pain was concentrated in
the sacral region. Radiology indicated a non-displaced fracture of the lower sacrum. There are no signs of displacement, negating the need for surgical intervention. The patient reported taking acetaminophen (Tylenol) previously and declined
narcotic pain medications. An EKG was performed due to the patients report of feeling wobbly; results were normal, and pacemaker interrogation showed no serious arrhythmias.
DISPOSITION
Discharge.
ASSESSMENT
Non-displaced sacral fracture.
PLAN
Discharge with follow-up with Dr. Nelson, an auto adjudication specialist. The patient was advised that the fracture should heal on its own without surgical intervention. Ice and heat can be used as self-care options.
INDEPENDENT REVIEW OF LABS AND INTERPRETATION OF TESTS
My independent interpretation of the X-ray indicates a non-displaced sacral fracture. My independent review of the EKG indicates normal results with no signs of serious arrhythmia.
PATIENT EDUCATION AND COUNSELING
The patient was informed that the sacral fracture is non-displaced and typically heals without surgery. Options for pain management, such as [id number] medications and alternating ice and heat, were discussed.
FOLLOW-UP INSTRUCTIONS
Follow up with Dr. Nelson, an auto adjudication specialist, for further evaluation.
MEDICATION RECONCILIATION
The patient previously took acetaminophen (Tylenol). No new prescriptions provided, as the patient declined narcotic pain relief.
MEDICAL DECISION MAKING
- Number and Complexity of Problems Addressed: Chronic conditions affecting care include atrial fibrillation with pacemaker, chronic back pain, and the following DDx: Sacral fracture, lumbosacral strain, coccyx fracture, osteoporosis-related
fracture, muscle spasm, contusion, degenerative joint disease, orthostatic hypotension, vestibular dysfunction, cerebellar ataxia.
- Data:
Category 1: The following tests and documents were reviewed: X-ray of the sacral region, EKG.
Category 2: Clinical information was obtained from the patients family for history and additional context.
-Risk: Prescription medication management was discussed; however, the patient declined narcotic medications.
DIAGNOSIS
Non-displaced sacral fracture (ICD-10 code: S32.10XA).
Past History
Past History
ED Past Medical History: Arrthythmia (Paroxysmal A-fib), CHF, HTN, Hypercholesterolemia, Valvular disease, Hypothyroidism and Other (Ambulatory dysfunction, episode of aphasia)
ED Past Surgical History: Cardiac (History of cardiac ablation x3, multiple cardioversions, mitral and tricuspid valve repair) and Other (Breast biopsy, D&C, bilateral cataract surgery with lens implants)
Social History
Tobacco: Non-smoker
Alcohol: None
Drug: None
Personal:
Living: other ([facility])
Employment: Retired
Family History
Family History: Hypertension
Phy Exam
Physical Exam
Physical Exam:
See HPI
Course
Orders/Labs/Results
Orders:
Orders
09/15/24 10:34
Interrogate Pacemaker- Treatment ONCE
Comment: medtronic
CR Sacrum/coccyx Min 2 View Urgent
Comment:
Reason For Exam: trauma; pain lower sacrum/coccyx
09/15/24 10:35
Electrocardiogram (*1) Urgent
Reason for Study: Atrial Fibrillation
EKG- Treatment ONCE
Vital Signs
Initial and Last Documented VS:
Initial Vital Signs
Temp Pulse Resp BP Pulse Ox
36.4 C 70 16 130/62 100
09/15/24 09:49 09/15/24 09:49 09/15/24 09:49 09/15/24 09:49 09/15/24 09:49
Last Documented Vital Signs
Temp Pulse Resp BP Pulse Ox
36.4 C 70 16 130/62 100
09/15/24 09:49 09/15/24 09:49 09/15/24 09:49 09/15/24 09:49 09/15/24 10:06
*Pulse Oximetry
SaO2: 100
Oxygen Mode of Delivery: Room air
Patient hypoxic: no
*Critical Care Note
Total Time (30-74mins, 75-104mins- exclusive of procedures): Not Applicable
ED Attending Note
-
Portions of this chart may have been created with voice recognition software.� Occasional wrong word or��sound alike� substitutions may have occurred due to the inherent limitations of voice recognition software.
Discharge Plan
Departure
Prescriptions:
No Action
ezetimibe 10 MG tablet
10 mg PO QPM Qty: 0 0RF
levothyroxine 112 MCG tablet
112 mcg PO MOTUWETHFRSA@0700
calcium citrate-vitamin D3 [Citracal + D Maximum] 1 EACH tablet
1 tab PO DAILY
carvedilol 3.125 MG tablet
3.125 mg PO BID
Eliquis 2.5 mg Tablet
2.5 mg PO BID
Ferretts IPS 40 mg/15 mL liquid
15 ml PO Q48H
sennosides [senna] 8.6 mg Tablet
8.6 mg PO DAILYPRN PRN (Reason: constipation, docusate ineffective)
docusate calcium [Stool Softener (docusate price)] 240 mg Capsule
240 mg PO DAILYPRN PRN (Reason: constipation)
acetaminophen 650 mg Tablet Extended Release
650 mg PO DAILYPRN PRN (Reason: mild pain)
vitamin B complex Tablet
1 tab PO NOON
folic acid 1 mg Tablet
1 mg PO QPM
Refresh Classic (PF) 1.4-0.6 % Dropperette
1 drp BOTH EYES DAILYPRN PRN (Reason: dry eyes)
furosemide 20 mg Tablet
60 mg PO DAILY Qty: 90 0RF
pantoprazole 40 mg Tablet,Delayed Release (Dr/Ec)
40 mg PO DAILY Qty: 30 0RF
Referrals:
Sho Merchant MD [Family Provider, Family Practice]
Interventions
Interventions:
*Risk Screen - Suicide Last Done: 09/15/24 09:49
*General Assessment Last Done: 09/15/24 09:49
*Neglect/Abuse Screening Last Done: 09/15/24 09:49
*ED- Fall Risk Assessment Last Done: 09/15/24 09:49
*ED COVID-19 Vaccine History Last Done: 09/15/24 09:49
ED-Musculoskeletal Assessment Last Done: 09/15/24 09:49
ED- Neurological Assessment Last Done: 09/15/24 09:49
ED-Skin Assessment Last Done: 09/15/24 09:49
Discharge Date and Time
Print Language: GRENADIAN
[2024-09-15 13:58] VITALS: BP 153/86
== END 2024-09-15 14:00 ==
LOC: EMR 09:42
PROVIDERS: EMERGENCY PHYSICIAN Emergency Medicine; FAMILY PHYSICIAN Family Medicine
DX: S32.10XA Unspecified fracture of sacrum, initial encounter for closed fracture (principal); I48.0 Paroxysmal atrial fibrillation; I11.0 Hypertensive heart disease with heart failure; I50.9 Heart failure, unspecified; E78.00 Pure hypercholesterolemia, unspecified; I38 Endocarditis, valve unspecified; E03.9 Hypothyroidism, unspecified; M54.9 Dorsalgia, unspecified; G89.29 Other chronic pain; R26.9 Unspecified abnormalities of gait and mobility; Z79.01 Long term (current) use of anticoagulants; Z95.0 Presence of cardiac pacemaker; Z82.49 Family history of ischemic heart disease and other diseases of the circulatory system; W18.39XA Other fall on same level, initial encounter; Y92.128 Other place in nursing home as the place of occurrence of the external cause
CPT/HCPCS: 99284; 93288; 72220; 93005

== ENCOUNTER → 2024-10-08 09:10 | Outpatient (REF) | payer OTHER, SELFPAY ==
[2024-10-08 10:17] LABS: Hematocrit 30.0 % (37.0-47.0); Hemoglobin 10.1 g/dL (12.0-16.0); Mean Corp Hgb Conc. 33.7 g/dL (33.0-37.0); Mean Corpuscular Volume 100.0 fL (81.0-99.0); Nucleated Red Blood Cells % 0 %; Platelet Count 172 10^3/uL (130-400); Red Cell Dist. Width 14.8 % (11.5-14.5)
[2024-10-08 10:28] LABS: Blood Urea Nitrogen 31 mg/dl (7-17); Calcium 9.6 mg/dl (8.4-10.2); Carbon Dioxide 31 mmol/L (22-30); Chloride 95 mmol/L (98-107); Glucose 84 mg/dl (70-99); Sodium 131 mmol/L (135-145); eGFR > 60.00
[2024-10-08 10:35] LABS: Potassium 4.6 mmol/L (3.5-5.1)
== END ==
LOC: OLABWIL 09:10
PROVIDERS: ATTENDING PHYSICIAN Physician Assistant; OTHER PHYSICIAN Specialist
DX: D50.9 Iron deficiency anemia, unspecified (principal); I10 Essential (primary) hypertension; E87.1 Hypo-osmolality and hyponatremia
CPT/HCPCS: 36415; 80048; 85025

== ENCOUNTER 2024-10-10 23:38 | Inpatient (IN) | payer OTHER, SELFPAY ==
[2024-10-10 20:09] VITALS: BMI 17.8
[2024-10-10 20:10] VITALS: BP 160/85
[2024-10-10 20:24] LABS: Hematocrit 27.7 % (37.0-47.0); Hemoglobin 9.5 g/dL (12.0-16.0); Mean Corp Hgb Conc. 34.3 g/dL (33.0-37.0); Mean Corpuscular Volume 99.3 fL (81.0-99.0); Nucleated Red Blood Cells % 0 %; Platelet Count 150 10^3/uL (130-400); Red Cell Dist. Width 14.9 % (11.5-14.5)
[2024-10-10 20:44] LABS: ALT (SGPT) 28 U/L (0-35); AST (SGOT) 46 U/L (14-36); Albumin 4.5 g/dl (3.5-5.0); Alkaline Phosphatase 62 U/L (38-126); Blood Urea Nitrogen 31 mg/dl (7-17); Calcium 9.1 mg/dl (8.4-10.2); Carbon Dioxide 29 mmol/L (22-30); Chloride 93 mmol/L (98-107); Estimated Creatinine Clearance 39 ml/min; Glucose 105 mg/dl (70-99); Potassium 4.7 mmol/L (3.5-5.1); Sodium 128 mmol/L (135-145); Total Protein 7.1 g/dl (6.3-8.2); eGFR > 60.00
--- NOTE | 2024-10-10 21:10 | ED.GENMED ---
History of Present Illness
<NOE Caballero - Last Filed: 10/11/24 03:18>
General
Chief Complaint: Urinary Symptoms
Source: patient
Time Seen by Provider: 10/10/24 20:46
Nursing documentation reviewed up to this point in time: agreed with
History of Present Illness
History of Present Illness:
Patient is a 89-year-old female with past medical history of CHF A-fi on Eliquis chronic anemia chronic hyponatremia hypothyroidism vertigo breast cancer presents to the ER for evaluation of urinary discomfort and foul-smelling urine for the past
several days. in addition she has felt mildly weak.
She denies any vomiting diarrhea.
Past History
<NOE Caballero - Last Filed: 10/11/24 03:18>
Past History
ED Past Medical History: Arrthythmia (Paroxysmal A-fib), CHF, HTN, Hypercholesterolemia, Valvular disease, Hypothyroidism and Other (Ambulatory dysfunction, episode of aphasia)
ED Past Surgical History: Cardiac (History of cardiac ablation x3, multiple cardioversions, mitral and tricuspid valve repair) and Other (Breast biopsy, D&C, bilateral cataract surgery with lens implants)
Social History
Tobacco: Non-smoker
Alcohol: None
Drug: None
Personal:
Living: other ([facility])
Employment: Retired
Family History
Family History: Hypertension
Phy Exam
<NOE Caballero - Last Filed: 10/11/24 03:18>
General Physical Exam
General Presentation: no apparent distress
General age: appears stated age
General Skin: warm and dry
General Habitus: normal
General Mental: alert
General Hydration: appears well hydrated
Cardiovascular Exam
Cardiovascular Exam: regular rate/rhythm, no murmur and normal peripheral pulses
Pulmonary Exam
Pulmonary Exam: lungs clear and no respiratory distress
Gastrointestinal Exam
Gastrointestinal Exam: non tender, soft and other (palpable mass to suprapubic region )
Neurological Exam
Neurological Exam: alert and oriented x3
Musculoskeletal Exam
Musculoskeletal Exam: full ROM
Skin Exam
Skin Exam: normal color and warm/dry
Psychiatric Exam
Psychiatric Exam: normal mood/affect
Course
<NOE Caballero - Last Filed: 10/11/24 03:18>
Orders/Labs/Results
Orders:
Orders
10/10/24 20:17
Complete Blood Count/With Diff Urgent
Comprehensive Metabolic Panel Urgent
Urinalysis Reflex To Culture Urgent
Date Specimen was Collected: 10/10/24
Time Specimen was Collected: 20:15
Comment: Clean Catch
Urine Microscopic Reflex Cult Urgent
Urine Culture Urgent
NETO Source: U
Specimen Description:
Date Specimen was Collected: 10/10/24
Time Specimen was Collected: 20:15
10/10/24 22:29
Apixaban [Eliquis] 2.5 mg .ROUTE .STK-MED ONE
10/10/24 22:30
Carvedilol [Coreg] 3.125 mg .ROUTE .STK-MED ONE
10/10/24 22:32
Carvedilol [Coreg] 3.125 mg PO NOW STA
10/10/24 22:45
Apixaban [Eliquis] 2.5 mg PO BID
10/10/24 23:06
CefTRIAXone [Rocephin] 1,000 mg IV NOW STA
10/10/24 23:[address] Non Medication Order As Directed
Physician Order: please complete med rec. thanks
Above order entered?: Yes
10/10/24 23:38
Admit/Transfer Patient As Directed
Co-Sign Provider:
Level of Care: Inpatient admission
Assign to:: Telemetry
Physician / Group: westley
Diagnosis: UTI
Reason for Telemetry: Arrhythmia
Date to Stop Telemetry: 10/13/24
Time to Stop Telemetry: 11:00
Reason for Hospitalization: UTI
Expected length of stay greater than two midnights?: Yes
ELOS- Estimated Length of Stay in days: 3
I certify the patient meets the requirements for IP care: Yes
PRN Pain Medication Management As Directed
May give lesser potent ordered pain med per pt: Yes
preference::
Protocol:: Medication orders for pain may be administered in a
manner that supports deferring to patient preference
when the pt is:
- Requesting an ordered lesser potent pain medication.
Least to most potent pain medications are defined
as: acetaminophen < NSAID < tramadol < opioids
(morphine, oxycodone, hydromorphone).
- Requesting a lesser dose of the same medication IF
ORDERED.
- Requesting a less intrusive route of administration
if both routes are prescribed by the provider (PO <
IV).
10/10/24 23:39
Code Status As Directed
Resuscitation Status: Full Code
10/11/24 00:00
CT Abd/pelvis W Iv Cont Urgent
Reason For Exam: suprapubic mass/pain
10/11/24 02:55
Acetaminophen [Tylenol] 650 mg PO Q4HPRN PRN
Bisacodyl [Dulcolax] 10 mg RECTAL [id number] PRN
Docusate W/Senna [Senokot-S] 1 tablet PO BIDPRN PRN
Polyethylene Glycol Powder [Miralax] 17 grams PO DAILYPRN PRN
10/11/24 02:55
EKG [Electrocardiogram (*1)] Routine
Reason for Study: Atrial Fibrillation
Activity As Directed
Activity Level: As Tolerated
Intake/ Output As Directed
Frequency: Per unit guidelines
Vital Signs As Directed
Frequency: Per unit guidelines
Weight As Directed
Frequency: Daily
10/11/24 Breakfast
Cholesterol Lowering
At Your Request: Limited Participation
Cholesterol Lowering: Sodium, 2 Gram
Basic Metabolic Panel IN AM
Complete Blood Count/No Diff IN AM
Occupational Therapy Consult [Ot Eval And Treat] IN AM
Physical Therapy Consult [Pt Eval And Treat] IN AM
Activity Level: As Tolerated
10/11/24 08:00
Apixaban [Eliquis] 2.5 mg PO BID
Carvedilol [Coreg] 3.125 mg PO BID
Furosemide [Lasix] 40 mg PO DAILY
Pantoprazole [Protonix] 40 mg PO DAILY
10/11/24 22:00
CefTRIAXone [Rocephin] 1,000 mg IV Q24H
10/12/24 06:00
Basic Metabolic Panel IN AM
Complete Blood Count/No Diff IN AM
10/12/24 07:00
Levothyroxine [Synthroid] 112 mcg PO MOTUWETHFRSA@0700
10/13/24 06:00
Basic Metabolic Panel IN AM
Complete Blood Count/No Diff IN AM
10/13/24 11:00
DC Protocol for Telemetry ONCE
10/14/24 06:00
Basic Metabolic Panel IN AM
Complete Blood Count/No Diff IN AM
Abnormal Lab Results
10/10/24
20:17
RBC 2.79 L 10^6/uL
(4.20-5.40)
Hgb 9.5 L g/dL
(12.0-16.0)
Hct 27.7 L %
(37.0-47.0)
MCV 99.3 H fL
(81.0-99.0)
MCH 34.1 H pg
(27.0-31.0)
RDW 14.9 H %
(11.5-14.5)
MPV 10.5 H fL
(7.4-10.4)
Absolute Lymphs (auto) 0.9 L 10^3/uL
(1.2-3.4)
Immature Gran % 0.6 H %
(0-0.5)
Neutrophils % 80.3 H %
(42.2-75.2)
Lymphocytes % 13.1 L %
(20.5-51.1)
Sodium 128 L mmol/L
(135-145)
Chloride 93 L mmol/L
(98-107)
BUN 31 H mg/dl
(7-17)
Glucose 105 H mg/dl
(70-99)
AST 46 H U/L
(14-36)
Ur Occult Blood Reflex 3+ A
(Negative)
Urine Nitrite (Reflex) Positive A
(Negative)
Leukocyte Esterase Rfl 3+ A
(Negative)
Urine WBC (Reflex) >100 A /HPF
(0-5)
Urine Albumin (Reflex) 2+ A
(Neg - Trace)
10/10/24 20:17
10/10/24 20:17
Vital Signs
Initial and Last Documented VS:
Initial Vital Signs
Temp Pulse Resp BP Pulse Ox
97.5 F 87 18 160/85 100
10/10/24 20:10 10/10/24 20:10 10/10/24 20:10 10/10/24 20:10 10/10/24 20:10
Last Documented Vital Signs
Temp Pulse Resp BP Pulse Ox
97.5 F 72 14 158/79 98
10/10/24 22:31 10/11/24 02:19 10/11/24 02:19 10/11/24 01:17 10/11/24 01:45
[employer] consulted with Physician
[employer] consulted with physician?: Yes
Name of Physician Consulted: arthur
<Zaki Davison, DO - Last Filed: 10/10/24 23:09>
Orders/Labs/Results
Orders:
Orders
10/10/24 20:17
Complete Blood Count/With Diff Urgent
Comprehensive Metabolic Panel Urgent
Urinalysis Reflex To Culture Urgent
Date Specimen was Collected: 10/10/24
Time Specimen was Collected: 20:15
Comment: Clean Catch
Urine Microscopic Reflex Cult Urgent
Urine Culture Urgent
NETO Source: U
Specimen Description:
Date Specimen was Collected: 10/10/24
Time Specimen was Collected: 20:15
10/10/24 22:29
Apixaban [Eliquis] 2.5 mg .ROUTE .STK-MED ONE
10/10/24 22:30
Carvedilol [Coreg] 3.125 mg .ROUTE .STK-MED ONE
10/10/24 22:32
Carvedilol [Coreg] 3.125 mg PO NOW STA
10/10/24 22:45
Apixaban [Eliquis] 2.5 mg PO BID
10/10/24 23:06
CefTRIAXone [Rocephin] 1,000 mg IV NOW STA
10/10/24 23:[address] Non Medication Order As Directed
Physician Order: please complete med rec. thanks
Above order entered?: Yes
10/10/24 23:38
Admit/Transfer Patient As Directed
Co-Sign Provider:
Level of Care: Inpatient admission
Assign to:: Telemetry
Physician / Group: westley
Diagnosis: UTI
Reason for Telemetry: Arrhythmia
Date to Stop Telemetry: 10/13/24
Time to Stop Telemetry: 11:00
Reason for Hospitalization: UTI
Expected length of stay greater than two midnights?: Yes
ELOS- Estimated Length of Stay in days: 3
I certify the patient meets the requirements for IP care: Yes
PRN Pain Medication Management As Directed
May give lesser potent ordered pain med per pt: Yes
preference::
Protocol:: Medication orders for pain may be administered in a
manner that supports deferring to patient preference
when the pt is:
- Requesting an ordered lesser potent pain medication.
Least to most potent pain medications are defined
as: acetaminophen < NSAID < tramadol < opioids
(morphine, oxycodone, hydromorphone).
- Requesting a lesser dose of the same medication IF
ORDERED.
- Requesting a less intrusive route of administration
if both routes are prescribed by the provider (PO <
IV).
10/10/24 23:39
Code Status As Directed
Resuscitation Status: Full Code
10/11/24 00:00
CT Abd/pelvis W Iv Cont Urgent
Reason For Exam: suprapubic mass/pain
10/11/24 02:55
Acetaminophen [Tylenol] 650 mg PO Q4HPRN PRN
Bisacodyl [Dulcolax] 10 mg RECTAL [id number] PRN
Docusate W/Senna [Senokot-S] 1 tablet PO BIDPRN PRN
Polyethylene Glycol Powder [Miralax] 17 grams PO DAILYPRN PRN
10/11/24 02:55
EKG [Electrocardiogram (*1)] Routine
Reason for Study: Atrial Fibrillation
Activity As Directed
Activity Level: As Tolerated
Intake/ Output As Directed
Frequency: Per unit guidelines
Vital Signs As Directed
Frequency: Per unit guidelines
Weight As Directed
Frequency: Daily
10/11/24 Breakfast
Cholesterol Lowering
At Your Request: Limited Participation
Cholesterol Lowering: Sodium, 2 Gram
Basic Metabolic Panel IN AM
Complete Blood Count/No Diff IN AM
Occupational Therapy Consult [Ot Eval And Treat] IN AM
Physical Therapy Consult [Pt Eval And Treat] IN AM
Activity Level: As Tolerated
10/11/24 08:00
Apixaban [Eliquis] 2.5 mg PO BID
Carvedilol [Coreg] 3.125 mg PO BID
Furosemide [Lasix] 40 mg PO DAILY
Pantoprazole [Protonix] 40 mg PO DAILY
10/11/24 22:00
CefTRIAXone [Rocephin] 1,000 mg IV Q24H
10/12/24 06:00
Basic Metabolic Panel IN AM
Complete Blood Count/No Diff IN AM
10/12/24 07:00
Levothyroxine [Synthroid] 112 mcg PO MOTUWETHFRSA@0700
10/13/24 06:00
Basic Metabolic Panel IN AM
Complete Blood Count/No Diff IN AM
10/13/24 11:00
DC Protocol for Telemetry ONCE
10/14/24 06:00
Basic Metabolic Panel IN AM
Complete Blood Count/No Diff IN AM
Abnormal Lab Results
10/10/24
20:17
RBC 2.79 L 10^6/uL
(4.20-5.40)
Hgb 9.5 L g/dL
(12.0-16.0)
Hct 27.7 L %
(37.0-47.0)
MCV 99.3 H fL
(81.0-99.0)
MCH 34.1 H pg
(27.0-31.0)
RDW 14.9 H %
(11.5-14.5)
MPV 10.5 H fL
(7.4-10.4)
Absolute Lymphs (auto) 0.9 L 10^3/uL
(1.2-3.4)
Immature Gran % 0.6 H %
(0-0.5)
Neutrophils % 80.3 H %
(42.2-75.2)
Lymphocytes % 13.1 L %
(20.5-51.1)
Sodium 128 L mmol/L
(135-145)
Chloride 93 L mmol/L
(98-107)
BUN 31 H mg/dl
(7-17)
Glucose 105 H mg/dl
(70-99)
AST 46 H U/L
(14-36)
Ur Occult Blood Reflex 3+ A
(Negative)
Urine Nitrite (Reflex) Positive A
(Negative)
Leukocyte Esterase Rfl 3+ A
(Negative)
Urine WBC (Reflex) >100 A /HPF
(0-5)
Urine Albumin (Reflex) 2+ A
(Neg - Trace)
10/10/24 20:17
10/10/24 20:17
Vital Signs
Initial and Last Documented VS:
Initial Vital Signs
Temp Pulse Resp BP Pulse Ox
97.5 F 87 18 160/85 100
10/10/24 20:10 10/10/24 20:10 10/10/24 20:10 10/10/24 20:10 10/10/24 20:10
Last Documented Vital Signs
Temp Pulse Resp BP Pulse Ox
97.5 F 72 14 158/79 98
10/10/24 22:31 10/11/24 02:19 10/11/24 02:19 10/11/24 01:17 10/11/24 01:45
<NOE Caballero - Last Filed: 10/11/24 03:18>
MDM/Problems Addressed
Differential Diagnosis Includes:
Not limited to UTI dehydration hyponatremia
MDM/Problems Addressed:
89-year-old female presents with cloudy urine and dysuria. She has felt mildly weak. She denies any fever or chills. On exam she is afebrile there is a palpable suprapubic mass no prior history of mass. Patient with obvious UTI and sodium is
mildly low 128 with weakness and UTI would recommend admission and will CAT scan to further evaluate palpable mass. Case reviewed with ED physician IV rocephin ordered.
Patient is followed by nephrology Dr. Harley. She is on fluid restriction and Lasix.
Chronic conditions affecting care:
Hyponatremia sodium currently 128 she is on fluid restriction and Lasix. on eliquis for afib
<NOE Caballero - Last Filed: 10/11/24 03:18>
*Radiology
Radiology exam reviewed: radiology read reviewed
*Pulse Oximetry
SaO2: 100
Oxygen Mode of Delivery: Room air
Patient hypoxic: no
*Critical Care Note
Total Time (30-74mins, 75-104mins- exclusive of procedures): Not Applicable
ED Attending Note
<NOE Caballero - Last Filed: 10/11/24 03:18>
-
Portions of this chart may have been created with voice recognition software.� Occasional wrong word or��sound alike� substitutions may have occurred due to the inherent limitations of voice recognition software.
<Zaki Davison DO - Last Filed: 10/10/24 23:09>
ED Attending Note
Patient seen and examined by attending physician: Yes
I performed the substantive portion of visit, reviewed & personally made and approve the management plan that is documented in note by myself or DOMINICK.: Yes
ED Attending Note:
I have seen and evaluated the patient with a [id number] encounter. I have spoken to the advance practicer provider and involved in the medical history, the physical exam, medical decision making.
Evaluation and management service: agree unless noted differently below.
Results interpretation: agree unless noted differently below.
Focused HPI: 89-year-old female presenting with concerns for UTI. Patient is a history of UTIs and complaining of increased dysuria and foul-smelling urine
Physical exam: Sitting in bed comfortably. Palpable mass to suprapubic region
Medical Decision Making: Will treat urinalysis with antibiotics and likely admit given her age and complaint. Patient appears very weak and out of it. Given the mass on exam, will obtain CT abdomen/pelvis
Discharge Plan
Departure
Patient Disposition: Admit
Date of Disposition: 10/10/24
Time of Disposition: 23:13
Admit to: Med/Surg
Admit to doctor: hospitalist
Presentation/result/management discussed w/ accepting MD/DO: Hospitalist
Patient with high blood pressure during this ER visit?: Yes
Covid-19: Not Applicable
Discharge Problem:
Acute UTI, Acute hyponatremia, Weakness
Interventions
Interventions:
*Risk Screen - Suicide Last Done: 10/11/24 02:56
*General Assessment Last Done: 10/10/24 20:12
*Neglect/Abuse Screening Last Done: 10/10/24 20:12
*ED- Fall Risk Assessment Last Done: 10/10/24 20:12
*ED COVID-19 Vaccine History Last Done: 10/11/24 02:56
*Nursing Disposition Last Done: 10/11/24 02:21
ED-Female Genitourinary Assessment Last Done: 10/10/24 20:09
Discharge Date and Time
Discharge Date/Time: 10/11/24 02:21
[2024-10-10 21:33] LABS: Urine Character Cloudy (Clear)
[2024-10-10 21:42] LABS: Urine White Cell >100 /HPF (0-5)
[2024-10-10 22:31] VITALS: BP 173/79
[2024-10-10] MEDS: ELIQUIS 2.5 MG PO (22:32)
[2024-10-10] MEDS: COREG 3.125 MG PO (22:33)
--- NOTE | 2024-10-10 23:15 | HPS.HSE ---
Addendum entered and electronically signed by Rey Olvera DO 10/10/24 23:58:
Patient seen and examined independently. Agree with findings and plan as set forth by NOE Boateng.
Patient is an 89y F with PMH significant for A-Fib, anemia and hyponatremia who presents to ED complaining of urinary symptoms for the past 4-5 days. She has felt increasingly weak and occasionally lightheaded. No fevers / chills. No abdominal
pain. No N/V/D.
Ass:
UTI
Acute / Chronic Hyponatremia
Chronic Anemia
Permanent Atrial Fibrillation
Benign Hypertension
Hypothyroidism
Chronic HFpEF
Plan:
Admit for further evaluation and treatment.
Continue IV ceftriaxone pending culture data.
Supportive care.
Fluid restriction for chronic hyponatremia.
Continue usual Lasix dosing.
Nephrology consulted.
Continue usual outpatient medications.
Original Note:
Family Physician
-
Family Physician: Sho Merchant
Chief Complaint
-
urinary frequency, urgency, burning
generalized weakness
History of Present Illness
89-year-old female with past medical history of CHF A-fi on Eliquis chronic anemia chronic hyponatremia hypothyroidism vertigo breast cancer presents to the ER for evaluation of urinary frequency, urgency, burning with urinary since Saturday. patient
stated the urine was cloudy and smelled fishy. patient stated very weak since Saturday. she felt lightheaded and off balance. she complained of chills. denied fever, POLANCO. denied chest pain, sob. denied abdominal pain,n,v,d.
positive UA. received iv ceftriaxone. admitting for further management.
Medical History
Past Medical History
Past Medical History: Reports Other
Additional Past Medical History:
hypothyroidism
HTN
CHF
iron def anemia
GERD
breast ca
colon polyps
macular degeneration
atrial fib
cardiomyopathy
left shoulder effusion
osteoarthritis
sick sinus syndrome
hyponatremia
osteoporosis
pulmonary hypertension
peripheral neuropathy
vertigo
Past Surgical History: Reports Other
Additional Past Surgical History:
mitral valve repair
pacemaker
TAVR
left breast lumpectomy
Gum surgery
cataract extraction
Social History
Tobacco: Former Smoker
Alcohol: None
Drug: None
Personal: Single
Living: Alone
Family History
Family History: Not pertinent
Allergies / Home Medications
Allergies reflects when Allergies were last updated in [employer].
Home Medications with original date entered in [employer]
Allergy/Medication List:
Allergies
Allergy/AdvReac Type Severity Reaction Status Date / Time
adhesive Allergy itching - Verified 10/10/24 20:12
redness
amiodarone Allergy elevated Verified 10/10/24 20:12
LFTs
bupivacaine (From Allergy Shortness Verified 10/10/24 20:12
Sensorcaine-Epinephrine) of Breath
cat dander Allergy SNEEZING/WH Verified 10/10/24 20:12
EEZING
codeine Allergy light Verified 10/10/24 20:12
headed and
dizzy
epinephrine (From Allergy Shortness Verified 10/10/24 20:12
Sensorcaine-Epinephrine) of Breath
prilocaine Allergy LIGHTHEADED, Verified 10/10/24 20:12
DIZZY
Sulfa (Sulfonamide Allergy Nausea Verified 10/10/24 20:12
Antibiotics)
sulfamethoxazole Allergy nausea-DID Verified 10/10/24 20:12
NOT
TOLERATE
WELL
lidocaine AdvReac Unknown Verified 10/10/24 20:12
Home Medications
ezetimibe 10 mg tablet 10 mg PO QPM High cholesterol ##0 11/29/20
levothyroxine 112 mcg tablet 112 mcg PO MOTUWETHFRSA@0700 Thyroid 12/28/20
calcium 315 mg (as citrate)-vitamin D3 6.25 mcg (250 unit) tablet (Citracal + Vitamin D Maximum) 1 tab PO DAILY Supplement 03/27/21
carvedilol 3.125 mg tablet 3.125 mg PO BID Blood Pressure 03/27/21
acetaminophen 650 mg tablet,extended release 650 mg PO DAILYPRN PRN mild pain 03/14/23
apixaban 2.5 mg tablet (Eliquis) 2.5 mg PO BID Blood Clot Prevention/Tx 03/14/23
docusate calcium 240 mg capsule (Stool Softener (docusate calcium)) 240 mg PO DAILYPRN PRN constipation 03/14/23
iron succinyl-protein complex 40 mg/15 mL oral liquid (Ferretts IPS) 15 ml PO Q48H Supplement 03/14/23
sennosides 8.6 mg tablet (senna) 8.6 mg PO DAILYPRN PRN constipation, docusate ineffective 03/14/23
folic acid 1 mg tablet 1 mg PO QPM Supplement 11/13/23
polyvinyl alcohol-povidone (PF) 1.4 %-0.6 % eye drops in a dropperette (Refresh Classic (PF)) 1 drp BOTH EYES DAILYPRN PRN dry eyes 11/13/23
vitamin B complex 1 tab PO NOON Supplement 11/13/23
furosemide 20 mg tablet 60 mg (3 x 20 mg) PO DAILY #90 tabs 11/18/23
pantoprazole 40 mg tablet,delayed release 40 mg PO DAILY #30 tabs 11/18/23
Review of Systems
-
Constitutional: Reports No Symptoms
EENT: Reports No Symptoms
Respiratory: Reports No Symptoms
Cardiac: Reports No Symptoms
Abdomen/GI: Reports No Symptoms
: Reports Dysuria, Frequency and Urgency
Musculoskeletal: Reports No Symptoms
Skin: Reports No Symptoms
Neurological: Reports Weakness
Endocrine: Reports No Symptoms
Hematologic/Lymphatic: Reports No Symptoms
Psych: Reports No Symptoms
Physical Exam
Vital Signs
Vital Signs
Temp Pulse Resp BP Pulse Ox
97.5 F 74 18 173/79 98
10/10/24 22:31 10/10/24 22:31 10/10/24 22:31 10/10/24 22:31 10/10/24 22:31
Physical Exam
General: Well Developed, Well Nourished and No Apparent Distress
HEENT: NormoCephalic, Moist mucous membranes and Atraumatic
Respiratory: Clear
Cardiac: S1/S2 and Regular Rhythm; No Murmur or Rub
GI: Soft, Non Tender, Non Distended and Normal Bowel Sounds; No Organomegaly
Rectal: Deferred by Provider
Musculoskeletal: No Clubbing, No Cyanosis and No Edema
Skin: No Rash
Neuro: AO x 3 and Nonfocal/grossly intact
Psych: Calm
Laboratory Results
-
10/10/24 20:17
10/10/24 20:17
Laboratory Results
Total Bilirubin 0.6 mg/dl (0.2-1.3) 10/10/24 20:17
AST 46 U/L (14-36) H 10/10/24 20:17
ALT 28 U/L (0-35) 10/10/24 20:17
Alkaline Phosphatase 62 U/L (38-126) 10/10/24 20:17
Data Reviewed
-
Lab Data: Labs Reviewed by me
Impression/Plan
-
#UTI
#hxt of E coli UTI
-iv ceftriaxone continued
-urine culture pending
-Tylenol prn for fever and pain
#generalized weakness likely secondary to UTI
-PT/OT consulted
#chronic hyponatremia
-nephrology consulted
#?suprapubic mass
-CT abdomen pending
#anemia of chronic disease
-hgb stable at 9.5, no active bleeding
-ctm
# Permanent Atrial Fibrillation, hx of Sick sinus syndrome s/p Permanent Pacemaker
-Continue Eliquis for anticoagulation
-obtain EKG
-coreg continued with hold parameter
#Essential Hypertension
-Continue Coreg
#Hypothyroidism
-Continue levothyroxine
#CHF
-not in acute exacerbation
-recent ECHO with EF of 55-60%
-furosemide continued
-strict I &O,daily weight
#GERD
-PPI continued
# History of mitral valve repair/trace cuspid valve repair open heart surgery in 2014 followed by a transcatheter aortic valve done in October 2020 at [facility], complicated by a moderate to severe paravalvular leak and mechanical
hemolysis, followed by a redo transcatheter valve in valve procedure done in December 2020
DVT proph: Eliquis
Code Status: DNR
[2024-10-10] MEDS: ROCEPHIN 1000 MG IV (23:32)
[2024-10-11] VITALS (10 sets, daily range): BP systolic 117–199; BP diastolic 62–92; PULSE 70; O2SAT 98; BMI 17.9; BMI 17.8; BMI 18.0
--- NOTE | 2024-10-11 09:12 | W.PN.HOSP.TC ---
Addendum entered and electronically signed by Isael Amin MD 10/11/24 14:25:
#Hx of TAVR
#Hepatic cysts
No follow up madvised
#Adrenal hyperplasia
Outpatient hormonal w/u reasonable with cortisol, metanephrines, catecholamines, renin/aldosterone ratio
#Gastric mucosa thickening, Possible gastritis
PPI BID
GI for EGD as outpatient
#Constipation
laxatives
Original Note:
Today's Communication/Plan
-
see PN
Assessment / Plan
Assessment / Plan
89yo F with PMHx of UTI, Afib on ELiquis s/p PPM, hypothyroidism, chronic hyponatremia, vertigo, Hx of breast CA came with 5 days weakness, cloudy and foul smelling urine and progressive malaise. Found UTI
A/P:
#UTI
Ucx pending
CT abd without nephrolithiasis or hydronephrosis
cont rocephin
#Concern for suprapubic mass
not apprciated on exam
CT abd/pelvis without comment for overt mass
#Hyponatremia
acute on chronic
follow BMP
Check UOsm, [place]
check UOsm
#elevated AST
minimally and chronichally
follow LFT
Hepatitis panel neg as of 2023
#Anemia
anemia w/u
check FOBT stool
#EssentiaL HTN
#GERD
#Hypothyroidism
#Afib, unspecified
cont home meds
DVT ppx Eliquis
Full code
I have spent at least 51min reviewing chart, test results, providing direct patient care
Anticipated Discharge: > 48 hours
Subjective/Interval History
-
Date of Service: October 11, 2024
Objective Data
-
Labs:
Laboratory Results
10/11/24
06:00
WBC Pending
Hgb Pending
Hct Pending
Plt Count Pending
Sodium Pending
Potassium Pending
Chloride Pending
Carbon Dioxide Pending
BUN Pending
Creatinine Pending
Glucose Pending
Calcium Pending
Vital Signs:
Vital Signs
Temp Pulse Resp BP Pulse Ox
97.7 F 71 12 146/78 98
10/11/24 07:10 10/11/24 07:10 10/11/24 07:10 10/11/24 07:10 10/11/24 07:10
Physical Exam
-
General: No Apparent Distress
HEENT: Normocephalic
Respiratory: Clear to Auscultation
Cardiac: Regular Rhythm
GI: Soft, Nontender, Nondistended and No Hernias
Musculoskeletal: No Clubbing, No Cyanosis and No Edema
Skin: Warm
Neuro: Awake, Alert, Oriented and AO x 3
Psych: Calm
[2024-10-11 10:02] LABS: Hematocrit 26.6 % (37.0-47.0); Hemoglobin 9.0 g/dL (12.0-16.0); Mean Corp Hgb Conc. 33.8 g/dL (33.0-37.0); Mean Corpuscular Volume 100.8 fL (81.0-99.0); Platelet Count 150 10^3/uL (130-400); Red Cell Dist. Width 14.9 % (11.5-14.5)
[2024-10-11 10:22] LABS: Blood Urea Nitrogen 23 mg/dl (7-17); Calcium 8.6 mg/dl (8.4-10.2); Carbon Dioxide 28 mmol/L (22-30); Chloride 94 mmol/L (98-107); Estimated Creatinine Clearance 39 ml/min; Glucose 149 mg/dl (70-99); Potassium 3.7 mmol/L (3.5-5.1); Sodium 128 mmol/L (135-145); eGFR > 60.00
[2024-10-11] MEDS: ELIQUIS 2.5 MG PO ×2 (10:42→21:43)
[2024-10-11] MEDS: PROTONIX 40 MG PO (10:42)
[2024-10-11] MEDS: LASIX 40 MG PO (10:42)
[2024-10-11] MEDS: COREG 3.125 MG PO ×2 (10:42→21:42)
--- NOTE | 2024-10-11 14:13 | PTCARENOTE ---
Assumed care of pt from previous nurse. Pt reports pain as tolerable, pain when urinates but subsides. Pt call yu is within reach, pt rings willard. will cont to monitor.
[2024-10-11] MEDS: TYLENOL 650 MG PO ×2 (15:31→22:18)
[2024-10-11] MEDS: MIRALAX PO ×2 (15:31→15:37)
[2024-10-11] MEDS: SENOKOT-S 1 TABLET PO ×2 (15:38→22:12)
--- NOTE | 2024-10-11 15:56 | CM ---
auto repair shop manager reviewed patient's chart and met with patient and patient lives on the 8th floor at [facility], patient is independent with adl's and uses a walker ambulation, patient to return to her apartment when stable. no
needs.
PCP: Dr. Merchant
Pharmacy: [facility]
[2024-10-11] MEDS: STERILE WATER FOR INJECTION 10 ML IV (21:43)
[2024-10-11] MEDS: PROTONIX IV 40 MG IV (21:43)
[2024-10-11] MEDS: NSS (PRESERVATIVE FREE) 10 ML IV (21:44)
[2024-10-11] MEDS: ROCEPHIN 1000 MG IV (22:52)
[2024-10-12 03:24] VITALS: BP 116/66
[2024-10-12 06:00] VITALS: BMI 17.8
[2024-10-12] MEDS: SYNTHROID 112 MCG PO (06:32)
[2024-10-12 07:36] LABS: Hematocrit 25.2 % (37.0-47.0); Hemoglobin 8.8 g/dL (12.0-16.0); Mean Corp Hgb Conc. 34.9 g/dL (33.0-37.0); Mean Corpuscular Volume 99.2 fL (81.0-99.0); Platelet Count 139 10^3/uL (130-400); Red Cell Dist. Width 15.0 % (11.5-14.5); Reticulocyte Count 2.8 % (0.4-2.8)
[2024-10-12] MEDS: PROTONIX IV 40 MG IV ×2 (08:15→20:42)
[2024-10-12] MEDS: MIRALAX 17 GRAMS PO ×2 (08:15→20:41)
[2024-10-12] MEDS: NSS (PRESERVATIVE FREE) 10 ML IV ×2 (08:18→20:41)
[2024-10-12] MEDS: LASIX 40 MG PO (08:18)
[2024-10-12] MEDS: ELIQUIS 2.5 MG PO ×2 (08:18→20:42)
[2024-10-12 08:20] LABS: ALT (SGPT) 24 U/L (0-35); AST (SGOT) 33 U/L (14-36); Albumin 3.7 g/dl (3.5-5.0); Alkaline Phosphatase 61 U/L (38-126); Blood Urea Nitrogen 31 mg/dl (7-17); Calcium 8.6 mg/dl (8.4-10.2); Carbon Dioxide 28 mmol/L (22-30); Chloride 96 mmol/L (98-107); Estimated Creatinine Clearance 27 ml/min; Glucose 78 mg/dl (70-99); Iron 42 ug/dl (37-170); LDH 342 U/L (120-246); Potassium 4.0 mmol/L (3.5-5.1); Sodium 129 mmol/L (135-145); Total Protein 6.3 g/dl (6.3-8.2); eGFR 54.19
[2024-10-12 08:30] LABS: Total Iron Binding Capacity 289 ug/dl (265-497)
[2024-10-12] MEDS: COREG 3.125 MG PO ×2 (08:36→20:45)
[2024-10-12 08:42] VITALS: BP 143/71
[2024-10-12 08:50] VITALS: BMI 17.8
[2024-10-12 08:53] LABS: Ferritin 134.0 ng/ml (11.1-264.0)
[2024-10-12] MEDS: SENOKOT PO (08:57)
[2024-10-12 09:25] LABS: Folate > 20.0 ng/ml (2.76-20); Vitamin B12 997 pg/ml (239-931)
[2024-10-12 11:30] VITALS: BP 162/79
[2024-10-12] MEDS: DULCOLAX 10 MG RECTAL (14:16)
--- NOTE | 2024-10-12 15:11 | W.PN.HOSP.TC ---
Today's Communication/Plan
-
await urine culture; continue IV abx
DC planning
Assessment / Plan
Assessment / Plan
Assessment:
E. Coli UTI
- CT: Mild diffuse urinary bladder wall thickening or mucosal hyperenhancement consistent with ACUTE CYSTITIS.
- continue Rocephin, day 3 pending final culture reports
Concern for suprapubic mass
- not appreciated on exam
- CT abd/pelvis without comment for overt mass
acute on chronic hyponatremia
- follow BMP
- continue Lasix
elevated AST
- minimally and chronically
- follow LFT
- Hepatitis panel neg as of 2023
Anemia
- anemia indices normal
- check FOBT stool
A. fib, unspecified
Essential HTN
- continue Coreg/Eliquis
GERD - continue PPI
Hypothyroidism on replacement
DVT ppx: Eliquis
Code: Full
Anticipated Discharge: Within 24 hours
Subjective/Interval History
-
Date of Service: October 12, 2024
resting comfortably, no new complaints at present
Objective Data
-
Labs:
Laboratory Results
10/12/24
06:39
WBC 5.8
Hgb 8.8 L
Hct 25.2 L
Plt Count 139
Sodium 129 L
Potassium 4.0
Chloride 96 L
Carbon Dioxide 28
BUN 31 H
Creatinine 1.0
Glucose 78
Calcium 8.6
Total Bilirubin 0.4
AST 33
ALT 24
Alkaline Phosphatase 61
Vital Signs:
Vital Signs
Temp Pulse Resp BP Pulse Ox
97.8 F 70 16 162/79 100
10/12/24 11:30 10/12/24 11:30 10/12/24 11:30 10/12/24 11:30 10/12/24 11:30
I&O
10/11/24 10/12/24 10/13/24
06:59 06:59 06:59
Intake Total 560 / 560
Output Total
Balance 557 / 557
Physical Exam
-
General: No Apparent Distress
HEENT: Normocephalic and Atraumatic
Respiratory: Negative Wheezes
Cardiac: Regular Rhythm and S1/S2
GI: Soft and Nontender
Musculoskeletal: No Edema
Neuro: AO x 3
Psych: Calm
Data Reviewed
-
Total Time Spent with Patient (in minutes): 42
Labs: Labs Reviewed by me
[2024-10-12] MEDS: SENOKOT-S 1 TABLET PO ×2 (16:46→20:42)
[2024-10-12 19:00] VITALS: BP 150/71
[2024-10-12] MEDS: SENOKOT 8.6 MG PO (20:42)
[2024-10-12] MEDS: STERILE WATER FOR INJECTION 10 ML IV (21:00)
[2024-10-12] MEDS: ROCEPHIN 1000 MG IV (21:00)
[2024-10-12 23:00] VITALS: BP 159/92
[2024-10-13 03:00] VITALS: BP 142/77
[2024-10-13 03:52] VITALS: BMI 18.0
[2024-10-13] MEDS: SYNTHROID 112 MCG PO (05:48)
[2024-10-13 07:00] VITALS: BP 163/86
[2024-10-13] MEDS: ELIQUIS 2.5 MG PO ×2 (07:42→20:37)
[2024-10-13] MEDS: LASIX 40 MG PO (07:43)
[2024-10-13] MEDS: COREG 3.125 MG PO ×2 (07:43→20:39)
[2024-10-13] MEDS: SENOKOT 8.6 MG PO (07:43)
[2024-10-13] MEDS: PROTONIX IV 40 MG IV ×2 (07:44→20:38)
[2024-10-13] MEDS: NSS (PRESERVATIVE FREE) 10 ML IV ×2 (07:44→20:38)
[2024-10-13] MEDS: MIRALAX 17 GRAMS PO (07:44)
[2024-10-13] MEDS: FLUSH (NSS) 2 FLUSH IV (07:46)
[2024-10-13 08:29] LABS: Hematocrit 27.4 % (37.0-47.0); Hemoglobin 9.4 g/dL (12.0-16.0); Mean Corp Hgb Conc. 34.3 g/dL (33.0-37.0); Mean Corpuscular Volume 99.6 fL (81.0-99.0); Platelet Count 158 10^3/uL (130-400); Red Cell Dist. Width 15.2 % (11.5-14.5)
[2024-10-13 09:00] VITALS: BP 142/68
[2024-10-13 09:07] LABS: Blood Urea Nitrogen 31 mg/dl (7-17); Calcium 9.0 mg/dl (8.4-10.2); Carbon Dioxide 29 mmol/L (22-30); Chloride 97 mmol/L (98-107); Estimated Creatinine Clearance 39 ml/min; Glucose 83 mg/dl (70-99); Potassium 4.1 mmol/L (3.5-5.1); Sodium 131 mmol/L (135-145); eGFR > 60.00
--- NOTE | 2024-10-13 10:36 | W.PN.HOSP.TC ---
Today's Communication/Plan
-
Cefepime pending final urine culture with lab testing for possible ESBL
Assessment / Plan
Assessment / Plan
Assessment:
E. Coli UTI
- CT: Mild diffuse urinary bladder wall thickening or mucosal hyperenhancement consistent with ACUTE CYSTITIS.
- switch to Cefepime, day 1 (previously 3 days Rocephin) as lab suggests possible ESBL - pending final culture
Concern for suprapubic mass
- not appreciated on exam
- CT abd/pelvis without comment for overt mass
acute on chronic hyponatremia
- follow BMP
- continue Lasix
elevated AST
- minimally and chronically
- follow LFT
- Hepatitis panel neg as of 2023
Anemia
- anemia indices normal
- check FOBT stool
A. fib, unspecified
Essential HTN
- continue Coreg/Eliquis
GERD - continue PPI
Hypothyroidism on replacement
DVT ppx: Eliquis
Code: Full
Anticipated Discharge: Within 24 hours
Subjective/Interval History
-
Date of Service: October 13, 2024
resting comfortably, no complaints at present
Objective Data
-
Labs:
Laboratory Results
10/13/24
07:51
WBC 5.5
Hgb 9.4 L
Hct 27.4 L
Plt Count 158
Sodium 131 L
Potassium 4.1
Chloride 97 L
Carbon Dioxide 29
BUN 31 H
Creatinine 0.7
Glucose 83
Calcium 9.0
Vital Signs:
Vital Signs
Temp Pulse Resp BP Pulse Ox
97.5 F 71 18 142/68 99
10/13/24 07:00 10/13/24 09:00 10/13/24 07:00 10/13/24 09:00 10/13/24 07:00
I&O
10/12/24 10/13/24 10/14/24
06:59 06:59 06:59
Intake Total 560 / 560 1320 / 1320
Output Total 250 / 250
Balance 557 / 557 1070 / 1070
Physical Exam
-
General: No Apparent Distress
HEENT: Normocephalic and Atraumatic
Respiratory: Negative Wheezes
Cardiac: Regular Rhythm and S1/S2
GI: Soft
Musculoskeletal: No Edema
Neuro: AO x 3
Psych: Calm
Data Reviewed
-
Total Time Spent with Patient (in minutes): 42
Labs: Labs Reviewed by me
[2024-10-13 11:00] VITALS: BP 150/86
[2024-10-13] MEDS: STERILE WATER FOR INJECTION 10 ML IV ×2 (11:21→20:52)
[2024-10-13] MEDS: MAXIPIME 1000 MG IV ×2 (11:26→20:53)
[2024-10-13] MEDS: FLUSH (NSS) 1 FLUSH IV (11:26)
--- NOTE | 2024-10-13 14:39 | PN.CDI ---
CDI
- -
CDI:
Physician Documentation Request
Admit Date: 10/10/24 23:38
Dear Doctor Paty ,
Please review the following and provide your response in the progress notes.
Clinical Indicators:
Height: 5 ft 2 in
Weight:98 lb 1 oz
BMI:17.9
Other Clinical Notes: ' documented per nutrition note 10/12, ' Current BW: (10/12) 97 lbs 7 oz BMI: 17.8 (underweight). Weight history (01/04/24) 92 lbs...'
If possible, please provide an associated diagnosis related to the abnormal BMI, such as:
BMI < or = to 19
Underweight
Cachectic
- Other
Use of terms such as suspected, likely, concern for, or probable (associated with a specific diagnosis that is being evaluated, monitored, or treated as if it exists) are acceptable and can be coded in the inpatient setting, when documented at the
time of discharge.
Thank you,
Rajani Espino RN
CDI Specialist
[facility]
Please use your independent medical judgment in providing your response.
[2024-10-13 15:00] VITALS: BP 155/84
[2024-10-13] MEDS: SENOKOT 17.2 MG PO (20:38)
[2024-10-13 23:00] VITALS: BP 151/83
[2024-10-14 03:03] VITALS: BMI 17.6
[2024-10-14] MEDS: SYNTHROID 112 MCG PO (06:26)
[2024-10-14 07:00] VITALS: BP 153/86
[2024-10-14] MEDS: MIRALAX 17 GRAMS PO (07:17)
[2024-10-14] MEDS: COREG 3.125 MG PO (07:17)
[2024-10-14] MEDS: LASIX 40 MG PO (07:17)
[2024-10-14] MEDS: ELIQUIS 2.5 MG PO (07:17)
[2024-10-14] MEDS: PROTONIX IV 40 MG IV (07:18)
[2024-10-14] MEDS: SENOKOT 17.2 MG PO (07:18)
[2024-10-14] MEDS: NSS (PRESERVATIVE FREE) 10 ML IV (07:18)
[2024-10-14 08:35] LABS: Hematocrit 28.0 % (37.0-47.0); Hemoglobin 9.3 g/dL (12.0-16.0); Mean Corp Hgb Conc. 33.2 g/dL (33.0-37.0); Mean Corpuscular Volume 101.1 fL (81.0-99.0); Platelet Count 155 10^3/uL (130-400); Red Cell Dist. Width 15.3 % (11.5-14.5)
[2024-10-14 09:05] LABS: Blood Urea Nitrogen 29 mg/dl (7-17); Calcium 8.8 mg/dl (8.4-10.2); Carbon Dioxide 30 mmol/L (22-30); Chloride 99 mmol/L (98-107); Estimated Creatinine Clearance 38 ml/min; Glucose 90 mg/dl (70-99); Potassium 4.3 mmol/L (3.5-5.1); Sodium 132 mmol/L (135-145); eGFR > 60.00
[2024-10-14] MEDS: INVANZ 60 MG IV (10:25)
--- NOTE | 2024-10-14 12:14 | CM ---
Patient to return to her apartment at [facility] when stable.
Plan; Return to apartment at [facility] when stable.
--- NOTE | 2024-10-14 13:05 | W.PN.HOSP.TC ---
Today's Communication/Plan
-
dc to home today
Assessment / Plan
Assessment / Plan
Assessment:
E. Coli ESBL UTI
- CT: Mild diffuse urinary bladder wall thickening or mucosal hyperenhancement consistent with ACUTE CYSTITIS.
- s/p Invanz x 1 dose today, then discharge on Macrobid x 6 days - renally dosed
Concern for suprapubic mass
- not appreciated on exam
- CT abd/pelvis without comment for overt mass
acute on chronic hyponatremia
- follow BMP
- continue Lasix
elevated AST
- minimally and chronically
- follow LFT
- Hepatitis panel neg as of 2023
Anemia
- stable Hb
A. fib, unspecified
Essential HTN
- continue Coreg/Eliquis
GERD - continue PPI
Hypothyroidism on replacement
underweight status
DVT ppx: Eliquis
Code: Full
More than 30 minutes spent in discharge including
Final examination of the patient
Summarizing hospital stay
Instructions for continuing care to all relevant caregivers
Preparation of discharge records, prescriptions, and referral forms
Total time spent (in minutes): 41
Anticipated Discharge: Within 24 hours
Subjective/Interval History
-
Date of Service: October 14, 2024
resting comfortably, no complaints at present
Objective Data
-
Labs:
Laboratory Results
10/14/24
07:59
WBC 4.9
Hgb 9.3 L
Hct 28.0 L
Plt Count 155
Sodium 132 L
Potassium 4.3
Chloride 99
Carbon Dioxide 30
BUN 29 H
Creatinine 0.7
Glucose 90
Calcium 8.8
Vital Signs:
Vital Signs
Temp Pulse Resp BP Pulse Ox
97.4 F 67 18 153/86 100
10/14/24 07:00 10/14/24 07:00 10/14/24 07:00 10/14/24 07:00 10/14/24 07:00
I&O
10/13/24 10/14/24 10/15/24
06:59 06:59 06:59
Intake Total 1320 / 1320 1500 / 1500
Output Total 250 / 250
Balance 1070 / 1070 1500 / 1500
Physical Exam
-
General: No Apparent Distress
HEENT: Normocephalic and Atraumatic
Respiratory: Negative Wheezes
Cardiac: Regular Rhythm and S1/S2
GI: Soft
Genito-urinary: No Costovertebral Tender
Neuro: AO x 3
Hematologic / Lymphatic: No Lymphadenopathy
Psych: Calm
Data Reviewed
-
Total Time Spent with Patient (in minutes): 42
Labs: Labs Reviewed by me
--- NOTE | 2024-10-14 13:14 | W.DCSUMMARY ---
Discharge Summary
Discharge Data
Date of Admission: 10/10/24
Date of Discharge: 10/14/24
-
Pending Results: No
Hospital Course
89 y/o F, presented on 10/10 with urinary frequency, urgency and burning for 4-5 days prior to admission. in the ER, CT confirmed cystitis without any evidence of a higher infection such as pyelonephritis. Her urine culture grew ESBL and she was
given Invanz then switched to Macrobid at the time of discharge to complete a 7 day course.
Discharge Plan
-
Patient Disposition: Home (Routine Discharge)
Discharge Diagnosis/Procedures: ESBL UTI
Condition: Fair
Diet: Regular
Activity: As tolerated
Bathing Restrictions: None
Referrals:
Sho Merchant MD [Family Provider, Family Practice] - in one week
Prescriptions:
New
sennosides [Alena-araceli] 8.6 mg Tablet
17.2 mg PO BID Qty: 60 0RF
polyethylene glycol 3350 17 gram Powder In Packet
17 g PO DAILY Qty: 30 0RF
nitrofurantoin monohyd/m-cryst [Macrobid] 100 mg capsule
100 mg PO Q12H 6 Days Qty: 12 0RF
Continued
levothyroxine 112 MCG tablet
112 mcg PO MOTUWETHFRSA@0700
calcium citrate-vitamin D3 [Citracal + D Maximum] 1 EACH tablet
1 tab PO DAILY
carvedilol 3.125 MG tablet
3.125 mg PO BID
Eliquis 2.5 mg Tablet
2.5 mg PO BID
vitamin B complex Tablet
1 tab PO NOON
folic acid 1 mg Tablet
1 mg PO QPM
pantoprazole 40 mg Tablet,Delayed Release (Dr/Ec)
40 mg PO DAILY Qty: 30 0RF
furosemide 20 mg tablet
40 mg PO DAILY
Discharge Orders:
Discharge Patient (As Directed); Ordered 10/14/24
Ordered By: Holley Newman
Discharge Date and Time
Print Language: KOREAN
[2024-10-14 16:02] VITALS: BP 148/89
== END 2024-10-14 17:23 | disposition home or self-care (01) | DRG 690 ==
LOC: 4 WEST ACU 23:38
PROVIDERS: Internal Medicine; Registered Nurse; ADMITTING PHYSICIAN Hospitalist; ATTENDING PHYSICIAN Internal Medicine; EMERGENCY PHYSICIAN Student in an Organized Health Care Education/Training Program; FAMILY PHYSICIAN Family Medicine
DX: N30.00 Acute cystitis without hematuria (principal); E87.1 Hypo-osmolality and hyponatremia; I48.21 Permanent atrial fibrillation; I42.9 Cardiomyopathy, unspecified; Z16.12 Extended spectrum beta lactamase (ESBL) resistance; Z68.1 Body mass index [BMI] 19.9 or less, adult; I50.32 Chronic diastolic (congestive) heart failure; D50.9 Iron deficiency anemia, unspecified; I11.0 Hypertensive heart disease with heart failure; E03.9 Hypothyroidism, unspecified; K21.9 Gastro-esophageal reflux disease without esophagitis; D63.8 Anemia in other chronic diseases classified elsewhere; Z66 Do not resuscitate; E27.8 Other specified disorders of adrenal gland; R74.01 Elevation of levels of liver transaminase levels; R63.6 Underweight; G62.9 Polyneuropathy, unspecified; H35.30 Unspecified macular degeneration; K76.89 Other specified diseases of liver; I27.20 Pulmonary hypertension, unspecified; Z79.890 Hormone replacement therapy; Z79.899 Other long term (current) drug therapy; Z79.01 Long term (current) use of anticoagulants; Z87.440 Personal history of urinary (tract) infections; Z87.891 Personal history of nicotine dependence; Z95.0 Presence of cardiac pacemaker
CPT/HCPCS: 74177; 80048; 80053; 81003; 81015; 82248; 82607; 82728; 82746; 83540; 83550; 83615; 83935; 84300; 85025; 85027; 85045; 87077; 87086; 87186; 93005; 96374; 97162; 97165; 99285; J1335; Q9967

== ENCOUNTER → 2024-11-05 10:17 | Outpatient (REF) | payer OTHER, SELFPAY ==
[2024-11-05 10:50] LABS: Hematocrit 29.2 % (37.0-47.0); Hemoglobin 10.0 g/dL (12.0-16.0); Mean Corp Hgb Conc. 34.2 g/dL (33.0-37.0); Mean Corpuscular Volume 102.1 fL (81.0-99.0); Nucleated Red Blood Cells % 0 %; Platelet Count 235 10^3/uL (130-400); Red Cell Dist. Width 16.5 % (11.5-14.5)
[2024-11-05 11:31] LABS: ALT (SGPT) 28 U/L (0-35); AST (SGOT) 35 U/L (14-36); Albumin 4.1 g/dl (3.5-5.0); Alkaline Phosphatase 66 U/L (38-126); Blood Urea Nitrogen 32 mg/dl (7-17); Calcium 9.4 mg/dl (8.4-10.2); Carbon Dioxide 32 mmol/L (22-30); Chloride 92 mmol/L (98-107); Glucose 80 mg/dl (70-99); HDL Cholesterol 107 mg/dl; Iron 60 ug/dl (37-170); LDL Cholesterol, Calculated 85 mg/dl; Potassium 4.0 mmol/L (3.5-5.1); Sodium 130 mmol/L (135-145); Total Protein 7.0 g/dl (6.3-8.2); Very Low Density Lipoprotein 17 mg/dl (0-30); eGFR > 60.00
== END ==
LOC: OLABWIL 10:17
PROVIDERS: ATTENDING PHYSICIAN Family Medicine
DX: I10 Essential (primary) hypertension (principal); E87.1 Hypo-osmolality and hyponatremia; E78.00 Pure hypercholesterolemia, unspecified; E03.9 Hypothyroidism, unspecified; D50.9 Iron deficiency anemia, unspecified
CPT/HCPCS: 36415; 80053; 80061; 83540; 84439; 84443; 85025

== ENCOUNTER 2024-11-28 16:33 | Inpatient (IN) | payer OTHER, SELFPAY ==
[2024-11-26] VITALS (7 sets, daily range): BP systolic 115–169; BP diastolic 57–81; BMI 19.4; BMI 18.4
[2024-11-26 02:35] LABS: Hematocrit 26.6 % (37.0-47.0); Hemoglobin 9.0 g/dL (12.0-16.0); Mean Corp Hgb Conc. 33.8 g/dL (33.0-37.0); Mean Corpuscular Volume 99.6 fL (81.0-99.0); Nucleated Red Blood Cells % 0 %; Platelet Count 177 10^3/uL (130-400); Red Cell Dist. Width 15.4 % (11.5-14.5)
[2024-11-26 02:45] LABS: INR 0.97; PT 13.4 Sec (11.4-14.6)
[2024-11-26 02:59] LABS: ALT (SGPT) 21 U/L (0-35); AST (SGOT) 32 U/L (14-36); Albumin 4.4 g/dl (3.5-5.0); Alkaline Phosphatase 73 U/L (38-126); Blood Urea Nitrogen 29 mg/dl (7-17); Calcium 9.5 mg/dl (8.4-10.2); Carbon Dioxide 31 mmol/L (22-30); Chloride 93 mmol/L (98-107); Estimated Creatinine Clearance 41 ml/min; Glucose 91 mg/dl (70-99); Potassium 4.0 mmol/L (3.5-5.1); Sodium 130 mmol/L (135-145); Total Protein 7.3 g/dl (6.3-8.2); eGFR > 60.00
[2024-11-26] MEDS: LIDOCAINE 4% PATCH 1 PATCH TOPICAL (04:37)
[2024-11-26] MEDS: TORADOL 15 MG IV (04:37)
--- NOTE | 2024-11-26 04:53 | ED.GENMED ---
History of Present Illness
General
Chief Complaint: Back Pain
Source: patient, previous radiology exam (CT abdomen pelvis September of this year. Skeletal findingsSKELETON: There is a moderate right convex curvature of the midlumbar spine. There is right lateral listhesis of L3 on L4. There is severe discogenic
degenerative disease at L1/L2 through L5/S1 with severe loss of intervertebral disc space hei) and previous hospital records (Hospitalization September of this year for treatment of acute UTI.)
Exam Limitations: none
Time Seen by Provider: 11/26/24 04:07
Nursing documentation reviewed up to this point in time: agreed with
History of Present Illness
History of Present Illness:
This is an 89-year-old woman with history of chronic low back pain who presents with severe exacerbation of her lower back pain. She states upon waking yesterday her back pain significantly worsened, preventing her from moving comfortably. Last
night around 1 AM she struggled to rise from the bed to go to the bathroom, was able to ambulate with her walker to the toilet but then unable to stand after voiding. She denies recent fall. She did suffer a fall in August with ED visit here at that
time, x-ray showing nondisplaced sacral fracture. She has since followed up with orthopedics and is reportedly scheduled for an MRI of her lumbar spine in January.
The patient reports that typically, her low back pain radiates down her right leg, but currently it is localized to her lower back. She denies any urinary nor fecal incontinence. No weakness nor numbness. She has not had any fevers. She denies
abdominal pain. No dizziness or lightheadedness.
She has been taking Tylenol arthritis for pain.
She resides at [facility].
Upon review of records. Patient briefly hospitalized September of this year for several day history of UTI symptoms. CT abdomen pelvis at that time showed acute cystitis, some constipation, skeletal findings noted for: 'There is a moderate right
convex curvature of the midlumbar spine. There is right lateral listhesis of L3 on L4. There is severe discogenic degenerative disease at L1/L2 through L5/S1 with severe loss of intervertebral disc space height, intervertebral disc vacuum
phenomenon, and small to moderate-sized vertebral body endplate osteophytes. There is mild grade 1 anterolisthesis of L4 on L5 secondary to severe right-sided facet joint arthrosis. 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
There is minimal osteoarthritis in the hips. There are moderate degenerative changes of the pubic symphysis.'
Past History
Past History
ED Past Medical History: Arrthythmia (Paroxysmal A-fib), CHF, HTN, Hypercholesterolemia, Valvular disease, Hypothyroidism and Other (Ambulatory dysfunction, episode of aphasia, chronic low back pain/multilevel lumbar DJD)
ED Past Surgical History: Cardiac (History of cardiac ablation x3, multiple cardioversions, mitral and tricuspid valve repair) and Other (Breast biopsy, D&C, bilateral cataract surgery with lens implants)
Social History
Tobacco: Non-smoker
Alcohol: None
Drug: None
Personal:
Living: other ([facility]-independent living)
Employment: Retired
Family History
Family History: Hypertension
Phy Exam
Physical Exam
Physical Exam:
GENERAL: 89-year-old woman appears her stated age, sleeping upon initial evaluation. Easily awakens. Once awake she is bright alert, pleasant, appears in no acute distress.
EYE: anicteric
NECK: Supple, nontender, no meningismus, no significant adenopathy.
ENT: oral mucosa is moist. No rhinorrhea.
CARDIAC: Regular rate and rhythm. no murmur.
LUNGS: Clear breath sounds bilaterally, no acute respiratory distress, no wheezes/rales/rhonchi
ABDOMEN: Soft, nondistended, without focal tenderness, no r/g, no cvat. normoactive BS.
BACK: Moderate right paralumbar tenderness to palpation. No midline bony tenderness. No sacral nor pelvic tenderness. Mildly positive straight leg raising on the right. Negative on the left.
NEUROLOGICAL: Alert and oriented x3, no focal neuro deficits. Motor strength is 5/5 bilaterally. Gross sensation is intact. DTRs are symmetric bilaterally.
SKIN: Warm and dry, normal color, skin intact. No rash.
MUSCULOSKELETAL: No C/C/E. peripheral pulses are full and equal b/l. No palpable tenderness.
PSYCH: Normal and appropriate interaction.
Course
Orders/Labs/Results
Orders:
Orders
11/26/24 02:27
Complete Blood Count/With Diff Urgent
Comprehensive Metabolic Panel Urgent
PT/INR [Prothrombin Time] Urgent
11/26/24 04:21
Ketorolac [Toradol] 15 mg IV NOW STA
Lidocaine [Lidocaine 4% Patch] 1 patch TOPICAL NOW STA
Apply Lidocaine patch(s) to:: LOW BACK
Abnormal Lab Results
11/26/24
02:27
RBC 2.67 L 10^6/uL
(4.20-5.40)
Hgb 9.0 L g/dL
(12.0-16.0)
Hct 26.6 L %
(37.0-47.0)
MCV 99.6 H fL
(81.0-99.0)
MCH 33.7 H pg
(27.0-31.0)
RDW 15.4 H %
(11.5-14.5)
Immature Gran % 0.6 H %
(0-0.5)
Sodium 130 L mmol/L
(135-145)
Chloride 93 L mmol/L
(98-107)
Carbon Dioxide 31 H mmol/L
(22-30)
BUN 29 H mg/dl
(7-17)
11/26/24 02:27
11/26/24 02:27
Vital Signs
Initial and Last Documented VS:
Initial Vital Signs
BP
169/81
11/26/24 02:14
Last Documented Vital Signs
Temp Pulse Resp BP Pulse Ox
97.8 F 72 18 120/71 100
11/26/24 02:24 11/26/24 02:24 11/26/24 02:24 11/26/24 03:00 11/26/24 05:04
MDM/Problems Addressed
Differential Diagnosis Includes:
Differential diagnosis includes, in no particular order and is not limited to:
Exacerbation of chronic back pain
Lumbar spondylosis
Lumbar radiculopathy
Spinal stenosis
Osteoporosis related fracture or pathology
Muscle strain
DJD
Vertebral compression fracture
Sciatica
MDM/Problems Addressed:
Acute on chronic low back pain
Acute ambulatory dysfunction
Although patient maintained on Eliquis, will trial a one-time small dose of IV Toradol and will trial lidocaine patch.
No recent fall. No radicular signs or symptoms, no red flags in history nor exam, no focal neurodeficits, afebrile and labs are stable and unchanged from previous.
At this point no indication for imaging but will reassess after pain medication.
Prior history of UTI but patient currently denies UTI symptoms and states her urine has been clear.
Labs show mild but stable anemia. Normal white blood cell count.
Very mild but stable hyponatremia.
Chronic conditions affecting care:
Chronic low back pain/scoliosis, lumbar DJD, right lower extremity sciatica
Chronic conditions affecting care: Arrhythmia (History of PAF, maintained on Eliquis.)
Acute Exacerbation and/or Progression of Chronic Illness: Other (Acute exacerbation of chronic low back pain. Intractable back pain with acute ambulatory dysfunction)
*Pulse Oximetry
SaO2: 100
Oxygen Mode of Delivery: Room air
Patient hypoxic: no
*Critical Care Note
Total Time (30-74mins, 75-104mins- exclusive of procedures): Not Applicable
Update Note
Update Note:
06:00
Patient reassessed.
Remains comfortable while lying still but developed severe low back pain with any attempted movement.
She remains hemodynamically stable.
Due to severe low back pain, acute ambulatory dysfunction patient will require acute hospitalization for pain management and further evaluation.
Will give a small IV dose of morphine and will check lumbar spine x-ray.
ED Attending Note
-
Portions of this chart may have been created with voice recognition software.� Occasional wrong word or��sound alike� substitutions may have occurred due to the inherent limitations of voice recognition software.
Discharge Plan
Departure
Patient Disposition: Admit
Date of Disposition: 11/26/24
Time of Disposition: 06:12
Admit to: Med/Surg
Admit to doctor: Jono
Presentation/result/management discussed w/ accepting MD/DO: Hospitalist
Condition: Fair
Discharge Problem:
Acute exacerbation of chronic low back pain, Intractable low back pain, Acute ambulatory dysfunction
Prescriptions:
No Action
levothyroxine 112 MCG tablet
112 mcg PO MOTUWETHFRSA@0700
calcium citrate-vitamin D3 [Citracal + D Maximum] 1 EACH tablet
1 tab PO DAILY
carvedilol 3.125 MG tablet
3.125 mg PO BID
Eliquis 2.5 mg Tablet
2.5 mg PO BID
furosemide 20 mg tablet
60 mg PO DAILY
sennosides [Alena-araceli] 8.6 mg Tablet
17.2 mg PO BID Qty: 60 0RF
acetaminophen [Arthritis Pain Relief (acetam)] 650 mg Tablet Extended Release
650 mg PO Q8H PRN (Reason: pain)
ezetimibe [Zetia] 10 mg Tablet
10 mg PO DAILY
Referrals:
Sho Merchant MD [Family Provider, Family Practice]
Interventions
Interventions:
*Risk Screen - Suicide Last Done: 11/26/24 02:18
*General Assessment Last Done: 11/26/24 02:18
*Neglect/Abuse Screening Last Done: 11/26/24 02:18
*ED- Fall Risk Assessment Last Done: 11/26/24 02:19
*ED COVID-19 Vaccine History Last Done: 11/26/24 02:18
*ED Influenza Vaccine History Last Done: 11/26/24 02:18
ED-Musculoskeletal Assessment Last Done: 11/26/24 02:31
Discharge Date and Time
Print Language: [id number]
--- NOTE | 2024-11-26 06:31 | HPS.HSE ---
Family Physician
-
Family Physician: Sho Merchant
Chief Complaint
-
Back pain
History of Present Illness
This is a 89-year-old female with extensive cardiac history including CHF with preserved EF, paroxysmal atrial fibrillation on anticoagulation, aortic stenosis status post TAVR, hypothyroid, chronic low back pain, history of cystitis with ESBL E.
coli presents to the emergency department with acute worsening of her back pain.
Patient reported that she had chronic back pain and was in usual state of health up until Saturday morning. She went to bed Saturday night feeling well. When she woke up on Saturday morning she reports pain in the middle lower back. She stated
that prior to this she had a fall a few months ago and had a controlled fracture. She was told that there was no acute intervention needed and told take weeks to months to heal. She has been managing this without any additional pain medication was
up until today. She denies any falls trauma or any other injury. Patient reported that she managed to walk on Saturday but when she went to bed and woke up early Saturday morning she was unable to walk due to severe back pain. Any attempted
movement causes pain that is localized to her back. Is not radiating down her legs. She denies any numbness tingling or weakness. She denies any urinary symptoms but found to have a mild urgency in the ED.
In the emergency department she was afebrile, blood pressure was 120/71 with pulse rate of 72 and satting 100% on room air.
CBC notable for hemoglobin of 9 which is unchanged from baseline with normal WBC and platelets. Electrolytes notable for a sodium of 130 similar to prior within normal BUN/creatinine.
Medical History
Past Medical History
Past Medical History: Reports Other
Additional Past Medical History:
hypothyroidism
HTN
CHF
iron def anemia
GERD
breast ca
colon polyps
macular degeneration
atrial fib
cardiomyopathy
left shoulder effusion
osteoarthritis
sick sinus syndrome
hyponatremia
osteoporosis
pulmonary hypertension
peripheral neuropathy
vertigo
Past Surgical History: Reports Other
Additional Past Surgical History:
mitral valve repair
pacemaker
TAVR
left breast lumpectomy
Gum surgery
cataract extraction
Social History
Tobacco: Former Smoker
Alcohol: None
Drug: None
Personal: Single
Living: Alone
Family History
Family History: Not pertinent
Allergies / Home Medications
Allergies reflects when Allergies were last updated in [facility].
Home Medications with original date entered in [facility]
Allergy/Medication List:
Allergies
Allergy/AdvReac Type Severity Reaction Status Date / Time
adhesive Allergy itching - Verified 10/10/24 20:12
redness
amiodarone Allergy elevated Verified 10/10/24 20:12
LFTs
bupivacaine (From Allergy Shortness Verified 10/10/24 20:12
Sensorcaine-Epinephrine) of Breath
cat dander Allergy SNEEZING/WH Verified 10/10/24 20:12
EEZING
codeine Allergy light Verified 10/10/24 20:12
headed and
dizzy
epinephrine (From Allergy Shortness Verified 10/10/24 20:12
Sensorcaine-Epinephrine) of Breath
prilocaine Allergy LIGHTHEADED, Verified 10/10/24 20:12
DIZZY
Sulfa (Sulfonamide Allergy Nausea Verified 10/10/24 20:12
Antibiotics)
sulfamethoxazole Allergy nausea-DID Verified 10/10/24 20:12
NOT
TOLERATE
WELL
lidocaine AdvReac Unknown Verified 10/10/24 20:12
Home Medications
ezetimibe 10 mg tablet 10 mg PO QPM High cholesterol ##0 11/29/20
levothyroxine 112 mcg tablet 112 mcg PO MOTUWETHFRSA@0700 Thyroid 12/28/20
calcium 315 mg (as citrate)-vitamin D3 6.25 mcg (250 unit) tablet (Citracal + Vitamin D Maximum) 1 tab PO DAILY Supplement 03/27/21
carvedilol 3.125 mg tablet 3.125 mg PO BID Blood Pressure 03/27/21
acetaminophen 650 mg tablet,extended release 650 mg PO DAILYPRN PRN mild pain 03/14/23
apixaban 2.5 mg tablet (Eliquis) 2.5 mg PO BID Blood Clot Prevention/Tx 03/14/23
docusate calcium 240 mg capsule (Stool Softener (docusate calcium)) 240 mg PO DAILYPRN PRN constipation 03/14/23
iron succinyl-protein complex 40 mg/15 mL oral liquid (Ferretts IPS) 15 ml PO Q48H Supplement 03/14/23
sennosides 8.6 mg tablet (senna) 8.6 mg PO DAILYPRN PRN constipation, docusate ineffective 03/14/23
folic acid 1 mg tablet 1 mg PO QPM Supplement 11/13/23
polyvinyl alcohol-povidone (PF) 1.4 %-0.6 % eye drops in a dropperette (Refresh Classic (PF)) 1 drp BOTH EYES DAILYPRN PRN dry eyes 11/13/23
vitamin B complex 1 tab PO NOON Supplement 11/13/23
furosemide 20 mg tablet 60 mg (3 x 20 mg) PO DAILY #90 tabs 11/18/23
pantoprazole 40 mg tablet,delayed release 40 mg PO DAILY #30 tabs 11/18/23
Review of Systems
-
Constitutional: Reports No Symptoms
EENT: Reports No Symptoms
Respiratory: Reports No Symptoms
Cardiac: Reports No Symptoms
Abdomen/GI: Reports No Symptoms
: Reports No Symptoms
Musculoskeletal: Reports Joint Pain
Skin: Reports No Symptoms
Neurological: Reports Weakness
Endocrine: Reports No Symptoms
Hematologic/Lymphatic: Reports No Symptoms
Psych: Reports No Symptoms
Physical Exam
Vital Signs
Vital Signs
Temp Pulse Resp BP Pulse Ox
97.8 F 72 18 147/75 100
11/26/24 02:24 11/26/24 02:24 11/26/24 02:24 11/26/24 05:00 11/26/24 05:04
Physical Exam
General: Well Developed, Well Nourished and No Apparent Distress
HEENT: NormoCephalic, Moist mucous membranes and Atraumatic
Respiratory: Clear
Cardiac: S1/S2 and Regular Rhythm; No Murmur or Rub
GI: Soft, Non Tender, Non Distended and Normal Bowel Sounds; No Organomegaly
Rectal: Deferred by Provider
Musculoskeletal: No Clubbing, No Cyanosis and No Edema
Skin: No Rash
Neuro: AO x 3 and Nonfocal/grossly intact
Psych: Calm
Laboratory Results
-
11/26/24 02:27
11/26/24 02:27
Laboratory Results
PT 13.4 Sec (11.4-14.6) 11/26/24 02:27
INR 0.97 11/26/24 02:27
Total Bilirubin 0.6 mg/dl (0.2-1.3) 11/26/24 02:27
AST 32 U/L (14-36) 11/26/24 02:27
ALT 21 U/L (0-35) 11/26/24 02:27
Alkaline Phosphatase 73 U/L (38-126) 11/26/24 02:27
Data Reviewed
-
Lab Data: Labs Reviewed by me
Old Records: Reviewed
Impression/Plan
-
IMPRESSION:
89-year-old female with extensive cardiac history and chronic low back pain, recent clavicular fracture, osteoporosis presents to the emergency department with acute exacerbation of low back pain with pain localized to the mid low back without any
radiation or radicular findings on history or examination. No myelopathy. No local findings on physical exam. There is minimal tenderness to palpation. Pain worse with any attempted movement. She has no leukocytosis she is afebrile and shows no
signs of infection. Suspect possibility of a vertebral fracture versus exacerbation of musculoskeletal lumbosacral back pain.
PLAN:
Back pain -musculoskeletal and possibly new vertebral fracture but no clear etiology at this time. No acute urinary symptoms to suggest a pyelonephritis.
-Admit to MedSurg observation
-Agree with x-ray
-Urinalysis
-Continue with topical lidocaine, Tylenol [id number], as needed Toradol as well as low-dose opioids.
-Pain appears to be already improving with analgesics.
- PT consult
CHF -patient appears euvolemic and well compensated
-Continue carvedilol
� Continue furosemide 60 daily
Paroxysmal atrial fibrillation status post pacemaker
� Continue Eliquis 2.5 twice daily
� Continue rate control with carvedilol
Hypothyroid
� Continue levothyroxine
Hyponatremia�sodium 130 at baseline
� Monitor, no acute interventions
DVT prophy�on apixaban
CODE STATUS�full code
[2024-11-26] MEDS: MORPHINE SULFATE 2 MG IV (06:33)
[2024-11-26 07:19] LABS: Urine Character Clear (Clear)
[2024-11-26 08:07] LABS: Urine Squamous Cell 0-2 /LPF (Few)
[2024-11-26 08:09] LABS: Urine Urothelial Cell 0-2 /LPF (FEW)
[2024-11-26 08:10] LABS: Urine Red Blood Cell 0-2 /HPF (0-2); Urine White Cell 0-2 /HPF (0-5)
[2024-11-26] MEDS: COREG 3.125 MG PO ×2 (09:34→20:07)
[2024-11-26] MEDS: ZETIA 10 MG PO (09:35)
[2024-11-26] MEDS: LASIX 60 MG PO (09:36)
[2024-11-26] MEDS: ELIQUIS 2.5 MG PO ×2 (09:36→20:07)
[2024-11-26] MEDS: TYLENOL 650 MG PO (09:36)
--- NOTE | 2024-11-26 10:36 | W.PN.HOSP.TC ---
Today's Communication/Plan
-
See plan
Assessment / Plan
Assessment / Plan
Impression:
Presentation with lower back pain and ambulatory dysfunction
Conditions prior to admission:
Recent hospitalization with ESBL E. coli UTI complete course of antibiotics 10/12
Chronic CHF preserved EF.
Aortic stenosis status post TAVR 11/08
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
Permanent atrial fibrillation.
Sick sinus syndrome status post Medtronic PPM 2014.
Chronic anticoagulation with Eliquis.
Chronic macrocytic anemia.
Hypothyroidism
Dyslipidemia
Essential hypertension baseline history of left breast carcinoma status postlumpectomy/radiation 2013 baseline peripheral neuropathy
DJD/lumbar spine disease
Plan
Lower back pain, severe with ambulatory dysfunction.
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
Afebrile.
No focal neurologic findings suggestive of cord compression.
Right straight leg test positive eliciting pain in the lower back and mid thigh.
Normal white count.
Lumbar x-ray without compression fracture.
Check L inflammatory markers
MRI of the spine. Patient reports scheduled 1 as outpatient. Has MRI conditional pacemaker
PT evaluation
Pain control with [id number] Tylenol and addition of oxycodone
Chronic CHF preserved EF
Permanent A-fib.
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
Volume status compensated.
Continue preadmission regimen including Coreg, Lasix
Continue anticoagulation with Eliquis
Chronic macrocytic anemia
Update B12, TSH, iron stores
Follow hemoglobin
Hypothyroidism on replacement
Full code
DVT prophylaxis:
Anticipated Discharge: 24 - 48 hours
Subjective/Interval History
-
Date of Service: November 26, 2024
Objective Data
-
Labs:
Laboratory Results
11/26/24
02:27
WBC 6.8
Hgb 9.0 L
Hct 26.6 L
Plt Count 177
PT 13.4
INR 0.97
Sodium 130 L
Potassium 4.0
Chloride 93 L
Carbon Dioxide 31 H
BUN 29 H
Creatinine 0.7
Glucose 91
Calcium 9.5
Total Bilirubin 0.6
AST 32
ALT 21
Alkaline Phosphatase 73
Vital Signs:
Vital Signs
Temp Pulse Resp BP Pulse Ox
98.4 F 70 18 136/80 100
11/26/24 07:58 11/26/24 09:36 11/26/24 07:58 11/26/24 09:36 11/26/24 07:58
Physical Exam
-
General: Well Developed and No Apparent Distress
HEENT: Normocephalic, Atraumatic and Moist Mucous Membranes
Respiratory: Clear to Auscultation
Cardiac: Regular Rhythm and S1/S2; Negative Murmur, Rub or Gallop
GI: Soft, Nontender, Nondistended and Normal Bowel Sounds; Negative Organomegaly
Rectal: Deferred by Provider
Musculoskeletal: No Clubbing, No Cyanosis and No Edema
Skin: Negative Rash
Neuro: Nonfocal/Grossly Intact
[2024-11-26 11:32] LABS: Total Iron Binding Capacity 343 ug/dl (265-497)
[2024-11-26 11:54] LABS: TSH 2.98 uIU/ml (0.47-4.68)
[2024-11-26 11:59] LABS: Ferritin 83.4 ng/ml (11.1-264.0)
[2024-11-26 12:13] LABS: Vitamin B12 938 pg/ml (239-931)
--- NOTE | 2024-11-26 13:31 | EDRN ---
Patient taken to room 2122 on stretcher by contract technician.
[2024-11-26] MEDS: SENOKOT PO ×2 (13:33→20:06)
--- NOTE | 2024-11-26 13:48 | PTCARENOTE ---
Received pt from ED, VSS, refused to ambulate from stretcher to bed, c/o 5/10 pain to lower back while at rest, refusing pain medication at this time. Pt resting in bed with call yu at side, AAOx3.
[2024-11-26] MEDS: ULTRAM 50 MG PO ×2 (14:46→20:56)
[2024-11-26 15:05] LABS: Urine Character Clear (Clear)
[2024-11-26 15:20] LABS: Urine Squamous Cell 0-2 /LPF (Few)
[2024-11-26 15:22] LABS: Urine White Cell 0-2 /HPF (0-5)
[2024-11-26 15:24] LABS: Urine Red Blood Cell 0-2 /HPF (0-2)
[2024-11-26] MEDS: TYLENOL PO (15:28)
[2024-11-26] MEDS: TYLENOL 1000 MG PO (21:00)
[2024-11-27 06:00] VITALS: BMI 17.9
[2024-11-27] MEDS: SYNTHROID 112 MCG PO (06:28)
[2024-11-27 07:01] VITALS: BP 145/77
[2024-11-27] MEDS: ZETIA 10 MG PO (08:47)
[2024-11-27] MEDS: COREG 3.125 MG PO ×2 (08:48→19:59)
[2024-11-27] MEDS: SENOKOT 17.2 MG PO (08:48)
[2024-11-27] MEDS: ELIQUIS 2.5 MG PO (08:48)
[2024-11-27] MEDS: TYLENOL 1000 MG PO ×3 (08:48→21:30)
[2024-11-27] MEDS: ULTRAM 50 MG PO ×2 (08:49→20:05)
--- NOTE | 2024-11-27 09:27 | CM ---
CM following re: discharge planning.
Reviewed pt's chart, met with pt.
Pt is an 89 year old female, admitted with OBS status and primary dx of Lower back pain, severe with ambulatory dysfunction. PMH: CHF with preserved EF, paroxysmal atrial fibrillation on anticoagulation, aortic stenosis status post TAVR,
hypothyroid, chronic low back pain, history of cystitis with ESBL E. coli.
OBS status explained to the pt, pt expressed her understanding, declined to sign, [facility] letter placed on chart, pt has a copy.
Pt reports she lives alone in an independent apartment at [facility], has 6 supportive children. Pt reports she ambulates with a walker. No VN or SNF history.
PT and OT will evaluate the pt to determine a level of care at discharge
PCP: Sho Merchant
Pharmacy: [facility].
D/C plan: return back to [facility] with VN services vs [facility]. Awaiting for PT/OT evaluations and recommendations.
CM will follow with discharge plan updates as hospitalization progresses
[2024-11-27] MEDS: LASIX PO (10:01)
--- NOTE | 2024-11-27 14:40 | W.PN.HOSP.TC ---
Today's Communication/Plan
-
Consult interventional radiology for ELINA for lumbar spine
Continue Tylenol and oxycodone
Add Decadron and lidocaine patch
Hold Eliquis in anticipation of ELINA
Monitor sodium
Assessment / Plan
Assessment / Plan
Impression:
Presentation with lower back pain and ambulatory dysfunction
Hyponatremia
Conditions prior to admission:
Recent hospitalization with ESBL E. coli UTI complete course of antibiotics 10/12
Chronic CHF preserved EF.
Aortic stenosis status post TAVR 11/08
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
Permanent atrial fibrillation.
Sick sinus syndrome status post Medtronic PPM 2014.
Chronic anticoagulation with Eliquis.
Chronic macrocytic anemia.
Hypothyroidism
Dyslipidemia
Essential hypertension baseline history of left breast carcinoma status postlumpectomy/radiation 2013 baseline peripheral neuropathy
DJD/lumbar spine disease
Plan
Lower back pain, severe with ambulatory dysfunction.
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
Afebrile.
No focal neurologic findings suggestive of cord compression.
Bilateral straight leg test positive eliciting pain in the lower back and mid thigh.
Normal white count.
Lumbar x-ray without compression fracture.
MRI of the lumbar spine with and without contrast consistent with multilevel lumbar spine DJD. Negative for osteomyelitis/discitis
Pain. Seized while on Tylenol with addition of oxycodone. Will try Decadron 4 mg IV twice daily.
Consult interventional radiology with plan for ELINA. Hold Eliquis in anticipation for procedure. Last dose given 10/10 AM. With current creatinine clearance will need to be skipped for 6 doses prior to procedure.
Continue PT
Hyponatremia. Sodium 130. Looks like chronic. Monitor closely while on diuretics as well as with high risk of SIADH given ongoing pain.
Chronic CHF preserved EF
Permanent A-fib.
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
Volume status compensated.
Continue preadmission regimen including Coreg, Lasix
Continue anticoagulation with Eliquis
Chronic macrocytic anemia
Mild iron deficiency
Follow hemoglobin
Hypothyroidism on replacement
Full code
DVT prophylaxis:
Anticipated Discharge: > 48 hours
Subjective/Interval History
-
Date of Service: November 27, 2024
Objective Data
-
Labs:
Laboratory Results
11/27/24
12:25
WBC Cancelled
Hgb Cancelled
Hct Cancelled
Plt Count Cancelled
Sodium Cancelled
Potassium Cancelled
Chloride Cancelled
Carbon Dioxide Cancelled
BUN Cancelled
Creatinine Cancelled
Glucose Cancelled
Calcium Cancelled
Vital Signs:
Vital Signs
Temp Pulse Resp BP Pulse Ox
97.8 F 71 16 145/77 100
11/27/24 07:01 11/27/24 08:48 11/27/24 07:01 11/27/24 08:48 11/27/24 12:48
I&O
11/26/24 11/27/24 11/28/24
06:59 06:59 06:59
Intake Total 560 / 560
Output Total 610 / 610 100 / 100
Balance -50 / -50 -100 / -100
Physical Exam
-
General: Well Developed and No Apparent Distress
HEENT: Normocephalic, Atraumatic and Moist Mucous Membranes
Respiratory: Clear to Auscultation
Cardiac: Regular Rhythm and S1/S2; Negative Murmur, Rub or Gallop
GI: Soft, Nontender, Nondistended and Normal Bowel Sounds; Negative Organomegaly
Rectal: Deferred by Provider
Musculoskeletal: No Clubbing, No Cyanosis and No Edema
Skin: Negative Rash
Neuro: Nonfocal/Grossly Intact
[2024-11-27] MEDS: DECADRON 4 MG IV (15:44)
[2024-11-27] MEDS: ROXICODONE 5 MG PO (15:53)
[2024-11-27 16:31] VITALS: BP 144/69
[2024-11-27] MEDS: DICLOFENAC 1% TOPICAL GEL 8 GRAM TOPICAL (17:30)
[2024-11-27 17:54] VITALS: BMI 17.9
[2024-11-27] MEDS: SENOKOT PO (20:02)
[2024-11-27] MEDS: DICLOFENAC 1% TOPICAL GEL TOPICAL (21:34)
[2024-11-27 23:42] VITALS: BP 149/80
[2024-11-28] MEDS: DECADRON 4 MG IV ×2 (04:32→15:59)
[2024-11-28] MEDS: SYNTHROID 112 MCG PO (04:40)
[2024-11-28] MEDS: ULTRAM 50 MG PO (04:52)
[2024-11-28 05:05] VITALS: BMI 17.8
--- NOTE | 2024-11-28 06:36 | PTCARENOTE ---
Patient said she will brush her teeth this morning.
[2024-11-28 07:04] VITALS: BP 142/78
[2024-11-28] MEDS: TYLENOL 1000 MG PO ×3 (07:24→21:34)
[2024-11-28] MEDS: COREG 3.125 MG PO ×2 (07:24→19:31)
[2024-11-28] MEDS: ZETIA 10 MG PO (07:24)
[2024-11-28] MEDS: LASIX PO (07:25)
[2024-11-28] MEDS: SENOKOT 17.2 MG PO (07:25)
[2024-11-28] MEDS: DICLOFENAC 1% TOPICAL GEL 100 GRAM TOPICAL (07:30)
[2024-11-28 07:43] VITALS: BMI 18.1
[2024-11-28] MEDS: SENOKOT 8.6 MG PO (10:02)
--- NOTE | 2024-11-28 11:54 | W.PN.HOSP.TC ---
Today's Communication/Plan
-
Hold Eliquis
Planning for ELINA Saturday with IR
Trend sodium
Assessment / Plan
Assessment / Plan
Impression:
Presentation with lower back pain and ambulatory dysfunction
Hyponatremia
Conditions prior to admission:
Recent hospitalization with ESBL E. coli UTI complete course of antibiotics 10/12
Chronic CHF preserved EF.
Aortic stenosis status post TAVR 11/08
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
Permanent atrial fibrillation.
Sick sinus syndrome status post Medtronic PPM 2014.
Chronic anticoagulation with Eliquis.
Chronic macrocytic anemia.
Hypothyroidism
Dyslipidemia
Essential hypertension baseline history of left breast carcinoma status postlumpectomy/radiation 2013 baseline peripheral neuropathy
DJD/lumbar spine disease
Plan
#Lower back pain, severe with ambulatory dysfunction.
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
Afebrile.
No focal neurologic findings suggestive of cord compression.
Bilateral straight leg test positive eliciting pain in the lower back and mid thigh.
Normal white count.
Lumbar x-ray without compression fracture.
MRI of the lumbar spine with and without contrast consistent with multilevel lumbar spine DJD. Negative for osteomyelitis/discitis
Pain. Seized while on Tylenol with addition of oxycodone. Will try Decadron 4 mg IV twice daily.
Consult interventional radiology with plan for ELINA. Hold Eliquis in anticipation for procedure. Last dose given 10/10 AM. With current creatinine clearance will need to be skipped for 6 doses prior to procedure.
Planning for ELINA on Saturday, Eliquis remains held
Continue PT
#Hyponatremia. Sodium 130. Looks like chronic. Monitor closely while on diuretics as well as with high risk of SIADH given ongoing pain.
#Chronic CHF preserved EF
#Permanent A-fib.
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
Volume status compensated.
Continue preadmission regimen including Coreg, Lasix
Continue anticoagulation with Eliquis
#Chronic macrocytic anemia
Mild iron deficiency
Follow hemoglobin
#Hypothyroidism on replacement
Full code
Anticipated Discharge: > 48 hours
Subjective/Interval History
-
Date of Service: November 28, 2024
Seen and examined at bedside. No acute events reported overnight. AFVSS this morning
She states she feels better today in regards to her back pain. Was walking around the room with her walker, able to go to the bathroom and wash her face.
Denies any other new complaints this morning.
Objective Data
-
Vital Signs:
Vital Signs
Temp Pulse Resp BP Pulse Ox
97.8 F 72 18 142/78 96
11/28/24 07:04 11/28/24 07:24 11/28/24 07:04 11/28/24 07:24 11/28/24 07:41
I&O
11/27/24 11/28/24 11/29/24
06:59 06:59 06:59
Intake Total 560 / 560 200 / 200
Output Total 610 / 610 250 / 250
Balance -50 / -50 -50 / -50
Review of Systems
-
History Source: Patient
All other systems: Reviewed and negative
Physical Exam
-
General: Well Developed, No Apparent Distress and Other (Thin and frail appearing)
HEENT: Normocephalic, Atraumatic and Moist Mucous Membranes
Respiratory: Clear to Auscultation, Non Labored Respirations and Accessory Resp Muscle Use
Cardiac: Regular Rhythm and S1/S2; Negative Murmur, Rub or Gallop
GI: Soft, Nontender, Nondistended and Normal Bowel Sounds
Musculoskeletal: No Clubbing, No Cyanosis, No Edema and Other (Using rolling walker without issue)
Skin: Warm and Dry; Negative Rash
Neuro: AO x 3, Nonfocal/Grossly Intact and Central Nerve's Intact
Psych: Calm
[2024-11-28] MEDS: DICLOFENAC 1% TOPICAL GEL TOPICAL ×2 (12:09→17:12)
[2024-11-28 15:23] VITALS: BP 120/59
[2024-11-28] MEDS: SENOKOT 25.8 MG PO (19:31)
[2024-11-28] MEDS: DICLOFENAC 1% TOPICAL GEL 8 GRAM TOPICAL (21:34)
[2024-11-28 22:36] VITALS: BP 137/67
[2024-11-29] MEDS: DECADRON 4 MG IV ×2 (04:42→16:02)
[2024-11-29 06:00] VITALS: BMI 18.2
[2024-11-29 06:59] LABS: Hematocrit 24.9 % (37.0-47.0); Hemoglobin 8.1 g/dL (12.0-16.0); Mean Corp Hgb Conc. 32.5 g/dL (33.0-37.0); Mean Corpuscular Volume 104.2 fL (81.0-99.0); Nucleated Red Blood Cells % 0 %; Platelet Count 166 10^3/uL (130-400); Red Cell Dist. Width 15.1 % (11.5-14.5)
[2024-11-29 07:38] VITALS: BP 142/68
[2024-11-29 07:43] LABS: Blood Urea Nitrogen 36 mg/dl (7-17); Calcium 8.7 mg/dl (8.4-10.2); Carbon Dioxide 28 mmol/L (22-30); Chloride 95 mmol/L (98-107); Estimated Creatinine Clearance 33 ml/min; Glucose 91 mg/dl (70-99); Potassium 4.3 mmol/L (3.5-5.1); Sodium 128 mmol/L (135-145); eGFR > 60.00
[2024-11-29] MEDS: DICLOFENAC 1% TOPICAL GEL 100 GRAM TOPICAL ×2 (07:48→22:04)
[2024-11-29] MEDS: ZETIA 10 MG PO (07:48)
[2024-11-29] MEDS: TYLENOL 1000 MG PO ×3 (07:49→22:04)
[2024-11-29] MEDS: SENOKOT 25.8 MG PO (07:49)
[2024-11-29] MEDS: COREG 3.125 MG PO ×2 (07:50→20:50)
[2024-11-29] MEDS: LASIX 60 MG PO (07:53)
--- NOTE | 2024-11-29 12:02 | W.PN.HOSP.TC ---
Today's Communication/Plan
-
Hold DOAC
ELINA with interventional radiology tomorrow
OOB as tolerated
Assessment / Plan
Assessment / Plan
Impression:
Presentation with lower back pain and ambulatory dysfunction
Hyponatremia
Conditions prior to admission:
Recent hospitalization with ESBL E. coli UTI complete course of antibiotics 10/12
Chronic CHF preserved EF.
Aortic stenosis status post TAVR 11/08
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
Permanent atrial fibrillation.
Sick sinus syndrome status post Medtronic PPM 2014.
Chronic anticoagulation with Eliquis.
Chronic macrocytic anemia.
Hypothyroidism
Dyslipidemia
Essential hypertension baseline history of left breast carcinoma status postlumpectomy/radiation 2013 baseline peripheral neuropathy
DJD/lumbar spine disease
Plan
#Lower back pain, severe with ambulatory dysfunction.
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
Afebrile.
No focal neurologic findings suggestive of cord compression.
Bilateral straight leg test positive eliciting pain in the lower back and mid thigh.
Normal white count.
Lumbar x-ray without compression fracture.
MRI of the lumbar spine with and without contrast consistent with multilevel lumbar spine DJD. Negative for osteomyelitis/discitis
Pain. Seized while on Tylenol with addition of oxycodone. Will try Decadron 4 mg IV twice daily.
Consult interventional radiology with plan for ELINA. Hold Eliquis in anticipation for procedure. Last dose given 10/10 AM. With current creatinine clearance will need to be skipped for 6 doses prior to procedure.
Planning for ELINA on Saturday, Eliquis remains held
Continue PT
#Hyponatremia. Sodium 130. Looks like chronic. Monitor closely while on diuretics as well as with high risk of SIADH given ongoing pain.
#Chronic CHF preserved EF
#Permanent A-fib.
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
Volume status compensated.
Continue preadmission regimen including Coreg, Lasix
Continue anticoagulation with Eliquis
#Chronic macrocytic anemia
Mild iron deficiency
Follow hemoglobin
#Hypothyroidism on replacement
Full code
Anticipated Discharge: 24 - 48 hours
Subjective/Interval History
-
Date of Service: November 29, 2024
Seen and examined at the bedside. No acute events reported overnight. AFVSS this morning
Patient remains ambulating with walker, symptoms improved since arrival
Denies any new complaints. Planning for ELINA with IR tomorrow
Objective Data
-
Labs:
Laboratory Results
11/29/24
06:35
WBC 6.7
Hgb 8.1 L
Hct 24.9 L
Plt Count 166
Sodium 128 L
Potassium 4.3
Chloride 95 L
Carbon Dioxide 28
BUN 36 H
Creatinine 0.8
Glucose 91
Calcium 8.7
Vital Signs:
Vital Signs
Temp Pulse Resp BP Pulse Ox
97.6 F 71 16 142/68 100
11/29/24 07:38 11/29/24 07:50 11/29/24 07:38 11/29/24 07:50 11/29/24 08:50
I&O
11/28/24 11/29/24 11/30/24
06:59 06:59 06:59
Intake Total 200 / 200 410 / 410
Output Total 250 / 250
Balance -50 / -50 410 / 410
Review of Systems
-
History Source: Patient
All other systems: Reviewed and negative
Physical Exam
-
General: Well Developed, No Apparent Distress and Other (Thin and frail)
HEENT: Normocephalic, Atraumatic and Moist Mucous Membranes
Respiratory: Clear to Auscultation and Non Labored Respirations
Cardiac: Regular Rhythm and S1/S2; Negative Murmur, Rub or Gallop
GI: Soft, Nontender, Nondistended and Normal Bowel Sounds
Musculoskeletal: No Clubbing, No Cyanosis and No Edema
Skin: Warm and Dry; Negative Rash
Neuro: AO x 3, Nonfocal/Grossly Intact and Central Nerve's Intact
Psych: Calm
[2024-11-29] MEDS: DICLOFENAC 1% TOPICAL GEL TOPICAL ×2 (12:15→17:21)
[2024-11-29 16:18] VITALS: BP 189/64
[2024-11-29 17:37] VITALS: BP 170/83
--- NOTE | 2024-11-29 17:40 | PTCARENOTE ---
BP at 1500 vitals was 189/64, pt in no distress/pain. Repeat BP 170/83. Scheduled coreg to be given at 2000, oncoming RN to be made aware.
[2024-11-29] MEDS: SENOKOT PO (20:52)
[2024-11-29 23:34] VITALS: BP 123/62
[2024-11-30] MEDS: DECADRON 4 MG IV (04:41)
[2024-11-30] MEDS: SYNTHROID 112 MCG PO (05:00)
[2024-11-30 06:00] VITALS: BMI 18.0
[2024-11-30 07:22] VITALS: BP 141/71
[2024-11-30] MEDS: SENOKOT PO ×2 (08:22→20:26)
[2024-11-30] MEDS: DICLOFENAC 1% TOPICAL GEL 100 GRAM TOPICAL ×2 (08:23→16:51)
[2024-11-30] MEDS: LASIX 40 MG PO (08:23)
[2024-11-30] MEDS: ZETIA 10 MG PO (08:23)
[2024-11-30] MEDS: TYLENOL 1000 MG PO ×3 (08:23→22:19)
[2024-11-30] MEDS: COREG 3.125 MG PO ×2 (08:23→20:26)
--- NOTE | 2024-11-30 13:21 | CM ---
CM following re: discharge planning.
Reviewed pt's chart, met with pt.
Pt lives alone in an independent apartment at [facility], has 6 supportive children. Pt reports she ambulates with a walker. No VN or SNF history.
PT and OT evaluations noted - pt has no skilled PT/OT needs.
D/C plan: return back to [facility]
CM will follow with discharge plan updates as hospitalization progresses
[2024-11-30 13:45] VITALS: BP 175/81; BP_SYST 70
[2024-11-30] MEDS: DICLOFENAC 1% TOPICAL GEL TOPICAL ×2 (13:49→22:22)
[2024-11-30 14:52] VITALS: BP 176/91
[2024-11-30 15:47] VITALS: BP 178/89
[2024-11-30 16:29] VITALS: BP 170/85
--- NOTE | 2024-11-30 16:35 | W.PN.HOSP.TC ---
Today's Communication/Plan
-
Status post ELINA.
Discontinue IV Decadron.
PT assessment
Okay to resume Eliquis in AM.
Assessment / Plan
Assessment / Plan
Impression:
Presentation with lower back pain and ambulatory dysfunction
Multilevel lumbar spine DJD
Hyponatremia
Conditions prior to admission:
Recent hospitalization with ESBL E. coli UTI complete course of antibiotics 10/12
Chronic CHF preserved EF.
Aortic stenosis status post TAVR 11/08
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
Permanent atrial fibrillation.
Sick sinus syndrome status post Medtronic PPM 2014.
Chronic anticoagulation with Eliquis.
Chronic macrocytic anemia.
Hypothyroidism
Dyslipidemia
Essential hypertension baseline history of left breast carcinoma status postlumpectomy/radiation 2013 baseline peripheral neuropathy
DJD/lumbar spine disease
Plan
#Lower back pain, severe with ambulatory dysfunction.
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
Afebrile.
No focal neurologic findings suggestive of cord compression.
Bilateral straight leg test positive eliciting pain in the lower back and mid thigh.
Normal white count.
Lumbar x-ray without compression fracture.
MRI of the lumbar spine with and without contrast consistent with multilevel lumbar spine DJD. Negative for osteomyelitis/discitis.
Pain did not improve with conservative management including Tylenol and later with addition of oxycodone
Reported some improvement with addition of IV corticosteroids on 11/27.
Status post ELINA on 11/30
PT reassessment
In discussion with IR at, okay to resume Eliquis on 12/01
#Hyponatremia. Sodium 130. Looks like chronic. Monitor closely while on diuretics as well as with high risk of SIADH given ongoing pain.
#Chronic CHF preserved EF
#Permanent A-fib.
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
Volume status compensated.
Continue preadmission regimen including Coreg, Lasix
Continue anticoagulation with Eliquis
Elevated BP likely secondary to systemic steroids. Monitor on current medication regimen
#Chronic macrocytic anemia
Mild iron deficiency
Follow hemoglobin
#Hypothyroidism on replacement
Full code
Anticipated Discharge: Within 24 hours
Subjective/Interval History
-
Date of Service: November 30, 2024
Objective Data
-
Vital Signs:
Vital Signs
Temp Pulse Resp BP Pulse Ox
97.6 F 77 18 170/85 100
11/30/24 15:47 11/30/24 16:29 11/30/24 15:47 11/30/24 16:29 11/30/24 15:47
I&O
11/29/24 11/30/24 12/01/24
06:59 06:59 06:59
Intake Total 410 / 410 510 / 510
Balance 410 / 410 510 / 510
Physical Exam
-
General: Well Developed, No Apparent Distress and Other (Thin and frail)
HEENT: Normocephalic, Atraumatic and Moist Mucous Membranes
Respiratory: Clear to Auscultation and Non Labored Respirations
Cardiac: Regular Rhythm and S1/S2; Negative Murmur, Rub or Gallop
GI: Soft, Nontender, Nondistended and Normal Bowel Sounds
Musculoskeletal: No Clubbing, No Cyanosis and No Edema
Skin: Warm and Dry; Negative Rash
Neuro: AO x 3, Nonfocal/Grossly Intact and Central Nerve's Intact
Psych: Calm
[2024-11-30] MEDS: DECADRON IV (17:20)
[2024-11-30 23:24] VITALS: BP 120/64
[2024-12-01] MEDS: SYNTHROID 112 MCG PO (05:49)
[2024-12-01 06:00] VITALS: BMI 17.7
[2024-12-01 07:05] VITALS: BP 149/79
[2024-12-01] MEDS: TYLENOL 1000 MG PO ×2 (08:24→15:49)
[2024-12-01] MEDS: COREG 3.125 MG PO (08:25)
[2024-12-01] MEDS: ZETIA 10 MG PO (08:25)
[2024-12-01] MEDS: LASIX 60 MG PO (08:25)
[2024-12-01] MEDS: SENOKOT PO (08:27)
--- NOTE | 2024-12-01 10:34 | CM ---
CM reviewed pt with attending- ready for dc today
Bedside meeting with pt- per PT no needs
Her dtr will transport home after work today
IMM verbally reviewed- copy provided bedside
Discharge Disposition- home, no needs, dtr transport
--- NOTE | 2024-12-01 10:35 | W.DS.TRANS ---
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
-
Discharge Instructions:
Discharge Diagnosis/Procedures Impression:
Presentation with lower back pain and ambulatory
dysfunction
Multilevel lumbar spine DJD
Hyponatremia
Conditions prior to admission:
Recent hospitalization with ESBL E. coli UTI
complete course of antibiotics 10/12
Chronic CHF preserved EF.
Aortic stenosis status post TAVR 11/08
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
Permanent atrial fibrillation.
Sick sinus syndrome status post Medtronic PPM
2014.
Chronic anticoagulation with Eliquis.
Chronic macrocytic anemia.
Hypothyroidism
Dyslipidemia
Essential hypertension baseline history of left
breast carcinoma status postlumpectomy/radiation
2013 baseline peripheral neuropathy
DJD/lumbar spine disease
Diet Regular
Instructions:
Stand-Alone Forms:
Changes to Home Medications: No
Discharge Medications:
DC Medications w/original date entered in [facility]
levothyroxine 112 mcg tablet 112 mcg PO [id number]@0700 Thyroid 12/28/20
calcium 315 mg (as citrate)-vitamin D3 6.25 mcg (250 unit) tablet (Citracal + Vitamin D Maximum) 1 tab PO DAILY Supplement 03/27/21
carvedilol 3.125 mg tablet 3.125 mg PO BID Blood Pressure 03/27/21
apixaban 2.5 mg tablet (Eliquis) 2.5 mg PO BID Blood Clot Prevention/Tx 03/14/23
furosemide 20 mg tablet 60 mg PO DAILY Fluid Retention/Swelling 10/10/24
acetaminophen 650 mg tablet,extended release (Arthritis Pain Relief (acetaminophen) ER) 650 mg PO Q8HPRN PRN mild pain 11/26/24
ezetimibe 10 mg tablet (Zetia) 10 mg PO DAILY High Cholesterol 11/26/24
pantoprazole 40 mg tablet,delayed release (Protonix) 40 mg PO DAILY Gastrointestinal Issue 11/26/24
sennosides 8.6 mg tablet (Alena-araceli) 8.6 mg PO BIDPRN PRN constipation 11/26/24
Home Medication Changes
Pending Results: No
[2024-12-01] MEDS: DICLOFENAC 1% TOPICAL GEL TOPICAL ×2 (11:42→13:08)
--- NOTE | 2024-12-01 14:40 | PN.CDI ---
CDI
- -
CDI:
Physician Documentation Request
Admit Date: 11/28/24 16:33
Dear Doctor Nohelia,
Please review the following and provide your response in the progress notes.
Clinical Indicators:
Height:5 ft 1 in
Weight:93 lb
BMI:17.7
Other Clinical Notes:'Progress note 12/01, ' (Thin and frail)..'
If possible, please provide an associated diagnosis related to the abnormal BMI, such as:
BMI < or = to 19
Underweight
Cachectic
- Other
Use of terms such as suspected, likely, concern for, or probable (associated with a specific diagnosis that is being evaluated, monitored, or treated as if it exists) are acceptable and can be coded in the inpatient setting, when documented at the
time of discharge.
Thank you,
Rajani Espino RN
CDI Specialist
[place] [facility]
Please use your independent medical judgment in providing your response.
[2024-12-01 15:07] VITALS: BP 157/76
== END 2024-12-01 17:44 | disposition home or self-care (01) | DRG 552 ==
LOC: 2 NORTH 16:33
PROVIDERS: Emergency Medicine; Internal Medicine; Radiology Diagnostic Radiology; ADMITTING PHYSICIAN Internal Medicine; ATTENDING PHYSICIAN Internal Medicine; EMERGENCY PHYSICIAN Emergency Medicine; FAMILY PHYSICIAN Family Medicine
PROC: 3E0R33Z Introduction of Anti-inflammatory into Spinal Canal, Percutaneous Approach (ICD-10-PCS; 2024-11-30)
DX: M47.816 Spondylosis without myelopathy or radiculopathy, lumbar region (principal); I48.21 Permanent atrial fibrillation; E87.1 Hypo-osmolality and hyponatremia; I50.32 Chronic diastolic (congestive) heart failure; E44.1 Mild protein-calorie malnutrition; Z68.1 Body mass index [BMI] 19.9 or less, adult; D53.9 Nutritional anemia, unspecified; E03.9 Hypothyroidism, unspecified; R26.2 Difficulty in walking, not elsewhere classified; Z95.0 Presence of cardiac pacemaker; I49.5 Sick sinus syndrome; Z79.01 Long term (current) use of anticoagulants; I11.0 Hypertensive heart disease with heart failure; D50.9 Iron deficiency anemia, unspecified; G89.29 Other chronic pain; Z85.3 Personal history of malignant neoplasm of breast; Z87.891 Personal history of nicotine dependence
CPT/HCPCS: 51701; 62323; 72110; 72158; 80048; 80053; 81003; 81015; 82607; 82728; 83550; 84443; 85025; 85610; 85652; 96374; 96375; 97161; 99285; A9575

== ENCOUNTER → 2024-12-15 11:24 | Outpatient (REF) | payer OTHER, SELFPAY ==
[2024-12-15 12:44] LABS: Blood Urea Nitrogen 28 mg/dl (7-17); Calcium 9.0 mg/dl (8.4-10.2); Carbon Dioxide 33 mmol/L (22-30); Chloride 89 mmol/L (98-107); Glucose 87 mg/dl (70-99); Potassium 4.3 mmol/L (3.5-5.1); Sodium 125 mmol/L (135-145); eGFR > 60.00
== END ==
LOC: OLABWIL 11:24
PROVIDERS: ATTENDING PHYSICIAN Specialist
DX: E87.1 Hypo-osmolality and hyponatremia (principal); I10 Essential (primary) hypertension
CPT/HCPCS: 36415; 80048

== ENCOUNTER 2024-12-16 15:57 | Inpatient (IN) | payer OTHER, SELFPAY ==
[2024-12-16 11:52] VITALS: BP 146/72
--- NOTE | 2024-12-16 13:07 | ED.GENMED ---
History of Present Illness
<Aniyah Valladares PA-C - Last Filed: 12/16/24 23:54>
General
Chief Complaint: Swelling
Source: patient
Exam Limitations: none
Time Seen by Provider: 12/16/24 12:42
Nursing documentation reviewed up to this point in time: agreed with
History of Present Illness
History of Present Illness:
Patient is an 89-year-old female with history atrial fibrillation on Eliquis, CHF, hypertension, hyperlipidemia, hypothyroid who presents to the emergency department with lower extremity swelling X 1 week. Patient reports gradually worsening
swelling in both of her lower legs over the past week. She was seen by her primary care provider yesterday where labs were drawn and revealed a low sodium level. Patient was called with results today and referred to the emergency department for
further management and evaluation.
Patient denies any worsening shortness of breath on her baseline. She denies any fever or chills. No chest pain. No weight gain.
She has been able to ambulate with use of walker
Patient is compliant with Eliquis.
Past History
<Aniyah Valladares PA-C - Last Filed: 12/16/24 23:54>
Past History
ED Past Medical History: Arrthythmia (Paroxysmal A-fib), CHF, HTN, Hypercholesterolemia, Valvular disease, Hypothyroidism and Other (Ambulatory dysfunction, episode of aphasia, chronic low back pain/multilevel lumbar DJD)
ED Past Surgical History: Cardiac (History of cardiac ablation x3, multiple cardioversions, mitral and tricuspid valve repair) and Other (Breast biopsy, D&C, bilateral cataract surgery with lens implants)
Social History
Tobacco: Non-smoker
Alcohol: None
Drug: None
Personal:
Living: other ([facility]-independent living)
Employment: Retired
Family History
Family History: Hypertension
Review of Systems
<Aniyah Valladares PA-C - Last Filed: 12/16/24 23:54>
Review of Systems
Allergies reviewed?: Yes
All Other Systems: ROS reviewed and negative except as documented in HPI and ROS
Phy Exam
<Aniyah Valladares PA-C - Last Filed: 12/16/24 23:54>
Physical Exam
Physical Exam:
Vitals: Hypertensive, otherwise vital signs stable.
General: Patient is well appearing, no acute distress
Skin: Warm and dry, no rashes or lesions
Head: Normocephalic, atraumatic
Eyes: Sclera nonicteric.
Throat: Protecting airway
Neck: Normal ROM, no cervical spine tenderness, no meningismus. No JVD
Cardiac: Regular rate, irregularly irregular rhythm, no murmurs.
Pulm: Normal respiratory effort. Lungs clear bilaterally
Abdomen: No abdominal tenderness.
Extremities: Pitting edema bilateral lower extremity with venous stasis skin changes. 2+ palpable DP pulses bilaterally
Neuro: AAOx3. Grossly intact.
Psychiatric: Normal affect.
Scores
<Aniyah Valladares PA-C - Last Filed: 12/16/24 23:54>
Heart Failure Risk
Heart Failure Risk Score: Not Applicable
Course
<Aniyah Valladares PA-C - Last Filed: 12/16/24 23:54>
Orders/Labs/Results
Orders:
Orders
12/16/24 Breakfast
Sodium, 2 Gram
At Your Request: Limited Participation
Fluid Restriction: 1200 mL/day (40 oz)
12/16/24 12:59
CR Chest - 2 Views Urgent
Comment:
Reason For Exam: b/l lower leg swelling, SOB
12/16/24 13:00
Electrocardiogram (*1) Urgent
Reason for Study: Shortness of Breath
EKG- Treatment ONCE
12/16/24 13:09
pacemaker [Interrogate Pacemaker- Treatment] ONCE
12/16/24 13:47
Complete Blood Count/With Diff Urgent
Comprehensive Metabolic Panel Urgent
NT-proBNP Urgent
TSH Reflex To Free T4 Urgent
Comment: ADD ON
Troponin I Urgent
12/16/24 14:33
Aspirin Chewable [Low Strength Aspirin] 324 mg PO NOW STA
12/16/24 15:29
Furosemide [Lasix] 40 mg IV NOW STA
12/16/24 15:38
CARDIOLOGY CONSULT Routine
Consulting Provider: Hamlet Zuniga
Was physician already notified: Yes
12/16/24 15:39
Admit/Transfer Patient As Directed
Co-Sign Provider:
Level of Care: Inpatient admission
Assign to:: Telemetry
Physician / Group: Htay
Diagnosis: CHF
Reason for Telemetry: Acute Heart Failure
Date to Stop Telemetry: 12/19/24
Time to Stop Telemetry: 11:00
Reason for Hospitalization: Diuretics
Expected length of stay greater than two midnights?: Yes
ELOS- Estimated Length of Stay in days: 3
I certify the patient meets the requirements for IP care: Yes
PRN Pain Medication Management As Directed
May give lesser potent ordered pain med per pt: Yes
preference::
Protocol:: Medication orders for pain may be administered in a
manner that supports deferring to patient preference
when the pt is:
- Requesting an ordered lesser potent pain medication.
Least to most potent pain medications are defined
as: acetaminophen < NSAID < tramadol < opioids
(morphine, oxycodone, hydromorphone).
- Requesting a lesser dose of the same medication IF
ORDERED.
- Requesting a less intrusive route of administration
if both routes are prescribed by the provider (PO <
IV).
12/16/24 15:40
Code Status As Directed
Resuscitation Status: Do not resuscitate
Reached after discussion with pt or family/Healthcare POA: Yes
12/16/24 15:41
DNR Bracelet Application ONCE
12/16/24 16:41
Troponin I Urgent
12/16/24 16:45
Electrocardiogram (*1) Urgent
Reason for Study: Shortness of Breath
12/16/24 17:09
Tramadol HCl [Ultram] 50 mg PO BIDPRN PRN moderate / severe pain moderate / severe pain
12/16/24 17:09
Echo 2D MMode Color/Doppler Routine
Reason for Study: heart failure
DIETARY IP CONSULT Routine
Reason for Consult: malnutrition
HF DIETARY CONSULT Routine
HF EDUCATOR CONSULT Routine
Comment:
Activity As Directed
Activity Level: Out of Bed-Early Mobility
Intake/ Output As Directed
Frequency: Per unit guidelines
Patient Education As Directed
Type: CHF folder
Comment: give on admission. Document in Interdisciplinary Education record
Sleep Apnea Assessment by RN As Directed
Comment:
Physician Instructions:
Vital Signs As Directed
Frequency: Other
Additional Instructions:: Q12 or per unit guidelines if more frequent.
Weight As Directed
Frequency: Daily
Type of Scale: Standing Scale
Comment: Daily morning weight. If unable to stand, use balanced bed scale.
Weight As Directed
Frequency: Once
Type of Scale: Standing Scale
Comment: Upon Admission. If unable to stand, use balanced bed scale.
Pulse Ox/cont/shift [RESP] Routine
Quantity: 1
Special Instructions: Daily pulse oximetry at rest. If greater than 92% at rest also obtain pulse oximetry
while ambulating as tolerated.
Ot Eval And Treat Routine
Pt Eval And Treat Routine
Activity Level: Out of Bed-Early Mobility
12/16/24 20:00
Apixaban [Eliquis] 2.5 mg PO BID
Carvedilol [Coreg] 3.125 mg PO BID
12/16/24 22:00
Docusate Sodium [Colace] 100 mg PO Q48H
Sennosides [Senokot] 8.6 mg PO Q48H
12/17/24 06:00
Basic Metabolic Panel IN AM
Complete Blood Count/No Diff IN AM
Magnesium IN AM
TSH Reflex To Free T4 IN AM
Levothyroxine [Synthroid] 112 mcg PO [id number]@0600
12/17/24 08:00
Aspirin Chewable [Low Strength Aspirin] 81 mg PO DAILY
Ezetimibe [Zetia] 10 mg PO DAILY
Pantoprazole [Protonix] 40 mg PO DAILY
12/18/24 06:00
Basic Metabolic Panel IN AM
12/19/24 06:00
Basic Metabolic Panel IN AM
12/19/24 11:00
DC Protocol for Telemetry ONCE
Abnormal Lab Results
12/16/24
13:47
RBC 2.52 L 10^6/uL
(4.20-5.40)
Hgb 8.5 L g/dL
(12.0-16.0)
Hct 25.5 L %
(37.0-47.0)
MCV 101.2 H fL
(81.0-99.0)
MCH 33.7 H pg
(27.0-31.0)
Absolute Lymphs (auto) 0.8 L 10^3/uL
(1.2-3.4)
Neutrophils % 82.8 H %
(42.2-75.2)
Lymphocytes % 11.5 L %
(20.5-51.1)
Sodium 128 L mmol/L
(135-145)
Chloride 90 L mmol/L
(98-107)
Carbon Dioxide 33 H mmol/L
(22-30)
BUN 27 H mg/dl
(7-17)
Troponin I 0.127 H* ng/ml
12/16/24 13:47
12/16/24 13:47
Vital Signs
Initial and Last Documented VS:
Initial Vital Signs
Temp Pulse Resp BP Pulse Ox
98.2 F 71 20 146/72 100
12/16/24 11:52 12/16/24 11:52 12/16/24 11:52 12/16/24 11:52 12/16/24 11:52
Last Documented Vital Signs
Temp Pulse Resp BP Pulse Ox
97.9 F 72 18 140/67 99
12/16/24 23:37 12/16/24 23:37 12/16/24 23:37 12/16/24 23:37 12/16/24 23:37
<Zaki Davison, DO - Last Filed: 12/16/24 14:34>
Orders/Labs/Results
Orders:
Orders
12/16/24 Breakfast
Sodium, 2 Gram
At Your Request: Limited Participation
Fluid Restriction: 1200 mL/day (40 oz)
12/16/24 12:59
CR Chest - 2 Views Urgent
Comment:
Reason For Exam: b/l lower leg swelling, SOB
12/16/24 13:00
Electrocardiogram (*1) Urgent
Reason for Study: Shortness of Breath
EKG- Treatment ONCE
12/16/24 13:09
pacemaker [Interrogate Pacemaker- Treatment] ONCE
12/16/24 13:47
Complete Blood Count/With Diff Urgent
Comprehensive Metabolic Panel Urgent
NT-proBNP Urgent
TSH Reflex To Free T4 Urgent
Comment: ADD ON
Troponin I Urgent
12/16/24 14:33
Aspirin Chewable [Low Strength Aspirin] 324 mg PO NOW STA
12/16/24 15:29
Furosemide [Lasix] 40 mg IV NOW STA
12/16/24 15:38
CARDIOLOGY CONSULT Routine
Consulting Provider: Hamlet Zuniga
Was physician already notified: Yes
12/16/24 15:39
Admit/Transfer Patient As Directed
Co-Sign Provider:
Level of Care: Inpatient admission
Assign to:: Telemetry
Physician / Group: Htay
Diagnosis: CHF
Reason for Telemetry: Acute Heart Failure
Date to Stop Telemetry: 12/19/24
Time to Stop Telemetry: 11:00
Reason for Hospitalization: Diuretics
Expected length of stay greater than two midnights?: Yes
ELOS- Estimated Length of Stay in days: 3
I certify the patient meets the requirements for IP care: Yes
PRN Pain Medication Management As Directed
May give lesser potent ordered pain med per pt: Yes
preference::
Protocol:: Medication orders for pain may be administered in a
manner that supports deferring to patient preference
when the pt is:
- Requesting an ordered lesser potent pain medication.
Least to most potent pain medications are defined
as: acetaminophen < NSAID < tramadol < opioids
(morphine, oxycodone, hydromorphone).
- Requesting a lesser dose of the same medication IF
ORDERED.
- Requesting a less intrusive route of administration
if both routes are prescribed by the provider (PO <
IV).
12/16/24 15:40
Code Status As Directed
Resuscitation Status: Do not resuscitate
Reached after discussion with pt or family/Healthcare POA: Yes
12/16/24 15:41
DNR Bracelet Application ONCE
12/16/24 16:41
Troponin I Urgent
12/16/24 16:45
Electrocardiogram (*1) Urgent
Reason for Study: Shortness of Breath
12/16/24 17:09
Tramadol HCl [Ultram] 50 mg PO BIDPRN PRN moderate / severe pain moderate / severe pain
12/16/24 17:09
Echo 2D MMode Color/Doppler Routine
Reason for Study: heart failure
DIETARY IP CONSULT Routine
Reason for Consult: malnutrition
HF DIETARY CONSULT Routine
HF EDUCATOR CONSULT Routine
Comment:
Activity As Directed
Activity Level: Out of Bed-Early Mobility
Intake/ Output As Directed
Frequency: Per unit guidelines
Patient Education As Directed
Type: CHF folder
Comment: give on admission. Document in Interdisciplinary Education record
Sleep Apnea Assessment by RN As Directed
Comment:
Physician Instructions:
Vital Signs As Directed
Frequency: Other
Additional Instructions:: Q12 or per unit guidelines if more frequent.
Weight As Directed
Frequency: Daily
Type of Scale: Standing Scale
Comment: Daily morning weight. If unable to stand, use balanced bed scale.
Weight As Directed
Frequency: Once
Type of Scale: Standing Scale
Comment: Upon Admission. If unable to stand, use balanced bed scale.
Pulse Ox/cont/shift [RESP] Routine
Quantity: 1
Special Instructions: Daily pulse oximetry at rest. If greater than 92% at rest also obtain pulse oximetry
while ambulating as tolerated.
Ot Eval And Treat Routine
Pt Eval And Treat Routine
Activity Level: Out of Bed-Early Mobility
12/16/24 20:00
Apixaban [Eliquis] 2.5 mg PO BID
Carvedilol [Coreg] 3.125 mg PO BID
12/16/24 22:00
Docusate Sodium [Colace] 100 mg PO Q48H
Sennosides [Senokot] 8.6 mg PO Q48H
12/17/24 06:00
Basic Metabolic Panel IN AM
Complete Blood Count/No Diff IN AM
Magnesium IN AM
TSH Reflex To Free T4 IN AM
Levothyroxine [Synthroid] 112 mcg PO Evert@0600
12/17/24 08:00
Aspirin Chewable [Low Strength Aspirin] 81 mg PO DAILY
Ezetimibe [Zetia] 10 mg PO DAILY
Pantoprazole [Protonix] 40 mg PO DAILY
12/18/24 06:00
Basic Metabolic Panel IN AM
12/19/24 06:00
Basic Metabolic Panel IN AM
12/19/24 11:00
DC Protocol for Telemetry ONCE
Abnormal Lab Results
12/16/24
13:47
RBC 2.52 L 10^6/uL
(4.20-5.40)
Hgb 8.5 L g/dL
(12.0-16.0)
Hct 25.5 L %
(37.0-47.0)
MCV 101.2 H fL
(81.0-99.0)
MCH 33.7 H pg
(27.0-31.0)
Absolute Lymphs (auto) 0.8 L 10^3/uL
(1.2-3.4)
Neutrophils % 82.8 H %
(42.2-75.2)
Lymphocytes % 11.5 L %
(20.5-51.1)
Sodium 128 L mmol/L
(135-145)
Chloride 90 L mmol/L
(98-107)
Carbon Dioxide 33 H mmol/L
(22-30)
BUN 27 H mg/dl
(7-17)
Troponin I 0.127 H* ng/ml
12/16/24 13:47
12/16/24 13:47
Vital Signs
Initial and Last Documented VS:
Initial Vital Signs
Temp Pulse Resp BP Pulse Ox
98.2 F 71 20 146/72 100
12/16/24 11:52 12/16/24 11:52 12/16/24 11:52 12/16/24 11:52 12/16/24 11:52
Last Documented Vital Signs
Temp Pulse Resp BP Pulse Ox
97.9 F 72 18 140/67 99
12/16/24 23:37 12/16/24 23:37 12/16/24 23:37 12/16/24 23:37 12/16/24 23:37
<Aniyah Valladares PA-C - Last Filed: 12/16/24 23:54>
MDM/Problems Addressed
Differential Diagnosis Includes:
Not limited to: Acute CHF exacerbation, dependent edema, lymphedema, cellulitis, etc.
MDM/Problems Addressed:
89 year-old female with bilateral lower extremity swelling for one week. No chest pain or shortness of breath. No fevers or infectious symptoms. Vitals stable. On exam, patient has 2+ pitting edema of bilateral lower extremities. Cardio/pulmonary
assessment unremarkable. Abdomen benign.
Patient has history CHF and concern for acute CHF exacerbation. No clear evidence of infectious process on exam. Less likely DVT as swelling bilateral and patient is anti coagulated on Eliquis.
Labs reviewed. CBC with stable anemia. Chemistry reveals hyponatremia. Troponin elevated at 0.127. Patient has no chest pain or shortness of breath with a non-ischemic EKG.
Pro-BNP elevated to 3550. Noted that this is as high as it has ever been in the past. Chest x-ray with small bilateral pleural effusions without evidence of significant pulmonary edema.
Patient has no symptoms consistent with acute coronary syndrome. Possible non-ischemic cardiac injury from CHF vs ischemic cardiomyopathy. Ultimately, patient should be admitted given significant troponin elevation for at least further trending and
close monitoring. She is on Eliquis. Gave full strength aspirin in ED.
Patient accepted to hospitalist service in stable condition.
Chronic conditions affecting care:
Atrial fibrillation on Eliquis, congestive heart failure
Acute Exacerbation and/or Progression of Chronic Illness:
N/A
<Aniyah Valladares PA-C - Last Filed: 12/16/24 23:54>
*Radiology
Radiology exam reviewed: radiology read reviewed
*Pulse Oximetry
SaO2: 100
Oxygen Mode of Delivery: Room air
Patient hypoxic: no
*EKG
Interpreted by ED Provider?: Yes
EKG Intrepretation Date: 12/16/24
Interpretation: abnormal
Comparison EKG: no changes
Heart Rate: 70
Rate: normal
Rhythm: av sequential
Warrior: normal axis
Interval: long QT
QRS Pattern: normal QRS
Ischemia: no ischemia
*Critical Care Note
Total Time (30-74mins, 75-104mins- exclusive of procedures): Not Applicable
Data Reviewed
Review of Other/Old Records Reveals: Labs (Labs obtained 12/15/24 reveal sodium level of 125)
<Aniyah Valladares PA-C - Last Filed: 12/16/24 23:54>
Patient Management
Discussion with other providers: Hospitalist
ED Attending Note
<Aniyah Valladares PA-C - Last Filed: 12/16/24 23:54>
-
Portions of this chart may have been created with voice recognition software.� Occasional wrong word or��sound alike� substitutions may have occurred due to the inherent limitations of voice recognition software.
<Zaki Davison DO - Last Filed: 12/16/24 14:34>
ED Attending Note
Patient seen and examined by attending physician: Yes
I performed the substantive portion of visit, reviewed & personally made and approve the management plan that is documented in note by myself or DOMINICK.: Yes
ED Attending Note:
I have seen and evaluated the patient with a [id number] encounter. I have spoken to the advance practicer provider and involved in the medical history, the physical exam, medical decision making.
Evaluation and management service: agree unless noted differently below.
Results interpretation: agree unless noted differently below.
Focused HPI: 89-year-old female presenting for evaluation of bilateral leg swelling. She does have a history of CHF
Physical exam: Sitting in bed comfortably. Lungs clear. Pitting edema noted to both legs
Medical Decision Making: Patient incidentally found to have elevated troponin. There is concern for ischemic cardiomyopathy. Will give dose of aspirin and admit for at least troponin trending
Discharge Plan
Departure
Patient Disposition: Admit
Date of Disposition: 12/16/24
Time of Disposition: 14:37
Presentation/result/management discussed w/ accepting MD/DO: Hospitalist
Discharge Problem:
Elevated troponin I level, Swelling of both lower extremities
Interventions
Interventions:
*Risk Screen - Suicide Last Done: 12/16/24 11:52
*General Assessment Last Done: 12/16/24 11:52
*Neglect/Abuse Screening Last Done: 12/16/24 11:52
*ED- Fall Risk Assessment Last Done: 12/16/24 13:00
*ED COVID-19 Vaccine History Last Done: 12/16/24 17:12
*ED Influenza Vaccine History Last Done: 12/16/24 13:00
*Nursing Disposition Last Done: 12/16/24 17:00
ED- Cardiac Assessment Last Done: 12/16/24 13:00
ED- Pulmonary Assessment Last Done: 12/16/24 13:00
ED-Skin Assessment Last Done: 12/16/24 17:32
Discharge Date and Time
Discharge Date/Time: 12/16/24 17:15
[2024-12-16 13:38] VITALS: BMI 18.3
[2024-12-16 13:57] LABS: Hematocrit 25.5 % (37.0-47.0); Hemoglobin 8.5 g/dL (12.0-16.0); Mean Corp Hgb Conc. 33.3 g/dL (33.0-37.0); Mean Corpuscular Volume 101.2 fL (81.0-99.0); Nucleated Red Blood Cells % 0 %; Platelet Count 175 10^3/uL (130-400); Red Cell Dist. Width 14.5 % (11.5-14.5)
[2024-12-16 14:10] LABS: ALT (SGPT) 16 U/L (0-35); AST (SGOT) 27 U/L (14-36); Albumin 3.6 g/dl (3.5-5.0); Alkaline Phosphatase 61 U/L (38-126); Blood Urea Nitrogen 27 mg/dl (7-17); Calcium 8.8 mg/dl (8.4-10.2); Carbon Dioxide 33 mmol/L (22-30); Chloride 90 mmol/L (98-107); Estimated Creatinine Clearance 45 ml/min; Glucose 88 mg/dl (70-99); Potassium 4.1 mmol/L (3.5-5.1); Sodium 128 mmol/L (135-145); Total Protein 6.5 g/dl (6.3-8.2); eGFR > 60.00
[2024-12-16 14:23] LABS: Troponin I 0.127 ng/ml
--- NOTE | 2024-12-16 14:56 | HPS.HSE ---
Family Physician
-
Family Physician: Sho Merchant
Chief Complaint
-
Lower Extremity Edema
History of Present Illness
Patient is an 89 y/o female past medical history of CHF, Atrial Fibrillation, ASCVD, Peripheral Neuropathy, Chronic Anemia, Chronic Hyponatremia and Hypothyroidism who presents with increased lower extremity edema. Patient reports increased edema
over the past 10 days or so. She reports her Lasix dose was increased from 40mg Daily to 60mg Daily for the past week but states edema has remained the same. She saw her PCP in the office today who referred to the emergency department for
evaluation. She denies chest pain, palpitations or shortness of breath. She reports her weight is that same. She denies any dietary indiscretions and reports compliance with her home fluid restriction.
Medical History
Past Medical History
Past Medical History: Reports Other
Additional Past Medical History:
Valvular Heart Disease
Chronic HFpEF
Permanent Atrial Fibrillation
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
Peripheral Neuropathy
Chronic Anemia
Chronic Hyponatremia
Hypothyroidism
Vertigo
Left Breast Cancer s/p Lumpectomy and XRT
Chronic Constipation
Past Surgical History: Reports Other
Additional Past Surgical History:
PVI Ablation x Multiple
PPM Placement
Left Lumpectomy
TAVR
Mitral / Tricuspid Valve Annuloplasty / Repairs
Cataracts
Social History
Tobacco: Non-smoker
Alcohol: None
Drug: None
Family History
Family History: Not pertinent
Allergies / Home Medications
Allergies reflects when Allergies were last updated in [facility].
Home Medications with original date entered in [facility]
Allergy/Medication List:
Allergies
Allergy/AdvReac Type Severity Reaction Status Date / Time
adhesive Allergy itching - Verified 12/16/24 11:54
redness
amiodarone Allergy elevated Verified 12/16/24 11:54
LFTs
bupivacaine (From Allergy Shortness Verified 12/16/24 11:54
Sensorcaine-Epinephrine) of Breath
cat dander Allergy SNEEZING/WH Verified 12/16/24 11:54
EEZING
codeine Allergy light Verified 12/16/24 11:54
headed and
dizzy
epinephrine (From Allergy Shortness Verified 12/16/24 11:54
Sensorcaine-Epinephrine) of Breath
prilocaine Allergy LIGHTHEADED, Verified 12/16/24 11:54
DIZZY
Sulfa (Sulfonamide Allergy Nausea Verified 12/16/24 11:54
Antibiotics)
sulfamethoxazole Allergy nausea-DID Verified 12/16/24 11:54
NOT
TOLERATE
WELL
lidocaine AdvReac Unknown Verified 12/16/24 11:54
Home Medications
levothyroxine 112 mcg tablet 112 mcg PO MOTUWETHFRSA@0700 Thyroid 12/28/20
calcium 315 mg (as citrate)-vitamin D3 6.25 mcg (250 unit) tablet (Citracal + Vitamin D Maximum) 1 tab PO DAILY Supplement 03/27/21
carvedilol 3.125 mg tablet 3.125 mg PO BID Blood Pressure 03/27/21
apixaban 2.5 mg tablet (Eliquis) 2.5 mg PO BID Blood Clot Prevention/Tx 03/14/23
furosemide 20 mg tablet 60 mg PO DAILY Fluid Retention/Swelling 10/10/24
acetaminophen 650 mg tablet,extended release (Arthritis Pain Relief (acetaminophen) ER) 650 mg PO DAILY@1200 mild pain 11/26/24
ezetimibe 10 mg tablet (Zetia) 10 mg PO DAILY High Cholesterol 11/26/24
pantoprazole 40 mg tablet,delayed release (Protonix) 40 mg PO DAILY Gastrointestinal Issue 11/26/24
sennosides 8.6 mg tablet (Alena-araceli) 8.6 mg PO Q48H Constipation 11/26/24
docusate sodium 100 mg capsule (Colace) 100 mg PO Q48H Constipation 12/16/24
tramadol 50 mg tablet 50 mg PO BID moderate pains 12/16/24
Review of Systems
-
A 12 point ROS was completed and negative except as noted: Yes
Constitutional: Denies Fever or Weight Gain
Respiratory: Denies Cough or Trouble Breathing
Cardiac: Denies Chest Pain or Palpitations
Abdomen/GI: Denies Abdominal Pain, Nausea, Vomiting or Diarrhea
Physical Exam
Vital Signs
Vital Signs
Temp Pulse Resp BP Pulse Ox
98.2 F 70 20 146/72 98
12/16/24 11:52 12/16/24 14:10 12/16/24 11:52 12/16/24 11:52 12/16/24 14:01
Physical Exam
General: Other (89 y/o female who appears quite thing and frail appearsing)
HEENT: Anicteric and Moist mucous membranes
Respiratory: Clear and Non Labored Respirations
Cardiac: S1/S2, Regular Rhythm and Murmur
GI: Soft and Non Tender
Rectal: Deferred by Provider
Musculoskeletal: No Clubbing, No Cyanosis and Other (Bilateral lower extremity edema with apparent fluid filled bullae proximal to the bilateral ankles)
Skin: Warm and Dry
Neuro: Awake, Alert, Oriented and Nonfocal/grossly intact
Psych: Calm
Laboratory Results
-
12/16/24 13:47
12/16/24 13:47
Laboratory Results
Total Bilirubin 0.4 mg/dl (0.2-1.3) 12/16/24 13:47
AST 27 U/L (14-36) 12/16/24 13:47
ALT 16 U/L (0-35) 12/16/24 13:47
Alkaline Phosphatase 61 U/L (38-126) 12/16/24 13:47
Troponin I 0.127 ng/ml H* 12/16/24 13:47
Data Reviewed
-
Lab Data: Labs Reviewed by me
Old Records: Reviewed
Impression/Plan
-
Acute on Chronic HFpEF
-Consult Cardiology
-Give Lasix 40mg IV x one dose Now - Defer additional doses of Lasix based on response
-Check Echocardiogram
Elevated Troponin, suspect Non-Ischemic Myocardial Injury due to Heart Failure
-Patient given full strength aspirin in ED - Continue low dose aspirin
-Continue to trend troponin
Chronic Hyponatremia
-Sodium close to baseline
-Continue fluid restriction 40oz/day
Permanent Atrial Fibrillation / Sick Sinus Syndrome s/p PPM
-Continue Eliquis
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
-Continue ezetimibe
Essential Hypertension
-Continue carvedilol
Chronic Macrocytic Anemia
-Hgb slightly lower than baseline, possibly related to volume expansive
-Check Folate and Vit B12
Hypothyroidism
-Continue levothyroxine
Hx Left Breast Cancer s/p Lumpectomy and XRT
DVT proph: Eliquis
Code Status: DNR
--- NOTE | 2024-12-16 15:08 | W.PN.UPDATE ---
Update Note
Progress Note Update
This note serves as an addendum to the H&P by presser cotton ginning Monisha Tovar
HPI
89F non - smoker Independent living Res [facility] with chronic ambulatory dysfunction use walker
PMHX; Prx AF,chr Eliquis, cardiac ablation x3, multiple CVs , MVR nd TVR repair, Chr HFpEF,, HTN, Hypercholesterolemia, Hypothyroidism chronic low back pain/multilevel lumbar DJD
Seen at ER: Lab by PCP noted low Na - Patient was called with results today and referred to the emergency department for further management and evaluation.
- PICKED EDGE SEWING MACHINE OPERATOR PO Lasix was increased to 60 from 40 for 1 week for Bernarda edema
ROS:
denies any worsening shortness of breath on her baseline.
denies any fever or chills.
- no chest pain.
- No weight gain.
- She has been able to ambulate with use of walker
Patient is compliant with Eliquis.
Relevant VS
11/30/24
12/01/24
12/16/24
Actual Weight 43.182 kg 42.502 kg +1.5 kg = 44.0 kg
PE
Gen: thin , not toxic , conversant , appropriate
HEENT: mild [place] IRA ?
Neck: supple
Lungs: symmetric AW
Cor: ranular
Abdomen:�soft
PORTUGUESE TUTOR: AAO3 , NFND
MS: f/l Bernarda 3 plus pitting edema
Psych: Nl mood and affect
Relevant Data
01/03/24 11/29/24 12/15/24
19:34 06:35 07:00
Hgb 8.1 L
MCV 104.2 H
Sodium 125 L
Chloride 89 L
Carbon Dioxide 33 H
BUN 28 H
Creatinine 0.7
eGFR > 60.00
Troponin I
Gmi-X-Dhebukankkr Pept 1590
12/16/24
13:47
Hgb 8.5 L
MCV 101.2 H
Sodium 128 L
Chloride 90 L
Carbon Dioxide 33 H
BUN 27 H
Creatinine 0.6
eGFR > 60.00
Troponin I 0.127 H*
Emb-H-Pginzwzykzv Pept 3550
CXR:
Minimal blunting of the posterior costophrenic angles bilaterally, which could represent minimal pleural effusions and/or pleural thickening.
Cardiomegaly with no convincing evidence for pulmonary edema pattern.
EKG
AV dual-paced rhythm
ABNORMAL ECG
WHEN COMPARED WITH ECG OF 11-Oct-2024 08:45,
NO SIGNIFICANT CHANGE WAS FOUND
Confirmed by RUSLAN DONOVAN MD ([id number]) on 12/16/2024 1:41:22 PM
11/18/23 TTE
Normal left ventricular chamber size. Normal left ventricular systolic function. Normal regional wall motion. Normal left ventricular wall thickness.
Left ventricular ejection fraction is 55-60%.
Significant biatrial enlargement MV repair with peak/mean gradients across the mitral valve are 8/3 mmHg respectively. Mild mitral regurgitation.
Transcatheter aortic valve replacement with peak/mean gradients across the
aortic valve are 7/4 mmHg respectively. Trace aortic regurgitation.
Mild tricuspid regurgitation. Estimated pulmonary artery pressure of 24 mmHg
Compared to the previous echo from Jan 2023, there is no significant change.
Last hospitalist admission: 11/28/2024 - 12/01/2024
DISCHARGE DIAGNOSES:
1. Severe lower back pain secondary to multilevel lumbar degenerative joint disease with acute ambulatory dysfunction.
2. Hyponatremia, chronic.
ASSESSMENT & PLAN
Acute on chronic hyponatremia - not symptomatic
Suspect Hypervolemic ( 1.5 kg wt gain plus or minus Natriuretics element due to Lasix
Decompensated Chr HFpEF <=> mild expanded vol.
- IV lasix 40 x single dose - f/u Na in am , await Card evaluation
- Hold PICKED EDGE SEWING MACHINE OPERATOR PO Lasix 60 for tomorrow AM
- ECHO in AM
- Daily Wt and IOs
- DCA card consult
In Paced rhythm
HX Permanent atrial fibrillation.
HX Sick sinus syndrome status post Medtronic permanent pacemaker 2014.
- on Chronic Eliquis.
- on low dose Carvedilol
Hypothyroid on LT4
Mild malnutrition with low BMI18.3
Independent living Res of [facility]
Normally dines at [employer] 4 times a week. Eat left over for 3 days
- Ambulance Driver Paramedic consult
OTHER CONDITIONS:
Chronic congestive heart failure, preserved ejection fraction.
Aortic stenosis status post transcatheter aortic valve replacement 10/2020.
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
Chronic microcytic anemia.
Dyslipidemia.
Essential HTN
HX left breast carcinoma status post lumpectomy and radiation 2013 with peripheral neuropathy.
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
DVT Px: chr Eliquis
DNR
IP TLM
[2024-12-16] MEDS: LOW STRENGTH ASPIRIN 324 MG PO (15:38)
--- NOTE | 2024-12-16 16:11 | CON.CAR ---
Addendum entered and electronically signed by Hamlet Zuniga DO 12/16/24 17:19:
I saw and examined the patient.
The Batch Still Operator's note was reviewed and I agree with the note.
Comment:
Plan:
She presents with acute on chronic bilateral lower extremity edema. She denies significant weight gain or shortness of breath. She did not take her Lasix today and her weight is up in the emergency room.
Her Lasix was recently increased by nephrology from 40 mg daily to 60 mg daily approximately 1 month ago by her report.
Chest x-ray without significant evidence of heart failure however her proBNP is the highest it has ever been. She is also hyponatremic.
She is less ambulatory due to her back pain and some of her edema may be dependent edema in nature.
Will start Lasix 60 mg IV daily and assess clinical response.
Continue daily weights creatinine and I's and O's.
Check echo, as her last echo was October 2023, to reevaluate EF and TAVR.
Continue Coreg, Eliquis. She remains AV paced
Trend troponin until peaks. Continue medical therapy of non-MA troponin.
HPI: Patient is an 89-year-old female with past medical history of permanent atrial arrhythmia status post prior ablations 2005, 2006, 2009, 2016, MV ring repair, TV ring repair maze and CAREN clip in 2014, history of TAVR 10/2020 with redo AVR at [facility]
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
Lasix dose was increased by nephrology from 40 mg daily to 60 mg daily. She then reports over the last several days noted lower extremity edema bilaterally. Denies shortness of breath, or weight gain. She was seen by her primary care physician
for this today and was referred to the ER for further evaluation. proBNP 3550, highest it has ever been. Sodium level was 125 yesterday, 128 today. Cardiology consulted for evaluation of acute heart failure.
Original Note:
Consultation
Consultation Request
Date/Time Consultation Performed: 12/16/24
Requesting Provider: Lu Shaffer PA-C
Performing Provider: Janette Santiago PA-C for Dr. Zuniga
Reason for Consultation: CHF
Medical History
-
Chief Complaint: LE edema
History of Present Illness:
Patient is an 89-year-old female with past medical history of permanent atrial arrhythmia status post prior ablations 2005, 2006, 2009, 2016, MV ring repair, TV ring repair maze and CAREN clip in 2014, history of TAVR 10/2020 with redo AVR at [facility] for
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
dose was increased by nephrology from 40 mg daily to 60 mg daily. She then reports over the last several days noted lower extremity edema bilaterally. Denies shortness of breath, or weight gain. She was seen by her primary care physician for this
today and was referred to the ER for further evaluation. proBNP 3550, highest it has ever been. Sodium level was 125 yesterday, 128 today. Cardiology consulted for evaluation of acute heart failure.
PMH:
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
s/p MV ring repair, TV ring repair, MAZE and Atricure CAREN clip 01/05/15
Permanent Afib/atypical flutter/tach
ablations 09/2005 and 02/2006
h/o PVI 05/2009
h/o MAZE (at time of MV/TV repair) 2014
h/o PVI and AV node ablation 11/2016
h/o elevated LFTs on amiodarone
Prolonged QTc on dofetilide, discontinued 10/2020
Chronic Eliquis OAC
SSS s/p Medtronic PPM in 2015 (same admission as MV/TV repair)
Chronic HFpEF
Chronic hyponatremia
Hypothyroidism
Hyperlipidemia
HTN
L breast cancer s/p lumpectomy / radiation 2013
Peripheral neuropathy
DJD/lumbar spinal disease
Past Medical History
Past Medical History: Other (in HPI)
Past Surgical History: Other (in HPI)
Social History
Tobacco: Former Smoker
Alcohol: None
Drug: None
Personal:
Living: Alone (with daughter Malathi living close by)
Family History
Family History: CAD and Cancer
Allergies / Home Medications
Allergy/AdvReac Type Severity Reaction Status Date / Time
adhesive Allergy itching - Verified 12/16/24 11:54
redness
amiodarone Allergy elevated Verified 12/16/24 11:54
LFTs
bupivacaine (From Allergy Shortness Verified 12/16/24 11:54
Sensorcaine-Epinephrine) of Breath
cat dander Allergy SNEEZING/WH Verified 12/16/24 11:54
EEZING
codeine Allergy light Verified 12/16/24 11:54
headed and
dizzy
epinephrine (From Allergy Shortness Verified 12/16/24 11:54
Sensorcaine-Epinephrine) of Breath
prilocaine Allergy LIGHTHEADED, Verified 12/16/24 11:54
DIZZY
Sulfa (Sulfonamide Allergy Nausea Verified 12/16/24 11:54
Antibiotics)
sulfamethoxazole Allergy nausea-DID Verified 12/16/24 11:54
NOT
TOLERATE
WELL
lidocaine AdvReac Unknown Verified 12/16/24 11:54
�Medication �Instructions �Recorded �Confirmed �Type
levothyroxine 112 mcg tablet 112 mcg PO MOTUWETHFRSA@0700 12/28/20 12/16/24 History
Thyroid
calcium 315 mg (as 1 tab PO DAILY Supplement 03/27/21 12/16/24 History
citrate)-vitamin D3 6.25 mcg (250
unit) tablet (Citracal + Vitamin D
Maximum)
carvedilol 3.125 mg tablet 3.125 mg PO BID Blood Pressure 03/27/21 12/16/24 History
apixaban 2.5 mg tablet (Eliquis) 2.5 mg PO BID Blood Clot 03/14/23 12/16/24 History
Prevention/Tx
furosemide 20 mg tablet 60 mg PO DAILY Fluid 10/10/24 12/16/24 History
Retention/Swelling
acetaminophen 650 mg 650 mg PO DAILY@1200 mild pain 11/26/24 12/16/24 History
tablet,extended release (Arthritis
Pain Relief (acetaminophen) ER)
ezetimibe 10 mg tablet (Zetia) 10 mg PO DAILY High Cholesterol 11/26/24 12/16/24 History
pantoprazole 40 mg tablet,delayed 40 mg PO DAILY Gastrointestinal 11/26/24 12/16/24 History
release (Protonix) Issue
sennosides 8.6 mg tablet (Alena-araceli) 8.6 mg PO Q48H Constipation 11/26/24 12/16/24 History
docusate sodium 100 mg capsule 100 mg PO Q48H Constipation 12/16/24 12/16/24 History
(Colace)
tramadol 50 mg tablet 50 mg PO BID moderate pains 12/16/24 12/16/24 History
Review of Systems
-
History Source: Patient
All other systems: Negative unless noted
Physical Exam
Vital Signs
Temp Pulse Resp BP Pulse Ox
98.2 F 70 20 146/72 98
12/16/24 11:52 12/16/24 14:10 12/16/24 11:52 12/16/24 11:52 12/16/24 14:01
Lab Results
12/16/24 13:47
12/16/24 13:47
Troponin I 0.127 ng/ml H* 12/16/24 13:47
Chy-M-Rzyrzspyrjw Pept 3550 pg/ml 12/16/24 13:47
Physical Exam
General: No Apparent Distress, Comfortable and Other (frail, elderly female)
HEENT: Normocephalic, Anicteric and Moist Mucous Membranes
Respiratory: Clear and Non Labored Respirations
Cardiac: S1/S2 and Regular Rhythm
GI: Soft, Non Tender, Non Distended and Normal Bowel Sounds
Musculoskeletal: No Clubbing, No Cyanosis and Edema (1+ of B/L LE)
Skin: Warm, Dry and Other (scattered ecchymoses of B/L LE)
Neuro: AO x 3
Impression / Plan
-
Primary granulator: Dr. Coleman
Assessment:
Presentation with B/L LE edema
Acute on chronic HFpEF
Elevated troponin, suspected nonischemic myocardial injury
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
s/p MV ring repair, TV ring repair, MAZE and Atricure CAREN clip 01/05/15
Permanent Afib/atypical flutter/tach
ablations 09/2005 and 02/2006
h/o PVI 05/2009
h/o MAZE (at time of MV/TV repair) 2014
h/o PVI and AV node ablation 11/2016
h/o elevated LFTs on amiodarone
Prolonged QTc on dofetilide, discontinued 10/2020
Chronic Eliquis OAC
SSS s/p Medtronic PPM in 2014 (same admission as MV/TV repair)
Chronic hyponatremia
Hypothyroidism
Hyperlipidemia
HTN
L breast cancer s/p lumpectomy / radiation 2013
Peripheral neuropathy
DJD/lumbar spinal disease
DNR code status
ECHO 11/18/2023: EF 55 to 60%, significant biatrial enlargement, MV repair with peak/mean gradients 8/3 mmHg, mild MR, TAVR with peak/mean gradient 7/4 mmHg, trace AR, mild TR, PAP 24 mmHg
ECHO 12/17/24: pending
Plan:
- Patient presents with bilateral lower extremity edema despite not noting significant weight gain or shortness of breath. Referred to ER after seen by primary care physician today with concerns for acute CHF
- Her Lasix dose was increased from 40 mg p.o. daily to 60 mg daily approximately 1 month ago by nephrology. proBNP 3550, highest it has ever been. Chest x-ray with evidence of minimal pleural effusions and/or pleural thickening and cardiomegaly.
Will place on IV Lasix 60 mg daily and assess response. Creatinine stable
- follow sodium levels with diuresis. she does have chronic hyponatremia
- Last echo from 11/18/2023 as above. Will repeat this admission
- EKG AV paced rhythm. await results of device interrogation completed in ER, d/w nursing
- continue coreg, eliquis
- check TSH
- trop 0.127, trend. no CP. suspect nonischemic myocardial injury
- hgb 8.5 on 12/16. has chronic anemia. follow.
Data Reviewed
-
EKG: Tracing Personally Visualized and interpreted
Radiology: Report Reviewed by me
Medical Tests (Nuc Med, Echo etc): Report Reviewed by me
Labs: Labs Reviewed by me
Old Records: Reviewed
[2024-12-16] MEDS: LASIX 40 MG IV (16:42)
--- NOTE | 2024-12-16 16:57 | W.CARD.DEVCH ---
Cardiac Device Check
-
Device: Pacemaker
Tar Boiler: Medtronic
The patient's device was interrogated with assistance of the device premium representative. The device had normal function. Remaining battery 5.5 years. Overall time in A. tach/A-fib 37.2%, burden appears to have been decreasing over the last several
months, previously was persistent. OptiVol uptrending slightly recently, however not nearly as elevated as has been in the past
[2024-12-16 17:30] LABS: Troponin I 0.115 ng/ml
[2024-12-16 17:33] VITALS: BP 155/66; BMI 17.7
[2024-12-16 17:35] VITALS: BMI 17.7
--- NOTE | 2024-12-16 17:46 | PTCARENOTE ---
Patient admitted to room 2121 from ED. Patient AAOX3, VSS, ambulatory in room with standby assist and rollator. EKG obtained per order, tele on patient, AV paced on monitor. Patient oriented to room and call yu, denies any concerns at this time,
ringing appropriately.
[2024-12-16] MEDS: ELIQUIS 2.5 MG PO (20:02)
[2024-12-16] MEDS: COREG 3.125 MG PO (20:02)
[2024-12-16] MEDS: ULTRAM 50 MG PO (20:02)
[2024-12-16] MEDS: COLACE PO (21:14)
[2024-12-16] MEDS: SENOKOT PO (21:14)
[2024-12-16 23:37] VITALS: BP 140/67
[2024-12-16 23:39] LABS: Troponin I 0.104 ng/ml
[2024-12-17] VITALS (7 sets, daily range): BP systolic 110–143; BP diastolic 48–74; PULSE 71; BMI 17.7; BMI 17.1
[2024-12-17] MEDS: SYNTHROID 112 MCG PO (05:21)
[2024-12-17 06:34] LABS: Hematocrit 25.4 % (37.0-47.0); Hemoglobin 8.5 g/dL (12.0-16.0); Mean Corp Hgb Conc. 33.5 g/dL (33.0-37.0); Mean Corpuscular Volume 102.8 fL (81.0-99.0); Platelet Count 173 10^3/uL (130-400); Red Cell Dist. Width 14.6 % (11.5-14.5)
[2024-12-17 07:34] LABS: Blood Urea Nitrogen 25 mg/dl (7-17); Calcium 8.3 mg/dl (8.4-10.2); Carbon Dioxide 33 mmol/L (22-30); Chloride 92 mmol/L (98-107); Estimated Creatinine Clearance 36 ml/min; Glucose 76 mg/dl (70-99); Magnesium 2.0 mg/dl (1.6-2.3); Potassium 3.5 mmol/L (3.5-5.1); Sodium 130 mmol/L (135-145); eGFR > 60.00
[2024-12-17] MEDS: LASIX 60 MG IV (08:57)
[2024-12-17] MEDS: ZETIA 10 MG PO (08:58)
[2024-12-17] MEDS: ULTRAM 50 MG PO ×2 (08:58→20:13)
[2024-12-17] MEDS: LOW STRENGTH ASPIRIN 81 MG PO (09:02)
[2024-12-17] MEDS: ELIQUIS 2.5 MG PO ×2 (09:02→20:12)
[2024-12-17] MEDS: PROTONIX 40 MG PO (09:02)
[2024-12-17] MEDS: COREG 3.125 MG PO ×2 (09:03→20:12)
--- NOTE | 2024-12-17 09:58 | W.PN.CARDCBS ---
Today's Communication / Plan
-
Continue gentle IV diuresis
Add Tubigrip's
Check echo
Impression / Plan
-
Primary media liaison officer: Dr. Coleman
Assessment:
Presentation with B/L LE edema
Acute on chronic HFpEF
Elevated troponin, suspected nonischemic myocardial injury
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
s/p MV ring repair, TV ring repair, MAZE and Atricure CAREN clip 01/05/15
Permanent Afib/atypical flutter/tach
ablations 09/2005 and 02/2006
h/o PVI 05/2009
h/o MAZE (at time of MV/TV repair) 2014
h/o PVI and AV node ablation 11/2016
h/o elevated LFTs on amiodarone
Prolonged QTc on dofetilide, discontinued 10/2020
Chronic Eliquis OAC
SSS s/p Medtronic PPM in 2014 (same admission as MV/TV repair)
Chronic hyponatremia
Hypothyroidism
Hyperlipidemia
HTN
L breast cancer s/p lumpectomy / radiation 2013
Peripheral neuropathy
DJD/lumbar spinal disease
DNR code status
ECHO 11/18/2023: EF 55 to 60%, significant biatrial enlargement, MV repair with peak/mean gradients 8/3 mmHg, mild MR, TAVR with peak/mean gradient 7/4 mmHg, trace AR, mild TR, PAP 24 mmHg
ECHO 12/17/24: pending
Plan:
- Patient presents with bilateral lower extremity edema despite not noting significant weight gain or shortness of breath. Referred to ER after seen by primary care physician with concerns for acute CHF.
- Her Lasix dose was increased from 40 mg p.o. daily to 60 mg daily approximately 1 month ago by nephrology. proBNP 3550, highest it has ever been. Chest x-ray with evidence of minimal pleural effusions and/or pleural thickening and cardiomegaly.
- Cont IV Lasix 60 mg daily, reports good response thus far
- Creatinine stable 0.7
- Follow sodium levels with diuresis. she does have chronic hyponatremia
- Tubigrips to mobilize fluid
- Last echo from 11/18/2023 as above. Will repeat this admission
- Device interrogation 37% Atach/AFib burden
- EKG AV paced rhythm
- Continue coreg, eliquis
- trop 0.127 -> 0.115
- no CP. suspect nonischemic myocardial injury d/t acute CHF
- hgb 8.5 on 12/16. has chronic anemia. follow.
Discussed with nursing
Progress Note - Lab Rep
Subjective
Date of Service: December 17, 2024
NAOE. Resting comfortably OOB to chair. Reports improvement in LE edema. Breathing is comfortable.
Objective
Labs:
12/17/24 05:27
12/17/24 05:27
Labs
Hgb 8.5 g/dL (12.0-16.0) L 12/17/24 05:27
Hct 25.4 % (37.0-47.0) L 12/17/24 05:27
Plt Count 173 10^3/uL (130-400) 12/17/24 05:27
Sodium 130 mmol/L (135-145) L 12/17/24 05:27
Potassium 3.5 mmol/L (3.5-5.1) 12/17/24 05:27
BUN 25 mg/dl (7-17) H 12/17/24 05:27
Creatinine 0.7 mg/dL (0.6-1.0) 12/17/24 05:27
Glucose 76 mg/dl (70-99) 12/17/24 05:27
Troponins
12/16/24 12/16/24 12/16/24
13:47 16:41 23:06
Troponin I 0.127 H* 0.115 H* 0.104 H*
Vital Signs and I&O:
Vital Signs
Temp Pulse Resp BP Pulse Ox
99.4 F 94 16 143/74 99
12/17/24 07:05 12/17/24 09:03 12/17/24 07:05 12/17/24 09:03 12/17/24 07:05
Vital Signs
Temp Pulse Resp BP Pulse Ox
99.4 F 94 16 143/74 99
12/17/24 07:05 12/17/24 09:03 12/17/24 07:05 12/17/24 09:03 12/17/24 07:05
Intake & Output
12/15/24 12/16/24 12/17/24 12/18/24
06:59 06:59 06:59 06:59
Output Total 800 / 800
Balance -800 / -800
Physical Exam
Physical Exam
Gen: NAD, AA
HEENT: NC/AT, sclera anicteric
Neck: No JVD
CV: RRR, 2/6 MEAGAN
Lungs: CTAB
Abd: S/ND
Ext: 2+ pitting LE edema
Skin: Warm, dry
Neuro: Non-focal
--- NOTE | 2024-12-17 12:08 | VNURNOTE ---
Home Health Liaison met with patient at bedside to discuss [facility] nurse/therapy, visits, schedule and homebound status. Patient is agreeable and understands that visits at home will be 2-3 x per week to assess and teach medical management. She
confirms that she has a scale at home. Pt has had [facility] in the past. Patient is aware that [facility] will contact them for start of care in 1-2 days after discharge from . Provided contact number for [facility].
[facility] referral completed in [facility].
--- NOTE | 2024-12-17 12:10 | CM ---
Patient seen at bedside on . Patient reports she lives alone in an independent apartment at [place], has 6 supportive children. Pt reports she ambulates with a walker. No VN or SNF history. Patient seen by therapy and recommendation for home
health. Patient in agreement for referral to [facility] after discussion and patient states that she has had [facility] in the past. CM sent TT to liaison and will continue to follow for discharge planning needs. Patient stated nothing had changed at home; PCP
Dr. Reynaga and she uses the [facility]. CM will continue to follow for discharge planning needs.
Plan; home with [facility]
--- NOTE | 2024-12-17 13:38 | W.PN.HOSP.TC ---
Today's Communication/Plan
-
Echo
IV diuresis
Monitor sodium
Assessment / Plan
Assessment / Plan
Impression
Presentation with bilateral lower extremity edema.
Concern for acute on chronic CHF preserved EF.
Nonischemic cardiac injury
Acute on chronic hyponatremia
Conditions prior to admission
Recent hospitalization for severe low back pain secondary to multilevel lumbar degenerative joint disease with acute ambulatory dysfunction.
� Patient had been treated with ELINA with improvement.
1. Chronic congestive heart failure, preserved ejection fraction.
2. Aortic stenosis status post transcatheter aortic valve
replacement 10/2020.
3. 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
4. Permanent atrial fibrillation.
5. Sick sinus syndrome status post Medtronic permanent pacemaker
2014.
6. Chronic anticoagulation with Eliquis.
7. Chronic microcytic anemia.
8. Hypothyroidism.
9. Dyslipidemia.
10. Essential hypertension.
11. History of a left breast carcinoma status post lumpectomy and
radiation 2013 with peripheral neuropathy.
12. 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
noted above.
13. Mild malnutrition with low BMI
Plan
Presentation with lower extremity edema
Concern for acute CHF preserved EF.
Stable respiratory status with no complaints of exertional dyspnea.
Chest x-ray with minimal bilateral pleural effusions, although with no evidence of pulmonary edema.
Noted with elevated pro CHF BNP above the baseline.
Device interrogation with no evidence of volume overload or significant A-fib burden
Continue attempt of gentle diuresis monitor renal function closely.
Update echocardiogram.
Acute on chronic hyponatremia suspect secondary to volume overload.
Check urine osmolarity, although could be skewed with ongoing diuresis.
TSH within normal limits
Monitor sodium while on IV Lasix.
Consider free water restriction if worsening
Continue Coreg
Adjust GDMT according to response to diuresis and updated echocardiogram
Permanent atrial fibrillation.
Continue Coreg
Continue anticoagulation with Eliquis
Hypothyroidism on replacement
Anticipated Discharge: 24 - 48 hours
Subjective/Interval History
-
Date of Service: December 17, 2024
Objective Data
-
Labs:
Laboratory Results
12/17/24
05:27
WBC 8.6
Hgb 8.5 L
Hct 25.4 L
Plt Count 173
Sodium 130 L
Potassium 3.5
Chloride 92 L
Carbon Dioxide 33 H
BUN 25 H
Creatinine 0.7
Glucose 76
Calcium 8.3 L
Vital Signs:
Vital Signs
Temp Pulse Resp BP Pulse Ox
98.0 F 70 16 110/58 100
12/17/24 11:05 12/17/24 11:05 12/17/24 11:05 12/17/24 11:05 12/17/24 11:05
I&O
12/16/24 12/17/24 12/18/24
06:59 06:59 06:59
Intake Total 480 / 480
Output Total 800 / 800 100 / 100
Balance -800 / -800 380 / 380
Physical Exam
-
General: Well Developed and No Apparent Distress
HEENT: Normocephalic, Atraumatic and Moist Mucous Membranes
Respiratory: Clear to Auscultation
Cardiac: Regular Rhythm, S1/S2 and Murmur; Negative Rub or Gallop
GI: Soft, Nontender, Nondistended and Normal Bowel Sounds; Negative Organomegaly
Rectal: Deferred by Provider
Musculoskeletal: No Clubbing, No Cyanosis and No Edema
Skin: Negative Rash
Neuro: Nonfocal/Grossly Intact
[2024-12-17] MEDS: KCL 40 MEQ PO (15:52)
[2024-12-18 03:07] VITALS: BP 140/61
[2024-12-18] MEDS: SYNTHROID 112 MCG PO (05:12)
[2024-12-18 05:31] VITALS: BMI 16.1
[2024-12-18 07:20] VITALS: BP 147/81
[2024-12-18 07:26] LABS: Blood Urea Nitrogen 33 mg/dl (7-17); Calcium 8.2 mg/dl (8.4-10.2); Carbon Dioxide 30 mmol/L (22-30); Chloride 93 mmol/L (98-107); Estimated Creatinine Clearance 40 ml/min; Glucose 82 mg/dl (70-99); Potassium 3.9 mmol/L (3.5-5.1); Sodium 126 mmol/L (135-145); eGFR > 60.00
[2024-12-18] MEDS: PROTONIX 40 MG PO (08:18)
[2024-12-18] MEDS: ZETIA 10 MG PO (08:18)
[2024-12-18] MEDS: ELIQUIS 2.5 MG PO ×2 (08:18→20:12)
[2024-12-18] MEDS: COREG 3.125 MG PO ×2 (08:18→20:11)
[2024-12-18] MEDS: LOW STRENGTH ASPIRIN 81 MG PO (08:19)
[2024-12-18] MEDS: LASIX 60 MG IV (08:19)
[2024-12-18] MEDS: ULTRAM 50 MG PO ×2 (08:43→20:15)
--- NOTE | 2024-12-18 09:55 | W.PN.CARDCBS ---
Today's Communication / Plan
-
Has diuresed well. Will transition Lasix to 60 mg p.o. daily.
Creatinine remains normal
Sodium at 126 although she has chronic hyponatremia.
Would be stable for discharge from cardiac standpoint.
Check basic metabolic panel in 1 week. Will arrange follow-up
Echocardiogram with stable transcatheter aortic valve and mitral valve repair
Impression / Plan
-
Primary crimper assembler: Dr. Coleman
Assessment:
Presentation with B/L LE edema
Acute on chronic HFpEF
Elevated troponin, suspected nonischemic myocardial injury
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
s/p MV ring repair, TV ring repair, MAZE and Atricure CAREN clip 01/05/15
Permanent Afib/atypical flutter/tach
ablations 09/2005 and 02/2006
h/o PVI 05/2009
h/o MAZE (at time of MV/TV repair) 2014
h/o PVI and AV node ablation 11/2016
h/o elevated LFTs on amiodarone
Prolonged QTc on dofetilide, discontinued 10/2020
Chronic Eliquis OAC
SSS s/p Medtronic PPM in 2014 (same admission as MV/TV repair)
Chronic hyponatremia
Hypothyroidism
Hyperlipidemia
HTN
L breast cancer s/p lumpectomy / radiation 2013
Peripheral neuropathy
DJD/lumbar spinal disease
DNR code status
ECHO 11/18/2023: EF 55 to 60%, significant biatrial enlargement, MV repair with peak/mean gradients 8/3 mmHg, mild MR, TAVR with peak/mean gradient 7/4 mmHg, trace AR, mild TR, PAP 24 mmHg
ECHO 12/17/24: EF 53%, status post TAVR with mean gradient of 8 and trace AI, mitral valve repair with mean gradient of 4, moderate MR. PA pressure 30
Plan:
-Has diuresed well with IV Lasix. Will transition to Lasix 60 mg daily. Creatinine stable at 0.6.
- Tubigrips to mobilize fluid
- Echo from yesterday is overall stable. Transcatheter aortic valve looks good. PA pressure is 30. Mitral repair is stable
- She has chronic hyponatremia. Would continue to follow as outpatient.
- Device interrogation 37% Atach/AFib burden
- EKG AV paced rhythm
- Continue coreg, eliquis
- trop 0.127 -> 0.115
- no CP. suspect nonischemic myocardial injury d/t acute CHF
- hgb 8.5 on 12/16. has chronic anemia. follow.
- From a cardiac standpoint she would be stable for discharge today. Check repeat basic metabolic panel in 1 week. Will arrange follow-up
Progress Note - Computer Security Manager
Subjective
Date of Service: December 18, 2024
Breathing is much improved and she has diuresed well.
Objective
Labs:
12/17/24 05:27
12/18/24 05:15
Labs
Hgb 8.5 g/dL (12.0-16.0) L 12/17/24 05:27
Hct 25.4 % (37.0-47.0) L 12/17/24 05:27
Plt Count 173 10^3/uL (130-400) 12/17/24 05:27
Sodium 126 mmol/L (135-145) L 12/18/24 05:15
Potassium 3.9 mmol/L (3.5-5.1) 12/18/24 05:15
BUN 33 mg/dl (7-17) H 12/18/24 05:15
Creatinine 0.6 mg/dL (0.6-1.0) 12/18/24 05:15
Glucose 82 mg/dl (70-99) 12/18/24 05:15
Troponins
12/16/24 12/16/24 12/16/24
13:47 16:41 23:06
Troponin I 0.127 H* 0.115 H* 0.104 H*
Vital Signs and I&O:
Vital Signs
Temp Pulse Resp BP Pulse Ox
97.9 F 77 18 147/81 99
12/18/24 07:20 12/18/24 07:20 12/18/24 07:20 12/18/24 07:20 12/18/24 07:20
Vital Signs
Temp Pulse Resp BP Pulse Ox
97.9 F 77 18 147/81 99
12/18/24 07:20 12/18/24 07:20 12/18/24 07:20 12/18/24 07:20 12/18/24 07:20
Intake & Output
12/16/24 12/17/24 12/18/24 12/19/24
06:59 06:59 06:59 06:59
Intake Total 1560 / 1560
Output Total 800 / 800 350 / 350
Balance -800 / -800 1210 / 1210
Physical Exam
Physical Exam
GEN: No distress, awake, Ox3
HEENT: supple, anicteric, mmm
LUNGS: CTA, no wheezes/rales
CV: Reg, S1/S2, 1/6 syst LSB, no gallop
ABD: soft, BS+, NT/ND
EXT: +1 edema
NEURO: Gross non-focal
SKIN: No rash
[2024-12-18 11:41] VITALS: BP 118/56
--- NOTE | 2024-12-18 14:21 | W.PN.HOSP.TC ---
Today's Communication/Plan
-
Hyponatremia with sodium down to 126. Acute on chronic
Provided IV Lasix today
Follow BMP in the morning for worsening of hyponatremia prior to resumption of diuresis
Free water restriction
Assessment / Plan
Assessment / Plan
Impression
Presentation with bilateral lower extremity edema.
Concern for acute on chronic CHF preserved EF.
Nonischemic cardiac injury
Acute on chronic hyponatremia
Conditions prior to admission
Recent hospitalization for severe low back pain secondary to multilevel lumbar degenerative joint disease with acute ambulatory dysfunction.
� Patient had been treated with ELINA with improvement.
1. Chronic congestive heart failure, preserved ejection fraction.
2. Aortic stenosis status post transcatheter aortic valve
replacement 10/2020.
3. 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
4. Permanent atrial fibrillation.
5. Sick sinus syndrome status post Medtronic permanent pacemaker
2014.
6. Chronic anticoagulation with Eliquis.
7. Chronic microcytic anemia.
8. Hypothyroidism.
9. Dyslipidemia.
10. Essential hypertension.
11. History of a left breast carcinoma status post lumpectomy and
radiation 2013 with peripheral neuropathy.
12. 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
noted above.
13. Mild malnutrition with low BMI
Plan
Presentation with lower extremity edema
Acute CHF preserved EF
Stable respiratory status with no complaints of exertional dyspnea.
Chest x-ray with minimal bilateral pleural effusions, although with no evidence of pulmonary edema.
Noted with elevated pro CHF BNP above the baseline.
Device interrogation with no evidence of volume overload or significant A-fib burden
Updated echocardiogram with no significant changes
Responding to IV diuresis with weight reduction down to dry weight at 38 kg.
Discussed with cardiology. Plan is to transition to oral Lasix starting 12/19 at higher dose 60 mg daily.
Continue Coreg
Acute on chronic hyponatremia suspect secondary to volume overload.
Sodium dropped to 126
TSH within normal limits
Urine awesome over 300 consistent with high ADH state.
Urine sodium skewed with loop diuretics
Free water restriction to 50 ounces
Follow BMP
Okay to resume oral Lasix if stable sodium and asymptomatic on 12/19
Permanent atrial fibrillation.
Continue Coreg
Continue anticoagulation with Eliquis
Hypothyroidism on replacement
Anticipated Discharge: 24 - 48 hours
Subjective/Interval History
-
Date of Service: December 18, 2024
Objective Data
-
Labs:
Laboratory Results
12/18/24
05:15
Sodium 126 L
Potassium 3.9
Chloride 93 L
Carbon Dioxide 30
BUN 33 H
Creatinine 0.6
Glucose 82
Calcium 8.2 L
Vital Signs:
Vital Signs
Temp Pulse Resp BP Pulse Ox
97.5 F 70 18 118/56 99
12/18/24 11:41 12/18/24 11:41 12/18/24 11:41 12/18/24 11:41 12/18/24 11:41
I&O
12/17/24 12/18/24 12/19/24
06:59 06:59 06:59
Intake Total 1560 / 1560
Output Total 800 / 800 350 / 350
Balance -800 / -800 1210 / 1210
Physical Exam
-
General: Well Developed and No Apparent Distress
HEENT: Normocephalic, Atraumatic and Moist Mucous Membranes
Respiratory: Clear to Auscultation
Cardiac: Regular Rhythm, S1/S2 and Murmur; Negative Rub or Gallop
GI: Soft, Nontender, Nondistended and Normal Bowel Sounds; Negative Organomegaly
Rectal: Deferred by Provider
Musculoskeletal: No Clubbing, No Cyanosis and No Edema
Skin: Negative Rash
Neuro: Nonfocal/Grossly Intact
--- NOTE | 2024-12-18 14:28 | W.HF.CON ---
Heart Failure
- LV Function
Left ventricular function study result: LV Ejection fraction >/= 50%
Ejection Fraction Percentage: 53
- ARNI
Patient already on ARNI: No
Heart Failure ARNI Not Indicated: LV Ejection Fraction >/= 40%
- ACEI/ARB
Patient already on ACEI/ARB: No
Heart Failure ACEI/ARB Not Indicated: LV Ejection Fraction > 40%
- Beta Gabi
Patient already on Evidence Based Beta Gabi: Yes
- Mineralocorticord Receptor Antagonist
Patient already on MRA: No
Heart Failure MRA Not Indicated: LV Ejection Fraction > 40%
- SGLT-2 Inhibitor
Patient already on SGLT-2 Inhibitor: No
Heart Failure SGLT-2 Inhibitor Not Indicated: LV Ejection Fraction >40%
- Afib Anticoagulation
Patient already on Anticoagulation for Afib: Yes
- NYHA CHF Classification
NYHA CHF Classification Level: Class III - Symptoms w/ min exertion, interferes w/ nml daily activity
- ACC/AHA Stage
ACC/AHA Stage: Stage C: Symptomatic Heart Failure
--- NOTE | 2024-12-18 14:58 | PN.CDI ---
CDI
- -
CDI:
Physician Documentation Request
Admit Date: 12/16/24 15:57
Dear Doctor Nohelia,
Please review the following and provide your response in the progress notes.
Clinical Indicators:
Pt admitted with CHFpEF exacerbation
Progress notes 12/17-12/18, ' Mild malnutrition with low BMI..'
Nutrition notes 12/17&12/18,' BMI 17.1-underwt); records show 92 lbs from 01-04-2024 and pt also reporting no recent weight changes however several years ago she was between 130-140 lbs-she stated she had been ill and was never able to regain the
weight. On 03-20 MD noting pt has diuresed well and has chronic hyponatremia. MD updated diet to regular with 1500 ml fluid restriction; intakes listed as 100% x last 4 meals. During visit on 12-17 RD able to observe appearance of multiple site
fat/muscle loss (moderate) including orbital, temples, clavicle, rib cage (legs covered and pt with blanket/jacket on in chair at time of visit). Pt meeting criteria for moderate protein/calorie malnutrition (ASPEN/AND guidelines, chronic illness).
RD to continue to follow per level of care during hospitalization....'
Based on the above information and your assessment, which of the following most accurately represents the patient's nutritional status?
Moderate protein calorie Malnutrition
Mild Protein calorie malnutrition ( no change in documentation)
Other (please specify)
[place] Criteria (ACP Hospitalist 2017)
2 or more criteria must be present for either
non severe or severe malnutrition
Note that the criteria differs related to the
presence of an acute or chronic illness
Acute Illness Chronic Illness
Energy Intake Non Severe: <75% for >7 days Non Severe: <75% for >1 month
Severe: <50% for >5 days Severe: <75% for >1 month
Weight Loss Non Severe: 1-2% over 1 week Non Severe: 5% over 1 month
5% over 1 month 7.5% over 3 months
7.5% over 3 months 10% over 6 months
1 year N/A 20% over 1 year
Severe: >2% over 1 week Severe: >5% over 1 month
>5% over 1 month >7.5% over 3 months
>7.5% over 3 months >10% over 6 months
1 year N/A >20% over 1 year
Body Fat Non Severe: Mild Decrease Non Severe: Mild Loss
Severe: Moderate Decrease Severe: Severe Loss
Muscle Mass Non Severe: Mild Decrease Non Severe: Mild Loss
Severe: Moderate Decrease Severe: Severe Loss
Fluid Accumulation Non Severe: Mild Accumulation Non Severe: Mild Accumulation
Severe: Moderate to severe Severe: Moderate to severe
accumulation accumulation
Reduced Rock Splitter Strength Non Severe: N/A Non Severe: N/A
Severe: Measurably reduced Severe: Measurably reduced
Additional criteria that can be used to Determine if Mild or Moderate Malnutrition (Merck Manual 2018)
Mild Moderate Severe
Albumin gm/dl <3.0 gm/dl <2.5 gm/dl <2.0 gm/dl
Pre Albumin mg/dl <15 gm/dl <10 mg/dl <5.0 mg/dl
BMI <18.5 <17 <16
Use of terms such as suspected, likely, concern for, or probable (associated with a specific diagnosis that is being evaluated, monitored, or treated as if it exists) are acceptable and can be coded in the inpatient setting, when documented at the
time of discharge.
Thank you,
Rajani Espino RN
CDI Specialist
[facility]
Please use your independent medical judgment in providing your response.
[2024-12-18 15:36] VITALS: BP 145/79
[2024-12-18 19:50] VITALS: BP 132/67
[2024-12-18] MEDS: COLACE 100 MG PO (21:18)
[2024-12-18] MEDS: SENOKOT 8.6 MG PO (21:18)
[2024-12-18 23:18] VITALS: BP 113/54
[2024-12-19 03:45] VITALS: BP 133/84
[2024-12-19] MEDS: SYNTHROID 112 MCG PO (05:00)
[2024-12-19 06:00] VITALS: BMI 17.5
[2024-12-19 06:32] LABS: Blood Urea Nitrogen 34 mg/dl (7-17); Calcium 8.1 mg/dl (8.4-10.2); Carbon Dioxide 32 mmol/L (22-30); Chloride 92 mmol/L (98-107); Estimated Creatinine Clearance 34 ml/min; Glucose 85 mg/dl (70-99); Potassium 3.8 mmol/L (3.5-5.1); Sodium 130 mmol/L (135-145); eGFR > 60.00
[2024-12-19 07:05] VITALS: BP 131/65
[2024-12-19] MEDS: PROTONIX 40 MG PO (08:33)
[2024-12-19] MEDS: COREG 3.125 MG PO ×2 (08:33→20:39)
[2024-12-19] MEDS: ELIQUIS 2.5 MG PO ×2 (08:33→20:39)
[2024-12-19] MEDS: ZETIA 10 MG PO (08:33)
[2024-12-19] MEDS: LOW STRENGTH ASPIRIN 81 MG PO (08:34)
[2024-12-19 11:05] VITALS: BP 138/70
[2024-12-19] MEDS: MIRALAX 17 GRAMS PO (12:27)
--- NOTE | 2024-12-19 13:36 | W.PN.HOSP.TC ---
Today's Communication/Plan
-
CW IV lasix
Add Miralax
Assessment / Plan
Assessment / Plan
Impression
Presentation with bilateral lower extremity edema.
Concern for acute on chronic CHF preserved EF.
Nonischemic cardiac injury
Acute on chronic hyponatremia
Conditions prior to admission
Recent hospitalization for severe low back pain secondary to multilevel lumbar degenerative joint disease with acute ambulatory dysfunction.
� Patient had been treated with ELINA with improvement.
1. Chronic congestive heart failure, preserved ejection fraction.
2. Aortic stenosis status post transcatheter aortic valve
replacement 10/2020.
3. 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
4. Permanent atrial fibrillation.
5. Sick sinus syndrome status post Medtronic permanent pacemaker
2014.
6. Chronic anticoagulation with Eliquis.
7. Chronic microcytic anemia.
8. Hypothyroidism.
9. Dyslipidemia.
10. Essential hypertension.
11. History of a left breast carcinoma status post lumpectomy and
radiation 2013 with peripheral neuropathy.
12. 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
noted above.
13. Mild malnutrition with low BMI
Plan
Presentation with lower extremity edema
Acute CHF preserved EF
Stable respiratory status with no complaints of exertional dyspnea.
Chest x-ray with minimal bilateral pleural effusions, although with no evidence of pulmonary edema.
Noted with elevated pro CHF BNP above the baseline.
Device interrogation with no evidence of volume overload or significant A-fib burden
Updated echocardiogram with no significant changes
Wt up again today- cw IV lasix today and follow wts.
Continue Coreg
Acute on chronic hyponatremia suspect secondary to volume overload.
Sodium dropped to 126.improved to 130
TSH within normal limits
Urine awesome over 300 consistent with high ADH state.
Urine sodium skewed with loop diuretics
Free water restriction to 50 ounces
Follow BMP
Permanent atrial fibrillation.
Continue Coreg
Continue anticoagulation with Eliquis
Hypothyroidism on replacement
Constipation - add miralax to her bowel regimen
DNR
Anticipated Discharge: 24 - 48 hours
Subjective/Interval History
-
Date of Service: December 19, 2024
Denies shortness of breath but noticing increasing leg swelling and the weight has gone up.
Denies any chest pain. No lightheadedness.
Constipated.
Objective Data
-
Labs:
Laboratory Results
12/19/24
05:11
Sodium 130 L
Potassium 3.8
Chloride 92 L
Carbon Dioxide 32 H
BUN 34 H
Creatinine 0.7
Glucose 85
Calcium 8.1 L
Vital Signs:
Vital Signs
Temp Pulse Resp BP Pulse Ox
97.6 F 71 16 138/70 100
12/19/24 11:05 12/19/24 11:05 12/19/24 11:05 12/19/24 11:05 12/19/24 11:05
I&O
12/18/24 12/19/24 12/20/24
06:59 06:59 05:59
Intake Total 1560 / 1560 760 / 760
Output Total 350 / 350
Balance 1210 / 1210 760 / 760
Physical Exam
-
General: Comfortable
HEENT: Moist Mucous Membranes
Respiratory: Clear to Auscultation
Cardiac: Regular Rhythm and S1/S2
GI: Soft
Musculoskeletal: Edema, Right Lower Extrem and Edema, Left Lower Extrem
Psych: Calm
Data Reviewed
-
Labs: Labs Reviewed by me
[2024-12-19] MEDS: LASIX 60 MG IV (13:49)
[2024-12-19 15:05] VITALS: BP 135/63
[2024-12-19 20:32] VITALS: BP 121/78
[2024-12-19] MEDS: ULTRAM 50 MG PO (20:44)
[2024-12-19 23:09] VITALS: BP 152/77
[2024-12-20 06:00] VITALS: BMI 17.1
[2024-12-20 07:09] VITALS: BP 128/84
[2024-12-20 08:10] LABS: Blood Urea Nitrogen 28 mg/dl (7-17); Calcium 8.2 mg/dl (8.4-10.2); Carbon Dioxide 33 mmol/L (22-30); Chloride 95 mmol/L (98-107); Estimated Creatinine Clearance 36 ml/min; Glucose 78 mg/dl (70-99); Potassium 3.6 mmol/L (3.5-5.1); Sodium 132 mmol/L (135-145); eGFR > 60.00
--- NOTE | 2024-12-20 09:09 | W.DCSUMMARY ---
Discharge Summary
Discharge Data
Date of Admission: 12/16/24
Date of Discharge: 12/20/24
-
Pending Results: No
Hospital Course
Primary diagnosis:
Acute on chronic heart failure with preserved EF
Secondary diagnosis:
History of TAVR at on 10/20/2020 and redo AVR at [place] 01/02/2021
Status post mitral valve ring repair,Status post tricuspid valve ring repair, maze and CAREN clip 01/05/2015
Permanent atrial fibrillation status post ablations
Sick sinus syndrome status post Medtronic pacemaker in place since 2014
Chronic hyponatremia
Hypothyroidism
Hyperlipidemia
Hospital course:
Patient presented with increasing bilateral lower extremity edema. She has a history of chronic heart failure. Is known to have preserved EF. A month ago Lasix dose was increased by nephrology from 40 to 60 mg. Over the last several days she has
had to notice increasing lower extremity edema bilaterally. She denied any shortness of breath. Her weight was 97 pounds which is higher than her 93 pounds.. Her BNP was elevated at 3550, highest it has ever been. Chest x-ray without significant
evidence of heart failure. Her pacemaker interrogation showed OptiVol uptrending slightly recently, however not nearly as elevated as has been in the past. A. tach/A-fib was 37.2%.
She had improvement with IV diuresis. Weight came down to 90 pounds at the time of discharge. Improved lower extremity edema. Troponin peak was 0.1 which was felt secondary to nonischemic myocardial injury. Creatinine was 0.7. Echocardiogram on
this admission showed EF of 53%. Well-seated TAVR, trace aortic valve regurgitation. Moderate mitral regurgitation, moderate tricuspid regurgitation. Little change compared to the study from 2023. Was seen by cardiology and once her
weight improved she was discharged back on home dose of 60 mg of Lasix.
Today patient feels much improved. She had a good amount of diuresis yesterday. Her weight is 90 pounds. Denies shortness of breath. Not hypoxic. AV paced rhythm. Heart rate controlled. Oxygenating well on room air. Chest was clear. No
chest pain or palpitations. No dizziness.
Deemed stable for discharge back to her assisted living facility today. Was seen by PT who recommended home discharge.
Consultants on board:
[facility]
Portions of this chart may have been created with voice recognition software. Occasional wrong word or 'sound alike' substitutions may have occurred due to the inherent limitations of voice recognition software.
Discharge Plan
-
Patient Disposition: Home (Routine Discharge)
Diet: 2 Gram Sodium and Restrict fluids to 64 oz
Activity: As tolerated
Driving Restrictions: As prior to admission
Specialty Instructions: Weigh Daily- Call MD for wt gain/loss 3 lbs overnight/5 lbs in 1 week
Instructions: *[facility] Heart Failure Instructions
Referrals:
Sho Merchant MD [Family Provider, Family Practice] - in less than 1 week
Danisha Lomas CRNP [Specified Professional Personl, Cardiology] - 01/05/25 3:20 pm
Referral Note: You have a cardiology follow-up appointment at the [place] office with Dr. Coleman's nurse practitioner, Danisha. Please call with questions
Prescriptions:
Continued
levothyroxine 112 MCG tablet
112 mcg PO MOTUWETHFRSA@0700
calcium citrate-vitamin D3 [Citracal + D Maximum] 1 EACH tablet
1 tab PO DAILY
carvedilol 3.125 MG tablet
3.125 mg PO BID
Eliquis 2.5 mg Tablet
2.5 mg PO BID
furosemide 20 mg tablet
60 mg PO DAILY
acetaminophen [Arthritis Pain Relief (acetam)] 650 mg Tablet Extended Release
650 mg PO DAILY@1200
ezetimibe [Zetia] 10 mg Tablet
10 mg PO DAILY
pantoprazole [Protonix] 40 mg Tablet,Delayed Release (Dr/Ec)
40 mg PO DAILY
sennosides [Alena-araceli] 8.6 mg tablet
8.6 mg PO Q48H
tramadol 50 mg Tablet
50 mg PO BID
docusate sodium [Colace] 100 mg Capsule
100 mg PO Q48H
Discharge Orders:
Discharge Patient (As Directed); Ordered 12/20/24
Ordered By: Rashard Hutchinson
Discharge Date and Time
Print Language: KOREAN
[2024-12-20] MEDS: ELIQUIS 2.5 MG PO (09:24)
[2024-12-20] MEDS: COREG 3.125 MG PO (09:24)
[2024-12-20] MEDS: ZETIA 10 MG PO (09:24)
[2024-12-20] MEDS: LOW STRENGTH ASPIRIN 81 MG PO (09:24)
[2024-12-20] MEDS: PROTONIX 40 MG PO (09:24)
[2024-12-20] MEDS: MIRALAX PO (09:25)
[2024-12-20] MEDS: COLACE 100 MG PO (09:25)
[2024-12-20] MEDS: LASIX 60 MG IV (09:25)
--- NOTE | 2024-12-20 12:45 | CM ---
F/U: Patient is discharging and sent updates to [facility]. IMM Completed. PLAN: Home w/ [facility].
[2024-12-20 12:54] VITALS: BP 130/65
== END 2024-12-20 13:45 | disposition home health service (06) | DRG 291 ==
LOC: 2 NORTH 15:57
PROVIDERS: Internal Medicine; Physician Assistant; Physician Assistant Medical; ADMITTING PHYSICIAN Internal Medicine; ATTENDING PHYSICIAN Internal Medicine; CONSULT PHYSICIAN Nuclear Medicine Nuclear Cardiology; EMERGENCY PHYSICIAN Student in an Organized Health Care Education/Training Program; FAMILY PHYSICIAN Family Medicine
PROC: 4B02XSZ Measurement of Cardiac Pacemaker, External Approach (ICD-10-PCS; 2024-12-16)
DX: I11.0 Hypertensive heart disease with heart failure (principal); I50.33 Acute on chronic diastolic (congestive) heart failure; E44.1 Mild protein-calorie malnutrition; I48.21 Permanent atrial fibrillation; E87.1 Hypo-osmolality and hyponatremia; I48.4 Atypical atrial flutter; Z68.1 Body mass index [BMI] 19.9 or less, adult; I5A Non-ischemic myocardial injury (non-traumatic); M47.816 Spondylosis without myelopathy or radiculopathy, lumbar region; E03.9 Hypothyroidism, unspecified; I49.5 Sick sinus syndrome; I35.0 Nonrheumatic aortic (valve) stenosis; Z66 Do not resuscitate; D50.9 Iron deficiency anemia, unspecified; D53.9 Nutritional anemia, unspecified; K59.09 Other constipation; I08.1 Rheumatic disorders of both mitral and tricuspid valves; E78.00 Pure hypercholesterolemia, unspecified; I25.10 Atherosclerotic heart disease of native coronary artery without angina pectoris; Z79.01 Long term (current) use of anticoagulants; Z79.899 Other long term (current) drug therapy; Z87.891 Personal history of nicotine dependence; Z92.3 Personal history of irradiation; Z95.0 Presence of cardiac pacemaker
CPT/HCPCS: 71046; 80048; 80053; 83735; 83880; 83935; 84300; 84443; 84484; 85025; 85027; 93005; 93306; 97162; 97166; 99285

== ENCOUNTER 2024-12-26 04:38 | Inpatient (IN) | payer OTHER, SELFPAY ==
[2024-12-25 21:54] VITALS: BMI 17.2
[2024-12-25 21:58] VITALS: BP 161/68
[2024-12-25 22:00] VITALS: BP 161/68
[2024-12-25 22:12] LABS: Hematocrit 26.1 % (37.0-47.0); Hemoglobin 8.6 g/dL (12.0-16.0); Mean Corp Hgb Conc. 33.0 g/dL (33.0-37.0); Mean Corpuscular Volume 100.0 fL (81.0-99.0); Nucleated Red Blood Cells % 0 %; Platelet Count 175 10^3/uL (130-400); Red Cell Dist. Width 14.8 % (11.5-14.5)
[2024-12-25 22:38] LABS: Blood Urea Nitrogen 29 mg/dl (7-17); Calcium 8.4 mg/dl (8.4-10.2); Carbon Dioxide 29 mmol/L (22-30); Chloride 91 mmol/L (98-107); Estimated Creatinine Clearance 42 ml/min; Glucose 170 mg/dl (70-99); Lipase 127 U/L (23-300); Sodium 127 mmol/L (135-145); eGFR > 60.00
[2024-12-26] VITALS (54 sets, daily range): BP systolic 69–156; BP diastolic 48–75; BMI 17.2; BMI 18.9
--- NOTE | 2024-12-26 01:19 | ED.GENMED ---
History of Present Illness
General
Chief Complaint: Abdominal Symptoms
Source: patient, family (Daughter at bedside) and previous hospital records (Recent hospitalization December 16 to December 20 for treatment of acute on chronic heart failure with preserved EF.)
Exam Limitations: none
Time Seen by Provider: 12/26/24 00:41
Nursing documentation reviewed up to this point in time: agreed with
History of Present Illness
History of Present Illness:
The patient is an 89-year-old female with a known history of congestive heart failure and chronic anemia, who presents today with an acute onset of diarrhea that began this morning. The diarrhea has become blood-tinged, described as 'rust' in color,
and is associated with crampy abdominal pain, which she experiences both during and outside of bowel movements. The patient experienced significant fatigue over the past several days, which may be related to her ongoing anemia, with her hemoglobin
dropping from 10 to 8.1 recently. (as per daughter) The patient has had chronic anemia of uncertain etiology for several years and is under the care of a weed controller. She was instructed by her primary care physician to take loperamide, which she
did, with mild improvement this afternoon, but diarrhea returned this evening. The patient is on known medications for heart failure management, including apixaban and furosemide. She reported having very low oral intake today, approximately 18
ounces of fluids.
Her weight has been steady since d/c 12/20/24
Lower extremity edema has not recurred.
Past History
Past History
ED Past Medical History: Arrthythmia (Paroxysmal A-fib), CHF, HTN, Hypercholesterolemia, Valvular disease, Hypothyroidism and Other (Ambulatory dysfunction, episode of aphasia, chronic low back pain/multilevel lumbar DJD, Chronic anemia)
ED Past Surgical History: Cardiac (History of cardiac ablation x3, multiple cardioversions, mitral and tricuspid valve repair) and Other (Breast biopsy, D&C, bilateral cataract surgery with lens implants)
Social History
Tobacco: Non-smoker
Alcohol: None
Drug: None
Personal:
Living: other ([facility])
Employment: Retired
Family History
Family History: Hypertension
Phy Exam
Physical Exam
Physical Exam:
GENERAL: 89-year-old, thin, frail-appearing woman, appears her stated age. Awake and alert, oriented x 3. Appears in no acute distress. Daughter is accompanying.
EYE: pupils equal and reactive. anicteric
NECK: Supple, nontender, no meningismus, no significant adenopathy.
ENT: oral mucosa is moist. No rhinorrhea
CARDIAC: Regular rate and rhythm. 2/6 holosystolic murmur
LUNGS: Clear breath sounds bilaterally, no acute respiratory distress, no wheezes/rales/rhonchi
ABDOMEN: Soft, nondistended, Mild tenderness epigastric region without rebound or guarding nor rigidity, normoactive BS. Rectal exam reveals thin, dark rust colored stool per vault that is heme positive.
NEUROLOGICAL: Alert and oriented x3, no focal neuro deficits.
SKIN: Warm and dry, mildly pale in color, skin intact. No rash.
MUSCULOSKELETAL: No C/C, trace edema b/l LE's. Venous stasis skin darkening b/l LE's. peripheral pulses are full and equal b/l. No palpable tenderness.
PSYCH: Normal and appropriate interaction.
Course
Orders/Labs/Results
Orders:
Orders
12/25/24 21:56
IV Insert/Care/Rem.- Treatment PRN
Straight cath- Treatment ONCE
12/25/24 22:05
Type And Crossmatch [Type+Screen] Urgent
Basic Metabolic Panel Urgent
Complete Blood Count/With Diff Urgent
Lipase Urgent
12/25/24 22:07
pacemaker [Interrogate Pacemaker- Treatment] ONCE
12/25/24 23:15
Urinalysis Reflex To Culture Urgent
Date Specimen was Collected: 12/25/24
Time Specimen was Collected: 21:56
12/26/24 00:57
Lactic Acid Urgent
12/26/24 01:07
CT Angio Abd/Pelvis w/wo IV [CT Abd/pelvis Angio W/wo Iv] Urgent
Comment:
Reason For Exam: acute lower GI bleeding
12/26/24 01:08
0.9% Sodium Chloride 1000 ml [Nss] 1,000 ml IV 125 mls/hr
Pantoprazole [Protonix IV] 40 mg IV NOW STA
12/26/24 03:05
Urine Microscopic Reflex Cult Urgent
Urine Culture Urgent
NETO Source: U
Specimen Description:
Date Specimen was Collected: 12/25/24
Time Specimen was Collected: 21:56
12/26/24 03:22
PTT Urgent
Abnormal Lab Results
12/25/24 12/26/24 12/26/24
22:05 00:57 03:05
WBC 11.5 H 10^3/uL
(4.8-10.8)
RBC 2.61 L 10^6/uL
(4.20-5.40)
Hgb 8.6 L g/dL
(12.0-16.0)
Hct 26.1 L %
(37.0-47.0)
MCV 100.0 H fL
(81.0-99.0)
MCH 33.0 H pg
(27.0-31.0)
RDW 14.8 H %
(11.5-14.5)
MPV 10.7 H fL
(7.4-10.4)
Abs Immat Gran (auto) 0.1 H 10^3/uL
(0-0.05)
Absolute Neuts (auto) 10.3 H 10^3/uL
(1.4-6.5)
Absolute Lymphs (auto) 0.6 L 10^3/uL
(1.2-3.4)
Neutrophils % 89.0 H %
(42.2-75.2)
Lymphocytes % 5.3 L %
(20.5-51.1)
Sodium 127 L mmol/L
(135-145)
Chloride 91 L mmol/L
(98-107)
BUN 29 H mg/dl
(7-17)
Glucose 170 H mg/dl
(70-99)
Lactic Acid 3.0 H mmol/L
(0.7-2.0)
Ur Occult Blood Reflex 3+ A
(Negative)
Leukocyte Esterase Rfl 1+ A
(Negative)
Urine WBC (Reflex) 11-15 A /HPF
(0-5)
Urine Bacteria (Reflex) Many A
(Negative)
Urine Albumin (Reflex) 2+ A
(Neg - Trace)
12/25/24 22:05
12/25/24 22:05
Vital Signs
Initial and Last Documented VS:
Initial Vital Signs
Temp Pulse Resp BP Pulse Ox
97.3 F 72 14 161/68 99
12/25/24 21:58 12/25/24 21:58 12/25/24 21:58 12/25/24 21:58 12/25/24 21:58
Last Documented Vital Signs
Temp Pulse Resp BP Pulse Ox
97.3 F 77 24 161/68 100
12/25/24 21:58 12/25/24 23:00 12/25/24 23:00 12/25/24 22:00 12/26/24 01:29
MDM/Problems Addressed
Differential Diagnosis Includes:
The Differential Diagnosis includes, in no particular order and is not limited to:
- Gastrointestinal bleeding secondary to ischemic colitis
- Peptic ulcer disease with bleeding
- Diverticular disease
- Infectious colitis
- Medication-related gastrointestinal mucosal damage
- Colon neoplasia
- Inflammatory bowel disease
- Upper gastrointestinal bleeding with lower presentation
- Hemorrhoidal bleeding
- Angiodysplasia
MDM/Problems Addressed:
Acute:
- Diarrhea with bloody stools
- Fatigue
Chronic:
- Congestive heart failure
- Chronic anemia
Thus far hemodynamically stable.
Labs reveal moderate anemia with hemoglobin of 8.6 which is actually stable and unchanged from recent results over the past month.
Rectal exam does reveal dark rust colored stools that are heme positive.
Will check CT angiogram abdomen and pelvis assess for potential acute bleeding however less likely. Concern for potential colitis. Will check lactic acid, concern for potential ischemic colitis.
Will hold Eliquis.
As patient is currently hemodynamically stable, history of CHF with recent hospitalization, will initiate IV fluids but gently hydrate.
Will give an IV dose of Protonix for potential upper GI bleed.
Patient will require acute hospitalization for continued close observation, continued surveillance of H&H. Will plan to transfuse if hemoglobin drops below 8.
Blood consent obtained.
Chronic conditions affecting care: Arrhythmia (A-fib, chronically maintained on Eliquis)
*Radiology
Radiology exam reviewed: radiology read reviewed
*Pulse Oximetry
SaO2: 100
Oxygen Mode of Delivery: Room air
Patient hypoxic: no
*[employer]ations Representative Interpretation
Rate: normal
Interpretation: normal
Rhythm: av sequential
*Critical Care Note
Total Time (30-74mins, 75-104mins- exclusive of procedures): 40
comment:
Critical care statement: A total of 40 minutes of critical care time was provided for this patient. This includes management of unstable vital signs, evaluation of the patient at bedside, reviewing the patient's pertinent medical records, discussion
with consultants, review of old EKGs and review of pertinent medical records. This time with separate from time utilized to perform the aforementioned documented procedures
Update Note
Update Note:
04:00
CTA shows an occlusion of the mid to superior SMA with evidence of wall thickening of the descending colon suspicious for ischemic bowel/ischemic colitis.
Case discussed with vascular surgery. Plan is for urgent OR for thrombectomy.
General surgery has also been notified to be on standby if colon resection is required.
I have updated the patient as well as the patient's daughter. Agree with plan of care.
Patient remains hemodynamically stable, denies abdominal pain and abdomen is soft without appreciable tenderness. No further diarrhea.
ED Attending Note
-
Portions of this chart may have been created with voice recognition software.� Occasional wrong word or��sound alike� substitutions may have occurred due to the inherent limitations of voice recognition software.
Discharge Plan
Departure
Patient Disposition: Admit
Date of Disposition: 12/26/24
Time of Disposition: 01:35
Admit to: Telemetry
Admit to doctor: oJno
Presentation/result/management discussed w/ accepting MD/DO: Hospitalist
Condition: Serious
Discharge Problem:
Acute gastrointestinal bleeding, SMA occlusion, Acute ischemic colitis
Prescriptions:
No Action
levothyroxine 112 MCG tablet
112 mcg PO MOTUWETHFRSA@0700
calcium citrate-vitamin D3 [Citracal + D Maximum] 1 EACH tablet
1 tab PO DAILY
carvedilol 3.125 MG tablet
3.125 mg PO BID
Eliquis 2.5 mg Tablet
2.5 mg PO BID
furosemide 20 mg tablet
60 mg PO DAILY
acetaminophen [Arthritis Pain Relief (acetam)] 650 mg Tablet Extended Release
650 mg PO DAILY@1200
ezetimibe [Zetia] 10 mg Tablet
10 mg PO DAILY
pantoprazole [Protonix] 40 mg Tablet,Delayed Release (Dr/Ec)
40 mg PO DAILY
sennosides [Alena-araceli] 8.6 mg tablet
8.6 mg PO Q48H
tramadol 50 mg Tablet
50 mg PO BID
docusate sodium [Colace] 100 mg Capsule
100 mg PO Q48H
Referrals:
Sho Merchant MD [Family Provider, Family Practice]
Interventions
Interventions:
*Risk Screen - Suicide Last Done: 12/25/24 21:58
*General Assessment Last Done: 12/25/24 21:58
*Neglect/Abuse Screening Last Done: 12/25/24 21:58
*ED- Fall Risk Assessment Last Done: 12/25/24 21:58
*ED COVID-19 Vaccine History Last Done: 12/25/24 21:58
*ED Influenza Vaccine History Last Done: 12/25/24 21:58
Discharge Date and Time
Print Language: AUSTRALIAN
[2024-12-26] MEDS: PROTONIX IV 40 MG IV (01:24)
[2024-12-26] MEDS: NSS 1000 IV ×2 (01:24→10:48)
[2024-12-26 03:32] LABS: Urine Character Cloudy (Clear)
[2024-12-26 03:59] LABS: Urine Squamous Cell SEEN /LPF (Few)
--- NOTE | 2024-12-26 04:31 | HPS.HSE ---
Family Physician
-
Family Physician: Sho Merchant
Chief Complaint
-
Abdominal pain and diarrhea
History of Present Illness
This is a 89-year-old female with past medical history significant for atrial fibrillation on anticoagulation with Eliquis, GERD, congestive heart failure, aortic stenosis status post TAVR presenting to the emergency department with abdominal pain
and diarrhea.
Patient reports 1 day of watery diarrhea which she had 2 voluminous episode. She reported to initially had only watery episode. She took some Imodium. She had mild abdominal discomfort. She then had another episode of diarrhea that contained
rust colored material. Told studies and was concerned for bleeding. Patient has history of bleeding hemorrhoids in the past she has had bright red blood with the hemorrhoidal bleed.
She reports some nausea but denies any vomiting. Patient has chronic back pain but denies any recent abdominal pain. She denies any worsening of her back pain with food intake. She reports compliance with Eliquis for atrial fibrillation.
She was recently admitted to the hospital for CHF exacerbation. She had gained weight of denies 7 pounds and was diuresed back down to 90 pounds with improvement in symptoms. Echo shows preserved EF with appropriate functioning of aortic valve.
In the emergency department she was febrile, blood pressure was 145/58 with a pulse of 70 and she was satting 100% on room air. ECG shows a paced rhythm without any acute changes compared to prior. Lactic acid was elevated at 3.0. CBC with a
white count of 11.5 hemoglobin of 8.6 and plate count 175 similar to prior. Electrolytes notable for a sodium of 127 which is similar to prior BUN/creatinine were normal. She had a CT abdomen pelvis showing occlusion of the mid to superior
mesenteric artery is new from previous. 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 There is moderate long segment wall
thickening of the descending colon with hypoenhancement suspicious for ischemic bowel/ischemic colitis, no pneumatosis. No intraluminal extravasation.
Medical History
Past Medical History
Past Medical History: Reports Other
Additional Past Medical History:
Valvular Heart Disease
Chronic HFpEF
Permanent Atrial Fibrillation
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
Peripheral Neuropathy
Chronic Anemia
Chronic Hyponatremia
Hypothyroidism
Vertigo
Left Breast Cancer s/p Lumpectomy and XRT
Chronic Constipation
Past Surgical History: Reports Other
Additional Past Surgical History:
PVI Ablation x Multiple
PPM Placement
Left Lumpectomy
TAVR
Mitral / Tricuspid Valve Annuloplasty / Repairs
Cataracts
Social History
Tobacco: Non-smoker
Alcohol: None
Drug: None
Family History
Family History: Not pertinent
Allergies / Home Medications
Allergies reflects when Allergies were last updated in [facility].
Home Medications with original date entered in [facility]
Allergy/Medication List:
Allergies
Allergy/AdvReac Type Severity Reaction Status Date / Time
adhesive Allergy itching - Verified 12/16/24 11:54
redness
amiodarone Allergy elevated Verified 12/16/24 11:54
LFTs
bupivacaine (From Allergy Shortness Verified 12/16/24 11:54
Sensorcaine-Epinephrine) of Breath
cat dander Allergy SNEEZING/WH Verified 12/16/24 11:54
EEZING
codeine Allergy light Verified 12/16/24 11:54
headed and
dizzy
epinephrine (From Allergy Shortness Verified 12/16/24 11:54
Sensorcaine-Epinephrine) of Breath
prilocaine Allergy LIGHTHEADED, Verified 12/16/24 11:54
DIZZY
Sulfa (Sulfonamide Allergy Nausea Verified 12/16/24 11:54
Antibiotics)
sulfamethoxazole Allergy nausea-DID Verified 12/16/24 11:54
NOT
TOLERATE
WELL
lidocaine AdvReac Unknown Verified 12/16/24 11:54
Home Medications
levothyroxine 112 mcg tablet 112 mcg PO MOTUWETHFRSA@0700 Thyroid 12/28/20
calcium 315 mg (as citrate)-vitamin D3 6.25 mcg (250 unit) tablet (Citracal + Vitamin D Maximum) 1 tab PO DAILY Supplement 03/27/21
carvedilol 3.125 mg tablet 3.125 mg PO BID Blood Pressure 03/27/21
apixaban 2.5 mg tablet (Eliquis) 2.5 mg PO BID Blood Clot Prevention/Tx 03/14/23
furosemide 20 mg tablet 60 mg PO DAILY Fluid Retention/Swelling 10/10/24
acetaminophen 650 mg tablet,extended release (Arthritis Pain Relief (acetaminophen) ER) 650 mg PO DAILY@1200 mild pain 11/26/24
ezetimibe 10 mg tablet (Zetia) 10 mg PO DAILY High Cholesterol 11/26/24
pantoprazole 40 mg tablet,delayed release (Protonix) 40 mg PO DAILY Gastrointestinal Issue 11/26/24
sennosides 8.6 mg tablet (Alena-araceli) 8.6 mg PO Q48H Constipation 11/26/24
docusate sodium 100 mg capsule (Colace) 100 mg PO Q48H Constipation 12/16/24
tramadol 50 mg tablet 50 mg PO BID moderate pains 12/16/24
Review of Systems
-
Constitutional: Reports No Symptoms
EENT: Reports No Symptoms
Respiratory: Reports No Symptoms
Cardiac: Reports No Symptoms
Abdomen/GI: Reports Abdominal Pain, Nausea, Diarrhea and Bloody Stools
: Reports No Symptoms
Musculoskeletal: Reports No Symptoms
Skin: Reports No Symptoms
Neurological: Reports No Symptoms
Endocrine: Reports No Symptoms
Hematologic/Lymphatic: Reports No Symptoms
Psych: Reports No Symptoms
Physical Exam
Vital Signs
Vital Signs
Temp Pulse Resp BP Pulse Ox
97.3 F 70 14 143/58 100
12/25/24 21:58 11/08/25 04:15 12/26/24 01:24 12/26/24 01:24 12/26/24 04:15
Physical Exam
General: No Apparent Distress, Comfortable and Other (Frail, no cachexia)
HEENT: Anicteric and Moist mucous membranes
Respiratory: Clear and Non Labored Respirations
Cardiac: S1/S2, Regular Rhythm and Murmur
GI: Soft, Non Tender and Normal Bowel Sounds
Rectal: Brown and Hem Positive
Genito-urinary: Deferred by me
Musculoskeletal: No Clubbing, No Cyanosis and No Edema
Skin: Warm and Dry
Neuro: AO x 3 and Nonfocal/grossly intact
Psych: Calm
Laboratory Results
-
12/25/24 22:05
12/25/24 22:05
Laboratory Results
Lactic Acid 3.0 mmol/L (0.7-2.0) H 12/26/24 00:57
Total Bilirubin Cancelled 12/25/24 22:05
AST Cancelled 12/25/24 22:05
ALT Cancelled 12/25/24 22:05
Alkaline Phosphatase Cancelled 12/25/24 22:05
Lipase 127 U/L (23-300) 12/25/24 22:05
Data Reviewed
-
CT Scan: Report Reviewed by me
Medical Tests (Nuc Med, Echo, EKG etc): Image Personally Visualized and interpreted
Lab Data: Labs Reviewed by me
Old Records: Reviewed
Impression/Plan
-
IMPRESSION:
89-year-old female with past medical history of paroxysmal atrial fibrillation anticoagulation, aortic stenosis status post TAVR, sick sinus syndrome status post pacemaker, CHF with preserved EF, hypothyroid, GERD presenting to the emergency
department with diarrhea occasionally bloody, abdominal pain and found to have bowel ischemia. She has no necrosis. No perforation. Lactic acid was 3.0. There is occlusion at the level of the SMA with ischemic colitis finding along the
descending colon. She is afebrile and hemodynamically stable. Labs otherwise notable for a sodium of 127. Hemoglobin is at around her baseline with 0.6.
PLAN:
Bowel ischemia -diarrhea and bloody BM likely corresponds to the area of ischemic colitis with observed occlusion at the level of the SMA as well as severe stenosis at the origin of the inferior mesenteric artery due to noncalcified plaque.
-Admit to IMU
-N.p.o. for now
-Gentle IV fluids, monitor for respiratory status
-Type and screen, consented for blood, transfuse for hemoglobin less than 7
-Vascular consulted, patient will be going to the OR for revascularization
-General Surgery consulted as well for comanagement with vascular
Atrial fibrillation -
- Holding Eliquis for now, patient may be placed on parenteral anticoagulation and status post procedure
-Hold parameters on Coreg but will continue as tolerated
CHF -patient is discharge weight of around 90 pounds. She is satting 100% and shows no evidence of peripheral edema at this time
-Holding Lasix
-Continue current
GERD
- continue ppi iv daily
DVT PPx - was on apixaban, SCDs for now
Code status - Full Code
[2024-12-26 04:34] LABS: APTT 40.2 Sec (23.4-35.0)
--- NOTE | 2024-12-26 05:06 | CON.VAS ---
Medical History
-
Chief Complaint: Abdominal pain with bloody diarrhea
History of Present Illness:
89F hx of afib on AC presents with 24 hours of vague abdominal pain with blood diarrhea
Past Medical History
Past Medical History: Arrhythmias, CAD, HTN and Hypercholesterolemia
Past Surgical History: None
Family History
Family History: Reviewed & Not Pertinent
Allergies / Home Medications
Allergy/AdvReac Type Severity Reaction Status Date / Time
adhesive Allergy itching - Verified 12/25/24 22:26
redness
amiodarone Allergy elevated Verified 12/25/24 22:26
LFTs
bupivacaine (From Allergy Shortness Verified 12/25/24 22:26
Sensorcaine-Epinephrine) of Breath
cat dander Allergy SNEEZING/WH Verified 12/25/24 22:26
EEZING
codeine Allergy light Verified 12/25/24 22:26
headed and
dizzy
epinephrine (From Allergy Shortness Verified 12/25/24 22:26
Sensorcaine-Epinephrine) of Breath
prilocaine Allergy LIGHTHEADED, Verified 12/25/24 22:26
DIZZY
Sulfa (Sulfonamide Allergy Nausea Verified 12/25/24 22:26
Antibiotics)
sulfamethoxazole Allergy nausea-DID Verified 12/25/24 22:26
NOT
TOLERATE
WELL
lidocaine AdvReac Unknown Verified 12/25/24 22:26
�Medication �Instructions �Recorded �Confirmed �Type
levothyroxine 112 mcg tablet 112 mcg PO MOTUWETHFRSA@0700 12/28/20 12/16/24 History
Thyroid
calcium 315 mg (as 1 tab PO DAILY Supplement 03/27/21 12/16/24 History
citrate)-vitamin D3 6.25 mcg (250
unit) tablet (Citracal + Vitamin D
Maximum)
carvedilol 3.125 mg tablet 3.125 mg PO BID Blood Pressure 03/27/21 12/16/24 History
apixaban 2.5 mg tablet (Eliquis) 2.5 mg PO BID Blood Clot 03/14/23 12/16/24 History
Prevention/Tx
furosemide 20 mg tablet 60 mg PO DAILY Fluid 10/10/24 12/16/24 History
Retention/Swelling
acetaminophen 650 mg 650 mg PO DAILY@1200 mild pain 11/26/24 12/16/24 History
tablet,extended release (Arthritis
Pain Relief (acetaminophen) ER)
ezetimibe 10 mg tablet (Zetia) 10 mg PO DAILY High Cholesterol 11/26/24 12/16/24 History
pantoprazole 40 mg tablet,delayed 40 mg PO DAILY Gastrointestinal 11/26/24 12/16/24 History
release (Protonix) Issue
sennosides 8.6 mg tablet (Alena-araceli) 8.6 mg PO Q48H Constipation 11/26/24 12/16/24 History
docusate sodium 100 mg capsule 100 mg PO Q48H Constipation 12/16/24 12/16/24 History
(Colace)
tramadol 50 mg tablet 50 mg PO BID moderate pains 12/16/24 12/16/24 History
Physical Exam
Vital Signs
Temp Pulse Resp BP Pulse Ox
97.3 F 70 14 143/58 100
12/25/24 21:58 12/26/24 04:15 12/26/24 01:24 12/26/24 01:24 12/26/24 04:15
Lab Results
12/25/24 22:05
12/25/24 22:05
Physical Exam
General: Well Developed, Well Nourished and No Apparent Distress
HEENT: Normocephalic
Respiratory: Clear
Cardiac: Irregular Rhythm
GI: Soft, Non Tender and Non Distended
Skin: Warm
Neuro: Awake and AO x 3
Psych: Calm
Pulses: Bilateral Femoral: +2
Assessment / Plan
-
89F hx of afib on AC presents with acute mesenteric ischemia likely 2/2 afib thromboembolism. CTA reviewed shows acute clot in distal SMA. Comparison CT from september 2024 shows normal blood flow through SMA. CTA also suggests ischemic bowel.
- i had a long discussion with the patient and daughter regarding the need for emergent intervention. At this time, it has been > 24 since symptoms started. There is a real risk for rapid deterioration and . Patient will need emergent
intervention for life saving SMA thrombectomy. Without this, there is risk of progression of clot and irreversible ischemic insult to the bowel. Even with intervention, there is is a risk of with washout of the lactic acid and ischemic
byproducts with reperfusion. Pt may need a second look laparotomy if bowel is resected at index operation. There is a real risk for needing a permanent ostomy. Pt and family understand risks and potential outcomes of intervention. Will proceed with
emergent SMA thrombectomy and call general surgery for assistance.
Data Reviewed
-
CT Scan: Image Personally Visualized and interpreted
Labs: Labs Reviewed by me
[2024-12-26 07:54] LABS: B.E. - POC 2.6 mmol/L; Glucose - POC 161 mg/dl (70-99); HCO3 - POC 26 mmol/L (21-28); Hematocrit - POC 18 % PCV (37-47); Hemodilution- POC Yes; Hemoglobin Calculated - POC 6.2; Ionized Calcium - POC 1.19 mmol/L (1.15-1.33); Lactate - POC 1.66 mmol/L (0.36-0.75); O2 Saturation %Calculated-POC 100.0 % (94-98); PCO2 - POC 33 mmHg (35-48); PO2 - POC 369 mmHg (83-108); Potassium - POC 3.5 mmol/L (3.5-5.1); Sodium - POC 131 mmol/L (136-145); Specimen Type - POC Arterial; pH - POC 7.50 (7.35-7.45)
[2024-12-26 08:44] LABS: B.E. - POC -0.5 mmol/L; Glucose - POC 180 mg/dl (70-99); HCO3 - POC 24 mmol/L (21-28); Hematocrit - POC 26 % PCV (37-47); Hemodilution- POC No; Hemoglobin Calculated - POC 8.9; Ionized Calcium - POC 1.09 mmol/L (1.15-1.33); Lactate - POC 2.15 mmol/L (0.36-0.75); O2 Saturation %Calculated-POC 100.0 % (94-98); PCO2 - POC 35 mmHg (35-48); PO2 - POC 374 mmHg (83-108); Potassium - POC 3.7 mmol/L (3.5-5.1); Sodium - POC 133 mmol/L (136-145); Specimen Type - POC Arterial; pH - POC 7.44 (7.35-7.45)
--- NOTE | 2024-12-26 08:59 | W.IMMPOSTOP ---
Addendum entered and electronically signed by Jan Lemos MD 12/26/24 09:12:
#[id number]
Original Note:
Surgical Immed Post Op Note
-
Primary Surgeon: Jan Lemos MD
Assisting Surgeon: Abdon Loja MD
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
Post-op Diagnosis: SMA thrombosis with small bowel ischemia
Procedure Performed: Exploratory laparotomy, small bowel resection
Anesthesia Type: GETA
Specimen / Cultures: Segment small bowel
Estimated Blood Loss: 20 mL for this portion of the procedure
Complications: None immediate
Operative Findings: Intraoperative consultation requested for evaluation of small bowel by vascular service. Moderate length segment of jejunum with ischemic changes and hemorrhagic bowel/mesentery. Ileum and proximal jejunum with good blood
supply post thrombectomy. Small bowel resection with [id number] anastomosis; Jaret technique, PRATEEK 80 purple staplers. All staple lines reinforced with Lembert 3-0 Vicryl. Mesenteric defect closed with 2-0 Vicryl. Anastomosis approximately
20 cm from ligament of Treitz, 130 cm from ileocecal valve. Cecum, transverse colon, descending colon and sigmoid all evaluated and appeared to have excellent blood supply. NG tube positioning confirmed intraoperatively. No additional findings.
--- NOTE | 2024-12-26 09:13 | OR.RPT ---
CT Surgery Operative Note
-
Pre-op Diagnosis:
Acute mesenteric ischemia
Post-op Diagnosis: Same
Procedure:
Open superior mesenteric artery thrombectomy
Small bowel resection with primary anastomosis
Primary Surgeon:
Abdon Loja MD
Assisting Surgeons:
Jan Lemos MD
Specimen: None
Cultures: None
Complications / Blood Loss: None
Indications for procedure: This is a 89-year-old female with a history of atrial fibrillation on anticoagulation. She presents with 24 hours of abdominal pain as well as bloody diarrhea. Cross-sectional imaging demonstrated a SMA thrombosis.
Comparison scans from September 2024 shows a widely patent SMA without stenosis or thrombus. Therefore this is a new finding and consistent with the patient's lactic acidosis, vague abdominal pain and lower GI bleed. Given these findings, the patient
and daughter was recommended to undergo emergent operative intervention for lifesaving measures. After an extensive discussion of the risk, benefits and alternatives to surgery, the patient wished to proceed.
Procedure: The patient is brought to the operative room and placed on the operative table in supine position. General anesthesia was induced and endotracheal intubation. The patient was prepped and draped you sterile fashion. A surgical timeout
was performed identify the patient, surgical site and procedure. A midline laparotomy was performed with a 10 blade scalpel. This was carried to the level of the subcutaneous tissue using electrocautery. The fascia was elevated and incised
sharply. Bovie cautery was used to incise the fascia while protecting the small bowel mesentery below. The Omni retractor was put into place with 2 bladder blades on either side of the abdominal wall. The colon was raised cephalad and the small
bowel towards the feet. Tenting of the mesentery was seen and this area was incised with a Bovie cautery. Dissection then identified the superior mesenteric vein which was mobilized to the patient's right. The superior mesenteric artery was
identified and circumferentially dissected. Small branches on either side were protected. The patient was systemically heparinized. Vesseloops were placed around the small branches as well as the proximal and distal SMA. There was a palpable
pulse proximally without a palpable pulse distally. A transverse arteriotomy was created. There was chronic appearing thrombus within the SMA. A 3 Opal embolectomy catheter was placed proximally to restore inflow. Chronic appearing thrombus
was removed. After 2 clean passes, there was robust inflow. Distally, the 3 Opal and 2 Opal catheters were passed with ease. A small amount of chronic appearing clot was removed. Backbleeding was not significant and was dark and of the
oxygenated blood. The arteriotomy was then closed with a 6-0 Prolene suture in a running manner. Doppler insulation of the SMA demonstrated triphasic waveforms out into the peripheral areas. Dr. Lemos then came into the operating room and
inspected the small bowel. It appeared healthy and viable with a small segment of duskiness. At this time, there was an increasing mesenteric hematoma in the area of the dusky appearing bowel. This was observed for 5 to 10 minutes. The mesentery
became more engorged. There was likely no venous return from the segment of bowel. Therefore the decision was made to perform a small bowel resection. Please refer to Dr. Lemos's operative report regarding the steps and details of this part of
the procedure. After his portion was complete with the small bowel resected and anastomosis, the bowel was run once more. There were no areas of ischemic bowel. Their abdomen was copiously irrigated with warm normal saline and the paracolic
gutters and pelvis were irrigated and drained. The fascia was then closed with a looped 0 PDS suture. The subcutaneous tissue was reapproximated with a 2-0 Vicryl suture. Jorge were used to close the skin. The patient was then awoken from
anesthesia and sent to the postoperative care in stable condition.:
[2024-12-26] MEDS: LEVOPHED 250 IV (09:25)
[2024-12-26] MEDS: HEPARIN 25000 UNITS/250 ML IV (09:38)
[2024-12-26 09:58] LABS: INR 1.66; PT 19.8 Sec (11.4-14.6)
[2024-12-26 09:59] LABS: APTT 41.2 Sec (23.4-35.0)
[2024-12-26 10:20] LABS: Hematocrit 28.7 % (37.0-47.0); Hemoglobin 9.9 g/dL (12.0-16.0); Mean Corp Hgb Conc. 34.5 g/dL (33.0-37.0); Mean Corpuscular Volume 89.1 fL (81.0-99.0); Platelet Count 107 10^3/uL (130-400); Red Cell Dist. Width 15.9 % (11.5-14.5)
[2024-12-26 10:25] LABS: ALT (SGPT) 13 U/L (0-35); AST (SGOT) 26 U/L (14-36); Albumin 2.2 g/dl (3.5-5.0); Alkaline Phosphatase 43 U/L (38-126); Blood Urea Nitrogen 21 mg/dl (7-17); Calcium 8.4 mg/dl (8.4-10.2); Carbon Dioxide 25 mmol/L (22-30); Chloride 97 mmol/L (98-107); Estimated Creatinine Clearance 42 ml/min; Glucose 138 mg/dl (70-99); Potassium 3.9 mmol/L (3.5-5.1); Sodium 127 mmol/L (135-145); Total Protein 4.4 g/dl (6.3-8.2); eGFR > 60.00
--- NOTE | 2024-12-26 10:32 | CON.INTV ---
Consultation
Consultation Request
Date/Time Consultation Requested: 12/26/2024-9:30 AM
Date/Time Consultation Performed: 12/26/2024-10 AM
Requesting Provider: Hospitalist
Performing Provider: Dr. Culver
Reason for Consultation: Postoperative critical care management
Medical History
-
Chief Complaint: Abdominal pain
History of Present Illness:
89-year-old non-smoking female with a history of atrial fibrillation, chronic heart failure preserved EF, valvular heart disease, hypothyroidism, breast cancer status postlumpectomy and XRT with protein calorie malnutrition presented with abdominal
pain and diarrhea noted to have acute mesenteric ischemia and underwent emergent mesenteric artery thrombectomy and small bowel resection-radiology interventional physician consulted for postoperative critical care management 12/26/2024. The patient is groggy
postoperatively on partial nonrebreather, no complaints of shortness of breath, complains of back pain and wants to lie on her side, has some abdominal pain, no focal weakness, dysarthria, chest congestion.
Past Medical History
Past Medical History: None (Chronic heart failure preserved EF. Permanent atrial fibrillation status post multiple ablations. Permanent pacemaker. TAVR are. Mitral tricuspid valve repair. Peripheral neuropathy. CAD. TIA. Hypothyroid.
Vertigo. Breast cancer status postlumpectomy/XRT. Chronic constipation.)
Past Surgical History: None (Multiple ablations. Permanent pacemaker. Left lumpectomy. TAB R. Mitral/tricuspid valve annuloplasty/repair. Cataract surgery.)
Social History
Tobacco: Non-smoker
Alcohol: None
Drug: None
Occupational Exposures: No known asbestos exposure
Environmental Exposures: No known tuberculosis exposure
Allergies / Home Medications
Allergies
Allergy/AdvReac Type Severity Reaction Status Date / Time
adhesive Allergy itching - Verified 12/25/24 22:26
redness
amiodarone Allergy elevated Verified 12/25/24 22:26
LFTs
bupivacaine (From Allergy Shortness Verified 12/25/24 22:26
Sensorcaine-Epinephrine) of Breath
cat dander Allergy SNEEZING/WH Verified 12/25/24 22:26
EEZING
codeine Allergy light Verified 12/25/24 22:26
headed and
dizzy
epinephrine (From Allergy Shortness Verified 12/25/24 22:26
Sensorcaine-Epinephrine) of Breath
prilocaine Allergy LIGHTHEADED, Verified 12/25/24 22:26
DIZZY
Sulfa (Sulfonamide Allergy Nausea Verified 12/25/24 22:26
Antibiotics)
sulfamethoxazole Allergy nausea-DID Verified 12/25/24 22:
NOT
TOLERATE
WELL
lidocaine AdvReac Unknown Verified 12/25/24 22:26
Home Medications
�Medication �Instructions �Recorded �Confirmed �Last Taken �Type
levothyroxine 112 mcg tablet 112 mcg PO MOTUWETHFRSA@0700 12/28/20 12/16/24 12/15/24 History
Thyroid
calcium 315 mg (as 1 tab PO DAILY Supplement 03/27/21 12/16/24 12/16/24 History
citrate)-vitamin D3 6.25 mcg (250
unit) tablet (Citracal + Vitamin D
Maximum)
carvedilol 3.125 mg tablet 3.125 mg PO BID Blood Pressure 03/27/21 12/16/24 12/16/24 History
apixaban 2.5 mg tablet (Eliquis) 2.5 mg PO BID Blood Clot 03/14/23 12/16/24 12/16/24 History
Prevention/Tx
furosemide 20 mg tablet 60 mg PO DAILY Fluid 10/10/24 12/16/24 12/15/24 History
Retention/Swelling
acetaminophen 650 mg 650 mg PO DAILY@1200 mild pain 11/26/24 12/16/24 12/15/24 History
tablet,extended release (Arthritis
Pain Relief (acetaminophen) ER)
ezetimibe 10 mg tablet (Zetia) 10 mg PO DAILY High Cholesterol 11/26/24 12/16/24 12/15/24 History
pantoprazole 40 mg tablet,delayed 40 mg PO DAILY Gastrointestinal 11/26/24 12/16/24 12/15/24 History
release (Protonix) Issue
sennosides 8.6 mg tablet (Alena-araceli) 8.6 mg PO Q48H Constipation 11/26/24 12/16/24 Unknown History
docusate sodium 100 mg capsule 100 mg PO Q48H Constipation 12/16/24 12/16/24 Unknown History
(Colace)
tramadol 50 mg tablet 50 mg PO BID moderate pains 12/16/24 12/16/24 12/16/24 History
Review of Systems
-
Unable to Obtain full review of systems at this time due to: Other (Per HPI)
Vitals / Labs / Diagnostic Testing
Vital Signs
Temp Pulse Resp BP Pulse Ox
97.5 F 70 13 108/65 100
12/26/24 09:17 12/26/24 10:00 12/26/24 10:00 12/26/24 10:00 12/26/24 09:30
Lab Data
12/26/24 09:31
12/26/24 09:31
Laboratory Results
12/26/24 12/26/24
03:58 09:31
PT 19.8 H
INR 1.66
APTT 40.2 H 41.2 H
Diagnostic Testing:
Physical Exam
-
HEENT: Normocephalic, Anicteric, Moist Mucous Membranes and Other (Temporal wasting)
Cardiovascular: Irregular Rhythm and Murmur
Respiratory: Wheeze (n), Rales (n), Rhonchi, Non-Labored Respirations and Accessory Resp Muscle Use (n)
GI: Distended
Neurology: Awake, Alert and No Motor Deficits
Skin: Warm and Good Color
General: Respiratory Distress (n) and Comfortable
Assessment
-
89-year-old non-smoking female with a history of atrial fibrillation, chronic heart failure preserved EF, valvular heart disease, hypothyroidism, breast cancer status postlumpectomy and XRT with protein calorie malnutrition presented with abdominal
pain and diarrhea noted to have acute mesenteric ischemia and underwent emergent mesenteric artery thrombectomy and small bowel resection-radiology interventional physician consulted for postoperative critical care management 12/26/2024.
Abdominal pain with acute mesenteric ischemia
Status post emergent mesenteric artery thrombectomy/small bowel resection 12/26/2024
Leukocytosis
Jrtrmb-nasaocbtmt-okszxlzxax 9.9
Hyponatremia
Hyperglycemia
Lactic acidosis
Conditions present prior to admission:
Chronic heart failure preserved EF.
Permanent atrial fibrillation status post multiple ablations.
Permanent pacemaker.
TAVR
Mitral tricuspid valve repair.
Peripheral neuropathy.
CAD.
TIA.
Hypothyroid.
Vertigo.
Breast cancer status postlumpectomy/XRT.
Chronic constipation.
Multiple ablations. Permanent pacemaker. Left lumpectomy. TAB R. Mitral/tricuspid valve annuloplasty/repair. Cataract surgery.
Plan
Patient critically ill postoperatively with some hypotension and will be monitored closely in the surgical intensive care unit
Supplemental oxygen as needed
High flow oxygen if needed
Aspiration precautions
Noninvasive ventilation if needed
Patient full code-intubated mechanically ventilated if respiratory status deteriorates
Nebulizers as needed-currently not bronchospastic
General Surgery and vascular surgery following-correspondence reviewed
Operative records reviewed
Bowel rest
Eventual nutrition per surgery
Heparin drip
Analgesia-Dilaudid MATERNITY NURSE
Check cultures
Empiric antibiotics-on Zosyn
Norepinephrine as needed
Phenylephrine as needed
Follow lactate
Follow leukocytosis
Monitor hemoglobin
Transfuse as needed
Follow electrolytes
Patient with mild hypernatremia-to receive crystalloids
DVT prophylaxis-on heparin drip
GI prophylaxis-on pantoprazole
Nutrition per surgery
Early mobilization
Critical care statement: A total of 55 minutes of critical care time was provided for this patient today. This includes management of unstable vital signs, evaluation of the patient at bedside, reviewing the patient�s pertinent medical records
including radiographs, pressor management, microbiology, laboratory evaluations, and��discussion with primary team, consultants, pharmacy, nutrition, physical therapy, case management, charge nurse, critical care nursing, and respiratory therapy.
Diagnostic data:
Chest x-ray 01/03/2024-mild lingular pneumonia
Chest x-ray 12/16/2024-mild blunting posterior costophrenic angles bilaterally could represent minimal pleural effusions, cardiomegaly
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
Echocardiogram 12/17/2024-EF 53%, well-seated TAVR PA systolic 30, moderate mitral regurgitation
Data Reviewed
-
EKG: Report reviewed by me
Radiology: Report reviewed by me
CT Scan: Report reviewed by me
Medical Tests (Nuc Med, Echo etc): Report reviewed by me
Labs: Labs reviewed by me
Critical Care Time (in minutes): 55
--- NOTE | 2024-12-26 11:00 | PTCARENOTE ---
report received from pacu. pt aaox3 but drowsy. vss. a/v paced. ng tube r nare. confirmed placement w/ surgical pa and cxr. cece zeroed and functioning appropiately. nss@60cc/hr. levo @ 4mcg/min. heparin gtt @250cc/hr dilaudid woodyard crane operator set up and teach
back instructions provided to pt. pt verbalized understanding. family briefly at bedside. will monitor.
[2024-12-26] MEDS: DILAUDID PCA 30 IV (11:33)
[2024-12-26] MEDS: ZOSYN 50 IV ×2 (12:01→18:07)
--- NOTE | 2024-12-26 13:21 | W.PN.HOSP.TC ---
Today's Communication/Plan
-
see outlined plan below
Assessment / Plan
Assessment / Plan
Assessment:
Abdominal pain with acute mesenteric ischemia
- s/p emergent mesenteric artery thrombectomy/small bowel resection 12/26/2024
- post-op care per Vascular/General Surgery
- monitor lactic acidosis; continue IVF. Also has shock, possibly septic vs hypovolemic - on pressors. ICU team following
- NGT/NPO/IVF
- IV Zosyn - renally dosed
- IV Heparin - requires intensive monitoring of PTTs
- Analgesia- Dilaudid PUBLIC ADDRESS SERVICER pump per Vascular
Chronic macrocytic anemia
Acute thrombocytopenia, likely consumptive from clot
- monitor platelets
acute Hyponatremia
- continue IVF
Chronic heart failure preserved EF.
- monitor volume status, weights
Permanent atrial fibrillation status post multiple ablations.
Permanent pacemaker.
TAVR
Mitral tricuspid valve repair.
Peripheral neuropathy.
CAD.
TIA.
Hypothyroidism
Breast cancer status postlumpectomy/XRT.
Chronic constipation.
DVT ppx: IV heparin
Code: Full
Total Critical Care Time 42 minutes. I was immediately available to the patient and staff. I personally examined, reviewed labs, diagnostic images/reports, interpretations, treatment plans, discussed patient care with other providers and family
or caregivers (if patient is unable to make decisions), entered orders as appropriate and documented the medical record.
Anticipated Discharge: > 48 hours
Subjective/Interval History
-
Date of Service: December 26, 2024
s/p emergent surgery (open superior mesenteric artery thrombectomy, Exploratory laparotomy, small bowel resection)
on pressors, PUBLIC ADDRESS SERVICER pump, IV heparin
reports thirst
Objective Data
-
Labs:
Laboratory Results
12/25/24 12/26/24 12/26/24
22:05 03:58 09:31
WBC 12.1 H
Hgb 9.9 L
Hct 28.7 L
Plt Count 107 L D
PT 19.8 H
INR 1.66
APTT 40.2 H 41.2 H
Sodium 127 L 127 L
Potassium 3.9
Chloride 91 L 97 L
Carbon Dioxide 29 25
BUN 29 H 21 H
Creatinine 0.6 0.6
Glucose 170 H 138 H
Calcium 8.4 8.4
Total Bilirubin Cancelled 0.9
AST Cancelled 26
ALT Cancelled 13
Alkaline Phosphatase Cancelled 43
12/26/24
15:30
WBC
Hgb
Hct
Plt Count
PT
INR
APTT Pending
Sodium
Potassium
Chloride
Carbon Dioxide
BUN
Creatinine
Glucose
Calcium
Total Bilirubin
AST
ALT
Alkaline Phosphatase
Vital Signs:
Vital Signs
Temp Pulse Resp BP Pulse Ox
97.4 F 70 16 108/65 100
12/26/24 11:06 12/26/24 10:00 12/26/24 12:00 12/26/24 10:00 12/26/24 12:00
I&O
12/25/24 12/26/24 12/27/24
06:59 06:59 06:59
Intake Total 350 / 350
Output Total 430 / 430
Balance -80 / -80
Physical Exam
-
General: No Apparent Distress
HEENT: Normocephalic, Atraumatic and Other (+ NG tube)
Respiratory: Negative Wheezes
Cardiac: Regular Rhythm and S1/S2
GI: Soft
Musculoskeletal: No Edema
Neuro: AO x 3
Psych: Calm
Data Reviewed
-
Critical Care Time (in minutes): 42
Labs: Labs Reviewed by me
[2024-12-26 16:11] LABS: APTT 46.3 Sec (23.4-35.0)
--- NOTE | 2024-12-26 16:35 | PTCARENOTE ---
assessment unchanged. pt remains aaox3 but withdrawn. medical assistant instructor dilaudid active w/ handle near patient. levo remains @ 6mcg/min. nss @60cc/hr. bergeron output 100cc's since admission to ICU. moderate drainage abdominal surgical incision dressing. Hospitalist
made aware. no new orders. will monitor.
[2024-12-26] MEDS: NSS 250 IV (22:26)
[2024-12-26 22:28] LABS: Hematocrit 25.4 % (37.0-47.0); Hemoglobin 9.1 g/dL (12.0-16.0); Mean Corp Hgb Conc. 35.8 g/dL (33.0-37.0); Mean Corpuscular Volume 85.5 fL (81.0-99.0); Platelet Count 122 10^3/uL (130-400); Red Cell Dist. Width 17.7 % (11.5-14.5)
--- NOTE | 2024-12-26 22:30 | PTCARENOTE ---
Notified ICU DOMINICK/Vasc Surg regarding no urine o/p, and arterial line not correlating with NIBP/No waveform.
Orders to remove arterial access.
Orders to get BMP/CBC, 250 ml fluid bolus.
[2024-12-26 22:46] LABS: Blood Urea Nitrogen 32 mg/dl (7-17); Calcium 8.1 mg/dl (8.4-10.2); Carbon Dioxide 21 mmol/L (22-30); Chloride 97 mmol/L (98-107); Estimated Creatinine Clearance 23 ml/min; Glucose 137 mg/dl (70-99); Potassium 3.8 mmol/L (3.5-5.1); Sodium 129 mmol/L (135-145); eGFR 43.54
[2024-12-27] VITALS (59 sets, daily range): BP systolic 87–136; BP diastolic 46–76; BMI 19.5
--- NOTE | 2024-12-27 00:07 | PTCARENOTE ---
Addendum entered by oJse Bell RN 12/27/24 01:48:
remains oliguric, icu willard notified additional 250 crystalloid bolus.
Original Note:
No changes in patient assessment.
[2024-12-27] MEDS: ZOSYN 50 IV ×5 (00:53→23:11)
[2024-12-27] MEDS: NSS 1000 IV ×2 (00:53→08:30)
[2024-12-27] MEDS: NSS 250 IV ×3 (02:19→08:30)
--- NOTE | 2024-12-27 03:30 | PTCARENOTE ---
Addendum entered by Jose Bell RN 12/27/24 05:31:
x1 albumin given
Addendum entered by Jose Bell RN 12/27/24 04:02:
250 ml crystalloid bolus ordered.
No pain relief despite biomedical electronics technician use, breakthrough 0.5 hydro ordered.
Original Note:
No urine op despite x2 fluid bolus + maint. crystalloid icu willard aware
[2024-12-27 03:55] LABS: Hematocrit 25.6 % (37.0-47.0); Hemoglobin 8.5 g/dL (12.0-16.0); Mean Corp Hgb Conc. 33.2 g/dL (33.0-37.0); Mean Corpuscular Volume 94.1 fL (81.0-99.0); Platelet Count 120 10^3/uL (130-400); Red Cell Dist. Width 18.9 % (11.5-14.5)
[2024-12-27] MEDS: DILAUDID 0.5 MG IV (03:56)
[2024-12-27 03:59] LABS: INR 1.47; PT 18.1 Sec (11.4-14.6)
[2024-12-27 04:00] LABS: APTT 38.2 Sec (23.4-35.0)
[2024-12-27 04:12] LABS: Blood Urea Nitrogen 34 mg/dl (7-17); Calcium 7.7 mg/dl (8.4-10.2); Carbon Dioxide 22 mmol/L (22-30); Chloride 98 mmol/L (98-107); Estimated Creatinine Clearance 21 ml/min; Glucose 134 mg/dl (70-99); Magnesium 2.2 mg/dl (1.6-2.3); Potassium 4.4 mmol/L (3.5-5.1); Sodium 131 mmol/L (135-145); eGFR 39.55
[2024-12-27] MEDS: ALBUMIN 5% 250 IV (05:08)
[2024-12-27] MEDS: LEVOPHED 250 IV (05:11)
--- NOTE | 2024-12-27 07:27 | W.PN.INTV ---
Today's Communication / Plan
Recommendations
Monitor for recurrent bowel ischemia
Analgesia per surgery
Antibiotics
Wean oxygen
Heparin drip
Norepinephrine and phenylephrine as needed
Try IV Tylenol-decrease LIME KILN OPERATOR
Assessment
-
89-year-old non-smoking female with a history of atrial fibrillation, chronic heart failure preserved EF, valvular heart disease, hypothyroidism, breast cancer status postlumpectomy and XRT with protein calorie malnutrition presented with abdominal
pain and diarrhea noted to have acute mesenteric ischemia and underwent emergent mesenteric artery thrombectomy and small bowel resection-lyric writer consulted for postoperative critical care management 12/26/2024.
Abdominal pain with acute mesenteric ischemia
Status post emergent mesenteric artery thrombectomy/small bowel resection 12/26/2024
Leukocytosis
Iseyfw-grswgmpynq-elhrwmavfv 9.9
Hyponatremia
Hyperglycemia
Lactic acidosis
JOSH
Conditions present prior to admission:
Chronic heart failure preserved EF.
Permanent atrial fibrillation status post multiple ablations.
Permanent pacemaker.
TAVR
Mitral tricuspid valve repair.
Peripheral neuropathy.
CAD.
TIA.
Hypothyroid.
Vertigo.
Breast cancer status postlumpectomy/XRT.
Chronic constipation.
Multiple ablations. Permanent pacemaker. Left lumpectomy. TAB R. Mitral/tricuspid valve annuloplasty/repair. Cataract surgery.
Plan
Patient critically ill postoperatively with some hypotension and will be monitored closely in the surgical intensive care unit
Supplemental oxygen as needed
High flow oxygen if needed
Aspiration precautions
Noninvasive ventilation if needed
Patient full code-intubated mechanically ventilated if respiratory status deteriorates
Nebulizers as needed-currently not bronchospastic
General Surgery and vascular surgery following-correspondence reviewed-still concern for ongoing bowel ischemia-lactate cleared
High risk for potential progressive small bowel ischemia and anastomotic leak given acute and chronic medical illnesses
Operative records reviewed
Bowel rest
Eventual nutrition per surgery
Heparin drip
Analgesia-Dilaudid LIME KILN OPERATOR-per surgical service
Try IV Tylenol-decrease LIME KILN OPERATOR
Cultures reviewed
Urine culture pending
Empiric antibiotics-on Zosyn
Norepinephrine as needed
Phenylephrine as needed
Lactate cleared
Follow leukocytosis-remains elevated
Monitor hemoglobin-stable at 8.5
Transfuse as needed
Follow electrolytes
Patient with mild hypernatremia-receiving crystalloids-stable at 131
Monitor renal function-decrease GFR-serum creatinine 1.3, however, minimal total body muscle mass
DVT prophylaxis-on heparin drip
GI prophylaxis-on pantoprazole
Nutrition per surgery
Bedside range of motion
Critical care statement: A total of 40 minutes of critical care time was provided for this patient today. This includes management of unstable vital signs, evaluation of the patient at bedside, reviewing the patient�s pertinent medical records
including radiographs, pressor management, microbiology, laboratory evaluations, and��discussion with primary team, consultants, pharmacy, nutrition, physical therapy, case management, charge nurse, critical care nursing, and respiratory therapy.
Diagnostic data:
Chest x-ray 01/03/2024-mild lingular pneumonia
Chest x-ray 12/16/2024-mild blunting posterior costophrenic angles bilaterally could represent minimal pleural effusions, cardiomegaly
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
Echocardiogram 12/17/2024-EF 53%, well-seated TAVR PA systolic 30, moderate mitral regurgitation
Subjective Dataa
Subjective Data
Date of Service:
Date of Service: December 27, 2024
Chief Complaint: Pest Control Chemical Technician Follow Up and Pulmonary Follow Up
Subjective:
Sedated, no respiratory distress, had complained of abdominal pain and back pain
Review of Systems
General: Unobtainable - Sedation and Other (Per HPI)
Objective Data
Data Reviewed
Vital Signs / I&O / Oxygen:
Vital Signs
Temp Pulse Resp BP Pulse Ox
97.5 F 72 14 109/61 94
12/27/24 07:09 12/27/24 06:45 12/27/24 06:45 12/27/24 06:45 12/27/24 06:45
Intake and Output
12/26/24 12/27/24 12/28/24
06:59 06:59 06:59
Intake Total 2940.0 / 2940.0
Output Total 595 / 595
Balance 2345.0 / 2345.0
SaO2 94
Physical Exam
General: Respiratory Distress (n) and Comfortable
HEENT: Normocephalic, Anicteric and Moist Mucous Membranes
Cardiovascular: Regular Rhythm and Murmur
Respiratory: Wheeze (n), Crackles (n), Rhonchi (n), Non-Labored Respirations, Accessory Resp Muscle Use (n) and Stridor (n)
GI: Soft, Non Distended and Non Tender
Neurology: Awake, Alert and No Motor Deficits
Skin: Warm, Good Color, Cyanosis (n), Jaundice (n) and Rash (n)
Labs/Micro/Reports
Lab Data
12/27/24 03:24
12/27/24 03:24
Laboratory Results
12/26/24 12/26/24 12/27/24
09:31 15:48 03:24
PT 19.8 H 18.1 H
INR 1.66 1.47
APTT 41.2 H 46.3 H 38.2 H
[2024-12-27] MEDS: NSS (PRESERVATIVE FREE) 10 ML IV (08:29)
[2024-12-27] MEDS: PROTONIX IV 40 MG IV (08:30)
--- NOTE | 2024-12-27 08:34 | W.PN.GS2 ---
Today's Communication / Plan
-
`
Assessment / Plan
-
Assessment: 89-year-old female POD #1 status post ex lap, SMA thrombectomy, small bowel resection for acute mesenteric l ischemia
PMH notable for A-fib on Eliquis, CHFpEF, valvular heart disease/TAVR, pacemaker, hypothyroidism
Remains critically ill, difficult to clinically determine if there is ongoing bowel ischemia; but lactic acidosis did clear and chemistry panel with normal CO2
High risk for potential progressive small bowel ischemia and anastomotic leak given acute and chronic medical illnesses
Marginal urine output with elevated BUN/creatinine
Leukocytosis -May be reactive versus sign of ongoing bowel ischemia
Hemoglobin stable
Thrombocytopenia stable
Plan: likely hypovolemic/under resuscitated postop -- an additional 500 mL liter normal saline bolus given; increase 0.9 NSS resuscitative fluids to 120 mL an hour
Continue Levophed for pressor support
Heparin drip
N.p.o., NG tube decompression and bowel rest
Maintain Bergeron to follow I's and O's
Repeat CBC/BMP at 1400
Updated patient's [id number] via phone call who is listed as primary contact.
We discussed patient's critical illness which continues to be life-threatening. At this point recommending continued current medical care holding on repeat imaging this a.m. No immediate plans for surgical second look laparotomy.
Will continue to closely monitor; if deteriorating clinical status consider repeat CT angio
Subjective Data
-
Date of Service: December 27, 2024
Patient seen and examined.
Reviewed with nursing.
Levophed requirements between 4-6 mcg
DIRECTOR LONG TERM CARE for pain
Patient somewhat somnolent but responsive.
Reports abdominal pain
Unable to communicate much more
Objective Data
-
Intake and Output
12/26/24 12/27/24 12/28/24
06:59 06:59 06:59
Intake Total 2940.0 / 3010.0 70.0 / 70.0
Output Total 595 / 595
Balance 2345.0 / 2415.0 70.0 / 70.0
Intake:
IV fluids (Total) 1890.0 / 1960.0 70.0 / 70.0
Albumin 250 / 250
Normosol 100 / 100
Nss 1,000 ml @ 60 mls/hr IV . 1200 / 1260 60 / 60
[id number] [facility] Rx#:[id number]
heparin 47.5 / 50.0 2.5 / 2.5
levo 292.5 / 300.0 7.5 / 7.5
IV piggybacks 800 / 800
Blood Products 250 / 250
Albumin 25% 250 / 250
Output:
Urine, Bergeron 595 / 595
Vital Signs
Temp Pulse Resp BP Pulse Ox
97.5 F 96 25 116/64 93
12/27/24 07:09 12/27/24 07:45 12/27/24 07:45 12/27/24 07:30 12/27/24 07:45
Calcium 7.7 mg/dl (8.4-10.2) L 12/27/24 03:24
Magnesium 2.2 mg/dl (1.6-2.3) 12/27/24 03:24
Total Bilirubin 0.9 mg/dl (0.2-1.3) 12/26/24 09:31
AST 26 U/L (14-36) 12/26/24 09:31
ALT 13 U/L (0-35) 12/26/24 09:31
Alkaline Phosphatase 43 U/L (38-126) 12/26/24 09:31
Total Protein 4.4 g/dl (6.3-8.2) L 12/26/24 09:31
Albumin 2.2 g/dl (3.5-5.0) L 12/26/24 09:31
Physical Exam
-
Resting in hospital bed in ICU. No acute distress
ABD: soft, nondistended, generalized tenderness. Midline incision with Aquacel dressing. Light staining but not saturated.
NG tube in place with gastric contents
Bergeron in place with concentrated urine
Patient has a bergeron catheter: Yes
--- NOTE | 2024-12-27 09:14 | PTCARENOTE ---
Continue follow up assessment trends, input/output trends, vital signs ongoing and strict ngt evaluation and monitoring. Wood Tank Erector at bedside thru am. Surgical team at bedside with patient. Update new orders ivf, lab trends and orders to follow
up. Follow up pain medications usage, demand and follow up concerns. Will update mobility protocols when cleared by surgical and critical care team. Family update by surgery this am. Continue ongoing teaching, ongoing skin/oral cares as per
protocol, and supportive cares thru shift.
[2024-12-27] MEDS: OFIRMEV 100 IV ×3 (09:20→23:11)
--- NOTE | 2024-12-27 10:22 | PTCARENOTE ---
Update with vascular team at bedside. Follow assessment trends, ongoing labs and totals continue hourly. Await follow up heparin orders and protocol drip trends. Hospitalist update in round in ICU. Continue follow up teaching and plan of cares.
Hourly round continue. Frequent patient safety checks ongoing.
--- NOTE | 2024-12-27 10:25 | W.PN.VS ---
Today's Communication / Plan
-
aggressive fluid resuscitation
increase heparin drip to weight based protocol
Assessment/Plan
-
89F POD 1 s/p SMA thrombectomy and SBR with primary anastomosis
-increase IVF to 120cc/hr
-increase heparin drip to weight based protocol
-c/w NGT
-repeat labs this am
-will continue to evaluate for 2nd look laparomtomy vs repeat CTA
Subjective Data
-
Date of Service: December 27, 2024
The patient was seen and examined at bedside. Overnight, urine output has significantly decreased. Received 2, 250 mL boluses. Fluids have been bumped up to 120 mL an hour. This corresponds with an increasing creatinine likely secondary to under
resuscitation. Rising leukocytosis which may be related to postsurgical stress versus ongoing bowel ischemia. Hemoglobin has been stable. She is on minimal pressor requirements. NG tube output is bilious without evidence of ischemia. No
diarrhea.
Objective Data
-
Vital Signs
Temp Pulse Resp BP Pulse Ox
97.5 F 70 15 113/51 99
12/27/24 07:09 12/27/24 10:15 12/27/24 10:15 12/27/24 10:00 12/27/24 09:15
Intake and Output
12/26/24 12/27/24 12/28/24
06:59 06:59 06:59
Intake Total 2940.0 / 3010.0 822.0 / 822.0
Output Total 595 / 595 20 / 20
Balance 2345.0 / 2415.0 802.0 / 802.0
Intake:
IV fluids (Total) 1890.0 / 1960.0 472.0 / 472.0
Albumin 250 / 250
Normosol 100 / 100
Nss 1,000 ml @ 120 mls/hr IV . 360 / 360
Q8H20M [facility] Rx#:[id number]
Nss 1,000 ml @ 60 mls/hr IV . 1200 / 1260 60 / 60
[id number] [facility] Rx#:[id number]
heparin 47.5 / 50.0 10.0 / 10.0
levo 292.5 / 300.0 42.0 / 42.0
IV piggybacks 800 / 800 350 / 350
Blood Products 250 / 250
Albumin 25% 250 / 250
Output:
Urine, Clark 595 / 595
Calcium 7.7 mg/dl (8.4-10.2) L 12/27/24 03:24
Magnesium 2.2 mg/dl (1.6-2.3) 12/27/24 03:24
Total Bilirubin 0.9 mg/dl (0.2-1.3) 12/26/24 09:31
AST 26 U/L (14-36) 12/26/24 09:31
ALT 13 U/L (0-35) 12/26/24 09:31
Alkaline Phosphatase 43 U/L (38-126) 12/26/24 09:31
Total Protein 4.4 g/dl (6.3-8.2) L 12/26/24 09:31
Albumin 2.2 g/dl (3.5-5.0) L 12/26/24 09:31
Physical Exam
-
Gen: NAD, minimally responsive
Chest: Non labored breathing
Cards : RRR
Abd: soft, nd, minimal ttp
Ext: warm
--- NOTE | 2024-12-27 10:43 | PTCARENOTE ---
Follow up vascular protocols with surgery. CBC/PT,PTT and inr panels sent with am labs. Follow up lab trends as per orders and protocols. Await pharmacy to update Heparin drip orders parameter and protocols.
--- NOTE | 2024-12-27 11:58 | W.PN.HOSP.TC ---
Today's Communication/Plan
-
IVF bolus, increased rate, monitor UOP. Renal US
continue Abx, IV heparin
follow ICU/Vascular/GS recs
Assessment / Plan
Assessment / Plan
Assessment:
Abdominal pain with acute mesenteric ischemia
- s/p emergent mesenteric artery thrombectomy/small bowel resection 12/26/2024
- post-op care per Vascular/General Surgery
- lactic acidosis now resolved; continue IVF. Also has shock, possibly septic vs hypovolemic - on pressors. ICU team following
- NGT/NPO/IVF
- IV Zosyn - renally dosed. Monitor WBCs
- IV Heparin - requires intensive monitoring of PTTs
- Dilaudid PLASTER APPLICATOR stopped; now on IV Ofirmev
JOSH suspect TPN In setting of dehydration and shock
- monitor UOP
- continue Clark for critical I/O
- continue IVF
- renal US
- follow labs
Chronic macrocytic anemia
Acute thrombocytopenia, likely consumptive from clot
- monitor platelets
acute Hyponatremia
- continue IVF
Chronic heart failure preserved EF.
- monitor volume status, weights
Permanent atrial fibrillation status post multiple ablations.
Permanent pacemaker.
TAVR
Mitral tricuspid valve repair.
Peripheral neuropathy.
CAD.
TIA.
Hypothyroidism
Breast cancer status postlumpectomy/XRT.
Chronic constipation.
DVT ppx: IV heparin
Code: Full
Total Critical Care Time 42 minutes. I was immediately available to the patient and staff. I personally examined, reviewed labs, diagnostic images/reports, interpretations, treatment plans, discussed patient care with other providers and family
or caregivers (if patient is unable to make decisions), entered orders as appropriate and documented the medical record.
Anticipated Discharge: > 48 hours
Subjective/Interval History
-
Date of Service: December 27, 2024
s/p IVF increase and bolus this AM for rising Cr
patient not utilizing PLASTER APPLICATOR; switched to IV Tylenol
NGT remains in place
on Levophed 2-4 mcg/m
Objective Data
-
Labs:
Laboratory Results
12/27/24 12/27/24 12/27/24
03:24 10:34 14:00
WBC 26.9 H Cancelled Pending
Hgb 8.5 L Cancelled Pending
Hct 25.6 L Cancelled Pending
Plt Count 120 L Cancelled Pending
PT 18.1 H
INR 1.47
APTT 38.2 H Cancelled
Sodium 131 L Pending
Potassium 4.4 Pending
Chloride 98 Pending
Carbon Dioxide 22 Pending
BUN 34 H Pending
Creatinine 1.3 H Pending
Glucose 134 H Pending
Calcium 7.7 L Pending
12/27/24
17:00
WBC
Hgb
Hct
Plt Count
PT
INR
APTT Pending
Sodium
Potassium
Chloride
Carbon Dioxide
BUN
Creatinine
Glucose
Calcium
Vital Signs:
Vital Signs
Temp Pulse Resp BP Pulse Ox
97.3 F 70 15 113/51 99
12/27/24 11:03 12/27/24 10:15 12/27/24 10:15 12/27/24 10:00 12/27/24 09:15
I&O
12/26/24 12/27/24 12/28/24
06:59 06:59 06:59
Intake Total 2940.0 / 3010.0 956.0 / 956.0
Output Total 595 / 595
Balance 2345.0 / 2415.0 931.0 / 931.0
Physical Exam
-
General: No Apparent Distress
HEENT: Normocephalic and Atraumatic
Respiratory: Negative Wheezes
Cardiac: Regular Rhythm
GI: Soft and Nontender
Genito-urinary: No Costovertebral Tender
Neuro: AO x 3
Psych: Calm
Data Reviewed
-
Total Time Spent with Patient (in minutes): 42
Labs: Labs Reviewed by me
--- NOTE | 2024-12-27 13:46 | PTCARENOTE ---
Post op day teaching for patient and family. Update plan of cares. Continue to reinforce events of pre and post surgery. Continue to update plan of cares and concerns in ICU. Teaching and supportive cares ongoing. Reinforce pain management plan,
options and alternative measures. STORAGE BATTERY INSPECTOR AND TESTER teaching with reinforcement. Prep for pm labs and continue to follow along with surgery and graphic manager teams.
--- NOTE | 2024-12-27 14:04 | CM ---
CM met with pt's family at bedside.
[place] lives alone [place] at [facility]. Recently dc'd from [facility] with [facility], had 2 visits and came to hospital with unrelated issue per daughter.
Ind with [facility] at baseline. No SNF history.
PCP Dr. Merchant and pharmacy is [facility].
If SNF is recc'd at dc this admit, daughter preference is for [facility] SN[facility]. Will send referral now.
Anticipated discharge dispo: home with [facility] vs [facility].
[2024-12-27 14:36] LABS: Hematocrit 19.7 % (37.0-47.0); Hemoglobin 6.8 g/dL (12.0-16.0); Mean Corp Hgb Conc. 34.5 g/dL (33.0-37.0); Mean Corpuscular Volume 91.2 fL (81.0-99.0); Platelet Count 111 10^3/uL (130-400); Red Cell Dist. Width 18.6 % (11.5-14.5)
[2024-12-27 15:10] LABS: Hematocrit 20.8 % (37.0-47.0); Hemoglobin 7.0 g/dL (12.0-16.0)
[2024-12-27 15:24] LABS: Blood Urea Nitrogen 38 mg/dl (7-17); Calcium 7.1 mg/dl (8.4-10.2); Carbon Dioxide 21 mmol/L (22-30); Chloride 98 mmol/L (98-107); Estimated Creatinine Clearance 18 ml/min; Glucose 130 mg/dl (70-99); Potassium 3.7 mmol/L (3.5-5.1); Sodium 127 mmol/L (135-145); eGFR 30.83
--- NOTE | 2024-12-27 16:01 | PTCARENOTE ---
Updated labs and assessment trends with vascular and surgical teams. Update plan to transfuse two units PRBC when available. Decrease heparin drip to 250units/hr. No titration, Vascular to reevaluate and follow. Await blood bank and will follow up
via [facility]. VSS continue i/o and drip trends, levophed weaned to 2mcg/min. Patient awake talking with family, assessment trends ongoing.
[2024-12-27] MEDS: NSS IV (16:30)
--- NOTE | 2024-12-27 16:38 | PTCARENOTE ---
Update with Balance Clerk team review plan of surgery and vascular teams. Continue follow up rounds and assessment trends.
--- NOTE | 2024-12-27 17:28 | PTCARENOTE ---
PRBC up and transfusion. PM cares at this time. Patient with increased use of call or contact centre team leader, follow teaching demo and purpose reinforcement. Continue incentive spirometer. Oral cares completed. Continue skin cares and turning protocols. Family home at this
time. Updated plan of pm cares. No questions at this time. Continue transfusion protocols.
[2024-12-27] MEDS: VALIUM INJECTION 2 MG IV (20:23)
--- NOTE | 2024-12-27 23:22 | PTCARENOTE ---
x2 U PRBC transfused, recheck H/H 0000.
Norepi titrated off.
Remains anuric, ICU DOMINICK aware.
Heparin remains at fixed rate.
--- NOTE | 2024-12-27 23:58 | PTCARENOTE ---
Crystalloid rate decreased to 100 ml/hr.
Remains anuric. RA 100.
[2024-12-28] VITALS (45 sets, daily range): BP systolic 87–137; BP diastolic 47–80; BMI 19.5
[2024-12-28 00:04] LABS: Hematocrit 25.7 % (37.0-47.0); Hemoglobin 9.0 g/dL (12.0-16.0)
[2024-12-28 00:18] LABS: APTT 122.5 Sec (23.4-35.0)
[2024-12-28] MEDS: OFIRMEV 100 IV ×4 (03:39→22:20)
[2024-12-28] MEDS: DILAUDID 0.5 MG IV ×4 (03:39→21:01)
[2024-12-28 04:02] LABS: Hematocrit 25.3 % (37.0-47.0); Hemoglobin 8.9 g/dL (12.0-16.0); Mean Corp Hgb Conc. 35.2 g/dL (33.0-37.0); Mean Corpuscular Volume 86.6 fL (81.0-99.0); Platelet Count 83 10^3/uL (130-400); Red Cell Dist. Width 17.1 % (11.5-14.5)
--- NOTE | 2024-12-28 04:23 | PTCARENOTE ---
Hypothermic via core/oral temp. ICU DOMINICK notified bairhugger ordered.
cont. with increased pain, confusion remains regarding psychology teacher despite numerous education, and frequent pain assessments. Breakthrough medication ordered.
Now confused, delirious, able to be oriented, however very forgetful.
[2024-12-28 04:47] LABS: ALT (SGPT) 11 U/L (0-35); AST (SGOT) 36 U/L (14-36); Albumin 2.2 g/dl (3.5-5.0); Alkaline Phosphatase 40 U/L (38-126); Blood Urea Nitrogen 45 mg/dl (7-17); Calcium 6.6 mg/dl (8.4-10.2); Carbon Dioxide 20 mmol/L (22-30); Chloride 102 mmol/L (98-107); Estimated Creatinine Clearance 14 ml/min; Glucose 82 mg/dl (70-99); Potassium 3.7 mmol/L (3.5-5.1); Sodium 130 mmol/L (135-145); Total Protein 4.4 g/dl (6.3-8.2); eGFR 23.59
[2024-12-28] MEDS: ZOSYN 50 IV ×4 (05:18→23:40)
[2024-12-28] MEDS: FLEXBUMIN 100 IV (05:44)
--- NOTE | 2024-12-28 07:54 | W.PN.VS ---
Addendum entered and electronically signed by Ricky Brunson MD 12/28/24 13:47:
Seen and examined with MICRO LAB ANALYST. Agree with findings as noted below. Reviewed general surgery note as well. Patient appears to be clinically improving with decreasing pressor requirement. No signs of active bleeding. Her abdominal exam is benign
(soft, dressing clean dry and intact). Plan/as discussed and noted below. Defer to general surgery regarding NG tube management and p.o. diet advancement. Continue anticoagulation (heparin). Can transition to oral anticoagulation once tolerating
p.o. medicines. Defer to cardiology regarding management of A-fib/any further cardiac or embolic workup needed. We will sign off. Please call with questions. Follow-up in the office in 2 to 4 weeks.
Original Note:
Today's Communication / Plan
-
Patient seen and examined at bedside with Dr. Ricky Brunson, below plan reviewed with attending.
Assessment/Plan
-
89F POD 2 s/p SMA thrombectomy and SBR with primary anastomosis
Plan:
-Continue IVF while strict NPO
-Continue heparin infusion
- Will transition to IV PRN pain medication and off DIETETIC TECHNICIAN REGISTERED given patient's level of intermediate confusion unclear if utilizing DIETETIC TECHNICIAN REGISTERED, hopefully switch will allow for better pain control
-c/w NGT, defer to general surgery
Subjective Data
-
Date of Service: December 28, 2024
Patient seen and examined at bedside, reports ABD pain but is improving and well managed. Tolerating NGT. Oriented to self and place, required reorientation to recent events and complex medical state.
Objective Data
-
Vital Signs
Temp Pulse Resp BP Pulse Ox
97.3 F 71 13 110/60 97
12/28/24 07:08 12/28/24 06:00 12/28/24 07:12 12/28/24 06:00 12/28/24 07:12
Intake and Output
12/27/24 12/28/24 12/29/24
06:59 06:59 06:59
Intake Total 2940.0 / 3010.0 3924.0 / 3924.0
Output Total 595 / 595 405 / 405
Balance 2345.0 / 2415.0 3519.0 / 3519.0
Intake:
Oral fluids 0 / 0
IV fluids (Total) 1890.0 / 1960.0 2114.0 / 2114.0
Albumin 250 / 250
Normosol 100 / 100
Nss 1,000 ml @ 100 mls/hr IV . 1790 / 1790
Q10H [facility] Rx#:[id number]
Nss 1,000 ml @ 60 mls/hr IV . 1200 / 1260 60 / 60
[id number] [facility] Rx#:[id number]
heparin 47.5 / 50.0 82.0 / 82.0
levo 292.5 / 300.0 182.0 / 182.0
IV piggybacks 800 / 800 750 / 750
Amount instilled into GI Tube ( 60
Total)
[place] Sump 60 / 60
Blood Products 250 / 250 500 / 500
Albumin 25% 250 / 250
Packed red blood cells 500 / 500
Blood Product Amount Infused ( 500 / 500
mL)
Packed Rbc Leukoreduced Unit 250 / 250
[id number]
Packed Rbc Leukoreduced Unit 250 / 250
[id number]
Output:
Gastrointestinal tube output ( 250 / 250
Total)
[place] Sump 250 / 250
Urine, Clark 595 / 595 155 / 155
Lab Results
12/28/24 03:40
12/28/24 03:40
Calcium 6.6 mg/dl (8.4-10.2) L* 12/28/24 03:40
Magnesium 2.2 mg/dl (1.6-2.3) 12/27/24 03:24
Total Bilirubin 1.1 mg/dl (0.2-1.3) 12/28/24 03:40
AST 36 U/L (14-36) 12/28/24 03:40
ALT 11 U/L (0-35) 12/28/24 03:40
Alkaline Phosphatase 40 U/L (38-126) 12/28/24 03:40
Total Protein 4.4 g/dl (6.3-8.2) L 12/28/24 03:40
Albumin 2.2 g/dl (3.5-5.0) L 12/28/24 03:40
Physical Exam
-
Gen: NAD, minimally responsive, states name and place
Chest: Non labored breathing
Cards : RRR
Abd: soft, nd, minimal ttp, NGT in place
Ext: warm
--- NOTE | 2024-12-28 08:22 | W.PN.INTV ---
Today's Communication / Plan
Recommendations
Monitor for recurrent bowel ischemia
Analgesia per surgery
Antibiotics
Heparin drip
Off pressors as of this morning
Keep NPO, NGT to LCWS; starting TPN tonight
Continue to monitor in the ICU, and hopefully can downgrade out of ICU tomorrow. Once downgraded then chemical etching processor/pulmonary service will sign off.
Assessment
-
89-year-old non-smoking female with a history of atrial fibrillation, chronic heart failure preserved EF, valvular heart disease, hypothyroidism, breast cancer status postlumpectomy and XRT with protein calorie malnutrition presented with abdominal
pain and diarrhea noted to have acute mesenteric ischemia and underwent emergent mesenteric artery thrombectomy and small bowel resection-chemical etching processor consulted for postoperative critical care management 12/26/2024.
Abdominal pain with acute mesenteric ischemia
Status post emergent mesenteric artery thrombectomy/small bowel resection 12/26/2024
Leukocytosis
Ovnbix-cgofhnplcf-zumznlntur 9.9
Hyponatremia
Hyperglycemia
Lactic acidosis
JOSH
Conditions present prior to admission:
Chronic heart failure preserved EF.
Permanent atrial fibrillation status post multiple ablations.
Permanent pacemaker.
TAVR
Mitral tricuspid valve repair.
Peripheral neuropathy.
CAD.
TIA.
Hypothyroid.
Vertigo.
Breast cancer status postlumpectomy/XRT.
Chronic constipation.
Multiple ablations. Permanent pacemaker. Left lumpectomy. TAB R. Mitral/tricuspid valve annuloplasty/repair. Cataract surgery.
Plan
Patient critically ill postoperatively with some hypotension and will be monitored closely in the surgical intensive care unit
- Currently BP is stable at 109/48 and off Levophed since this morning
- Monitor hemodynamics closely and resume vasopressors if needed
- Dilaudid ASSIGNMENT DESK EDITOR pump stopped this morning - -> monitor her pain to assure it is optimally controlled (she currently appears comfortable)
- Postoperative management as per general surgery + vascular surgery
- Correspondence reviewed
- NPO; NGT currently on low continuous wall suction
- high risk for potential progressive small bowel ischemia and anastomotic leak given acute and chronic medical illnesses
- Currently on heparin drip at a nontitratable rate, per the RN
- Patient received 2 units PRBC overnight with appropriate rise in her Hb; continue to monitor her Hb with repeat CBC later this afternoon
- Transfuse additional blood products as needed to maintain Hb >7-8 g/dL, and platelets >50k (given her postoperative status)
- Maintain SpO2 >90-94%; currently saturating 95% on room air
- Aspiration precautions
- Nebulizers as needed (not currently bronchospastic)
Cultures reviewed
Urine culture has grown ESBL E. coli
Empiric antibiotics-on Zosyn
Lactate cleared as of 12/26
Trend WBC and monitor temperature curve
Follow electrolytes with K>4, Mg>2
Patient with mild hyponatremia-receiving crystalloids-stable at 130
Monitor renal function which is now worsening; trend UOP and maintain greater MAP >70 to optimize renal perfusion
DVT prophylaxis-on heparin drip
GI prophylaxis-on pantoprazole
Nutrition per surgery - starting TPN tonight; keep NPO until deemed stable to start diet per surgery
Bedside range of motion
Continue to monitor in the ICU, and hopefully can downgrade out of ICU tomorrow. Once downgraded then chemical etching processor/pulmonary service will sign off.
Diagnostic data:
Chest x-ray 01/03/2024-mild lingular pneumonia
Chest x-ray 12/16/2024-mild blunting posterior costophrenic angles bilaterally could represent minimal pleural effusions, cardiomegaly
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
Echocardiogram 12/17/2024-EF 53%, well-seated TAVR PA systolic 30, moderate mitral regurgitation
Total time spent today was 81 minutes for this encounter. Time includes reviewing laboratory test/imaging results, reviewing pertinent medical records, obtaining and reviewing medical history, performing an appropriate exam, ordering medications,
tests and procedures. Time also includes documentation of this encounter, coordinating patient care and communicating with other healthcare professionals. Total time does not include separately billed tests performed on this date of service.
Subjective Dataa
Subjective Data
Date of Service:
Date of Service: December 28, 2024
Chief Complaint: Cadd Instructor Follow Up and Pulmonary Follow Up
Subjective:
Patient was seen and evaluated this morning. BP is currently 109/48 and she has been off Levophed since this morning. Dilaudid ASSIGNMENT DESK EDITOR pump stopped this morning. PICC line is being inserted today. Off IVF since morning as well. She is saturating
95% on room air. Patient is currently on heparin drip (currently non-titratable per the RN). Patient received 2 units PRBC overnight with appropriate rise in her Hb. Patient is currently not bleeding.
Review of Systems
General: Other (Negative unless mentioned above)
Objective Data
Data Reviewed
Vital Signs / I&O / Oxygen:
Vital Signs
Temp Pulse Resp BP Pulse Ox
97.3 F 71 13 110/60 97
12/28/24 07:08 12/28/24 06:00 12/28/24 07:12 12/28/24 06:00 12/28/24 07:12
Intake and Output
12/27/24 12/28/24 12/29/24
06:59 06:59 06:59
Intake Total 2940.0 / 3010.0 3924.0 / 3924.0
Output Total 595 / 595 405 / 405
Balance 2345.0 / 2415.0 3519.0 / 3519.0
SaO2 97
Nasal Cannula flow liters per 2
minute
Physical Exam
General: Respiratory Distress (n) and Comfortable
HEENT: Normocephalic, Anicteric and Moist Mucous Membranes
Cardiovascular: Peripheral Edema (n) and Other (Normal rate; A-V paced)
Respiratory: Clear, Wheeze (n), Crackles (n), Rhonchi (n), Non-Labored Respirations, Accessory Resp Muscle Use (n) and Stridor (n)
GI: Soft, Non Distended, Non Tender and NG Tube (Right nare on LCWS)
Neurology: Tremors (n) and Other (Sleepy today)
Skin: Warm, Dry, Cyanosis (n), Jaundice (n) and Rash (n)
Labs/Micro/Reports
Lab Data
12/28/24 03:40
12/28/24 03:40
Laboratory Results
12/27/24 12/27/24
10:34 23:55
APTT Cancelled 122.5 H
Microbiology
12/26/24 03:05 Urine Urine Culture - Preliminary
Escherichia coli
--- NOTE | 2024-12-28 08:34 | VNURNOTE ---
Chart reviewed. Patient is current with [facility]. Will continue to follow hospital course and DC plans.
[2024-12-28] MEDS: NSS (PRESERVATIVE FREE) 10 ML IV (09:03)
[2024-12-28] MEDS: PROTONIX IV 40 MG IV (09:04)
--- NOTE | 2024-12-28 09:31 | PTCARENOTE ---
Pt rec'd from shipping room supervisor sleeping. Arousable to verbal stim, [facility], stated her back is hurting, 'I'm not sure how I feel. Am I better?' Pt reoriented, emotional support provided. Janes maneer off since 0700 for temp at
goal. Dilaudid VICE PRESIDENT EDUCATION dc'd per orders at 08:35. Clark clamped at 09:30 for renal US. Tech will be up in approx one hour. Pt moved to room 3371 for equipment reasons. Scheduled ofirmev administered at this time. Pt remains on Norepi at 2 mcg/min to
maintain SBP 100-165 per order, heparin infusing at 250 units/hr. Oral care provided, pt repositioned, safe environment maintained.
--- NOTE | 2024-12-28 09:57 | W.PN.HOSP.TC ---
Today's Communication/Plan
-
.
Assessment / Plan
Assessment / Plan
Physical Exam
-
General: No Apparent Distress, chronically ill looking
HEENT: Normocephalic and Atraumatic
Respiratory: Negative Wheezes
Cardiac: Regular Rhythm
GI: Soft, clean surgery site, No BS.
Genito-urinary: No Costovertebral Tender, + Clark
Neuro: AO to surroundings, she followed simple commands.
Psych: Calm
Assessment:
Abdominal pain with acute mesenteric ischemia
- s/p emergent mesenteric artery thrombectomy/small bowel resection 12/26/2024
She reports abdominal discomfort, no active bowel sounds
- lactic acidosis now resolved; continue IVF. Also has shock,c/w septic shock
- NGT/NPO/IVF
- IV Zosyn - renally dosed. Monitor WBCs
- IV Heparin - requires intensive monitoring of PTTs
- Dilaudid FURNACE FEEDER stopped; now on IV Ofirmev
Shock with hypotension
combination of septic shock/ hemorrhagic shock
s/p pressure support
IVF and blood transfusions
JOSH suspect TPN In setting of dehydration/ contrast study and shock
- monitor UOP
- continue Clark for critical I/O
- continue IVF
- CT no hydronephrosis
- follow labs
Hyponatremia
Hypocalcemia
History of Chronic macrocytic anemia
Acute blood loss anemia
s/p 4 units of RBCs
Acute thrombocytopenia, likely consumptive from clot
- monitor platelets
Chronic heart failure preserved EF.
Holding BB due to hypotension
- monitor volume status, weights
Permanent atrial fibrillation status post multiple ablations.
Permanent pacemaker.
TAVR
Mitral tricuspid valve repair.
Peripheral neuropathy.
CAD.
TIA.
Hypothyroidism
Breast cancer status postlumpectomy/XRT.
Chronic constipation.
DVT ppx: IV heparin
Code: Full
Total time spent to see the patient, examine the patient, review data and lab results, discuss treatment plan with patient, nursing staff around 55 minutes
Anticipated Discharge: > 48 hours
Subjective/Interval History
-
Date of Service: December 28, 2024
She reports abdominal discomfort
No chest pain
Objective Data
-
Labs:
Laboratory Results
12/27/24 12/28/24
23:55 03:40
WBC 21.4 H
Hgb 9.0 L D 8.9 L
Hct 25.7 L 25.3 L
Plt Count 83 L D
APTT 122.5 H
Sodium 130 L
Potassium 3.7
Chloride 102
Carbon Dioxide 20 L
BUN 45 H
Creatinine 2.0 H
Glucose 82
Calcium 6.6 L*
Total Bilirubin 1.1
AST 36
ALT 11
Alkaline Phosphatase 40
Vital Signs:
Vital Signs
Temp Pulse Resp BP Pulse Ox
97.3 F 73 11 101/50 97
12/28/24 07:08 12/28/24 09:15 12/28/24 09:15 12/28/24 09:15 12/28/24 09:15
I&O
12/27/24 12/28/24 12/29/24
06:59 06:59 06:59
Intake Total 2940.0 / 3010.0 3924.0 / 4034.0 330.0 / 330.0
Output Total 595 / 595 405 / 420 64 / 64
Balance 2345.0 / 2415.0 3519.0 / 3614.0 266.0 / 266.0
[2024-12-28] MEDS: CALCIUM GLUCONATE 100 IV (11:02)
--- NOTE | 2024-12-28 11:07 | W.PN.GS2 ---
Today's Communication / Plan
-
`
Assessment / Plan
-
Assessment: 89-year-old female POD #2 status post ex lap, SMA thrombectomy, small bowel resection for acute mesenteric l ischemia
PMH notable for A-fib on Eliquis, CHFpEF, valvular heart disease/TAVR, pacemaker, hypothyroidism
Remains critically ill but improving hemodynamics and urine output
Acute blood loss anemia - responded appropriately to 2 unit transfusion packed red blood cells yesterday evening
Leukocytosis -likely reactive and starting to improve
Thrombocytopenia -monitor and maintain counts greater than 50K
ARF -likely secondary to hypovolemia and possible contrast from imaging. Stable
No strong signs of ongoing bowel ischemia or immediate threat -continue current medical care. No imaging, no current plans for second look laparotomy.
Plan: improved hemodynamics and marginally improved urine output after ongoing resuscitation yesterday
--- Primary service now managing IV fluids
Continue Levophed for pressor support as needed
Heparin drip per vascular recommendations
N.p.o., NG tube decompression and bowel rest
Anticipating probable prolonged course of reduced enteral access -Place PICC line and start TPN
Maintain Clark to follow I's and O's
Remains critically ill but improving stability
Updated patient's sosowbau-wq-mna via phone call who is listed as primary contact.
Subjective Data
-
Date of Service: December 28, 2024
Patient seen and examined.
Was sleeping and appeared comfortable in ICU bed
Awoke and reports abdominal pain. Worse with movement.
Denies nausea
Objective Data
-
Intake and Output
12/27/24 12/28/24 12/29/24
06:59 06:59 06:59
Intake Total 2940.0 / 3010.0 3924.0 / 4034.0 340.0 / 340.0
Output Total 595 / 595 405 / 420 72 / 72
Balance 2345.0 / 2415.0 3519.0 / 3614.0 268.0 / 268.0
Intake:
Oral fluids 0 / 0
IV fluids (Total) 1890.0 / 1960.0 2114.0 / 2224.0 340.0 / 340.0
Albumin 250 / 250
Normosol 100 / 100
Nss 1,000 ml @ 100 mls/hr IV . 1790 / 1890 200 / 200
Q10H JAY[facility] Rx#:[id number]
Nss 1,000 ml @ 60 mls/hr IV . 1200 / 1260 60 / 60
[id number] [facility]AY[facility] Rx#:[id number]
heparin 47.5 / 50.0 82.0 / 84.5 10.0 / 10.0
levo 292.5 / 300.0 182.0 / 189.5 30.0 / 30.0
ofirmev 100 / 100
IV piggybacks 800 / 800 750 / 750
Amount instilled into GI Tube ( 60 / 60
Total)
Kemper Sump 60 / 60
Blood Products 250 / 250 500 / 500
Albumin 25% 250 / 250
Packed red blood cells 500 / 500
Blood Product Amount Infused ( 500 / 500
mL)
Packed Rbc Leukoreduced Unit 250 / 250
[id number]
Packed Rbc Leukoreduced Unit 250 / 250
[id number]
Output:
Gastrointestinal tube output ( 250 / 250
Total)
Kemper Sump 250 / 250
Urine, Clark 595 / 595 155 / 170 72 / 72
Urine, Voided 0 / 0
Vital Signs
Temp Pulse Resp BP Pulse Ox
97.3 F 78 8 106/47 96
12/28/24 07:08 12/28/24 10:15 12/28/24 10:15 12/28/24 10:15 12/28/24 10:15
Lab Results
12/28/24 03:40
12/28/24 03:40
Calcium 6.6 mg/dl (8.4-10.2) L* 12/28/24 03:40
Magnesium 2.2 mg/dl (1.6-2.3) 12/27/24 03:24
Total Bilirubin 1.1 mg/dl (0.2-1.3) 12/28/24 03:40
AST 36 U/L (14-36) 12/28/24 03:40
ALT 11 U/L (0-35) 12/28/24 03:40
Alkaline Phosphatase 40 U/L (38-126) 12/28/24 03:40
Total Protein 4.4 g/dl (6.3-8.2) L 12/28/24 03:40
Albumin 2.2 g/dl (3.5-5.0) L 12/28/24 03:40
Physical Exam
-
NAD
ABD: soft, nondistended, generalized tenderness.
Midline incision with Aquacel dressing with some blood staining but no saturation. Dressing left in place.
NG tube with bilious contents
Clark with yellow urine
--- NOTE | 2024-12-28 11:15 | PTCARENOTE ---
renal US cancelled by elyssa Stanford unclamped.
--- NOTE | 2024-12-28 11:46 | PTCARENOTE ---
Plan discussed with Dr. Lemos. Orders rec'd for PICC placement, initiation of TPN. Levo weaned to off. PRN Dilaudid 0.5 mg administered for pain, pt sleeping afterward. Turned and repositioned, call yu in hand.
[2024-12-28] MEDS: NSS 1000 IV (13:06)
--- NOTE | 2024-12-28 14:53 | PTCARENOTE ---
Stat PTT drawn and sent at this time per Vascular AIR COMPRESSOR OPERATOR Bell.
[2024-12-28 15:08] LABS: APTT 52.3 Sec (23.4-35.0)
--- NOTE | 2024-12-28 15:45 | PTCARENOTE ---
heparin order modified per vascular BUFFING TURNER AND COUNTER, gtt rate adjusted accordingly. See flowsheet.
[2024-12-28 16:13] LABS: Magnesium 2.0 mg/dl (1.6-2.3)
--- NOTE | 2024-12-28 16:14 | PN.CDI ---
Addendum entered and electronically signed by Angelina Bettencourt MD 12/28/24 16:23:
bilateral heel Deep tissue pressure injury POA.
Original Note:
CDI
- -
CDI:
Physician Documentation Request
Admit Date: 12/26/24 04:38
Dear Doctor,
Please review the following and provide your response in the progress notes.
Clinical Indicators:
Pt admitted with Abdominal pain with acute mesenteric ischemia.
12/26 second vp hr assessment in wound panel notes bilateral heel Deep tissue pressure injury POA.
Physician documentation of the type and location of wounds is required for compliant documentation. Based on the above clinical findings and your assessment, please provide the following in your progress note:
1. Location of the ulcer/wound, including laterality.
2. Type (etiology) of ulcer/wound:
Bilateral heels Deep tissure pressure injury POA
Bilateral heels non-pressure injury POA
Other
Use of terms such as suspected, likely, concern for, or probable (associated with a specific diagnosis that is being evaluated, monitored, or treated as if it exists) are acceptable and can be coded in the inpatient setting, when documented at the
time of discharge.
Thank you,
Shirley Arzola RN, BSN
CDI Specialist
[place] [facility]
Please use your independent medical judgment in providing your response.
*Source: National Pressure Ulcer Advisory Panel (NPUAP)
--- NOTE | 2024-12-28 16:18 | CM ---
Chart reviewed, and will follow with patient progress and assist with discharge planning needs.
Plan; To assist with discharge when stable.
[2024-12-28 16:47] LABS: Hematocrit 25.0 % (37.0-47.0); Hemoglobin 8.6 g/dL (12.0-16.0)
[2024-12-28] MEDS: Parenteral Nutrition, Central 750 IV (21:03)
[2024-12-28 21:21] LABS: APTT 59.0 Sec (23.4-35.0)
--- NOTE | 2024-12-28 22:46 | PTCARENOTE ---
Received patient at start of shift. Patient lethargic, oriented to person and place, not time. Patient c/o back pain, chronic. PRN medication administered with positive results noted. Patient repositioned for comfort and pressure relief. AV paced on
the monitor majority of the time, V paced at times as well. Lung sounds diminished throughout, 97% on ra, no cough, no dyspnea noted. Patient with NGT to right nare to suction. TPN started at 2100 at 31ml/hr to right PICC. Heparin gtt adjusted per
orders, currently running at 600u/6ml/hr. Clark remains intact and patent draining clear, yellow urine. Call yu within reach, will continue to monitor patient closely.
[2024-12-29] VITALS (20 sets, daily range): BP systolic 107–164; BP diastolic 50–74
[2024-12-29] MEDS: DILAUDID 0.5 MG IV ×5 (00:31→22:26)
[2024-12-29 00:45] LABS: Glucose - Point of Care 107 mg/dl (70-99)
--- NOTE | 2024-12-29 00:57 | PTCARENOTE ---
Patient continues to c/o pain to back. PRN medication administered, will monitor. Patient had small, loose BM after pm care provided. Assessment otherwise unchanged. Will continue to monitor patient closely.
--- NOTE | 2024-12-29 01:38 | PTCARENOTE ---
Janes moore resumed for core temp 96.6. Will monitor.
--- NOTE | 2024-12-29 04:10 | PTCARENOTE ---
Janes moore stopped, goal temp reached. Current core temp 97.4. Patient repositioned for comfort. Labs drawn and sent. Patient forgetful, RN reviewed information multiple times. Will continue to educate and reorient as able. Call yu in patients
hand. Will continue to monitor patient closely.
[2024-12-29] MEDS: OFIRMEV 100 IV (04:21)
[2024-12-29 04:27] LABS: APTT 103.8 Sec (23.4-35.0)
[2024-12-29 04:31] LABS: Hematocrit 23.1 % (37.0-47.0); Hemoglobin 8.0 g/dL (12.0-16.0); Mean Corp Hgb Conc. 34.6 g/dL (33.0-37.0); Mean Corpuscular Volume 88.8 fL (81.0-99.0); Platelet Count 77 10^3/uL (130-400); Red Cell Dist. Width 17.3 % (11.5-14.5)
[2024-12-29 05:13] LABS: ALT (SGPT) < 10 U/L (0-35); AST (SGOT) 31 U/L (14-36); Albumin 2.3 g/dl (3.5-5.0); Alkaline Phosphatase 41 U/L (38-126); Blood Urea Nitrogen 52 mg/dl (7-17); Calcium 6.5 mg/dl (8.4-10.2); Carbon Dioxide 21 mmol/L (22-30); Chloride 104 mmol/L (98-107); Estimated Creatinine Clearance 13 ml/min; Glucose 99 mg/dl (70-99); Magnesium 2.2 mg/dl (1.6-2.3); Potassium 3.4 mmol/L (3.5-5.1); Sodium 134 mmol/L (135-145); Total Protein 4.4 g/dl (6.3-8.2); eGFR 21.04
[2024-12-29] MEDS: ZOSYN 50 IV ×4 (05:16→23:30)
[2024-12-29 06:45] LABS: Blood Urea Nitrogen 51 mg/dl (7-17); Calcium 6.6 mg/dl (8.4-10.2); Carbon Dioxide 21 mmol/L (22-30); Chloride 105 mmol/L (98-107); Estimated Creatinine Clearance 14 ml/min; Glucose 100 mg/dl (70-99); Potassium 3.4 mmol/L (3.5-5.1); Sodium 131 mmol/L (135-145); eGFR 22.25
--- NOTE | 2024-12-29 07:10 | W.PN.GS2 ---
Today's Communication / Plan
-
`
Assessment / Plan
-
Assessment: 89-year-old female POD #3 status post ex lap, SMA thrombectomy, small bowel resection for acute mesenteric ischemia
PMH notable for A-fib on Eliquis, CHFpEF, valvular heart disease/TAVR, pacemaker, hypothyroidism
off pressor support
heme positive stool -expected from mucosal sloughing
Acute blood loss anemia - responded appropriately to 2 unit transfusion packed red blood cells yesterday evening - drifting
Leukocytosis -likely reactive and starting to improve
Thrombocytopenia -monitor and maintain counts greater than 50K
ARF -likely secondary to hypovolemia and possible contrast from imaging. Stable-UOP improving
No strong signs of ongoing bowel ischemia or immediate threat -continue current medical care.
Plan: NGT can be removed but maintain NPO x sips/chips for comfort
Heparin drip per vascular recommendations
Anticipating probable prolonged course of reduced enteral access - renew TPN
will follow
Subjective Data
-
Date of Service: December 29, 2024
pt seen and examined
resting comfortably, awoke for exam
reports abdominal pain
tired
denies nausea
d/w nursing; multiple liquid stools and minimal NGT output over last 24hrs
Objective Data
-
Intake and Output
12/28/24 12/29/24 12/30/24
06:59 06:59 06:59
Intake Total 3924.0 / 4034.0 2120.0 / 2120.0
Output Total 405 / 420 1006 / 1006
Balance 3519.0 / 3614.0 1114.0 / 1114.0
Intake:
Oral fluids 0 / 0
IV fluids (Total) 2114.0 / 2224.0 1870.0 / 1870.0
Nss 1,000 ml @ 100 mls/hr IV . 1790 / 1890 200 / 200
Q10H [facility] Rx#:[id number]
Nss 1,000 ml @ 60 mls/hr IV .
[id number] [facility] Rx#:[id number]
Nss 1,000 ml @ 60 mls/hr IV . 1020 / 1020
[id number] [facility] Rx#:[id number]
TPN @31ml 310 / 310
heparin 82.0 / 84.5 102.5 / 102.5
levo 182.0 / 189.5 37.5 / 37.5
ofirmev 200 / 200
IV piggybacks 750 / 750 250 / 250
Amount instilled into GI Tube (
Total)
Power Sump
Blood Products 500 / 500
Packed red blood cells 500 / 500
Blood Product Amount Infused ( 500 / 500
mL)
Packed Rbc Leukoreduced Unit 250 / 250
[id number]
Packed Rbc Leukoreduced Unit 250 / 250
[id number]
Output:
Gastrointestinal tube output ( 250 / 250
Total)
Power Sump 250 / 250
Urine, Clark 155 / 170 946 / 946
Urine, Voided 0 / 0
Vital Signs
Temp Pulse Resp BP Pulse Ox
97.4 F 69 12 128/61 95
12/29/24 05:00 12/29/24 06:00 12/29/24 06:00 12/29/24 06:00 12/29/24 06:00
Lab Results
12/29/24 04:01
12/29/24 05:22
Calcium 6.6 mg/dl (8.4-10.2) L* 12/29/24 05:22
Phosphorus 4.5 mg/dl (2.5-4.5) 12/29/24 04:01
Magnesium 2.2 mg/dl (1.6-2.3) 12/29/24 04:01
Total Bilirubin 0.4 mg/dl (0.2-1.3) 12/29/24 04:01
AST 31 U/L (14-36) 12/29/24 04:01
ALT < 10 U/L (0-35) 12/29/24 04:01
Alkaline Phosphatase 41 U/L (38-126) 12/29/24 04:01
Total Protein 4.4 g/dl (6.3-8.2) L 12/29/24 04:01
Albumin 2.3 g/dl (3.5-5.0) L 12/29/24 04:01
Physical Exam
-
NAD AAO
ABD: softly distended
generalized tenderness on palpation
incision with aquacel dressing
--- NOTE | 2024-12-29 07:15 | PTCARENOTE ---
Pt rec'd from night RN, drowsy but arousable to verbal stim. Plan of care was discussed with Gen Surg Dr. Lemos, orders rec'd to dc NGT which was done without incident, pt AOx3, pleasant and cooperative, feeling better than yesterday. Pt with hep
gtt, IVF, TPN infusing, Bergeron catheter and rectal trumpet in place. Meds and assessment as documented, oral care, bergeron care, back rub and CHG bath provided. Q2T, safe environment ongoing.
[2024-12-29] MEDS: CALCIUM GLUCONATE 130 MG IV (07:58)
[2024-12-29] MEDS: NSS 1000 IV (08:00)
--- NOTE | 2024-12-29 08:18 | W.PN.INTV ---
Today's Communication / Plan
Recommendations
Monitor for recurrent bowel ischemia
Analgesia per surgery
Antibiotics
Heparin drip
Off pressors as of yesterday AM
Keep NPO, NGT now removed; continue TPN tonight
Patient is stable for downgrade out of ICU. This was confirmed with surgery. No additional recommendations at this time. Biblical Studies Professor/Pulmonary service will now sign off. Please reconsult if there are any additional questions/concerns, or if
patient's respiratory status deteriorates.
(Patient was seen and evaluated on 12/29/2024)
Assessment
-
89-year-old non-smoking female with a history of atrial fibrillation, chronic heart failure preserved EF, valvular heart disease, hypothyroidism, breast cancer status postlumpectomy and XRT with protein calorie malnutrition presented with abdominal
pain and diarrhea noted to have acute mesenteric ischemia and underwent emergent mesenteric artery thrombectomy and small bowel resection-speech and language clinician consulted for postoperative critical care management 12/26/2024.
Abdominal pain with acute mesenteric ischemia
Status post emergent mesenteric artery thrombectomy/small bowel resection 12/26/2024
Leukocytosis
Zbbobe-xxbrhzqtjn-rbaallugpv 9.9
Hyponatremia
Hyperglycemia
Lactic acidosis
JOSH
Conditions present prior to admission:
Chronic heart failure preserved EF.
Permanent atrial fibrillation status post multiple ablations.
Permanent pacemaker.
TAVR
Mitral tricuspid valve repair.
Peripheral neuropathy.
CAD.
TIA.
Hypothyroid.
Vertigo.
Breast cancer status postlumpectomy/XRT.
Chronic constipation.
Multiple ablations. Permanent pacemaker. Left lumpectomy. TAB R. Mitral/tricuspid valve annuloplasty/repair. Cataract surgery.
Plan
Patient has markedly improved although she was critically ill postoperatively with hypotension and was monitored closely in the surgical intensive care unit
- Has remained off Levophed since yesterday (12/28)
- Dilaudid OCCUPATIONAL THERAPY ASSISTANT pump stopped yesterday morning - -> monitor her pain to assure it is optimally controlled (she currently appears comfortable)
- Postoperative management as per general surgery + vascular surgery
- Correspondence reviewed
- NPO; NGT now removed
- high risk for potential progressive small bowel ischemia and anastomotic leak given acute and chronic medical illnesses
- Currently on heparin drip now at a titratable rate, per the RN
- Patient received 2 units PRBC 2 night ago on 12/27 with appropriate rise in her Hb; continue to monitor her Hb with repeat CBC later this afternoon
- Transfuse additional blood products as needed to maintain Hb >7-8 g/dL, and platelets >50k (given her postoperative status)
- Maintain SpO2 >90-94%; currently saturating 95% on room air
- Aspiration precautions
- Nebulizers as needed (not currently bronchospastic)
Cultures reviewed
Urine culture has grown ESBL E. coli
Empiric antibiotics-on Zosyn
Lactate cleared as of 12/26
Trend WBC and monitor temperature curve
Follow electrolytes with K>4, Mg>2
Patient with mild hyponatremia-receiving crystalloids-stable at 130 - 131
Monitor renal function which is now worsening; trend UOP and maintain greater MAP >70 to optimize renal perfusion
DVT prophylaxis-on heparin drip
GI prophylaxis-on pantoprazole
Nutrition per surgery - continue TPN tonight; keep NPO until deemed stable to start diet per surgery
Bedside range of motion
Patient is stable for downgrade out of ICU. This was confirmed with surgery. No additional recommendations at this time. Biblical Studies Professor/Pulmonary service will now sign off. Thank you for allowing us to be involved in the care of this patient.
Please reconsult if there are any additional questions/concerns, or if patient's respiratory status deteriorates.
Diagnostic data:
Chest x-ray 01/03/2024-mild lingular pneumonia
Chest x-ray 12/16/2024-mild blunting posterior costophrenic angles bilaterally could represent minimal pleural effusions, cardiomegaly
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
Echocardiogram 12/17/2024-EF 53%, well-seated TAVR PA systolic 30, moderate mitral regurgitation
Total time spent today was 38 minutes for this encounter. Time includes reviewing laboratory test/imaging results, reviewing pertinent medical records, obtaining and reviewing medical history, performing an appropriate exam, ordering medications,
tests and procedures. Time also includes documentation of this encounter, coordinating patient care and communicating with other healthcare professionals. Total time does not include separately billed tests performed on this date of service.
Subjective Dataa
Subjective Data
Date of Service:
Date of Service: December 29, 2024
Chief Complaint: Biblical Studies Professor Follow Up and Pulmonary Follow Up
Subjective:
Patient seen and evaluated this AM. NG tube now removed. Current heart rate 72, BP 130/59, and saturate 94% on room air. Continues to be on heparin drip and it is now titratable.
Review of Systems
General: Other (Negative unless mentioned above)
Objective Data
Data Reviewed
Vital Signs / I&O / Oxygen:
Vital Signs
Temp Pulse Resp BP Pulse Ox
97.5 F 73 25 130/59 94
12/29/24 11:42 12/29/24 12:00 12/29/24 12:00 12/29/24 12:00 12/29/24 12:00
Intake and Output
12/28/24 12/29/24 12/30/24
06:59 06:59 06:59
Intake Total 3924.0 / 4034.0 2120.0 / 2217.0 649.0 / 649.0
Output Total 405 / 420 1006 / 1066 470 / 470
Balance 3519.0 / 3614.0 1114.0 / 1151.0 179.0 / 179.0
SaO2 94
Nasal Cannula flow liters per 2
minute
Physical Exam
General: Respiratory Distress (n) and Comfortable
HEENT: Normocephalic, Anicteric and Moist Mucous Membranes
Cardiovascular: Peripheral Edema (n) and Other (Normal rate; A-V paced)
Respiratory: Clear, Wheeze (n), Crackles (n), Rhonchi (n), Non-Labored Respirations, Accessory Resp Muscle Use (n) and Stridor (n)
GI: Soft, Non Distended and Non Tender
Neurology: Awake, Alert, Tremors (n) and Other (Sleepy)
Skin: Warm, Dry, Cyanosis (n), Jaundice (n) and Rash (n)
Labs/Micro/Reports
Lab Data
12/29/24 04:01
12/29/24 05:22
Laboratory Results
12/28/24 12/28/24 12/28/24
14:39 14:48 20:59
PT
INR
APTT Cancelled 52.3 H 59.0 H
pH
pCO2
pO2
HCO3
O2 Delivery Level
12/29/24 12/29/24 12/29/24
01:55 03:30 04:01
PT Cancelled
INR Cancelled
APTT Cancelled Cancelled 103.8 H
pH Cancelled
pCO2 Cancelled
pO2 Cancelled
HCO3 Cancelled
O2 Delivery Level Cancelled
12/29/24
09:29
PT
INR
APTT 113.7 H
pH
pCO2
pO2
HCO3
O2 Delivery Level
Microbiology
12/26/24 03:05 Urine Urine Culture - Final
Escherichia coli - ESBL
[2024-12-29] MEDS: KCL 270 MEQ IV (09:22)
[2024-12-29] MEDS: PROTONIX IV 40 MG IV (09:22)
[2024-12-29] MEDS: NSS (PRESERVATIVE FREE) 10 ML IV (09:22)
[2024-12-29 09:49] LABS: APTT 113.7 Sec (23.4-35.0)
--- NOTE | 2024-12-29 10:00 | W.PN.HOSP.TC ---
Addendum entered and electronically signed by Angelina Bettencourt MD 12/30/24 06:40:
JOSH suspect ATN In setting of dehydration/ contrast study and shock
Original Note:
Today's Communication/Plan
-
can stop IVF while on TPN
Assessment / Plan
Assessment / Plan
Physical Exam
-
General: No Apparent Distress, chronically ill looking
HEENT: Normocephalic and Atraumatic
Respiratory: Negative Wheezes
Cardiac: Regular Rhythm
GI: Soft, clean surgery site, No BS.
Genito-urinary: No Costovertebral Tender, + Clark
Neuro: AO to surroundings, she followed simple commands.
Psych: Calm
Assessment:
Abdominal pain with acute mesenteric ischemia
- s/p emergent mesenteric artery thrombectomy/small bowel resection 12/26/2024
She reports abdominal discomfort, no active bowel sounds
per surgery: NGT can be removed but maintain NPO
- lactic acidosis now resolved; continue IVF. Also has shock,c/w septic shock
- NGT/NPO/IVF
- Started on TPN 12/28
- IV Zosyn - renally dosed. Monitor WBCs
- IV Heparin - requires intensive monitoring of PTTs
- Dilaudid PATIENT SERVICES REPRESENTATIVE stopped; now on IV Ofirmev
Shock with hypotension
combination of septic shock/ hemorrhagic shock
s/p pressure support
IVF and blood transfusions
JOSH suspect TPN In setting of dehydration/ contrast study and shock
- monitor UOP
- continue Clark for critical I/O
- can dc iVF and c/w TPN. - CT no hydronephrosis
- follow labs
Hyponatremia/ hypokalemia / Hypocalcemia
Replace through TPN
History of Chronic macrocytic anemia
Acute blood loss anemia
s/p 4 units of RBCs
Acute thrombocytopenia,
- monitor platelets
Chronic heart failure preserved EF.
Holding BB due to hypotension
- monitor volume status, weights
Permanent atrial fibrillation status post multiple ablations.
Permanent pacemaker.
TAVR
Mitral tricuspid valve repair.
Peripheral neuropathy.
CAD.
TIA.
Hypothyroidism
Breast cancer status postlumpectomy/XRT.
Chronic constipation.
DVT ppx: IV heparin
Code: Full
Total time spent to see the patient, examine the patient, review data and lab results, discuss treatment plan with patient, nursing staff around 55 minutes
Anticipated Discharge: > 48 hours
Subjective/Interval History
-
Date of Service: December 29, 2024
Complains of abdominal discomfort
No chest pain
She feels tired
Objective Data
-
Labs:
Laboratory Results
12/29/24 12/29/24 12/29/24
01:55 03:30 04:01
WBC Cancelled 17.5 H
Hgb Cancelled 8.0 L
Hct Cancelled 23.1 L
Plt Count Cancelled 77 L
PT Cancelled
INR Cancelled
APTT Cancelled Cancelled 103.8 H
HCO3 Cancelled
Sodium Cancelled 134 L
Potassium Cancelled 3.4 L
Chloride Cancelled 104
Carbon Dioxide Cancelled 21 L
BUN Cancelled 52 H
Creatinine Cancelled 2.2 H
Glucose Cancelled 99
Calcium Cancelled 6.5 L*
Total Bilirubin 0.4
AST 31
ALT < 10
Alkaline Phosphatase 41
12/29/24 12/29/24
05:22 09:29
WBC
Hgb
Hct
Plt Count
PT
INR
APTT 113.7 H
HCO3
Sodium 131 L
Potassium 3.4 L
Chloride 105
Carbon Dioxide 21 L
BUN 51 H
Creatinine 2.1 H
Glucose 100 H
Calcium 6.6 L*
Total Bilirubin
AST
ALT
Alkaline Phosphatase
Vital Signs:
Vital Signs
Temp Pulse Resp BP Pulse Ox
96.8 F L 72 12 107/55 94
12/29/24 08:00 12/29/24 07:00 12/29/24 06:00 12/29/24 07:00 12/29/24 07:00
I&O
12/28/24 12/29/24 12/30/24
06:59 06:59 06:59
Intake Total 3924.0 / 4034.0 2120.0 / 2217.0 294 / 294
Output Total 405 / 420 1006 / 1066 95 / 95
Balance 3519.0 / 3614.0 1114.0 / 1151.0 199 / 199
[2024-12-29 10:39] LABS: Triglycerides 37 mg/dl (10-149)
[2024-12-29 11:43] LABS: Glucose - Point of Care 75 mg/dl (70-99)
[2024-12-29] MEDS: HEPARIN 25000 UNITS/250 ML IV (13:11)
--- NOTE | 2024-12-29 13:16 | PN.CDI ---
Addendum entered and electronically signed by Angelina Bettencourt MD 12/30/24 06:39:
Sepsis due to Ischemic bowel with organ dysfunction of Lactic acidosis POA
Original Note:
CDI
- -
CDI:
Physician Documentation Request
Admit Date: 12/26/24 04:38
Dear . ,
[facility] is using an adapted version of the 2016 Third International Consensus Definitions for Sepsis and Septic Shock (Sepsis-3) where sepsis is defined as life threatening organ dysfunction caused by a deregulated host response to infection.
Please reference the official [facility] Sepsis Recognition Tool for further information, which can be found on the Intranet under Infection Prevention.
Clinical Indicators Include:
Pt admitted with Abdominal pain with acute mesenteric ischemia - s/p emergent mesenteric artery thrombectomy/small bowel resection 12/26/2024.
12/29 Progress Notes: 'Shock with hypotension
combination of septic shock/ hemorrhagic shock..'
Temp:
HR:
BP: 143/58- 84/51
Labs:
WBC: 11.5-12.1 pre op
Lactate: 3.0
Creatinine: 0.6
Based on your medical judgment, can you further clarify the diagnosis being monitored/treated this admission?
Sepsis due to Ischemic bowel with organ dysfunction of Lactic acidosis POA
Sepsis due to Ischemic bowel with organ dysfunction of Lactic acidosis evolved over admisssion
Other
Use of terms such as suspected, likely, concern for, or probable (associated with a specific diagnosis that is being evaluated, monitored, or treated as if it exists) are acceptable and can be coded in the inpatient setting when documented at the
time of discharge.
Please use your independent medical judgement in providing your response.
Thank you,
Shirley Arzola RN, BSN
CDI Specialist
[facility]
[2024-12-29 15:07] LABS: APTT 81.9 Sec (23.4-35.0)
[2024-12-29 15:19] LABS: Hematocrit 25.2 % (37.0-47.0); Hemoglobin 8.5 g/dL (12.0-16.0); Mean Corp Hgb Conc. 33.7 g/dL (33.0-37.0); Mean Corpuscular Volume 91.6 fL (81.0-99.0); Platelet Count 88 10^3/uL (130-400); Red Cell Dist. Width 17.6 % (11.5-14.5)
--- NOTE | 2024-12-29 15:58 | CM ---
POD #3 status post ex lap, SMA thrombectomy, small bowel resection for acute mesenteric ischemia. Heparin drip, IV/Zosyn, TPN. Discharge POC: TBD. Awaiting therapy evaluation.
[2024-12-29 17:27] LABS: Glucose - Point of Care 70 mg/dl (70-99)
[2024-12-29] MEDS: LEVOTHROID 90 MCG IV (17:42)
[2024-12-29] MEDS: Parenteral Nutrition, Central 1020 IV (20:57)
[2024-12-29 21:12] LABS: APTT 77.7 Sec (23.4-35.0)
--- NOTE | 2024-12-29 21:12 | PTCARENOTE ---
Report called to [facility]. Transferring patient at this time.
[2024-12-29] MEDS: DILAUDID 0.75 MG IV (23:29)
[2024-12-30] VITALS (8 sets, daily range): BP systolic 122–161; BP diastolic 54–78; PULSE 65–99; O2SAT 97; BMI 20.7
[2024-12-30 02:50] LABS: Glucose - Point of Care 110 mg/dl (70-99)
[2024-12-30 05:34] LABS: APTT 73.6 Sec (23.4-35.0)
[2024-12-30 05:45] LABS: Hematocrit 24.4 % (37.0-47.0); Hemoglobin 8.5 g/dL (12.0-16.0); Mean Corp Hgb Conc. 34.8 g/dL (33.0-37.0); Mean Corpuscular Volume 88.4 fL (81.0-99.0); Platelet Count 88 10^3/uL (130-400); Red Cell Dist. Width 17.2 % (11.5-14.5)
[2024-12-30 05:59] LABS: ALT (SGPT) < 10 U/L (0-35); AST (SGOT) 25 U/L (14-36); Albumin 2.4 g/dl (3.5-5.0); Alkaline Phosphatase 57 U/L (38-126); Blood Urea Nitrogen 49 mg/dl (7-17); Calcium 8.6 mg/dl (8.4-10.2); Carbon Dioxide 25 mmol/L (22-30); Chloride 111 mmol/L (98-107); Estimated Creatinine Clearance 18 ml/min; Glucose 156 mg/dl (70-99); Magnesium 2.4 mg/dl (1.6-2.3); Potassium 3.9 mmol/L (3.5-5.1); Sodium 140 mmol/L (135-145); Total Protein 4.8 g/dl (6.3-8.2); eGFR 30.83
[2024-12-30] MEDS: DILAUDID 0.5 MG IV ×4 (06:07→23:33)
[2024-12-30] MEDS: ZOSYN 50 IV ×4 (06:07→23:28)
[2024-12-30 07:04] LABS: Glucose - Point of Care 198 mg/dl (70-99)
--- NOTE | 2024-12-30 07:21 | W.PN.GS2 ---
Addendum entered and electronically signed by Jan Lemos MD 12/30/24 08:17:
Telephone follow-up with patient's [id number] Malathi who primarily assist in decision making in her care.
Updated her regarding surgical assessment and treatment plan as outlined in my note today.
Any of her associated questions were confirmed to be addressed.
She did ask that we closely monitor her mother's back pain which has significantly impacted her care and quality of life recently. Patient was scheduled to have pain management follow-up and possible injection this week.
Original Note:
Today's Communication / Plan
-
`
Assessment / Plan
-
Assessment: 89-year-old female POD #3 status post ex lap, SMA thrombectomy, small bowel resection for acute mesenteric ischemia
PMH notable for A-fib on Eliquis, CHFpEF, valvular heart disease/TAVR, pacemaker, hypothyroidism
off pressor support
heme positive stool -expected from mucosal sloughing - slowing down
Acute blood loss anemia - responded appropriately to 2 unit transfusion packed red blood cells 12/28 - stable at 8.5
Leukocytosis -likely reactive, improving
Thrombocytopenia -stable
ARF -likely secondary to hypovolemia and possible contrast from imaging; improving Cr
Plan: clear liquid diet
Heparin drip/anticoagulation per vascular recommendations
Anticipating probable prolonged course of reduced PO intake
TPN renewed; same macronutients; reduced Na/Cl/Acetate/K contents on next bag
will follow
Subjective Data
-
Date of Service: December 30, 2024
pt seen and examined
c/o abdominal pain; stable though
no nausea; appetite still poor
minimal output from rectal bag
Objective Data
-
Intake and Output
12/29/24 12/30/24 12/31/24
06:59 06:59 06:59
Intake Total 2120.0 / 2217.0 1157.0 / 1157.0
Output Total 1006 / 1066 1935 / 1935
Balance 1114.0 / 1151.0 -778.0 / -778.0
Intake:
Oral fluids 120 / 120
IV fluids (Total) 1870.0 / 1967.0 567 / 567
Nss 1,000 ml @ 100 mls/hr IV . 200 / 200
Q10H JAYCOB Rx#:[id number]
Nss 1,000 ml @ 60 mls/hr IV . 1020 / 1080 60 / 60
[id number] JAYCOB Rx#:[id number]
TPN @31ml 310 / 341 434 / 434
heparin 102.5 / 108.5 73 / 73
levo 37.5 / 37.5
ofirmev 200 / 200
IV piggybacks 250 / 250 470.0 / 470.0
Output:
Liquid stool amount 50 / 50
Rectum 50 / 50
Gastrointestinal tube output ( 60 / 60
Total)
[place] Sump 60 / 60
Urine, Bergeron 946 / 1006 1885 / 1885
Urine, Voided 0 / 0
Vital Signs
Temp Pulse Resp BP Pulse Ox
97.9 F 70 18 157/75 99
12/30/24 03:13 12/30/24 03:13 12/30/24 03:13 12/30/24 03:13 12/30/24 05:19
Lab Results
12/30/24 05:11
12/30/24 05:11
Calcium 8.6 mg/dl (8.4-10.2) D 12/30/24 05:11
Phosphorus 2.9 mg/dl (2.5-4.5) 12/30/24 05:11
Magnesium 2.4 mg/dl (1.6-2.3) H 12/30/24 05:11
Total Bilirubin 0.7 mg/dl (0.2-1.3) 12/30/24 05:11
AST 25 U/L (14-36) 12/30/24 05:11
ALT < 10 U/L (0-35) 12/30/24 05:11
Alkaline Phosphatase 57 U/L (38-126) 12/30/24 05:11
Total Protein 4.8 g/dl (6.3-8.2) L 12/30/24 05:11
Albumin 2.4 g/dl (3.5-5.0) L 12/30/24 05:11
Physical Exam
-
NAD AAO
ABD: softly distended, generalized tenderness on palpation
incision with aquacel dressing
Patient has a bergeron catheter: Yes
[2024-12-30] MEDS: NSS (PRESERVATIVE FREE) 10 ML IV (08:15)
[2024-12-30] MEDS: PROTONIX IV 40 MG IV (08:15)
[2024-12-30] MEDS: DILAUDID 0.75 MG IV (09:43)
--- NOTE | 2024-12-30 10:03 | W.PN.HOSP.TC ---
Today's Communication/Plan
-
.
Assessment / Plan
Assessment / Plan
Physical Exam
-
General: No Apparent Distress, chronically ill looking
HEENT: Normocephalic and Atraumatic
Respiratory: Negative Wheezes
Cardiac: Regular Rhythm
GI: Soft, clean surgery site, No BS.
Genito-urinary: No Costovertebral Tender, + Clark
Neuro: AO to surroundings, she followed simple commands.
Psych: Calm
Assessment:
Abdominal pain with acute mesenteric ischemia
- s/p emergent mesenteric artery thrombectomy/small bowel resection 12/26/2024
She reports abdominal discomfort, no active bowel sounds
per surgery: NGT can be removed but maintain NPO
- lactic acidosis now resolved; continue IVF. Also has shock,c/w septic shock
- NG was removed 12/29
- Started on TPN 12/28
starte don clears 12/30
- IV Zosyn - renally dosed. Monitor WBCs
- IV Heparin - requires intensive monitoring of PTTs
- Dilaudid KITCHEN MECHANIC stopped; now on IV Ofirmev
# Chronic back pain with opioid dependency
Patient has a chronic back pain. She is scheduled to have epidural injection but missed appointment due to this illness. She takes tramadol twice a day at home. She has been getting as needed IV Dilaudid here. Discussed with patient. Agreed to
go on standing dose of low-dose Dilaudid until normal bowel function. Discussed with daughter, agreed to the plan.
#Shock with hypotension: Resolved
combination of septic shock/ hemorrhagic shock
s/p pressure support
s/p IVF and blood transfusions
JOSH suspect TPN In setting of dehydration/ contrast study and shock
- monitor UOP
- continue Clark for critical I/O
- dc IVF and c/w TPN. - CT no hydronephrosis
- follow labs
# UTI with E. coli/ESBL
On intravenous Zosyn
Hyponatremia/ hypokalemia / Hypocalcemia
Replace through TPN
History of Chronic macrocytic anemia
Acute blood loss anemia
s/p 4 units of RBCs
Acute thrombocytopenia,
- monitor platelets
Chronic heart failure preserved EF.
Holding BB due to hypotension
- monitor volume status, weights
Permanent atrial fibrillation status post multiple ablations.
Permanent pacemaker.
TAVR
Mitral tricuspid valve repair.
Peripheral neuropathy.
CAD.
TIA.
Hypothyroidism
Breast cancer status postlumpectomy/XRT.
Chronic constipation.
DVT ppx: IV heparin
CODE STATUS. Patient was DNR in the past. Discussed with patient and daughter, patient is DNR
Total time spent to see the patient, examine the patient, review data and lab results, discuss treatment plan with patient, nursing staff around 55 minutes
Anticipated Discharge: > 48 hours
Subjective/Interval History
-
Date of Service: December 30, 2024
She has abdominal discomfort
Objective Data
-
Labs:
Laboratory Results
12/30/24
05:11
WBC 13.9 H
Hgb 8.5 L
Hct 24.4 L
Plt Count 88 L
APTT 73.6 H
Sodium 140 D
Potassium 3.9
Chloride 111 H
Carbon Dioxide 25
BUN 49 H
Creatinine 1.6 H
Glucose 156 H
Calcium 8.6 D
Total Bilirubin 0.7
AST 25
ALT < 10
Alkaline Phosphatase 57
Vital Signs:
Vital Signs
Temp Pulse Resp BP Pulse Ox
97.7 F 86 14 145/78 95
12/30/24 07:56 12/30/24 07:56 12/30/24 07:56 12/30/24 07:56 12/30/24 07:56
I&O
12/29/24 12/30/24 12/31/24
06:59 06:59 06:59
Intake Total 2120.0 / 2217.0 1157.0 / 1157.0
Output Total 1006 / 1066 1934 / 1934
Balance 1114.0 / 1151.0 -778.0 / -778.0
[2024-12-30 11:37] LABS: Glucose - Point of Care 194 mg/dl (70-99)
[2024-12-30] MEDS: DILAUDID 0.25 MG IV ×2 (12:03→17:04)
[2024-12-30] MEDS: NOVOLOG FLEXPEN-LOW RESISTANCE 1 UNITS SC ×2 (12:08→23:30)
--- NOTE | 2024-12-30 16:16 | PTCARENOTE ---
Addendum entered by Penelope Burt RN 12/30/24 17:53:
Repeat hgb unchanged from AM at 8.5. MD made aware, no new orders at this time.
Addendum entered by Penelope Burt RN 12/30/24 16:43:
VSS - see charting. Belly distended, Aquacel midline dressing in place, +bowels. General surgery also made aware, no new orders at this time.
Original Note:
Patient AAOX2 throughout shift, occasionally disoriented to time and situation, forgetful and confused, drowsy. Patient with garbled, gurgly voice quality, weak moist cough, unable to cough sputum up, orally suctioned PRN by this RN throughout
shift. Patient turned and repositioned and coughed up moderate amount of thin green/brown mucous, sat up in bed and suctioned, denies SOB but c/o pain throughout whole body, unable to give pain scale rating. Medicated with PRN 0.5mg IV dilaudid -
see APR. TPN and hep gtt infusing, Clark and rectal trumpet in place. Patient ordered clears per surgery this AM but poor appetite, refusing to eat, mouth care performed throughout shift and ice chips given PRN. Patient also c/o decreased sensation
to hands, weak but palpable radial pulses, +doppler pedals. MD made aware of above. Patient made NPO per MD, speech consult and stat H&H ordered.
[2024-12-30 16:46] LABS: Hematocrit 24.4 % (37.0-47.0); Hemoglobin 8.5 g/dL (12.0-16.0)
[2024-12-30] MEDS: LEVOTHROID 90 MCG IV (17:07)
[2024-12-30] MEDS: NOVOLOG FLEXPEN-LOW RESISTANCE 214 UNITS SC (17:31)
[2024-12-30 17:34] LABS: Glucose - Point of Care 214 mg/dl (70-99)
[2024-12-30] MEDS: DILAUDID IV (18:04)
[2024-12-30] MEDS: FLUSH (NSS) 4 FLUSH IV (19:40)
[2024-12-30] MEDS: Parenteral Nutrition, Central 1000 IV (20:52)
[2024-12-30 21:26] LABS: Glucose - Point of Care 154 mg/dl (70-99)
[2024-12-30 23:31] LABS: Glucose - Point of Care 189 mg/dl (70-99)
[2024-12-31] MEDS: DILAUDID 0.75 MG IV ×3 (00:21→21:01)
[2024-12-31] MEDS: DILAUDID 0.25 MG IV ×3 (01:52→18:17)
--- NOTE | 2024-12-31 01:54 | PTCARENOTE ---
pt varies from lethargy to waking up crying in pain. difficult time getting pain under control with standing and prn's see mar
[2024-12-31 03:03] LABS: Glucose - Point of Care 168 mg/dl (70-99)
[2024-12-31 03:05] VITALS: BP 133/59
[2024-12-31 05:06] LABS: Glucose - Point of Care 145 mg/dl (70-99)
[2024-12-31] MEDS: NOVOLOG FLEXPEN-LOW RESISTANCE SC ×4 (05:06→23:51)
[2024-12-31] MEDS: ZOSYN 50 IV ×3 (05:06→18:03)
[2024-12-31 05:52] VITALS: BMI 21.4
[2024-12-31 06:53] LABS: ALT (SGPT) < 10 U/L (0-35); AST (SGOT) 29 U/L (14-36); Albumin 2.5 g/dl (3.5-5.0); Alkaline Phosphatase 93 U/L (38-126); Blood Urea Nitrogen 49 mg/dl (7-17); Calcium 9.1 mg/dl (8.4-10.2); Carbon Dioxide 28 mmol/L (22-30); Chloride 117 mmol/L (98-107); Estimated Creatinine Clearance 23 ml/min; Glucose 136 mg/dl (70-99); Magnesium 2.4 mg/dl (1.6-2.3); Potassium 4.3 mmol/L (3.5-5.1); Sodium 148 mmol/L (135-145); Total Protein 4.9 g/dl (6.3-8.2); eGFR 39.55
[2024-12-31 07:02] LABS: APTT 54.5 Sec (23.4-35.0)
[2024-12-31 07:20] VITALS: BP 155/63
[2024-12-31] MEDS: PROTONIX IV 40 MG IV (07:55)
[2024-12-31] MEDS: NSS (PRESERVATIVE FREE) 10 ML IV (07:55)
[2024-12-31 08:25] LABS: Hematocrit 25.6 % (37.0-47.0); Hemoglobin 8.1 g/dL (12.0-16.0); Mean Corp Hgb Conc. 31.6 g/dL (33.0-37.0); Mean Corpuscular Volume 96.2 fL (81.0-99.0); Platelet Count 95 10^3/uL (130-400); Red Cell Dist. Width 18.7 % (11.5-14.5)
[2024-12-31] MEDS: LOPRESSOR 2.5 MG IV ×2 (09:21→16:11)
--- NOTE | 2024-12-31 10:19 | W.PN.GS2 ---
Addendum entered and electronically signed by Jan Lemos MD 12/31/24 17:11:
Detailed follow-up discussions with patient's daughter at bedside this afternoon.
Updated regarding CT imaging and treatment plan with NG tube, bowel rest and TPN
Answered questions regarding potential long-term prognosis and current care. Advised at this point there is no irreversible bowel process or immediate life threatening setback (anastomotic leak, perforation, ongoing bowel ischemia).
Patient's daughter advises that they would like to continue with aggressive medical care but likely would prefer no reintubation or readmission to ICU if there was an acute significant life-threatening medical decline.
She is not ready to make this decision at this time but will contemplate and further discussed with her brother, the patient's son who is POA.
Addendum entered and electronically signed by Jan Lemos MD 12/31/24 10:43:
Patient seen and examined this a.m. with surgical HOME SERVICE CONSULTANT. Agree with documented progress note.
Appears to be in more abdominal pain this a.m. and more confusion than previously.
Low-grade fever, vital signs otherwise stable
Abdomen more distended. Diffuse tenderness.
Midline incision with niki. Dressing removed and left open to air. No active bleeding.
CT abdomen/pelvis obtained and imaging personally reviewed as well as discussed with radiologist. Probable hematoma around region of small bowel anastomosis. This is likely sequelae of initial postoperative heparin for anticoagulation. No signs
of anastomotic leak, pneumatosis suggestive of irreversible bowel ischemia, abscess.
Will replace NG tube for decompression given severe dilation of stomach and proximal small bowel.
Maintain n.p.o. and supportive care
Renew TPN
Original Note:
Today's Communication / Plan
-
Ct abd/pelvis
Assessment / Plan
-
Assessment: 89-year-old female POD #4 status post ex lap, SMA thrombectomy, small bowel resection for acute mesenteric ischemia
PMH notable for A-fib on Eliquis, CHFpEF, valvular heart disease/TAVR, pacemaker, hypothyroidism
Low grade fever of 100.2, VSS
Acute blood loss anemia - responded appropriately to 2 unit transfusion packed red blood cells 12/28 - stable on heparin gtt
Leukocytosis -likely reactive
Thrombocytopenia -stable
ARF -likely secondary to hypovolemia and possible contrast from imaging; improving Cr
Hyponatremia resolved, now with hypernatremia
Confusion/pain
Plan: NPO awaiting SURVEILLANCE SYSTEMS ANALYST eval
Check non contrast Ct abd/pelvis
Heparin drip/anticoagulation per vascular recommendations
Anticipating probable prolonged course of reduced PO intake
TPN renewed; macronutrients continued at prior dose. Na, Mg adjusted
will follow
Subjective Data
-
Date of Service: December 31, 2024
Pt seen and examined at bedside with Dr Lemos. Calling out/moaning but not able to verbalize what is hurting her. Abdomen tender on exam predominantly to the RLQ. Uncomfortable appearing.
Objective Data
-
Intake and Output
12/30/24 12/31/24 01/01/25
06:59 06:59 06:59
Intake Total 1157.0 / 1157.0 616 / 616
Output Total 1934
Balance -778.0 / -778.0 -1134 / -1134
Intake:
Oral fluids 120 / 120
IV fluids (Total) 567 / 567
Nss 1,000 ml @ 60 mls/hr IV . 60 / 60
[id number] JAYCOB Rx#:[id number]
TPN @31ml 434 / 434
heparin 73 / 73
IV piggybacks 470.0 / 470.0 100 / 100
TPN/PPN 516 / 516
Output:
Liquid stool amount 50 / 50
Rectum 50 / 50
Urine, Bergeron 1884 / 1884
Vital Signs
Temp Pulse Resp BP Pulse Ox
100.2 F 71 16 155/63 95
12/31/24 07:20 12/31/24 09:21 12/31/24 07:20 12/31/24 09:21 12/31/24 07:20
Lab Results
12/31/24 06:10
12/31/24 06:10
Calcium 9.1 mg/dl (8.4-10.2) 12/31/24 06:10
Phosphorus 2.9 mg/dl (2.5-4.5) 12/31/24 06:10
Magnesium 2.4 mg/dl (1.6-2.3) H 12/31/24 06:10
Total Bilirubin 0.7 mg/dl (0.2-1.3) 12/31/24 06:10
AST 29 U/L (14-36) 12/31/24 06:10
ALT < 10 U/L (0-35) 12/31/24 06:10
Alkaline Phosphatase 93 U/L (38-126) 12/31/24 06:10
Total Protein 4.9 g/dl (6.3-8.2) L 12/31/24 06:10
Albumin 2.5 g/dl (3.5-5.0) L 12/31/24 06:10
Physical Exam
-
NAD AAO
ABD: softly distended, generalized tenderness on palpation more so to the RLQ
incision with aquacel dressing
Patient has a bergeron catheter: Yes
Patient has a central line: Yes
--- NOTE | 2024-12-31 10:23 | W.PN.HOSP.TC ---
Today's Communication/Plan
-
.
Assessment / Plan
Assessment / Plan
Physical Exam
-
General: No Apparent Distress, chronically ill looking
HEENT: Normocephalic and Atraumatic, dry MM
Respiratory: Negative Wheezes
Cardiac: Regular Rhythm
GI: Soft, clean surgery site, not distended, mildly tender.
Genito-urinary: No Costovertebral Tender, + Clark
Neuro: lethargic
Psych: Calm
Assessment:
Abdominal pain with acute mesenteric ischemia
- s/p emergent mesenteric artery thrombectomy/small bowel resection 12/26/2024
She seems to have pain and could not tolerate liquids
d/w surgery, repeat imaging CT, keep NPO with TPN
- lactic acidosis now resolved; continue IVF. Also has shock,c/w septic shock
- NG was removed 12/29
- Started on TPN 12/28
- IV Zosyn - renally dosed. Monitor WBCs
- IV Heparin - requires intensive monitoring of PTTs
- Dilaudid WRAPPING MACHINE TENDER stopped; now on IV Ofirmev
# fever over night
Will do blood culture
Appreciate ID help
# TME
Holding ATC Dilaudid
Work up for fever, worsening status but cultures of blood, Tylenol, CT study
# Chronic back pain with opioid dependency
Patient has a chronic back pain. She was scheduled to have epidural injection but missed appointment due to this illness. She takes tramadol twice a day at home. She has been getting as needed IV Dilaudid here. we started on low dose Dilaudid but
seems worsening pain/ lethargy, will hold ATC dose, c/w PRN
#Shock with hypotension: Resolved
combination of septic shock/ hemorrhagic shock
s/p pressure support
s/p IVF and blood transfusions
JOSH suspect ATN In setting of dehydration/ contrast study and shock
c/w TPN. - CT no hydronephrosis
Hypernatremia, hyper magnesemia, adjusting TPN
# UTI with E. coli/ESBL
On intravenous Zosyn
Hyponatremia/ hypokalemia / Hypocalcemia
Replace through TPN
History of Chronic macrocytic anemia
Acute blood loss anemia . Stable HGB
s/p 4 units of RBCs
Acute thrombocytopenia,
- monitor platelets
Chronic heart failure preserved EF.
Held BB due to hypotension then resumed but now with lethargy, unable to take oral with risk of aspiration. Will do Low dose IV BB with holding parameters
- monitor volume status, weights
Permanent atrial fibrillation status post multiple ablations/ Permanent pacemaker.
TAVR/ Mitral tricuspid valve repair.
Peripheral neuropathy.
CAD.
TIA.
Hypothyroidism on IV Synthroid while unable to take oral pills
Breast cancer status postlumpectomy/XRT.
Chronic constipation.
DVT ppx: IV heparin
CODE STATUS. Patient was DNR in the past. Discussed with patient and daughter, patient is DNR
Total time spent to see the patient, examine the patient, review data and lab results, discuss treatment plan with patient, surgery, nursing staff around 55 minutes
Anticipated Discharge: > 48 hours
Subjective/Interval History
-
Date of Service: December 31, 2024
She is moaning, looks lethargic
Objective Data
-
Labs:
Laboratory Results
12/31/24
06:10
WBC 14.7 H
Hgb 8.1 L
Hct 25.6 L
Plt Count 95 L
APTT 54.5 H
Sodium 148 H D
Potassium 4.3
Chloride 117 H
Carbon Dioxide 28
BUN 49 H
Creatinine 1.3 H
Glucose 136 H
Calcium 9.1
Total Bilirubin 0.7
AST 29
ALT < 10
Alkaline Phosphatase 93
Vital Signs:
Vital Signs
Temp Pulse Resp BP Pulse Ox
100.2 F 71 16 155/63 95
12/31/24 07:20 12/31/24 09:21 12/31/24 07:20 12/31/24 09:21 12/31/24 07:20
I&O
12/30/24 12/31/24 01/01/25
06:59 06:59 06:59
Intake Total 1157.0 / 1157.0 616 / 616
Output Total 1934 / 1934 1750 / 1750
Balance -778.0 / -778.0 -1134 / -1134
[2024-12-31 11:05] VITALS: BP 166/75
[2024-12-31] MEDS: DILAUDID 0.5 MG IV ×2 (11:44→23:48)
[2024-12-31] MEDS: NOVOLOG FLEXPEN-LOW RESISTANCE 1 UNITS SC (12:30)
[2024-12-31 12:44] LABS: Glucose - Point of Care 172 mg/dl (70-99)
[2024-12-31] MEDS: OFIRMEV 100 IV ×3 (13:49→23:51)
[2024-12-31 14:01] LABS: APTT 68.3 Sec (23.4-35.0)
[2024-12-31 15:05] VITALS: BP 145/62
--- NOTE | 2024-12-31 17:15 | PTCARENOTE ---
Patient ordered 1 unit of RBC. RN spoke with family in regards to treatment, family was not aware of ordered transfusion. RN tiger-texted DR CASTAÑEDA and informed about concerns. Daughter would like to speak with provider as see seen on portable
patients hemoglobin is stable. Dr. CASTAÑEDA informed this RN to hold blood product till tomorrow, when she can speak with patients daughter in person.
[2024-12-31] MEDS: HEPARIN 25000 UNITS/250 ML IV (17:58)
[2024-12-31] MEDS: LEVOTHROID 90 MCG IV (18:17)
[2024-12-31 18:40] LABS: Glucose - Point of Care 142 mg/dl (70-99)
[2024-12-31 20:48] LABS: APTT 88.9 Sec (23.4-35.0)
[2024-12-31] MEDS: Parenteral Nutrition, Central 960 IV (21:02)
[2024-12-31 23:52] LABS: Glucose - Point of Care 131 mg/dl (70-99)
[2025-01-01] MEDS: ZOSYN 50 IV ×4 (00:22→17:28)
[2025-01-01] MEDS: LOPRESSOR IV ×2 (00:38→21:40)
[2025-01-01 00:39] VITALS: BP 124/50
[2025-01-01] MEDS: VALIUM INJECTION 1 MG IV (01:29)
[2025-01-01 02:40] LABS: Hematocrit 22.1 % (37.0-47.0); Hemoglobin 7.3 g/dL (12.0-16.0); Mean Corp Hgb Conc. 33.0 g/dL (33.0-37.0); Mean Corpuscular Volume 94.8 fL (81.0-99.0); Platelet Count 87 10^3/uL (130-400); Red Cell Dist. Width 17.9 % (11.5-14.5)
[2025-01-01 02:47] LABS: APTT 132.4 Sec (23.4-35.0)
[2025-01-01 03:06] VITALS: BP 135/65
[2025-01-01 03:45] LABS: Blood Urea Nitrogen 37 mg/dl (7-17); Calcium 8.2 mg/dl (8.4-10.2); Carbon Dioxide 22 mmol/L (22-30); Chloride 124 mmol/L (98-107); Estimated Creatinine Clearance 37 ml/min; Glucose 100 mg/dl (70-99); Magnesium 2.1 mg/dl (1.6-2.3); Potassium 3.2 mmol/L (3.5-5.1); Sodium 146 mmol/L (135-145); eGFR > 60.00
[2025-01-01] MEDS: KCL 270 MEQ IV (05:12)
[2025-01-01] MEDS: DILAUDID 0.75 MG IV ×4 (05:35→17:44)
[2025-01-01] MEDS: NOVOLOG FLEXPEN-LOW RESISTANCE SC ×3 (05:54→19:55)
[2025-01-01 05:56] LABS: Glucose - Point of Care 106 mg/dl (70-99)
[2025-01-01 06:00] VITALS: BMI 20.8
[2025-01-01] MEDS: OFIRMEV 100 IV ×2 (06:17→17:28)
[2025-01-01 07:20] VITALS: BP 167/73
[2025-01-01] MEDS: DILAUDID 0.5 MG IV ×3 (08:17→22:35)
[2025-01-01] MEDS: NSS (PRESERVATIVE FREE) 10 ML IV (08:18)
[2025-01-01] MEDS: PROTONIX IV 40 MG IV (08:19)
[2025-01-01] MEDS: LOPRESSOR 2.5 MG IV ×2 (08:19→16:16)
--- NOTE | 2025-01-01 08:34 | CON.ID ---
Consultation
-
Date/Time Consultation Requested: 12/31/24 8:22
Date/Time Consultation Performed: 01/01/25 8:35
Requesting Provider: Dr Bettencourt
Performing Provider: Dr Cannon
Reason for Consultation: fever
Chief Complaint / Past History
Chief Complaint
abdominal pain and diarrhea
History of Present Illness
Ms Leonard is an 89 year old female with history notable for CHF, PAF on eliquis, s/p TAVR, prior colonization with ESBL E coli who presented here 12/26 for 1 day history of abdominal pain, watery diarrhea with rust colored material, nausea
without vomiting.
In the ER she was afebrile, bp stable, HR 70, sating 100% on room air. 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
lap, open SMA thrombectomy, small bowel resection with primary anastomosis, there were no complications. A moderate length segment of the jejunum with nonresolving ischemic change was resected. Post operatively she was extubated and managed in the
ICU, she was maintained on zosyn for the ischemic colitis and heparin. Her post operative course was notable for shock and JOSH/ATN. She required norepi blood pressure support from 12/26-12/28. She was maintained on bowel rest. TPN was started the
evening of 12/28. She was transfused 2 units PRBCs 12/27 with initial response of hgb from 7.0 to 9.0, over the 5 days hgb has slowly drifted back down to 7.3. 12/28 CXR read as mild right lower lobe pneumonia, NG tube removed 12/29. Then 12/31
had increasing abdominal pain with diffuse tenderness, dressing was removed by surgery and no active signs of bleeding were noted. A repeat CT a/p without IV contrast was preformed inflammatory soft tissue thickening vs hematoma observed at the
anastomotic site with high grade upstream bowel obstruction, bilateral pleural effusions and likely atelectasis. That AM 12/31 she had a tmax of 100.2 however no hector fevers. Today 01/01 she remains afebrile, BP stable, WBC decreased from its
peak of 26.9 on 12/27 and today running 17.1, hgb declined from 8.1 the day before to 7.3, plt running in the 80s, na 146, cr improved from its peak of 2.2 on 12/29 now 0.8, t bili 0.7, ast 29, alt <10, alk phos 93,
Past History
Additional Past Medical History:
Valvular Heart Disease
Chronic HFpEF
Permanent Atrial Fibrillation
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
Peripheral Neuropathy
Chronic Anemia
Chronic Hyponatremia
Hypothyroidism
Vertigo
Left Breast Cancer s/p Lumpectomy and XRT
Chronic Constipation
Additional Past Surgical History:
PVI Ablation x Multiple
PPM Placement
Left Lumpectomy
TAVR
Mitral / Tricuspid Valve Annuloplasty / Repairs
Cataracts
Allergy History:
adhesive Allergy (Verified 12/25/24 22:26)
itching - redness
amiodarone Allergy (Verified 12/25/24 22:26)
elevated LFTs
bupivacaine (From Sensorcaine-Epinephrine) Allergy (Verified 12/25/24 22:26)
Shortness of Breath
cat dander Allergy (Verified 12/25/24 22:26)
SNEEZING/WHEEZING
codeine Allergy (Verified 12/25/24 22:26)
light headed and dizzy
epinephrine (From Sensorcaine-Epinephrine) Allergy (Verified 12/25/24 22:26)
Shortness of Breath
prilocaine Allergy (Verified 12/25/24 22:26)
LIGHTHEADED, DIZZY
Sulfa (Sulfonamide Antibiotics) Allergy (Verified 12/25/24 22:26)
Nausea
sulfamethoxazole Allergy (Verified 12/25/24 22:26)
nausea-DID NOT TOLERATE WELL
lidocaine Adverse Reaction (Verified 12/25/24 22:26)
Unknown
Medications Reviewed: Yes
Social History
Tobacco: Non-Smoker
Alcohol: None
Drug: None
Family History
Family History: Not Pertinent
Review of Systems
Review of Systems
Constitutional: Reports No Symptoms
EENT: Reports No Symptoms
Respiratory: Reports No Symptoms
Cardiac: Reports No Symptoms
Abdomen/GI: Reports Abdominal Pain, Nausea, Diarrhea and Bloody Stools
: Reports No Symptoms
Musculoskeletal: Reports No Symptoms
Skin: Reports No Symptoms
Neurological: Reports No Symptoms
Endocrine: Reports No Symptoms
Hematologic/Lymphatic: Reports No Symptoms
Psych: Reports No Symptoms
Vital Signs
Temp Pulse Resp BP Pulse Ox
97.9 F 72 16 167/73 96
01/01/25 07:20 01/01/25 08:19 01/01/25 07:20 01/01/25 08:19 01/01/25 07:20
Physical Exam
Physical Exam
Constitutional: No Acute Distress
Cardiovascular: Regular Rate and S1/S2; Negative Murmur or Rub
Pulmonary: Clear and Symmetric; Negative Wheezes, Rales or Rhonchi
Gastrointestinal: Soft, Non Tender, Non Distended, Normal Bowel Sounds and Other (rectal tube in place with scant stool in the bag)
Skin: Warm and Dry; Negative Rash or Jaundice
Wound: Other (surgical site well approximated no erythema, warmth or drainage)
pertinent negative no NGT in place
Lab / Diagnostic Study Results
01/01/25 02:20
01/01/25 02:20
Abs Immat Gran (auto) 0.1 10^3/uL (0-0.05) H 12/25/24 22:05
Absolute Neuts (auto) 10.3 10^3/uL (1.4-6.5) H 12/25/24 22:05
Absolute Lymphs (auto) 0.6 10^3/uL (1.2-3.4) L 12/25/24 22:05
Absolute Monos (auto) 0.6 10^3/uL (0.1-0.6) 12/25/24 22:05
Absolute Basos (auto) 0.0 10^3/uL (0-0.2) 12/25/24 22:05
Immature Gran % 0.4 % (0-0.5) 12/25/24 22:05
Neutrophils % 89.0 % (42.2-75.2) H 12/25/24 22:05
Lymphocytes % 5.3 % (20.5-51.1) L 12/25/24 22:05
Monocytes % 5.0 % (1.7-9.3) 12/25/24 22:05
Eosinophils % 0.0 % (0-6) 12/25/24 22:05
Basophils % 0.3 % (0-2) 12/25/24 22:05
PT Cancelled 12/29/24 01:55
INR Cancelled 12/29/24 01:55
Lactic Acid Cancelled 12/26/24 21:00
Ur Squamous Epith Cells Seen /LPF (Few) 12/26/24 03:05
Urine Culture Final 12/28/24
CC: Greater than 100,000 CFU/ML Escherichia coli - ESBL
Isolation Precautions Required
Resistance due to extended spectrum beta lactamase.
Decreased activity may occur with penicillins,
penicillin/inhibitor combinations, cephalosporins, and
monobactams.
Organism 1 Escherichia coli - ESBL
1. Escherichia coli - ESBL
M.I.C. RX
--------- ---
Amoxicillin/Potas. Clavulanate <=8/4 S
Ampicillin >16 R
Ampicillin/Sulbactam <=4/2 S
Aztreonam <=4 S
Cefazolin >16 R
Cefepime <=2 S
Ceftazidime <=1 S
Ceftriaxone >2 R
Ertapenem <=0.5 S
Ciprofloxacin >2 R
Gentamicin <=2 S
Meropenem <=1 S
Nitrofurantoin-Urine Only <=32 S
Piperacillin/Tazobactam <=8 S
Tetracycline >8 R
Tobramycin <=2 S
Trimethoprim/Sulfamethoxazole >2/38 R
Microbiology Results
Micro:
12/31/24 09:07 Blood Culture - Pending
Blood/Venous
12/26/24 03:05 Urine Culture - Final
Urine Escherichia coli - ESBL
Assessment / Plan
Leukocytosis
Small Bowel Obstruction
Bilateral pleural effusions with likely atelectasis
- increased leukocytosis over the last 48 hours likely related to small bowel obstruction from post operative hematoma, no plans for surgical intervention at this time
- a blood culture was sent 12/31 - will follow up
- would continue zosyn at this time, day 7
- trend WBC count and vital signs
- follow clinically
UTI due to ESBL E coli
- on zosyn day 7
--- NOTE | 2025-01-01 09:10 | VATNOTE ---
Left upper arm Cephalic #16 IV access placed on 12/26 with old appearing bruising at and around the site. Flushed easily with 3ml NSS and does have a brisk blood return. Extension tubing changed to small bore extension. Site redressed.
[2025-01-01 09:53] LABS: APTT 54.2 Sec (23.4-35.0)
--- NOTE | 2025-01-01 10:18 | W.PN.HOSP.TC ---
Today's Communication/Plan
-
Transition later to hospice care after family members arrival
Assessment / Plan
Assessment / Plan
Physical Exam
-
General: No Apparent Distress, chronically ill looking
HEENT: Normocephalic and Atraumatic, dry MM
Respiratory: Negative Wheezes
Cardiac: Regular Rhythm
GI: Soft, clean surgery site, not distended, mildly tender.
Genito-urinary: No Costovertebral Tender, + Clark
Neuro: lethargic
Psych: Calm
Assessment:
# Goals of care discussion
Patient expressed her wishes to avoid nasogastric tube replacement. Patient wanted pain control as back pain was major problem for her. Discussed with family at bedside. Family wanted no escalation of care at this point. Patient wishes remained
as DO NOT RESUSCITATE/DO NOT INTUBATE. Some family members are arriving out of state. They are meeting today and requesting transition to hospice later on.
Abdominal pain with acute mesenteric ischemia
- s/p emergent mesenteric artery thrombectomy/small bowel resection 12/26/2024
Patient had some stability but repeat CAT scan showed developing hematoma at anastomosis size with small bowel obstruction.
- NG was removed 12/29. NG placed back 12/31 for SBO but pt removed and refused to place it back
- Started on TPN 12/28
- IV Zosyn - renally dosed. Monitor WBCs
- IV Heparin - requires intensive monitoring of PTTs
- Pain medication with IV Dilaudid
Appreciate surgery help
# fever over night with leukocytosis
Per ID: increased leukocytosis over the last 48 hours likely related to small bowel obstruction from post operative hematoma, no plans for surgical intervention at this time
f/w blood culture
Appreciate ID help
# TME
Holding ATC Dilaudid, c/w PRN dose
Work up for fever, worsening status but cultures of blood, Tylenol, CT study
# Chronic back pain with opioid dependency
Patient has a chronic back pain. She was scheduled to have epidural injection but missed appointment due to this illness. She takes tramadol twice a day at home. She has been getting as needed IV Dilaudid here. we started on low dose Dilaudid but
seems worsening pain/ lethargy, will hold ATC dose, c/w PRN
#Shock with hypotension: Resolved
combination of septic shock/ hemorrhagic shock
s/p pressure support
s/p IVF and blood transfusions
JOSH suspect ATN In setting of dehydration/ contrast study and shock
c/w TPN. - CT no hydronephrosis
#Hypernatremia, hyper magnesemia, adjusting TPN
#Hypokalemia
# UTI with E. coli/ESBL
On intravenous Zosyn
Hyponatremia/ hypokalemia / Hypocalcemia
Replace through TPN
History of Chronic macrocytic anemia
Acute blood loss anemia . Stable HGB
s/p 4 units of RBCs
Acute thrombocytopenia,
- monitor platelets
Chronic heart failure preserved EF.
Held BB due to hypotension then resumed but now with lethargy, unable to take oral with risk of aspiration. Will do Low dose IV BB with holding parameters
- monitor volume status, weights
Permanent atrial fibrillation status post multiple ablations/ Permanent pacemaker.
TAVR/ Mitral tricuspid valve repair.
Peripheral neuropathy.
CAD.
TIA.
Hypothyroidism on IV Synthroid while unable to take oral pills
Breast cancer status postlumpectomy/XRT.
Chronic constipation.
DVT ppx: IV heparin
CODE STATUS. Patient was DNR in the past. Discussed with patient and daughter, patient is DNR
Total time spent to see the patient, examine the patient, review data and lab results, discuss treatment plan with patient, surgery, nursing staff around 55 minutes
Anticipated Discharge: Within 24 hours
Subjective/Interval History
-
Date of Service: January 01, 2025
Patient complains of back pain
Objective Data
-
Labs:
Laboratory Results
01/01/25 01/01/25
02:20 08:37
WBC 17.1 H
Hgb 7.3 L
Hct 22.1 L
Plt Count 87 L
APTT 132.4 H 54.2 H
Sodium 146 H
Potassium 3.2 L D
Chloride 124 H
Carbon Dioxide 22
BUN 37 H
Creatinine 0.8
Glucose 100 H
Calcium 8.2 L
Vital Signs:
Vital Signs
Temp Pulse Resp BP Pulse Ox
97.9 F 72 16 167/73 96
01/01/25 07:20 01/01/25 08:19 01/01/25 07:20 01/01/25 08:19 01/01/25 09:21
I&O
12/31/24 01/01/25 01/02/25
06:59 06:59 06:59
Intake Total 616 / 616 727 / 727
Output Total 1750 / 1750 1870 / 1870
Balance -1134 / -1134 -1143 / -1143
[2025-01-01 11:05] VITALS: BP 161/70
--- NOTE | 2025-01-01 12:29 | W.PN.SURGUPD ---
Surgical Update
Surgical Update
pt seen and examined
russ moon at bedside. confirms plan for hospice care which is felt to be in patients best interest recent medical decline and acute illness with anticipated challenging recovery
condolences offered
please call if can be of further assistance with care
[2025-01-01] MEDS: OFIRMEV IV (12:46)
[2025-01-01 12:57] LABS: Glucose - Point of Care 129 mg/dl (70-99)
--- NOTE | 2025-01-01 12:59 | PTCARENOTE ---
Pt pulled out her NG tube this am. no s/s of distress noted. Dr. Bettecnourt and Dr. odom aware. NG tube discontinued at this time. Plan of care ongoing.
--- NOTE | 2025-01-01 15:17 | CM ---
CM following re: discharge planning.
Reviewed pt' chart.
Per MD, pt's family is leaning towards comfort care/hospice care and possible transition to hospice care today when family arrives.
D/C plan: comfort care/hospice care.
CM is available for emotional support.
[2025-01-01 15:20] VITALS: BP 168/72
[2025-01-01 16:42] LABS: APTT 130.0 Sec (23.4-35.0)
--- NOTE | 2025-01-01 17:10 | PTCARENOTE ---
Pt bladder scanned for no urine output @1700. Bladder scanned for 219. Dr. Bettencourt made aware. No new orders at this time. plan of care ongoing.
[2025-01-01] MEDS: LEVOTHROID 90 MCG IV (17:27)
[2025-01-01 18:12] LABS: Glucose - Point of Care 196 mg/dl (70-99)
--- NOTE | 2025-01-01 18:42 | RR ---
A Rapid Response was called on this patient, please see Rapid Response form.
CC team called, and arrived bedside. Upon assessment appears agonal, bradycardic. Confirmed with primary RN to confirm resuscitation orders from attending. Via TT attending (Dr. Bettencourt) confirms patient is Comfort care.
Family notified to come in via Primary RN. Confirmed with Primary team no CC needs at this time.
[2025-01-01] MEDS: NSS 500 IV (18:50)
--- NOTE | 2025-01-01 18:50 | W.PN.UPDATE ---
Update Note
Progress Note Update
Addendum
I met with family at bedside. Discussed goal of care. Most of the family were present except 1 son who was traveling from [place]. Explained risk of continuing IV heparin with high PTT with dropping hemoglobin and recent hematoma on CAT scan.
Will hold heparin for now. Continue with nutrition, IV antibiotics, pain control. Family was very clear that they did not want her to suffer and wanted her parents under control.
They agreed to meet with hospice. Contacted hospice nurse on-call.
Per hospice nurse they will have a meeting, tomorrow at 9 AM to sign the consents.
Another addendum
Patient had hypotensive episode and rapid response was called. I went to see the patient, she is unresponsive with hypotensive. Will give bolus of normal saline. Family was called come back again. seems imminent. Family arriving,
continue comfort care measures with no escalation of care as agreed upon.
Help and support offered to family.
End
--- NOTE | 2025-01-01 19:06 | PTCARENOTE ---
Patient c/o os sob. vs: documented. Bp 87/49. Dr. box and RR called. Per dr. box pt is on comfort care. Dr. box at bedside. Comfort care in place. Family at bedside.
[2025-01-01 19:11] VITALS: BP 81/47
--- NOTE | 2025-01-01 22:02 | HOSPNOTE ---
HOSPICE REFERRAL PER ATTENDING. SPOKE WITH DAUGHTER EBENEZER. PLAN IS TO SIGN PATIENT ONTO INPATIENT HOSPICE TOMORROW AT 9 AM. WILL ASK CM TO SEND REFERRAL IN THE AM. ATTENDING UPDATED AND IN AGREEMENT.
[2025-01-02] MEDS: NOVOLOG FLEXPEN-LOW RESISTANCE SC ×2 (00:08→05:37)
[2025-01-02] MEDS: ZOSYN IV ×2 (00:08→05:38)
[2025-01-02] MEDS: OFIRMEV IV ×2 (00:08→05:38)
[2025-01-02] MEDS: DILAUDID 0.75 MG IV ×2 (01:07→03:37)
[2025-01-02] MEDS: DILAUDID 0.5 MG IV (04:24)
[2025-01-02 07:30] VITALS: BP 110/48
[2025-01-02] MEDS: DILAUDID 1 MG IV ×2 (08:27→09:49)
[2025-01-02] MEDS: PROTONIX IV 40 MG IV (08:28)
[2025-01-02] MEDS: NSS (PRESERVATIVE FREE) 10 ML IV (08:28)
[2025-01-02] MEDS: LOPRESSOR IV (08:28)
--- NOTE | 2025-01-02 09:23 | W.PN.HOSP.TC ---
Today's Communication/Plan
-
Comfort care measure
Assessment / Plan
Assessment / Plan
Physical Exam
-
General: seems in pain and uncomfortable
HEENT: Normocephalic and Atraumatic, dry MM
Respiratory: Negative Wheezes
Cardiac: Regular Rhythm
GI: Soft, clean surgery site, not distended, mildly tender.
Genito-urinary: No Costovertebral Tender, + Clark
Neuro: lethargic
Psych: Calm, restless
Assessment:
# Goals of care discussion
Family decided to honor their mother wishes with DNR/ DNI, also focus on comfort care with pain control. Family will meet with hospice today.
# Ischemic bowel
Abdominal pain with acute mesenteric ischemia
- s/p emergent mesenteric artery thrombectomy/small bowel resection 12/26/2024
Patient had some stability but repeat CAT scan showed developing hematoma at anastomosis size with small bowel obstruction.
# TME
# Acute on Chronic back pain with opioid dependency
#Shock with hypotension: Resolved
combination of septic shock/ hemorrhagic shock
#JOSH
# UTI with E. coli/ESBL
History of Chronic macrocytic anemia
Acute blood loss anemia .
Acute thrombocytopenia,
Chronic heart failure preserved EF.
Permanent atrial fibrillation status post multiple ablations/ Permanent pacemaker.
TAVR/ Mitral tricuspid valve repair.
Peripheral neuropathy.
CAD.
TIA.
Hypothyroidism on IV Synthroid while unable to take oral pills
Breast cancer status postlumpectomy/XRT.
Chronic constipation.
DVT ppx: Comfort care now
CODE STATUS. Patient was DNR in the past. Discussed with patient and daughter, patient is DNR
Total dc time spent to see the patient, examine the patient, review data and lab results, discuss discharge/ treatment plan with patient, hospice nurse, surgery, nursing staff around 65 minutes
Anticipated Discharge: Today
Subjective/Interval History
-
Date of Service: January 02, 2025
Objective Data
-
Vital Signs:
Vital Signs
Temp Pulse Resp BP Pulse Ox
97.9 F 71 12 110/48 73
01/02/25 07:30 01/02/25 07:30 01/02/25 07:30 01/02/25 07:30 01/02/25 07:30
I&O
01/01/25 01/02/25 01/03/25
06:59 06:59 06:59
Intake Total 727 / 727 0 / 0
Output Total 1870 / 1870 300 / 300 300 / 300
Balance -1143 / -1143 -300 / -300 -300 / -300
--- NOTE | 2025-01-02 09:57 | CM ---
CM reviewed pt with hospice/home health aide- plan for [facility] admission today
Referral sent via [facility]
Discharge Disposition- [facility] hospice
== END 2025-01-02 10:11 | disposition hospice, inpatient (51) | DRG 853 ==
LOC: 2 NORTH 04:38
PROVIDERS: Emergency Medicine; Internal Medicine; Internal Medicine Critical Care Medicine; Nurse Practitioner; Nurse Practitioner Acute Care; Nurse Practitioner Family; Nurse Practitioner Primary Care; Registered Nurse; Surgery; ADMITTING PHYSICIAN Internal Medicine; ATTENDING PHYSICIAN Internal Medicine; CONSULT PHYSICIAN Internal Medicine Critical Care Medicine; CONSULT PHYSICIAN Student in an Organized Health Care Education/Training Program; EMERGENCY PHYSICIAN Emergency Medicine; FAMILY PHYSICIAN Family Medicine; OTHER PHYSICIAN Surgery Vascular Surgery
PROC: 04C50ZZ Extirpation of Matter from Superior Mesenteric Artery, Open Approach (ICD-10-PCS; 2024-12-26)
PROC: 0DB80ZZ Excision of Small Intestine, Open Approach (ICD-10-PCS; 2024-12-26)
PROC: 30233N1 Transfusion of Nonautologous Red Blood Cells into Peripheral Vein, Percutaneous Approach (ICD-10-PCS; 2024-12-26)
PROC: 3E0336Z Introduction of Nutritional Substance into Peripheral Vein, Percutaneous Approach (ICD-10-PCS; 2024-12-28)
DX: A41.9 Sepsis, unspecified organism (principal); G92.8 Other toxic encephalopathy; K55.039 Acute (reversible) ischemia of large intestine, extent unspecified; K55.069 Acute infarction of intestine, part and extent unspecified; N17.0 Acute kidney failure with tubular necrosis; R65.21 Severe sepsis with septic shock; I50.32 Chronic diastolic (congestive) heart failure; K92.2 Gastrointestinal hemorrhage, unspecified; R57.9 Shock, unspecified; I48.21 Permanent atrial fibrillation; E46 Unspecified protein-calorie malnutrition; Z68.1 Body mass index [BMI] 19.9 or less, adult; E87.0 Hyperosmolality and hypernatremia; E87.1 Hypo-osmolality and hyponatremia; E87.20 Acidosis, unspecified; I11.0 Hypertensive heart disease with heart failure; Z51.5 Encounter for palliative care; G62.9 Polyneuropathy, unspecified; E03.9 Hypothyroidism, unspecified; L89.626 Pressure-induced deep tissue damage of left heel; L89.616 Pressure-induced deep tissue damage of right heel; G89.29 Other chronic pain; K21.9 Gastro-esophageal reflux disease without esophagitis; Z79.01 Long term (current) use of anticoagulants
CPT/HCPCS: 51701; 71045; 74174; 74176; 80048; 80053; 81003; 81015; 82570; 82962; 83605; 83690; 83735; 84100; 84300; 84478; 85014; 85018; 85025; 85027; 85610; 85730; 86850; 86900; 86901; 86920; 87040; 87071; 87086; 87186; 88304; 88307; 93005; 93288; 96361; 96374; 97163; 97167; 99291; P9016; P9045; P9047; Q9967

== ENCOUNTER 2025-01-02 10:12 | Inpatient (IN) | payer OTHER, SELFPAY ==
--- NOTE | 2025-01-02 10:22 | HOSPNOTE ---
Patient will be admitted inpatient hospice. Consents are signed and admissions called. Attending will place orders in chart.
[2025-01-02] MEDS: DILAUDID 1 MG IV (11:23)
[2025-01-02] MEDS: DILAUDID 50 IV (11:31)
[2025-01-02] MEDS: DILAUDID 0.25 MG IV ×2 (12:23→13:35)
--- NOTE | 2025-01-02 14:19 | W.DCSUMMARY ---
Discharge Summary
Discharge Data
Date of Admission: 01/02/25
Date of Discharge: 01/02/25
-
Pending Results: No
Hospital Course
89 years old female admitted to inpatient hospice care after undergoing bowel resection and thrombectomy for ischemic bowel. Patient was suffering from severe discomfort, abdominal and back pain. Patient received intravenous Dilaudid to control
her pain and discomfort. Hospice nurse followed the care. Help and support provided to the family. Patient peacefully on 01/02/25.
Discharge Plan
-
Patient Disposition:
Date/Time
Date/Time: 01/02/25 15:02
Discharge Date and Time
Discharge Date/Time: 01/02/25 15:02
Print Language: PORTUGUESE
--- NOTE | 2025-01-02 14:19 | W.DCSUMMARY ---
Discharge Summary
Discharge Data
Date of Admission: 12/26/24
Date of Discharge: 01/02/25
-
Pending Results: No
Hospital Course
89 years old female admitted to the hospital with abdominal pain, nausea and diarrhea. She was noted to be febrile with elevated lactic acid and leukocytosis. She had hyponatremia with sodium 127. Scan of the abdomen and pelvis showed occlusion
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
moderate long segment wall thickening of the descending colon with hypoenhancement suspicious for ischemic bowel/ischemic colitis, no pneumatosis. patient was evaluated by vascular surgery and general surgery. She was diagnosed with superior
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 Patient underwent exploratory laparotomy with small bowel resection primary anastomosis / with open superior mesenteric artery thrombectomy. Patient was admitted to intensive care unit
postoperatively with hemodynamic instability including hypotension. She was started on intravenous antibiotic. She was started intravenous heparin with close monitoring of blood work including hemoglobin and PTT. Patient had renal insufficiency
and was diagnosed with acute kidney injury. she was started on fluid replacement therapy with pressure support. Her hemodynamics improved. She was able to come off Levophed. Patient was started on total parenteral nutrition. Patient received
blood transfusion of 4 units. Patient was able to transfer to telemetry floor. She was maintained on total parenteral nutrition with daily monitoring of basic metabolic panel and complaint of blood counts. Patient continued to have abdominal
discomfort and acute on chronic back pain. Repeat scan study showed probable hematoma around region of small bowel anastomosis with inflammation and soft tissue thickening around the area resulting in high-grade bowel obstruction. Patient was
maintained n.p.o. and nasogastric was placed. Patient became very uncomfortable pulled NG tube and refused to place it back again. Patient continued to show signs of failure to thrive. She remained lethargic and requiring pain medication to help
with discomfort and back pain. Upon discussing goals of care and living wishes. Patient CODE STATUS was changed to DO NOT RESUSCITATE and DO NOT INTUBATE. With lack of clinical improvement, family decided to focus on comfort care and pain
management. Family met and discussed clinical course with surgery and medicine service. They met with hospice nurse and patient was admitted to inpatient hospice.
Discharge Plan
-
Patient Disposition: Hospice - Inpatient [facility]
Discharge Orders:
Discharge Patient (As Directed); Ordered 01/02/25
Ordered By: Angelina Bettencourt
Discharge Date and Time
Print Language: [place]
--- NOTE | 2025-01-02 15:27 | PTCARENOTE ---
Went in to medicated pt for dyspnea, no spontaneous respirations noted, no audible heart sounds. Cross coverage provider made aware. Family at bedside, emotional support provided.
--- NOTE | 2025-01-02 15:55 | W.PN.DEATH ---
Pronouncement of
-
Called to see patient to pronounce.
No spontaneous heart tones or respirations noted.
Patient not responsive to verbal stimuli.
Patient is pronounced .
Time of : 15:02
Date of : 01/02/25
Cause of : Ischemic colitis
--- NOTE | 2025-01-02 16:16 | CM ---
Pt admitted to [facility]
Cm will remain available for planning
--- NOTE | 2025-01-02 16:26 | VATNOTE ---
pt R upper arm PICC removed by VAT
== END 2025-01-02 15:02 | disposition expired | DRG 951 ==
LOC: 2 NORTH 10:12
PROVIDERS: ADMITTING PHYSICIAN Internal Medicine
DX: Z51.5 Encounter for palliative care (principal); K55.069 Acute infarction of intestine, part and extent unspecified; N17.9 Acute kidney failure, unspecified; Z66 Do not resuscitate; M54.9 Dorsalgia, unspecified; G89.29 Other chronic pain